=== PATIENT | male | born 1945 | race Caucasian/White ===

== ENCOUNTER 2017-11-17 11:18 | Inpatient (IN) | payer OTHER ==
[2017-11-17 11:18] VITALS: BMI 26.6
--- NOTE | 2017-11-17 12:10 | C.PDOC ---
History Of Present Illness 72 y/o male sent to the ED from [facility] with urinary retention. Patient has a Flower in place that was inserted in [facility] 2 weeks ago. He returned this week and went to clinic due to leaking around the Flower with some blood in the bag. Patient was then referred to ED for further evaluation and treatment. Otherwise he has no fever, chills, abdominal pain, or other complaints. Time Seen by Provider: 11/17/17 11:33 Chief Complaint (Nursing): Male Genitourinary History Per: Patient History/Exam Limitations: no limitations Onset/Duration Of Symptoms: Days Current Symptoms Are (Timing): Still Present Past Medical History Reviewed: Historical Data, Nursing Documentation, Vital Signs Vital Signs: Last Vital Signs Temp 98.0 F 11/17/17 13:38 Pulse 63 11/17/17 13:38 Resp 16 11/17/17 13:38 BP 128/78 11/17/17 13:38 Pulse Ox 97 11/17/17 14:29 - Medical History PMH: HTN Other PMH: Enlarged prostate Family History: States: No Known Family Hx - Social History Hx Tobacco Use: Yes Hx Alcohol Use: Yes Hx Substance Use: No - Immunization History Hx Tetanus Toxoid Vaccination: No Hx Influenza Vaccination: No Review Of Systems Except As Marked, All Systems Reviewed And Found Negative. Genitourinary: Positive for: Other (Urinary retention) Physical Exam - Physical Exam Appears: Non-toxic, No Acute Distress Skin: Normal Color, Warm, Dry Head: Atraumatic, Normacephalic Eye(s): bilateral: Normal Inspection, PERRL, EOMI Oral Mucosa: Moist Neck: Normal ROM, Supple Chest: Symmetrical Cardiovascular: Rhythm Regular, No Murmur Respiratory: Normal Breath Sounds, No Rales, No Rhonchi, No Wheezing Gastrointestinal/Abdominal: Soft, Tenderness (to suprapubic area), Distention, Other (Flower catheter in place with blood in bag) Male Genital: Normal Inspection, No Testicular Tenderness Neurological/Psych: Oriented x3, Normal Speech ED Course And Treatment - Laboratory Results Result Diagrams: 11/17/17 12:03 11/17/17 12:03 O2 Sat by Pulse Oximetry: 97 (RA) Pulse Ox Interpretation: Normal Medical Decision Making Medical Decision Making: Impression: Urinary retention, Flower replacement Initial Plan: --CMP --Lipase --CBC --UA --Urine culture Procedure: Flower catheter removed. Bladder irrigation was then initiated with removal of clots and flow reestablished. Flower catheter replaced in the ED. On reevaluation, clots still present in the bag, patient has not cleared the CBI. 2:30 Case discussed w/ hospitalist on-call, Dr. Person, patient accepted of obs admission for hematuria. Dr. Mannie Hadley, urology on-call, to consult. Disposition Discussed With .: Tyrese Person Counseled Patient/Family Regarding: Studies Performed, Diagnosis - Disposition Referrals: Mannie Hadley MD [Staff Provider] - Disposition: HOSPITALIZED Disposition Time: 14:29 Condition: FAIR Forms: [facility] (Slovenian) - Clinical Impression Clinical Impression: Hematuria - Scribe Statement The provider has reviewed the documentation as recorded by the Scribe (Vicky Calderon) Provider Attestation: All medical record entries made by the Scribe were at my direction and personally dictated by me. I have reviewed the chart and agree that the record accurately reflects my personal performance of the history, physical exam, medical decision making, and the department course for this patient. I have also personally directed, reviewed, and agree with the discharge instructions and disposition.
[2017-11-17 12:12] LABS: BASO # 0.1 K/uL (0.0-0.2); BASO % 0.7 % (0.0-2.0); EOS # 0.2 K/uL (0.0-0.7); EOS % 2.6 % (0.0-4.0); HEMOGLOBIN 16.3 g/dL (12.0-18.0); LYMPH # 2.2 K/uL (1.0-4.3); LYMPH % 27.1 % (20.0-40.0); MEAN CELL VOLUME 93.5 fL (80.0-94.0); MEAN CORPUSCULAR HEMOGLOBIN 33.1 pg (27.0-31.0); MEAN CORPUSCULAR HGB CONC 35.4 g/dL (33.0-37.0); MEAN PLATELET VOLUME 8.9 fL (7.2-11.7); MONO # 0.5 K/uL (0.0-0.8); MONO % 6.3 % (0.0-10.0); NEUT # 5.2 K/uL (1.8-7.0); NEUT % 63.3 % (50.0-75.0); NRBC % 0.1 % (0.0-2.0); RBC 4.92 Mil/uL (4.40-5.90); RED CELL DISTRIBUTION WIDTH 14.1 % (11.5-14.5); WHITE BLOOD COUNT 8.3 K/uL (4.8-10.8)
[2017-11-17 12:24] LABS: URINE BACTERIA OCC (<OCC); URINE BILIRUBIN NEGATIVE (NEGATIVE); URINE BLOOD 2+ (NEGATIVE); URINE CLARITY Hazy (Clear); URINE COLOR Red (YELLOW); URINE GLUCOSE (UA) 1+ mg/dL (Normal); URINE LEUKOCYTE ESTERASE NEG Leu/uL (Negative); URINE PROTEIN 2+ mg/dL (NEGATIVE); URINE UROBILINOGEN NORMAL mg/dL (0.2-1.0); WBC CLUMPS FEW /hpf
[2017-11-17 12:30] LABS: ALT/SGPT 36 U/L (21-72); AST/SGOT 35 U/L (17-59); BLOOD UREA NITROGEN 21 mg/dL (9-20); CALCIUM 9.2 mg/dl (8.6-10.4); GFR AFRICAN-AMERICAN > 60; GFR NON-AFRICAN AMERICAN > 60; LIPASE 69 U/L (23-300)
--- NOTE | 2017-11-17 15:38 | CP.PCM.HP ---
<Magi Snell - Last Filed: 11/17/17 15:55> History of Present Illness - History of Present Illness History of Present Illness: CC: Hematuria HPI: Patient is a 72 year old male with past medical history of HTN and BPH who presents to the ED as per PMD at [facility] for hematuria. Patient reports that he had a kar[facility] placed approximately [facility] days ago in [facility] for severe urinary retention and started to note evgeny hematuria approximately 2 days ago. Patient reports that he flew in from [facility] yesterday. Patient reports associated symptom of lower abdominal/Pelvic dysfunction. Patient denies fever, chills, nausea, vomiting, chest pain, palpitations, SOB, dysuria, diarrhea or constipation. As per ED nursing staff, patient passed few clots in urine upon admission. PMD: Dr. Shultz PSHx: Denies FHx: Mother 20 years ago, had an upper back mass Medications: lisinopril 20mg PO daily and ASA 81mg PO daily Allergies: NKDA Social Hx: Lives with daughter, stays with daughter in the [facility] for approximately 6 months and [facility] for 6 months. Smoker for > 20 years and admits to social ETOH use, denies current or former use of illicit drug. No written advance directive but daughterPatsy will be the next of kin Present on Admission - Present on Admission Any Indicators Present on Admission: Yes Urinary Catheter: Yes (Urinary retention ) Review of Systems - Constitutional Constitutional: absent: Chills, Fever, Headache, Weakness - EENT Eyes: absent: Blurred Vision, Change in Vision Ears: absent: Dizziness - Cardiovascular Cardiovascular: absent: Chest Pain, Chest Pain at Rest, Diaphoresis, Dyspnea, Dyspnea on Exertion, Orthopnea, Palpitations, Paroxysmal Nocturnal Dyspnea - Respiratory Respiratory: absent: Cough, Dyspnea, Dyspnea on Exertion - Gastrointestinal Gastrointestinal: absent: Abdominal Pain, Bloating, Cramping, Diarrhea, Hematemesis, Hematochezia, Nausea, Vomiting - Genitourinary Genitourinary: Difficulty Urinating, Hematuria, Urinary Hesitance, Bladder Distension. absent: Dysuria, Flank Pain, Urinary Frequency, Urinary Urgency - Musculoskeletal Musculoskeletal: absent: Back Pain, Numbness, Stiffness, Tingling - Neurological Neurological: absent: Confusion, Dizziness, Headaches, Syncope, Tingling, Weakness - Endocrine Endocrine: absent: Fatigue, Palpitations Past Patient History - Past Social History Smoking Status: Heavy Smoker > 10 Cigarettes Daily - CARDIAC Hx Hypertension: Yes - GENITOURINARY/GYNECOLOGICAL Hx Prostate Problems: Yes (Enlarged prostate) - PSYCHIATRIC Hx Substance Use: No - ANESTHESIA Hx Anesthesia: No Hx Anesthesia Reactions: No Meds Allergies/Adverse Reactions: Allergies Allergy/AdvReac Type Severity Reaction Status Date / Time No Known Allergies Allergy Verified 11/17/17 11:32 Physical Exam - Constitutional Appears: Well, No Acute Distress - Head Exam Head Exam: ATRAUMATIC, NORMAL INSPECTION - Eye Exam Eye Exam: EOMI, Normal appearance - ENT Exam ENT Exam: Mucous Membranes Moist - Respiratory Exam Respiratory Exam: Clear to Auscultation Bilateral, NORMAL BREATHING PATTERN. absent: Decreased Breath Sounds, Prolonged Expiratory Phase, Rhonchi, Wheezes, Respiratory Distress - Cardiovascular Exam Cardiovascular Exam: REGULAR RHYTHM, +S1, +S2. absent: Systolic Murmur - GI/Abdominal Exam GI & Abdominal Exam: Normal Bowel Sounds, Soft. absent: Distended, Guarding, Hypoactive Bowel Sounds, Organomegaly, Tenderness - Exam Additional comments: Karimi in place - Extremities Exam Extremities exam: Positive for: normal inspection. Negative for: calf tenderness, pedal edema - Neurological Exam Neurological exam: Alert, Oriented x3 - Psychiatric Exam Psychiatric exam: Normal Affect, Normal Mood - Skin Skin Exam: Normal Color Results - Vital Signs Recent Vital Signs: Last Vital Signs Temp 98.0 F 11/17/17 13:38 Pulse 63 11/17/17 13:38 Resp 16 11/17/17 13:38 BP 128/78 11/17/17 13:38 Pulse Ox 97 11/17/17 14:34 - Labs Result Diagrams: 11/17/17 12:03 11/17/17 12:03 Labs: Laboratory Results - last 24 hr 11/17/17 11/17/17 11/17/17 12:03 12:03 12:03 WBC 8.3 RBC 4.92 Hgb 16.3 Hct 46.0 MCV 93.5 MCH 33.1 H MCHC 35.4 RDW 14.1 Plt Count 236 MPV 8.9 Neut % (Auto) 63.3 Lymph % (Auto) 27.1 Hardy % (Auto) 6.3 Eos % (Auto) 2.6 Baso % (Auto) 0.7 Neut # (Auto) 5.2 Lymph # (Auto) 2.2 Hardy # (Auto) 0.5 Eos # (Auto) 0.2 Baso # (Auto) 0.1 Sodium 138 Potassium 3.8 Chloride 106 Carbon Dioxide 21 L Anion Gap 15 BUN 21 H Creatinine 1.0 Est GFR ( Amer) > 60 Est GFR (Non-Af Amer) > 60 Random Glucose 101 Calcium 9.2 Total Bilirubin 1.8 H AST 35 ALT 36 Alkaline Phosphatase 84 Total Protein 8.1 Albumin 4.0 Globulin 4.1 H Albumin/Globulin Ratio 1.0 Lipase 69 Urine Color Red Urine Clarity Hazy Urine pH 6.0 Ur Specific [place] 1.004 Urine Protein 2+ H Urine Glucose (UA) 1+ H Urine Ketones Negative Urine Blood 2+ H Urine Nitrate Negative Urine Bilirubin Negative Urine Urobilinogen Normal Ur Leukocyte Esterase Neg Urine WBC (Auto) 128 H Urine RBC (Auto) 3066 H Urine WBC Clumps (Auto) Few H Urine Bacteria Occ H Assessment & Plan (1) Hematuria Assessment and Plan: Secondary to BPH H/H stable Consultation: Urology, Dr. Hadley---> Help appreciated * Management as per recommendation Management: * CBI * Continue to monitor H/H with am labs * DVT: Anticoagulation contraindicated Status: Acute (2) BPH (benign prostatic hyperplasia) Assessment and Plan: F/u PSA and Free and total PSA Medication: * Flomax 0.4mg Po daily Status: Acute (3) Hypertension Assessment and Plan: Continue home medication * Lisinopril 20mg PO daily * Continue to monitor with vital signs Q4H Status: Acute (4) Prophylactic measure Assessment and Plan: GI: Not indicated DVT: SCDs All plans and management discussed with Dr. Person Status: Acute <Tyrese Person - Last Filed: 11/20/17 07:56> Results - Vital Signs Recent Vital Signs: Last Vital Signs Temp 97.9 F 11/19/17 23:40 Pulse 70 11/19/17 23:40 Resp 20 11/19/17 23:40 BP 109/70 11/19/17 23:40 Pulse Ox 94 L 11/19/17 23:40 - Labs Result Diagrams: 11/19/17 09:16 11/19/17 09:16 Labs: Laboratory Results - last 24 hr 11/19/17 11/19/17 11/19/17 09:16 09:16 11:29 WBC 7.9 RBC 4.95 Hgb 16.5 Hct 46.8 MCV 94.5 H MCH 33.3 H MCHC 35.2 RDW 13.8 Plt Count 227 MPV 8.7 Neut % (Auto) 63.3 Lymph % (Auto) 29.7 Hardy % (Auto) 4.0 Eos % (Auto) 2.3 Baso % (Auto) 0.7 Neut # (Auto) 5.0 Lymph # (Auto) 2.3 Hardy # (Auto) 0.3 Eos # (Auto) 0.2 Baso # (Auto) 0.1 Sodium 142 Potassium 3.6 Chloride 104 Carbon Dioxide 26 Anion Gap 16 BUN 14 Creatinine 1.0 Est GFR ( Amer) > 60 Est GFR (Non-Af Amer) > 60 POC Glucose (mg/dL) 116 H Random Glucose 128 H Calcium 9.3 Phosphorus 3.3 Magnesium 2.0 Total Bilirubin 2.7 H AST 37 ALT 34 Alkaline Phosphatase 82 Total Protein 8.0 Albumin 3.9 Globulin 4.1 H Albumin/Globulin Ratio 0.9 L Attending/Attestation - Attestation I have personally seen and examined this patient.: Yes I have fully participated in the care of the patient.: Yes I have reviewed all pertinent clinical information: Yes Notes (Text): Seen and examined with the resident in the ER. Spoke to her daughter at bedside Patient has gross hematuria on CBI 72 years old male with history of BPH and HTN was brought with karimi cath for hematuria. His karimi cath placed for urinary retension [facility] ago in [facility]. Plan discussed with the resident. start on flomax and follow urologist I agree with the resident's documentation of the assessment and plan
[2017-11-18 07:44] LABS: BASO # 0.1 K/uL (0.0-0.2); EOS # 0.2 K/uL (0.0-0.7); EOS % 2.2 % (0.0-4.0); HEMOGLOBIN 15.7 g/dL (12.0-18.0); LYMPH # 2.2 K/uL (1.0-4.3); LYMPH % 23.3 % (20.0-40.0); MEAN CELL VOLUME 93.3 fL (80.0-94.0); MEAN CORPUSCULAR HEMOGLOBIN 32.7 pg (27.0-31.0); MEAN PLATELET VOLUME 8.3 fL (7.2-11.7); MONO # 0.6 K/uL (0.0-0.8); MONO % 6.2 % (0.0-10.0); NEUT # 6.4 K/uL (1.8-7.0); NEUT % 67.3 % (50.0-75.0); NRBC % 0.1 % (0.0-2.0); RBC 4.82 Mil/uL (4.40-5.90); WHITE BLOOD COUNT 9.4 K/uL (4.8-10.8)
[2017-11-18 07:51] LABS: INR 1.2; PROTHROMBIN TIME 13.2 SECONDS (9.7-12.2)
[2017-11-18 08:16] LABS: ALBUMIN 3.6 g/dL (3.5-5.0); ALT/SGPT 29 U/L (21-72); AST/SGOT 27 U/L (17-59); BLOOD UREA NITROGEN 16 mg/dL (9-20); GFR AFRICAN-AMERICAN > 60; GFR NON-AFRICAN AMERICAN > 60
[2017-11-18 10:35] VITALS: RESP 20
--- NOTE | 2017-11-18 15:46 | CP.PCM.PN ---
Subjective - Date & Time of Evaluation Date of Evaluation: 11/18/17 Time of Evaluation: 07:50 - Subjective Subjective: Medicine progress note ( Dr. Person's service) Patient was seen and examined at bedside with two family members present. Patient reports that he is doing well with no new complaint. Patient denies fever, chills, nausea, vomiting, chest pain, palpitations, abdominal pain, diarrhea or constipation and dizziness. Objective - Vital Signs/Intake and Output Vital Signs (last 24 hours): Temp Pulse Resp BP Pulse Ox 98.3 F 79 20 131/79 93 L 11/18/17 07:34 11/18/17 07:34 11/18/17 07:34 11/18/17 07:34 11/18/17 12:57 Intake and Output: 11/18/17 11/18/17 06:59 18:59 Intake Total 120 76657 Output Total 1800 15858 Balance -1680 1950 - Medications Medications: Current Medications Lisinopril (Zestril) 20 mg PO DAILY [facility] Last Admin: 11/18/17 10:04 Dose: 20 mg Pneumococcal Polyvalent Vaccine (Pneumovax 23 Vaccine) 0.5 ml IM .ONCE ONE Stop: 11/20/17 10:01 Tamsulosin HCl (Flomax) 0.4 mg PO DAILY [facility] Last Admin: 11/18/17 10:03 Dose: 0.4 mg - Labs Labs: 11/18/17 07:36 11/18/17 07:36 PT 13.2 SECONDS (9.7-12.2) H 11/18/17 07:36 INR 1.2 11/18/17 07:36 APTT 30 SECONDS (21-34) 11/18/17 07:36 - Constitutional Appears: Well, No Acute Distress - Head Exam Head Exam: ATRAUMATIC - Eye Exam Eye Exam: EOMI - ENT Exam ENT Exam: Mucous Membranes Moist - Respiratory Exam Respiratory Exam: Clear to Ausculation Bilateral, NORMAL BREATHING PATTERN. absent: Prolonged Expiratory Phase, Rhonchi, Wheezes, Respiratory Distress - Cardiovascular Exam Cardiovascular Exam: REGULAR RHYTHM, +S1, +S2 - GI/Abdominal Exam GI & Abdominal Exam: Soft, Normal Bowel Sounds - Exam Additional comments: Flower in place Blood-tinged urine output and clots - Extremities Exam Extremities Exam: Normal Inspection - Neurological Exam Neurological Exam: Alert, Awake, Oriented x3 - Psychiatric Exam Psychiatric exam: Normal Affect - Skin Skin Exam: Normal Color Assessment and Plan (1) Hematuria Assessment & Plan: Secondary to BPH H/H stable Consultation: Urology, Dr. Hadley---> Help appreciated * Management as per recommendation Management: * CBI * Continue to monitor H/H with am labs * DVT: Anticoagulation contraindicated Status: Acute (2) BPH (benign prostatic hyperplasia) Assessment & Plan: PSA A.5 f/U Free and total PSA Medication: * Flomax 0.4mg Po daily Status: Acute (3) Hypertension Assessment & Plan: Stable Continue home medication * Lisinopril 20mg PO daily * Continue to monitor with vital signs Q4H Status: Acute (4) Prophylactic measure Assessment & Plan: GI: Not indicated DVT: SCDs, ambulating All plans and management discussed with Dr. Person Status: Acute
[2017-11-19 09:22] LABS: BASO # 0.1 K/uL (0.0-0.2); BASO % 0.7 % (0.0-2.0); EOS # 0.2 K/uL (0.0-0.7); EOS % 2.3 % (0.0-4.0); HEMOGLOBIN 16.5 g/dL (12.0-18.0); LYMPH # 2.3 K/uL (1.0-4.3); LYMPH % 29.7 % (20.0-40.0); MEAN CELL VOLUME 94.5 fL (80.0-94.0); MEAN CORPUSCULAR HEMOGLOBIN 33.3 pg (27.0-31.0); MEAN CORPUSCULAR HGB CONC 35.2 g/dL (33.0-37.0); MEAN PLATELET VOLUME 8.7 fL (7.2-11.7); MONO # 0.3 K/uL (0.0-0.8); NEUT % 63.3 % (50.0-75.0); RBC 4.95 Mil/uL (4.40-5.90); RED CELL DISTRIBUTION WIDTH 13.8 % (11.5-14.5); WHITE BLOOD COUNT 7.9 K/uL (4.8-10.8)
[2017-11-19 09:51] LABS: ALB/GLOB RATIO 0.9 (1.0-2.1); ALBUMIN 3.9 g/dL (3.5-5.0); ALT/SGPT 34 U/L (21-72); AST/SGOT 37 U/L (17-59); BLOOD UREA NITROGEN 14 mg/dL (9-20); CALCIUM 9.3 mg/dl (8.6-10.4); GFR AFRICAN-AMERICAN > 60; GFR NON-AFRICAN AMERICAN > 60
--- NOTE | 2017-11-19 12:25 | CP.PCM.DIS ---
<Magi Snell E - Last Filed: 11/19/17 12:59> Provider - Provider Date of Admission: 11/17/17 14:47 Attending physician: Tyrese Person MD Time Spent in preparation of Discharge (in minutes): 35 Diagnosis - Discharge Diagnosis (1) Hematuria Status: Acute (2) BPH (benign prostatic hyperplasia) Status: Chronic (3) Hypertension Status: Chronic (4) Prophylactic measure Status: Acute Hospital Course - Lab Results Lab Results: Micro Results 11/17/17 11:34 Urine Urine Culture - Final 10-50,000 CFU/ML. MULTIPLE SPECIES. PROBABLE CONTAMINATION. Most Recent Lab Values WBC 7.9 K/uL (4.8-10.8) 11/19/17 09:16 RBC 4.95 Mil/uL (4.40-5.90) 11/19/17 09:16 Hgb 16.5 g/dL (12.0-18.0) 11/19/17 09:16 Hct 46.8 % (35.0-51.0) 11/19/17 09:16 MCV 94.5 fL (80.0-94.0) H 11/19/17 09:16 MCH 33.3 pg (27.0-31.0) H 11/19/17 09:16 MCHC 35.2 g/dL (33.0-37.0) 11/19/17 09:16 RDW 13.8 % (11.5-14.5) 11/19/17 09:16 Plt Count 227 K/uL (130-400) 11/19/17 09:16 MPV 8.7 fL (7.2-11.7) 11/19/17 09:16 Neut % (Auto) 63.3 % (50.0-75.0) 11/19/17 09:16 Lymph % (Auto) 29.7 % (20.0-40.0) 11/19/17 09:16 [place] % (Auto) 4.0 % (0.0-10.0) 11/19/17 09:16 Eos % (Auto) 2.3 % (0.0-4.0) 11/19/17 09:16 Baso % (Auto) 0.7 % (0.0-2.0) 11/19/17 09:16 Neut # (Auto) 5.0 K/uL (1.8-7.0) 11/19/17 09:16 Lymph # (Auto) 2.3 K/uL (1.0-4.3) 11/19/17 09:16 [place] # (Auto) 0.3 K/uL (0.0-0.8) 11/19/17 09:16 Eos # (Auto) 0.2 K/uL (0.0-0.7) 11/19/17 09:16 Baso # (Auto) 0.1 K/uL (0.0-0.2) 11/19/17 09:16 PT 13.2 SECONDS (9.7-12.2) H 11/18/17 07:36 INR 1.2 11/18/17 07:36 APTT 30 SECONDS (21-34) 11/18/17 07:36 Sodium 142 mmol/L (132-148) 11/19/17 09:16 Potassium 3.6 mmol/L (3.6-5.2) 11/19/17 09:16 Chloride 104 mmol/L (98-107) 11/19/17 09:16 Carbon Dioxide 26 mmol/L (22-30) 11/19/17 09:16 Anion Gap 16 (10-20) 11/19/17 09:16 BUN 14 mg/dL (9-20) 11/19/17 09:16 Creatinine 1.0 mg/dL (0.8-1.5) 11/19/17 09:16 Est GFR ( Amer) > 60 11/19/17 09:16 Est GFR (Non-Af Amer) > 60 11/19/17 09:16 POC Glucose (mg/dL) 116 mg/dL (65-110) H 11/19/17 11:29 Random Glucose 128 mg/dL (75-110) H 11/19/17 09:16 Calcium 9.3 mg/dl (8.6-10.4) 11/19/17 09:16 Phosphorus 3.3 mg/dL (2.5-4.5) 11/19/17 09:16 Magnesium 2.0 mg/dL (1.6-2.3) 11/19/17 09:16 Total Bilirubin 2.7 mg/dL (0.2-1.3) H 11/19/17 09:16 AST 37 U/L (17-59) 11/19/17 09:16 ALT 34 U/L (21-72) 11/19/17 09:16 Alkaline Phosphatase 82 U/L (38-126) 11/19/17 09:16 Total Protein 8.0 g/dL (6.3-8.3) 11/19/17 09:16 Albumin 3.9 g/dL (3.5-5.0) 11/19/17 09:16 Globulin 4.1 gm/dL (2.2-3.9) H 11/19/17 09:16 Albumin/Globulin Ratio 0.9 (1.0-2.1) L 11/19/17 09:16 Lipase 69 U/L (23-300) 11/17/17 12:03 Prostate Specific Ag 18.5 ng/mL (0.00-4.0) H 11/17/17 16:19 Urine Color Red (YELLOW) 11/17/17 12:03 Urine Clarity Hazy (Clear) 11/17/17 12:03 Urine pH 6.0 (5.0-8.0) 11/17/17 12:03 Ur Specific Hanna 1.004 (1.003-1.030) 11/17/17 12:03 Urine Protein 2+ mg/dL (NEGATIVE) H 11/17/17 12:03 Urine Glucose (UA) 1+ mg/dL (Normal) H 11/17/17 12:03 Urine Ketones Negative mg/dL (NEGATIVE) 11/17/17 12:03 Urine Blood 2+ (NEGATIVE) H 11/17/17 12:03 Urine Nitrate Negative (NEGATIVE) 11/17/17 12:03 Urine Bilirubin Negative (NEGATIVE) 11/17/17 12:03 Urine Urobilinogen Normal mg/dL (0.2-1.0) 11/17/17 12:03 Ur Leukocyte Esterase Neg Dyllan/uL (Negative) 11/17/17 12:03 Urine WBC (Auto) 128 /hpf (0-5) H 11/17/17 12:03 Urine RBC (Auto) 3066 /hpf (0-3) H 11/17/17 12:03 Urine WBC Clumps (Auto) Few /hpf (NONE) H 11/17/17 12:03 Urine Bacteria Occ (<OCC) H 11/17/17 12:03 - Hospital Course Hospital Course: HPI (As per admission): Patient is a 72 year old male with past medical history of HTN and BPH who presents to the ED as per PMD at [facility] for hematuria. Patient reports that he had a karimi placed approximately 9 days ago in [facility] for severe urinary retention and started to note evgeny hematuria approximately 2 days ago. Patient reports that he flew in from [place] yesterday. Patient reports associated symptom of lower abdominal/Pelvic dysfunction. Patient denies fever, chills, nausea, vomiting, chest pain, palpitations, SOB, dysuria, diarrhea or constipation. As per ED nursing staff, patient passed few clots in urine upon admission. Hospital Course: Patient was admitted with the consideration of hematuria. 18 thai karimi catheter was placed and CBI was started upon admission and over the course of admission. Blood clot was noted on admission and Day 1 and Day 2 of admission. On day 2 of admission, patient's urine was much cleared; pink color. Patient remained hemodynamically stable with stable H/H. Urology, Dr. Us was consulted who recommended outpatient follow up with him and for discharge with karimi catheter. This is a brief summary of event. For a complete course, please refer to the medical record. Discharge Exam - Head Exam Head Exam: ATRAUMATIC Discharge Plan - Discharge Medications Prescriptions: Lisinopril [Zestril] 20 mg PO DAILY 30 Days #30 tab Tamsulosin [Flomax] 0.4 mg PO DAILY 30 Days #30 cap - Follow Up Plan Condition: FAIR Disposition: HOME/ ROUTINE Instructions: Blood in the Urine (Hematuria) in Adults, Benign Prostatic Hyperplasia (Enlarged Prostate) (DC), Blood in the Urine (Hematuria), Adult (DC) Additional Instructions: Please discharge patient home as per Dr. Hadley As per Dr. Mannie Hadley's instruction, patient is to be discharge with a karimi and to follow up with him in the office tomorrow or within a week, [phone] Mannie Hadley's office [address] [place] [address] Please resume your home medications: 1. Lisinopril 20mg PO daily 2. Flomax 0.4mg PO daily Please follow up with your primary care physician at [facility] [place], [phone] Please return to the hospital if symptoms worsens or resume Please take care Referrals: Mannie Hadley MD [Staff Provider] - <Shagufta North - Last Filed: 11/20/17 17:45> Provider - Provider Date of Admission: 11/19/17 16:28 Attending physician: Tyrese Person MD Hospital Course - Lab Results Lab Results: Micro Results 11/17/17 11:34 Urine Urine Culture - Final 10-50,000 CFU/ML. MULTIPLE SPECIES. PROBABLE CONTAMINATION. Most Recent Lab Values WBC 8.2 K/uL (4.8-10.8) 11/20/17 08:12 RBC 4.69 Mil/uL (4.40-5.90) 11/20/17 08:12 Hgb 15.4 g/dL (12.0-18.0) 11/20/17 08:12 Hct 44.1 % (35.0-51.0) 11/20/17 08:12 MCV 94.1 fL (80.0-94.0) H 11/20/17 08:12 MCH 32.9 pg (27.0-31.0) H 11/20/17 08:12 MCHC 35.0 g/dL (33.0-37.0) 11/20/17 08:12 RDW 14.0 % (11.5-14.5) 11/20/17 08:12 Plt Count 196 K/uL (130-400) 11/20/17 08:12 MPV 8.6 fL (7.2-11.7) 11/20/17 08:12 Neut % (Auto) 67.2 % (50.0-75.0) 11/20/17 08:12 Lymph % (Auto) 22.4 % (20.0-40.0) 11/20/17 08:12 [place] % (Auto) 6.9 % (0.0-10.0) 11/20/17 08:12 Eos % (Auto) 3.1 % (0.0-4.0) 11/20/17 08:12 Baso % (Auto) 0.4 % (0.0-2.0) 11/20/17 08:12 Neut # (Auto) 5.5 K/uL (1.8-7.0) 11/20/17 08:12 Lymph # (Auto) 1.8 K/uL (1.0-4.3) 11/20/17 08:12 [place] # (Auto) 0.6 K/uL (0.0-0.8) 11/20/17 08:12 Eos # (Auto) 0.3 K/uL (0.0-0.7) 11/20/17 08:12 Baso # (Auto) 0.0 K/uL (0.0-0.2) 11/20/17 08:12 PT 13.2 SECONDS (9.7-12.2) H 11/18/17 07:36 INR 1.2 11/18/17 07:36 APTT 30 SECONDS (21-34) 11/18/17 07:36 Sodium 141 mmol/L (132-148) 11/20/17 08:12 Potassium 4.0 mmol/L (3.6-5.2) 11/20/17 08:12 Chloride 106 mmol/L (98-107) 11/20/17 08:12 Carbon Dioxide 24 mmol/L (22-30) 11/20/17 08:12 Anion Gap 15 (10-20) 11/20/17 08:12 BUN 18 mg/dL (9-20) 11/20/17 08:12 Creatinine 1.0 mg/dL (0.8-1.5) 11/20/17 08:12 Est GFR ( Amer) > 60 11/20/17 08:12 Est GFR (Non-Af Amer) > 60 11/20/17 08:12 POC Glucose (mg/dL) 116 mg/dL (65-110) H 11/19/17 11:29 Random Glucose 98 mg/dL (75-110) 11/20/17 08:12 Calcium 9.1 mg/dl (8.6-10.4) 11/20/17 08:12 Phosphorus 3.9 mg/dL (2.5-4.5) 11/20/17 08:12 Magnesium 2.1 mg/dL (1.6-2.3) 11/20/17 08:12 Total Bilirubin 2.3 mg/dL (0.2-1.3) H 11/20/17 08:12 AST 37 U/L (17-59) 11/20/17 08:12 ALT 39 U/L (21-72) 11/20/17 08:12 Alkaline Phosphatase 77 U/L (38-126) 11/20/17 08:12 Total Protein 7.4 g/dL (6.3-8.3) 11/20/17 08:12 Albumin 3.5 g/dL (3.5-5.0) 11/20/17 08:12 Globulin 3.9 gm/dL (2.2-3.9) 11/20/17 08:12 Albumin/Globulin Ratio 0.9 (1.0-2.1) L 11/20/17 08:12 Lipase 69 U/L (23-300) 11/17/17 12:03 Prostate Specific Ag 18.5 ng/mL (0.00-4.0) H 11/17/17 16:19 Urine Color Red (YELLOW) 11/17/17 12:03 Urine Clarity Hazy (Clear) 11/17/17 12:03 Urine pH 6.0 (5.0-8.0) 11/17/17 12:03 Ur Specific Hanna 1.004 (1.003-1.030) 11/17/17 12:03 Urine Protein 2+ mg/dL (NEGATIVE) H 11/17/17 12:03 Urine Glucose (UA) 1+ mg/dL (Normal) H 11/17/17 12:03 Urine Ketones Negative mg/dL (NEGATIVE) 11/17/17 12:03 Urine Blood 2+ (NEGATIVE) H 11/17/17 12:03 Urine Nitrate Negative (NEGATIVE) 11/17/17 12:03 Urine Bilirubin Negative (NEGATIVE) 11/17/17 12:03 Urine Urobilinogen Normal mg/dL (0.2-1.0) 11/17/17 12:03 Ur Leukocyte Esterase Neg Dyllan/uL (Negative) 11/17/17 12:03 Urine WBC (Auto) 128 /hpf (0-5) H 11/17/17 12:03 Urine RBC (Auto) 3066 /hpf (0-3) H 11/17/17 12:03 Urine WBC Clumps (Auto) Few /hpf (NONE) H 11/17/17 12:03 Urine Bacteria Occ (<OCC) H 11/17/17 12:03 Discharge Exam - Additional Findings Additional findings: - Constitutional Appears: Well, No Acute Distress - Head Exam Head Exam: ATRAUMATIC - Eye Exam Eye Exam: EOMI - ENT Exam ENT Exam: Mucous Membranes Moist - Respiratory Exam Respiratory Exam: Clear to Ausculation Bilateral, NORMAL BREATHING PATTERN. absent: Prolonged Expiratory Phase, Rhonchi, Wheezes, Respiratory Distress - Cardiovascular Exam Cardiovascular Exam: REGULAR RHYTHM, +S1, +S2 - GI/Abdominal Exam GI & Abdominal Exam: Soft, Normal Bowel Sounds - Exam Additional comments: Karimi in place yellow urine in karimi bag - Extremities Exam Extremities Exam: Normal Inspection - Neurological Exam Neurological Exam: Alert, Awake, Oriented x3 - Psychiatric Exam Psychiatric exam: Normal Affect - Skin Skin Exam: Normal Color
--- NOTE | 2017-11-19 16:22 | CP.PCM.PN ---
Subjective - Date & Time of Evaluation Date of Evaluation: 11/19/17 Time of Evaluation: 08:00 - Subjective Subjective: Medicine progress note ( Dr. Person's service) Patient was seen and examined at bedside with multiple family member. Patient reports that he is doing well with no new complaint. Patient denies fever, chills, nausea, vomiting, chest pain, palpitations, abdominal pain, diarrhea or constipation and dizziness. Patient was cleared for discharge, however, upon discharge, patient's karimi was noted to be bright red. Dr. Hadley was made aware, who states that his plans for cystoscopy is for outpatient follow up and discharge is at the discretion of the medicine team. Discharge was held due to gross hematuria, patient is to be monitor overnight with going CBI. Objective - Vital Signs/Intake and Output Vital Signs (last 24 hours): Temp Pulse Resp BP Pulse Ox 98.3 F 78 20 156/86 H 97 11/19/17 08:00 11/19/17 08:00 11/19/17 08:00 11/19/17 08:00 11/19/17 08:05 Intake and Output: 11/19/17 11/19/17 06:59 18:59 Intake Total 620 Output Total 1055 Balance -435 - Medications Medications: Current Medications Lisinopril (Zestril) 20 mg PO DAILY [facility] Last Admin: 11/19/17 10:54 Dose: 20 mg Pneumococcal Polyvalent Vaccine (Pneumovax 23 Vaccine) 0.5 ml IM .ONCE ONE Stop: 11/20/17 10:01 Tamsulosin HCl (Flomax) 0.4 mg PO DAILY [facility] Last Admin: 11/19/17 10:54 Dose: 0.4 mg - Labs Labs: 11/19/17 09:16 11/19/17 09:16 PT 13.2 SECONDS (9.7-12.2) H 11/18/17 07:36 INR 1.2 11/18/17 07:36 APTT 30 SECONDS (21-34) 11/18/17 07:36 - Constitutional Appears: Well, No Acute Distress - Head Exam Head Exam: ATRAUMATIC, NORMAL INSPECTION - Eye Exam Eye Exam: EOMI, Normal appearance - ENT Exam ENT Exam: Mucous Membranes Moist - Respiratory Exam Respiratory Exam: Clear to Ausculation Bilateral, NORMAL BREATHING PATTERN. absent: Prolonged Expiratory Phase, Rhonchi, Wheezes, Respiratory Distress - Cardiovascular Exam Cardiovascular Exam: REGULAR RHYTHM, +S1, +S2. absent: Murmur - GI/Abdominal Exam GI & Abdominal Exam: Soft, Normal Bowel Sounds. absent: Firm, Guarding, Rigid, Tenderness - Extremities Exam Extremities Exam: Calf Tenderness. absent: Full ROM, Normal Inspection, Pedal Edema - Neurological Exam Neurological Exam: Alert, Awake, Oriented x3 - Psychiatric Exam Psychiatric exam: Normal Affect - Skin Skin Exam: Normal Color Assessment and Plan (1) Hematuria Assessment & Plan: Secondary to BPH H/H stable Consultation: Urology, Dr. Hadley---> Help appreciated * Management as per recommendation * Plans for outpatient follow up Management: * CBI * Continue to monitor H/H with am labs * DVT: Anticoagulation contraindicated Status: Acute (2) BPH (benign prostatic hyperplasia) Assessment & Plan: PSA A.5 f/U Free and total PSA Medication: * Flomax 0.4mg Po daily Status: Chronic (3) Hypertension Assessment & Plan: Stable Continue home medication * Lisinopril 20mg PO daily * Continue to monitor with vital signs Q4H Status: Chronic (4) Prophylactic measure Assessment & Plan: GI: Not indicated DVT: SCDs, ambulating ( VTE contraindicated due to gross hematuria) Disposition: Possible D/C tomorrow as long as karimi without gross hematuria All plans and management discussed with Dr. Person Status: Acute
[2017-11-20 08:19] LABS: BASO % 0.4 % (0.0-2.0); EOS # 0.3 K/uL (0.0-0.7); EOS % 3.1 % (0.0-4.0); HEMOGLOBIN 15.4 g/dL (12.0-18.0); LYMPH # 1.8 K/uL (1.0-4.3); LYMPH % 22.4 % (20.0-40.0); MEAN CELL VOLUME 94.1 fL (80.0-94.0); MEAN CORPUSCULAR HEMOGLOBIN 32.9 pg (27.0-31.0); MEAN PLATELET VOLUME 8.6 fL (7.2-11.7); MONO # 0.6 K/uL (0.0-0.8); MONO % 6.9 % (0.0-10.0); NEUT # 5.5 K/uL (1.8-7.0); NEUT % 67.2 % (50.0-75.0); NRBC % 0.1 % (0.0-2.0); RBC 4.69 Mil/uL (4.40-5.90); WHITE BLOOD COUNT 8.2 K/uL (4.8-10.8)
[2017-11-20 08:26] VITALS: BP 109/68; PULSE 75; TEMP 98.8; O2SAT 96
[2017-11-20 08:37] LABS: ALB/GLOB RATIO 0.9 (1.0-2.1); ALBUMIN 3.5 g/dL (3.5-5.0); ALT/SGPT 39 U/L (21-72); AST/SGOT 37 U/L (17-59); BLOOD UREA NITROGEN 18 mg/dL (9-20); CALCIUM 9.1 mg/dl (8.6-10.4); GFR AFRICAN-AMERICAN > 60; GFR NON-AFRICAN AMERICAN > 60
[2017-11-20] MEDS ORDERED: Pneumococcal 23-Valent Vaccine IM ONE (10:00)
[2017-11-21 00:55] LABS: TOTAL PSA 24.6 ng/mL (< or = 4.0)
== END 2017-11-20 13:10 | disposition home or self-care (01) | DRG 349 ==
LOC: C.ER 11:18 → C.9E 14:47 → C.3T 18:01 → OBSVTOIN 11-19 16:28
PROVIDERS: ADMIT Internal Medicine; ATTEND Internal Medicine
DX: N40.1 Benign prostatic hyperplasia with lower urinary tract symptoms (principal); I10 Essential (primary) hypertension; R31.0 Gross hematuria; R33.8 Other retention of urine

== ENCOUNTER 2017-11-21 07:09 | Emergency (ER) | payer OTHER ==
[2017-11-21 07:21] VITALS: BP 122/75; PULSE 82; RESP 18; TEMP 98.8; O2SAT 94; BMI 27.4
--- NOTE | 2017-11-21 07:50 | C.PDOC ---
History Of Present Illness Patient presents to ED for evaluation and complains of inability to empty his leg bag. Patient states the bag was full and he was unable to empty it. Patient was just discharged from hospital. Otherwise he has no fever, chills, abdominal pain, or other complaints. Chief Complaint (Nursing): Male Genitourinary History Per: Patient History/Exam Limitations: no limitations Past Medical History Reviewed: Historical Data, Nursing Documentation, Vital Signs Vital Signs: Last Vital Signs Temp 98.8 F 11/21/17 07:20 Pulse 82 11/21/17 07:20 Resp 18 11/21/17 07:20 BP 122/75 11/21/17 07:20 Pulse Ox 94 L 11/21/17 07:55 - Medical History PMH: HTN Surgical History: No Surg Hx Family History: States: No Known Family Hx - Social History Hx Tobacco Use: Yes Hx Alcohol Use: No Hx Substance Use: No - Immunization History Hx Tetanus Toxoid Vaccination: No Hx Influenza Vaccination: Yes Review Of Systems Except As Marked, All Systems Reviewed And Found Negative. Constitutional: Negative for: Fever, Chills Gastrointestinal: Negative for: Abdominal Pain Physical Exam - Physical Exam Appears: Non-toxic, No Acute Distress Skin: Normal Color, Warm Head: Atraumatic, Normacephalic Eye(s): bilateral: Normal Inspection Nose: Normal Oral Mucosa: Moist Neck: Supple Chest: Symmetrical Cardiovascular: Rhythm Regular Respiratory: Normal Breath Sounds, No Rales, No Rhonchi, No Wheezing Gastrointestinal/Abdominal: Normal Exam, Soft, No Tenderness Male Genital: Other (Karimi in place) Neurological/Psych: Oriented x3, Normal Speech ED Course And Treatment O2 Sat by Pulse Oximetry: 94 Pulse Ox Interpretation: Abnormal Medical Decision Making Medical Decision Making: Prior records reviewed: Patient admitted for gross hematuria 11/17/17 and discharged 2 days later on the . Patient had 18 cypriot karimi catheter placed and CBI was started upon admission and over the course of admission. Urology, Dr. Earl Hadley was consulted who recommended outpatient follow up with him and for discharge with karimi catheter. Discharged with Rx Lisinopril and Flomax Leg bag was removed and irrigate karimi catheter which had blood tinged urine. RN instructed for CBI. After CBI, urine turned clear. Patient had no pain. Leg bag was replaced. Patient and family member were instructed on how to empty leg bag in Chinese and they expressed understanding. Patient is to follow up with Dr Dago Hadley and continue mediations. Disposition Counseled Patient/Family Regarding: Diagnosis, Need For Followup - Disposition Referrals: Priya Shultz MD [Staff Provider] - Mannie Hadley MD [Staff Provider] - Disposition: HOME/ ROUTINE Disposition Time: 07:47 Condition: STABLE Additional Instructions: Follow up with Dr Mannie Hadley in the office tomorrow or within a week, [phone] Office [address] [place] [address] Please follow up with your primary care physician at [facility], [phone] [place] un seguimiento con el Dr. Mannie Hadley en la oficina maana. [address] [facility], [place] [address] Consulte con [facility] en el [facility] en [place], [phone]. Instructions: How to Care for Your Karimi Catheter, Male Print Language: CZECH - POA Present On Arrival: None - Clinical Impression Clinical Impression: Encounter for evaluation of Karimi catheter - PA / MANAGER NET / Resident Statement MD/DO has reviewed & agrees with the documentation as recorded. - Scribe Statement The provider has reviewed the documentation as recorded by the Scribe Claudia Schultz Provider Attestation All medical record entries made by the Scribe were at my direction and personally dictated by me. I have reviewed the chart and agree that the record accurately reflects my personal performance of the history, physical exam, medical decision making, and the department course for this patient. I have also personally directed, reviewed, and agree with the discharge instructions and disposition.
== END 2017-11-21 08:01 | disposition home or self-care (01) ==
LOC: C.ER 07:09
DX: Z43.6 Encounter for attention to other artificial openings of urinary tract (principal)

== ENCOUNTER 2017-11-22 19:05 | Inpatient (IN) | payer MEDICAID, OTHER ==
[2017-11-22 19:05] VITALS: BMI 27.4
[2017-11-22 20:03] LABS: BASO # 0.1 K/uL (0.0-0.2); BASO % 0.5 % (0.0-2.0); EOS # 0.3 K/uL (0.0-0.7); EOS % 2.4 % (0.0-4.0); HEMOGLOBIN 13.5 g/dL (12.0-18.0); LYMPH % 17.8 % (20.0-40.0); MEAN CELL VOLUME 93.7 fL (80.0-94.0); MEAN CORPUSCULAR HEMOGLOBIN 32.7 pg (27.0-31.0); MEAN CORPUSCULAR HGB CONC 34.9 g/dL (33.0-37.0); MEAN PLATELET VOLUME 7.9 fL (7.2-11.7); MONO # 0.7 K/uL (0.0-0.8); MONO % 5.8 % (0.0-10.0); NEUT # 8.3 K/uL (1.8-7.0); NEUT % 73.5 % (50.0-75.0); RBC 4.13 Mil/uL (4.40-5.90); RED CELL DISTRIBUTION WIDTH 13.5 % (11.5-14.5); WHITE BLOOD COUNT 11.3 K/uL (4.8-10.8)
[2017-11-22 20:18] LABS: ALB/GLOB RATIO 0.9 (1.0-2.1); ALBUMIN 3.8 g/dL (3.5-5.0); ALT/SGPT 35 U/L (21-72); AST/SGOT 35 U/L (17-59); BLOOD UREA NITROGEN 23 mg/dL (9-20); CALCIUM 8.8 mg/dl (8.6-10.4); GFR AFRICAN-AMERICAN > 60; GFR NON-AFRICAN AMERICAN 59
--- NOTE | 2017-11-22 20:26 | C.PDOC ---
History Of Present Illness 72yo male with history of BPH, hypertension, presents to ED for evaluation of gross hematuria, coming out of an indwelling karimi catheter which was placed 1- [address] Dago Hadley due to BPH and urinary retention. Patient was last evaluated in this ER on 11/19 for gross hematuria, and was admitted overnight for monitoring with continuous CBI. Patient currently denies any fever, chills, chest pain, shortness of breath, abdominal pain, back pain. He has no other complaints. Time Seen by Provider: 11/22/17 19:30 Chief Complaint (Nursing): Male Genitourinary History Per: Patient History/Exam Limitations: no limitations Onset/Duration Of Symptoms: Days Current Symptoms Are (Timing): Still Present Severity: Severe Associated Symptoms: Urinary Symptoms Past Medical History Reviewed: Historical Data, Nursing Documentation, Vital Signs Vital Signs: Last Vital Signs Temp 98.2 F 11/22/17 19:11 Pulse 83 11/23/17 00:09 Resp 16 11/23/17 00:09 BP 115/74 11/23/17 00:09 Pulse Ox 95 11/23/17 00:09 - Medical History PMH: HTN Other PMH: BPH Surgical History: No Surg Hx Family History: States: No Known Family Hx - Social History Hx Tobacco Use: Yes Hx Alcohol Use: No Hx Substance Use: No - Immunization History Hx Tetanus Toxoid Vaccination: No Hx Influenza Vaccination: Yes Review Of Systems Except As Marked, All Systems Reviewed And Found Negative. Constitutional: Negative for: Fever, Chills, Weakness, Malaise Eyes: Negative for: Pain, Vision Change, Eyelid Inflammation ENT: Negative for: Ear Pain, Ear Discharge, Nose Congestion, Mouth Pain Cardiovascular: Negative for: Chest Pain, Palpitations, Orthopnea, Paroxysmal Noc. Dyspnea, Edema, Light Headedness Respiratory: Negative for: Cough, Shortness of Breath, SOB with Excertion, Pleuritic Pain, Wheezing Gastrointestinal: Negative for: Nausea, Constipation, Rectal Pain Genitourinary: Positive for: Dysuria, Hematuria. Negative for: Frequency, Rash Musculoskeletal: Negative for: Neck Pain, Back Pain, Hand Pain Skin: Negative for: Rash, Lesions Neurological: Negative for: Weakness, Confusion Psych: Negative for: Anxiety, Psychosis Physical Exam - Physical Exam Appears: Non-toxic, No Acute Distress Skin: Warm, Dry Head: Atraumatic, Normacephalic Eye(s): bilateral: Normal Inspection, PERRL Nose: Normal Oral Mucosa: Moist Tongue: Normal Appearing Lips: Normal Appearing Teeth: Normal Dentition Gingiva: Normal Appearing Throat: Normal Neck: Normal ROM, Supple Chest: Symmetrical Cardiovascular: Rhythm Regular Respiratory: Normal Breath Sounds Gastrointestinal/Abdominal: Soft, Tenderness (suprapubic) Back: Normal Inspection Male Genital: Normal Inspection, Other (indwelling karimi catheter) Extremity: Normal ROM Neurological/Psych: Oriented x3 Gait: Steady ED Course And Treatment - Laboratory Results Result Diagrams: 11/22/17 19:59 11/22/17 19:59 ECG: Interpreted By Me, Viewed By Me ECG Rhythm: Sinus Rhythm, 1st Degree HB Interpretation Of ECG: MA: 208. QRS: 88. QT: 386. QTC: 461. Q wave in 2, 3 and AVF which is not new Rate From EC O2 Sat by Pulse Oximetry: 95 (RA) Pulse Ox Interpretation: Normal Medical Decision Making Medical Decision Making: Impression: Gross hematuria Plan: -- CBI -- Labs reviewed and unremarkable -- Urine culture Karimi catheter changed. Time: [address] Hadley, pending call back. Time: 2032 2nd page placed to Dr. Hadley, pending call back. Patient resting comfortably in ER. Patient admitted under Dr. 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 Time: [address] Hadley, who states patient was seen and evaluated in his office yesterday afternoon. Dr. Dago Hadley is agreeable with plan for admission Disposition Doctor Will See Patient In The: Hospital Counseled Patient/Family Regarding: Diagnosis, Smoking Cessation - Disposition Disposition: HOSPITALIZED Disposition Time: 00:36 Condition: FAIR - Clinical Impression Clinical Impression: Hematuria, Indwelling Karimi catheter present, BPH (benign prostatic hyperplasia ) - Scribe Statement The provider has reviewed the documentation as recorded by the Scribe (Deborah Montgomery) Provider Attestation: All medical record entries made by the Scribe were at my direction and personally dictated by me. I have reviewed the chart and agree that the record accurately reflects my personal performance of the history, physical exam, medical decision making, and the department course for this patient. I have also personally directed, reviewed, and agree with the discharge instructions and disposition.
[2017-11-22 20:32] LABS: URINE BILIRUBIN NEGATIVE (NEGATIVE); URINE CLARITY Turbid (Clear); URINE COLOR RED (YELLOW); URINE GLUCOSE (UA) NEGATIVE (Normal)
[2017-11-22 20:33] LABS: URINE BACTERIA RARE (<OCC); URINE BLOOD LARGE (NEGATIVE); URINE LEUKOCYTE ESTERASE 3+ Leu/uL (Negative); URINE PROTEIN 3+ mg/dL (NEGATIVE)
--- NOTE | 2017-11-22 21:10 | CP.PCM.HP ---
<TerenceGrzegorz cuello - Last Filed: 11/22/17 21:27> History of Present Illness - History of Present Illness History of Present Illness: CC: Gross Hematuria FULL CODE PMD: Dr. Shultz This patient is a 72 yo M w/ a PMhx of BPH and HTN who is coming for gross hematuria. He states he went to see Dr. Dago Hadley earlier this week, who placed a karimi for urinary retention, and noticed that for the last 3 days he was unable to urinate even with the karimi, and once he was able to, he noticed that the urine was bright red blood. He admitted to pain in the suprapubic region, but no other complaints, no CVA tenderness, no fevers/chills, LOCO, CP, SOB, lower extremity pain/swelling. He states he has had a problem with urination for many years. Previous heavy smoker, 50+ pack years, now smokes 1 cigarette a day and does not request nicotine patch. PMhx: HTN, BPH, karimi placement Meds: Lisinopril 20mg daily, Aspirin 81mg Allergies: Denies Surg: Denies FamHx: brothers, both from [place] in 70's, both parents " of old age" Social: lives with family, independent in all IADL and ADL, smokes 1 cigarette a day, social EtOH on weekends, denies illicit drug ever. Present on Admission - Present on Admission Any Indicators Present on Admission: Yes History of DVT/PE: No History of Uncontrolled Diabetes: No Urinary Catheter: No Decubitus Ulcer Present: No Past Patient History - Infectious Disease Hx of Infectious Diseases: None - Past Medical History & Family History Past Medical History?: Yes - Past Social History Smoking Status: Unknown If Ever Smoked - CARDIAC Hx Hypertension: Yes - MUSCULOSKELETAL/RHEUMATOLOGICAL Hx Falls: No - GENITOURINARY/GYNECOLOGICAL Hx Hematuria: Yes Hx Prostate Problems: Yes (Enlarged prostate) Other/Comment: karimi from home x 2 days - PSYCHIATRIC Hx Substance Use: No - ANESTHESIA Hx Anesthesia: No Hx Anesthesia Reactions: No Meds Allergies/Adverse Reactions: Allergies Allergy/AdvReac Type Severity Reaction Status Date / Time No Known Allergies Allergy Verified 11/22/17 19:14 Physical Exam - Constitutional Appears: Well, Non-toxic - Head Exam Head Exam: ATRAUMATIC - Eye Exam Eye Exam: EOMI, Normal appearance, PERRL Pupil Exam: PERRL - ENT Exam ENT Exam: Mucous Membranes Moist - Neck Exam Neck exam: Positive for: Full Rom, Lymphadenopathy - Respiratory Exam Respiratory Exam: Clear to Auscultation Bilateral, NORMAL BREATHING PATTERN. absent: Rales, Rhonchi, Wheezes - Cardiovascular Exam Cardiovascular Exam: REGULAR RHYTHM, +S1, +S2. absent: Diastolic murmur, Systolic Murmur - GI/Abdominal Exam GI & Abdominal Exam: Normal Bowel Sounds, Soft. absent: Tenderness (no longer tender in suprapubic region where he was before) - Extremities Exam Extremities exam: Positive for: full ROM, normal inspection. Negative for: calf tenderness, pedal edema - Back Exam Back exam: NORMAL INSPECTION. absent: CVA tenderness (L), CVA tenderness (R) - Neurological Exam Neurological exam: Alert, CN II-XII Intact, Oriented x3 - Psychiatric Exam Psychiatric exam: Normal Affect - Skin Skin Exam: Warm Results - Vital Signs Recent Vital Signs: Last Vital Signs Temp 98.2 F 11/22/17 19:11 Pulse 90 11/22/17 20:05 Resp 16 11/22/17 20:05 BP 113/71 11/22/17 20:05 Pulse Ox 95 11/22/17 20:53 - Labs Result Diagrams: 11/22/17 19:59 11/22/17 19:59 Labs: Laboratory Results - last 24 hr 11/22/17 11/22/17 11/22/17 19:59 19:59 20:01 WBC 11.3 H RBC 4.13 L Hgb 13.5 Hct 38.7 MCV 93.7 MCH 32.7 H MCHC 34.9 RDW 13.5 Plt Count 197 MPV 7.9 Neut % (Auto) 73.5 Lymph % (Auto) 17.8 L [place] % (Auto) 5.8 Eos % (Auto) 2.4 Baso % (Auto) 0.5 Neut # (Auto) 8.3 H Lymph # (Auto) 2.0 [place] # (Auto) 0.7 Eos # (Auto) 0.3 Baso # (Auto) 0.1 Sodium 139 Potassium 3.7 Chloride 103 Carbon Dioxide 23 Anion Gap 17 BUN 23 H Creatinine 1.2 Est GFR ( Amer) > 60 Est GFR (Non-Af Amer) 59 Random Glucose 128 H Calcium 8.8 Total Bilirubin 2.0 H AST 35 ALT 35 Alkaline Phosphatase 75 Total Protein 7.8 Albumin 3.8 Globulin 4.0 H Albumin/Globulin Ratio 0.9 L Urine Color Red Urine Clarity Turbid Urine pH 7.0 Ur Specific [place] 1.020 Urine Protein 3+ H Urine Glucose (UA) Negative Urine Ketones 15 Urine Blood Large Urine Nitrate Positive H Urine Bilirubin Negative Urine Urobilinogen 4.0 Ur Leukocyte Esterase 3+ H Urine WBC (Auto) 916 H Urine RBC (Auto) 61007 H Urine Bacteria Rare Assessment & Plan - Assessment and Plan (Free Text) Assessment: 72yo M admitted for urinary retention and gross hematuria Urinary Retention and Gross Hematuria -Urology; Dr. Dago Hadley; thank you for your help -karimi placed with CBI draining bright red blood; patient did take aspirin will hold in hospital -frequent flushing to make sure karimi is draining -1g ceftriaxone daily -will go for cysto/remove CBI monday as per Dr. Dago Hadley -f/u most recent EKG, Chest X-Ray and INR for surgical clearance -given smoking history, gross hematuria and elevated PSA patient has high liklihood of cancer; no B symptoms Hx of BPH -will increase flomax to BID 0.4mg Hx of HTN -will continue with lisinopril 20mg Proph -GI prophylaxis not indicated -SCDs discussed and seen with Dr. Camarena Decision To Admit - Pt Status Changed To: Hospital Disposition Of: Inpatient - Admit Certification Admit to Inpatient:: After my assessment, the patient will require hospitalization for at least two midnights. This is because of the severity of symptoms shown, intensity of services needed, and/or the medical risk in this patient being treated as an outpatient. - InPatient: Physician Admission Certification:: needs CBI and procedure - . Bed Request Type: Regular Admitting Physician: Serjio Camarena <Serjio Camarena - Last Filed: 11/23/17 07:58> Results - Vital Signs Recent Vital Signs: Last Vital Signs Temp 97.5 F L 11/23/17 04:05 Pulse 64 11/23/17 04:05 Resp 20 11/23/17 04:05 BP 125/75 11/23/17 04:05 Pulse Ox 96 11/23/17 04:05 - Labs Result Diagrams: 11/23/17 06:20 11/23/17 06:20 Labs: Laboratory Results - last 24 hr 11/22/17 11/22/17 11/22/17 19:59 19:59 20:01 WBC 11.3 H RBC 4.13 L Hgb 13.5 Hct 38.7 MCV 93.7 MCH 32.7 H MCHC 34.9 RDW 13.5 Plt Count 197 MPV 7.9 Neut % (Auto) 73.5 Lymph % (Auto) 17.8 L [place] % (Auto) 5.8 Eos % (Auto) 2.4 Baso % (Auto) 0.5 Neut # (Auto) 8.3 H Lymph # (Auto) 2.0 [place] # (Auto) 0.7 Eos # (Auto) 0.3 Baso # (Auto) 0.1 PT INR APTT Sodium 139 Potassium 3.7 Chloride 103 Carbon Dioxide 23 Anion Gap 17 BUN 23 H Creatinine 1.2 Est GFR ( Amer) > 60 Est GFR (Non-Af Amer) 59 POC Glucose (mg/dL) Random Glucose 128 H Calcium 8.8 Total Bilirubin 2.0 H AST 35 ALT 35 Alkaline Phosphatase 75 Total Protein 7.8 Albumin 3.8 Globulin 4.0 H Albumin/Globulin Ratio 0.9 L Urine Color Red Urine Clarity Turbid Urine pH 7.0 Ur Specific [place] 1.020 Urine Protein 3+ H Urine Glucose (UA) Negative Urine Ketones 15 Urine Blood Large Urine Nitrate Positive H Urine Bilirubin Negative Urine Urobilinogen 4.0 Ur Leukocyte Esterase 3+ H Urine WBC (Auto) 916 H Urine RBC (Auto) 14165 H Urine Bacteria Rare Blood Type Antibody Screen 11/22/17 11/22/17 11/23/17 21:18 21:50 00:55 WBC 9.7 RBC 3.80 L Hgb 12.6 Hct 35.7 MCV 94.1 H MCH 33.2 H MCHC 35.3 RDW 13.5 Plt Count 167 MPV 8.3 Neut % (Auto) Lymph % (Auto) [place] % (Auto) Eos % (Auto) Baso % (Auto) Neut # (Auto) Lymph # (Auto) [place] # (Auto) Eos # (Auto) Baso # (Auto) PT 13.8 H INR 1.2 APTT 35 H Sodium Potassium Chloride Carbon Dioxide Anion Gap BUN Creatinine Est GFR ( Amer) Est GFR (Non-Af Amer) POC Glucose (mg/dL) Random Glucose Calcium Total Bilirubin AST ALT Alkaline Phosphatase Total Protein Albumin Globulin Albumin/Globulin Ratio Urine Color Urine Clarity Urine pH Ur Specific [place] Urine Protein Urine Glucose (UA) Urine Ketones Urine Blood Urine Nitrate Urine Bilirubin Urine Urobilinogen Ur Leukocyte Esterase Urine WBC (Auto) Urine RBC (Auto) Urine Bacteria Blood Type O POSITIVE Antibody Screen Negative 11/23/17 11/23/17 11/23/17 06:20 06:20 07:20 WBC 9.1 RBC 3.85 L Hgb 12.9 Hct 36.2 MCV 94.1 H MCH 33.4 H MCHC 35.5 RDW 13.7 Plt Count 184 MPV 8.5 Neut % (Auto) 63.1 Lymph % (Auto) 25.4 [place] % (Auto) 7.2 Eos % (Auto) 3.8 Baso % (Auto) 0.5 Neut # (Auto) 5.8 Lymph # (Auto) 2.3 [place] # (Auto) 0.7 Eos # (Auto) 0.3 Baso # (Auto) 0.0 PT INR APTT Sodium 139 Potassium 4.1 Chloride 105 Carbon Dioxide 24 Anion Gap 14 BUN 19 Creatinine 1.0 Est GFR ( Amer) > 60 Est GFR (Non-Af Amer) > 60 POC Glucose (mg/dL) 94 Random Glucose 98 Calcium 8.5 L Total Bilirubin 1.5 H AST 31 ALT 33 Alkaline Phosphatase 76 Total Protein 6.9 Albumin 3.4 L Globulin 3.5 Albumin/Globulin Ratio 1.0 Urine Color Urine Clarity Urine pH Ur Specific [place] Urine Protein Urine Glucose (UA) Urine Ketones Urine Blood Urine Nitrate Urine Bilirubin Urine Urobilinogen Ur Leukocyte Esterase Urine WBC (Auto) Urine RBC (Auto) Urine Bacteria Blood Type Antibody Screen Attending/Attestation - Attestation I have personally seen and examined this patient.: Yes I have fully participated in the care of the patient.: Yes I have reviewed all pertinent clinical information: Yes Notes (Text): Assessment Hematuria with recent back ground of bph, currently on cbi, has clots, will need to stop asa till bleeding resolves, no h/o recent, stroke, mi, stents, also patient at time of discharge may benefit with folmax and 5 alpha reductase inhibitor, urology consulted, empiric abx.
[2017-11-22 21:34] LABS: INR 1.2; PROTHROMBIN TIME 13.8 SECONDS (9.7-12.2)
[2017-11-23 00:58] LABS: HEMOGLOBIN 12.6 g/dL (12.0-18.0); MEAN CELL VOLUME 94.1 fL (80.0-94.0); MEAN CORPUSCULAR HEMOGLOBIN 33.2 pg (27.0-31.0); MEAN CORPUSCULAR HGB CONC 35.3 g/dL (33.0-37.0); MEAN PLATELET VOLUME 8.3 fL (7.2-11.7); RBC 3.8 Mil/uL (4.40-5.90); RED CELL DISTRIBUTION WIDTH 13.5 % (11.5-14.5); WHITE BLOOD COUNT 9.7 K/uL (4.8-10.8)
[2017-11-23 06:31] LABS: BASO % 0.5 % (0.0-2.0); EOS # 0.3 K/uL (0.0-0.7); EOS % 3.8 % (0.0-4.0); HEMOGLOBIN 12.9 g/dL (12.0-18.0); LYMPH # 2.3 K/uL (1.0-4.3); LYMPH % 25.4 % (20.0-40.0); MEAN CELL VOLUME 94.1 fL (80.0-94.0); MEAN CORPUSCULAR HEMOGLOBIN 33.4 pg (27.0-31.0); MEAN CORPUSCULAR HGB CONC 35.5 g/dL (33.0-37.0); MEAN PLATELET VOLUME 8.5 fL (7.2-11.7); MONO # 0.7 K/uL (0.0-0.8); MONO % 7.2 % (0.0-10.0); NEUT # 5.8 K/uL (1.8-7.0); NEUT % 63.1 % (50.0-75.0); NRBC % 0.1 % (0.0-2.0); RBC 3.85 Mil/uL (4.40-5.90); RED CELL DISTRIBUTION WIDTH 13.7 % (11.5-14.5); WHITE BLOOD COUNT 9.1 K/uL (4.8-10.8)
[2017-11-23 07:36] LABS: ALBUMIN 3.4 g/dL (3.5-5.0); ALT/SGPT 33 U/L (21-72); AST/SGOT 31 U/L (17-59); BLOOD UREA NITROGEN 19 mg/dL (9-20); CALCIUM 8.5 mg/dl (8.6-10.4); GFR AFRICAN-AMERICAN > 60; GFR NON-AFRICAN AMERICAN > 60
[2017-11-23] MEDS ORDERED: Lactated Ringer's 1,000 ML IV SCH (08:15)
--- NOTE | 2017-11-23 08:21 | RAD ---
HISTORY: surgical clearance COMPARISON: No prior. FINDINGS: LUNGS: No active pulmonary disease. PLEURA: No significant pleural effusion identified, no pneumothorax apparent. CARDIOVASCULAR: Normal. OSSEOUS STRUCTURES: No significant abnormalities. VISUALIZED UPPER ABDOMEN: Normal. OTHER FINDINGS: None. IMPRESSION: No active disease.
[2017-11-23] MEDS: Lactated Ringer's 1,000 ML IV SCH ×2 (09:00→14:55)
[2017-11-23 09:21] LABS: HEPATITIS B SURFACE AG Negative (NEGATIVE)
[2017-11-23] MEDS: Saccharomyces Boulardi 250 mg Cap PO SCH ×2 (09:25→18:16)
[2017-11-23 09:26] LABS: HEPATITIS A IGM NEGATIVE (NEGATIVE); HEPATITIS B CORE AB NEGATIVE (NEGATIVE)
[2017-11-23 09:38] LABS: HEPATITIS C ANTIBODY NEGATIVE (NEGATIVE)
--- NOTE | 2017-11-23 10:05 | CT ---
PROCEDURE: CT Abdomen and Pelvis without intravenous contrast HISTORY: gross hematuria COMPARISON: None. TECHNIQUE: Without contrast.. Contrast Dose: 0 Radiation dose: Total exam DLP = Total exam DLP = 1048.52 mGy-cm. This CT exam was performed using one or more of the following dose reduction techniques: Automated exposure control, adjustment of the mA and/or kV according to patient size, and/or use of iterative reconstruction technique. FINDINGS: LOWER THORAX: Unremarkable. LIVER: Unremarkable. No gross lesion or ductal dilatation. GALLBLADDER AND BILE DUCTS: Cholelithiasis. No mural thickening or pericholecystic fluid. PANCREAS: Unremarkable. No gross lesion or ductal dilatation. SPLEEN: Unremarkable. ADRENALS: Unremarkable. No mass. KIDNEYS AND URETERS: 3 mm nonobstructing right lower pole renal calculus. No mass or hydronephrosis. VASCULATURE: Unremarkable. No aortic aneurysm. BOWEL: Diverticulum of the 2nd portion of the duodenum. Sigmoid diverticulosis without evidence of diverticulitis. No bowel obstruction. No other abnormal bowel loops. APPENDIX: Unremarkable. Normal appendix. PERITONEUM: Unremarkable. No free fluid. No free air. LYMPH NODES: Unremarkable. No enlarged lymph nodes. BLADDER: Bladder decompressed around a Flower catheter balloon. High attenuation material is ladder lumen consistent with blood. Small amount of gas related to catheterization. REPRODUCTIVE: Markedly enlarged prostate. The prostate measures roughly 7.4 x 8.3 by a 7.5 cm, equivalent to 240 cc volume. Further evaluation is advised. BONES: No acute fracture. Incidental T10 vertebral hemangioma. OTHER FINDINGS: None. IMPRESSION: Go nonobstructing 3 mm right lower pole renal calculus. Markedly enlarged prostate. Decompressed urinary bladder with Flower catheter balloon. Blood identified within urinary bladder lumen. Minor findings as above. Unremarkable non contrast enhanced CT of the abdomen and pelvis.
--- NOTE | 2017-11-23 11:43 | CARD ---
APPROVED REPORT EKG Measurement Heart [id number] [id number] <Conclusion> Normal sinus rhythm Inferior infarct, age undetermined Abnormal ECG
[2017-11-23 14:10] LABS: HEMOGLOBIN 12.1 g/dL (12.0-18.0)
--- NOTE | 2017-11-23 14:48 | PCM.URO ---
Urology Progress Note - Objective Lab Studies: Reviewed (dx; hematuria plans to be discussed) Lab Results Last 24 Hours: Laboratory Results - last 24 hr 11/22/17 11/22/17 11/22/17 19:59 19:59 20:01 WBC 11.3 H RBC 4.13 L Hgb 13.5 Hct 38.7 MCV 93.7 MCH 32.7 H MCHC 34.9 RDW 13.5 Plt Count 197 MPV 7.9 Neut % (Auto) 73.5 Lymph % (Auto) 17.8 L [place] % (Auto) 5.8 Eos % (Auto) 2.4 Baso % (Auto) 0.5 Neut # (Auto) 8.3 H Lymph # (Auto) 2.0 [place] # (Auto) 0.7 Eos # (Auto) 0.3 Baso # (Auto) 0.1 PT INR APTT Sodium 139 Potassium 3.7 Chloride 103 Carbon Dioxide 23 Anion Gap 17 BUN 23 H Creatinine 1.2 Est GFR ( Amer) > 60 Est GFR (Non-Af Amer) 59 POC Glucose (mg/dL) Random Glucose 128 H Calcium 8.8 Total Bilirubin 2.0 H AST 35 ALT 35 Alkaline Phosphatase 75 Total Protein 7.8 Albumin 3.8 Globulin 4.0 H Albumin/Globulin Ratio 0.9 L Urine Color Red Urine Clarity Turbid Urine pH 7.0 Ur Specific [place] 1.020 Urine Protein 3+ H Urine Glucose (UA) Negative Urine Ketones 15 Urine Blood Large Urine Nitrate Positive H Urine Bilirubin Negative Urine Urobilinogen 4.0 Ur Leukocyte Esterase 3+ H Urine WBC (Auto) 916 H Urine RBC (Auto) 37944 H Urine Bacteria Rare Hepatitis A IgM Ab Hep Bs Antigen Hep B Core IgM Ab Hepatitis C Antibody Blood Type Antibody Screen 11/22/17 11/22/17 11/23/17 21:18 21:50 00:55 WBC 9.7 RBC 3.80 L Hgb 12.6 Hct 35.7 MCV 94.1 H MCH 33.2 H MCHC 35.3 RDW 13.5 Plt Count 167 MPV 8.3 Neut % (Auto) Lymph % (Auto) [place] % (Auto) Eos % (Auto) Baso % (Auto) Neut # (Auto) Lymph # (Auto) [place] # (Auto) Eos # (Auto) Baso # (Auto) PT 13.8 H INR 1.2 APTT 35 H Sodium Potassium Chloride Carbon Dioxide Anion Gap BUN Creatinine Est GFR ( Amer) Est GFR (Non-Af Amer) POC Glucose (mg/dL) Random Glucose Calcium Total Bilirubin AST ALT Alkaline Phosphatase Total Protein Albumin Globulin Albumin/Globulin Ratio Urine Color Urine Clarity Urine pH Ur Specific [place] Urine Protein Urine Glucose (UA) Urine Ketones Urine Blood Urine Nitrate Urine Bilirubin Urine Urobilinogen Ur Leukocyte Esterase Urine WBC (Auto) Urine RBC (Auto) Urine Bacteria Hepatitis A IgM Ab Hep Bs Antigen Hep B Core IgM Ab Hepatitis C Antibody Blood Type O POSITIVE Antibody Screen Negative 11/23/17 11/23/17 11/23/17 06:20 06:20 07:14 WBC 9.1 RBC 3.85 L Hgb 12.9 Hct 36.2 MCV 94.1 H MCH 33.4 H MCHC 35.5 RDW 13.7 Plt Count 184 MPV 8.5 Neut % (Auto) 63.1 Lymph % (Auto) 25.4 [place] % (Auto) 7.2 Eos % (Auto) 3.8 Baso % (Auto) 0.5 Neut # (Auto) 5.8 Lymph # (Auto) 2.3 [place] # (Auto) 0.7 Eos # (Auto) 0.3 Baso # (Auto) 0.0 PT INR APTT Sodium 139 Potassium 4.1 Chloride 105 Carbon Dioxide 24 Anion Gap 14 BUN 19 Creatinine 1.0 Est GFR ( Amer) > 60 Est GFR (Non-Af Amer) > 60 POC Glucose (mg/dL) Random Glucose 98 Calcium 8.5 L Total Bilirubin 1.5 H AST 31 ALT 33 Alkaline Phosphatase 76 Total Protein 6.9 Albumin 3.4 L Globulin 3.5 Albumin/Globulin Ratio 1.0 Urine Color Urine Clarity Urine pH Ur Specific [place] Urine Protein Urine Glucose (UA) Urine Ketones Urine Blood Urine Nitrate Urine Bilirubin Urine Urobilinogen Ur Leukocyte Esterase Urine WBC (Auto) Urine RBC (Auto) Urine Bacteria Hepatitis A IgM Ab Negative Hep Bs Antigen Negative Hep B Core IgM Ab Negative Hepatitis C Antibody Negative Blood Type Antibody Screen 11/23/17 11/23/17 11/23/17 07:20 11:27 14:03 WBC RBC Hgb 12.1 Hct 34.7 L MCV MCH MCHC RDW Plt Count MPV Neut % (Auto) Lymph % (Auto) [place] % (Auto) Eos % (Auto) Baso % (Auto) Neut # (Auto) Lymph # (Auto) [place] # (Auto) Eos # (Auto) Baso # (Auto) PT INR APTT Sodium Potassium Chloride Carbon Dioxide Anion Gap BUN Creatinine Est GFR ( Amer) Est GFR (Non-Af Amer) POC Glucose (mg/dL) 94 99 Random Glucose Calcium Total Bilirubin AST ALT Alkaline Phosphatase Total Protein Albumin Globulin Albumin/Globulin Ratio Urine Color Urine Clarity Urine pH Ur Specific [place] Urine Protein Urine Glucose (UA) Urine Ketones Urine Blood Urine Nitrate Urine Bilirubin Urine Urobilinogen Ur Leukocyte Esterase Urine WBC (Auto) Urine RBC (Auto) Urine Bacteria Hepatitis A IgM Ab Hep Bs Antigen Hep B Core IgM Ab Hepatitis C Antibody Blood Type Antibody Screen Intake & Output: Intake & Output 11/22/17 11/23/17 11/23/17 18:59 06:59 18:59 Intake Total 15849 6240 Output Total 37100 6500 Balance -200 -260 Weight 170 lb Intake: Oral 240 Other 55554 6000 Output: Urine 90697 6500 2-way Urethral 250 Other: # Bowel Movements 0 Vital Signs: Vital Signs - 24 hr 11/22/17 11/22/17 11/22/17 19:11 20:05 22:14 Temperature 98.2 F Pulse Rate 130 H 90 88 Respiratory 22 16 20 Rate Blood Pressure 183/104 H 113/71 113/77 O2 Sat by Pulse 96 95 95 Oximetry 11/23/17 11/23/17 11/23/17 00:09 00:37 01:15 Temperature Pulse Rate 83 76 Respiratory 16 18 Rate Blood Pressure 115/74 115/70 O2 Sat by Pulse 95 95 94 L Oximetry 11/23/17 11/23/17 11/23/17 01:52 03:30 04:05 Temperature 98.0 F 97.5 F L Pulse Rate 69 71 64 Respiratory 17 18 20 Rate Blood Pressure 102/72 130/80 125/75 O2 Sat by Pulse 94 L 96 96 Oximetry 11/23/17 11/23/17 08:20 13:38 Temperature 98 F 98.1 F Pulse Rate 145 H 144 H Respiratory 20 20 Rate Blood Pressure 98/68 L 97/62 L O2 Sat by Pulse 95 95 Oximetry
--- NOTE | 2017-11-23 15:47 | CP.PCM.PN ---
<Jevon Hutton - Last Filed: 11/23/17 15:45> Subjective - Date & Time of Evaluation Date of Evaluation: 11/23/17 Time of Evaluation: 15:45 - Subjective Subjective: Patient seen and examined at bedside Doing well No complaints at this time No complaints of abdominal pain, chest pain, SOB, weakness, nausea or vomiting. Objective - Vital Signs/Intake and Output Vital Signs (last 24 hours): Temp Pulse Resp BP Pulse Ox 98.1 F 144 H 20 97/62 L 95 11/23/17 13:38 11/23/17 13:38 11/23/17 13:38 11/23/17 13:38 11/23/17 13:38 Intake and Output: 11/23/17 11/23/17 06:59 18:59 Intake [place] 63141 6240 Output Total 32804 6500 Balance -200 -260 - Medications Medications: Current Medications Acetaminophen (Tylenol 325mg Tab) 650 mg PO Q6 PRN PRN Reason: Fever >100.4 F Last Admin: 11/23/17 09:25 Dose: 650 mg Ceftriaxone Sodium 1 gm/ (Sodium Chloride) 100 mls @ 100 mls/hr IVPB DAILY [facility], [facility]1983 PRN Reason: Protocol Last Admin: 11/23/17 09:25 Dose: 100 mls/hr Lactated Ringer's (Lactated Ringer's) 1,000 mls @ 150 mls/hr IV .Q6H40M [facility], [facility]1983 Last Admin: 11/23/17 14:55 Dose: Not Given Lisinopril (Zestril) 20 mg PO DAILY [facility] Last Admin: 11/23/17 09:26 Dose: Not Given Ondansetron HCl (Zofran Inj) 4 mg IVP Q6 PRN PRN Reason: Nausea/Vomiting Saccharomyces Boulardii (Florastor) 250 mg PO BID [facility], [facility] Last Admin: 11/23/17 09:25 Dose: 250 mg Tamsulosin HCl (Flomax) 0.4 mg PO BID [facility] Last Admin: 11/23/17 09:25 Dose: 0.4 mg - Labs Labs: 11/23/17 14:03 11/23/17 06:20 PT 13.8 SECONDS (9.7-12.2) H 11/22/17 21:18 INR 1.2 11/22/17 21:18 APTT 35 SECONDS (21-34) H 11/22/17 21:18 - Constitutional Appears: Well - Head Exam Head Exam: ATRAUMATIC, NORMAL INSPECTION, NORMOCEPHALIC - Eye Exam Eye Exam: EOMI, Normal appearance, PERRL Pupil Exam: NORMAL ACCOMODATION, PERRL - ENT Exam ENT Exam: Mucous Membranes Moist, Normal Exam - Neck Exam Neck Exam: Full ROM, Normal Inspection. absent: Lymphadenopathy - Respiratory Exam Respiratory Exam: Clear to Ausculation Bilateral, NORMAL BREATHING PATTERN - Cardiovascular Exam Cardiovascular Exam: Tachycardia, REGULAR RHYTHM, +S1, +S2. absent: Murmur - GI/Abdominal Exam GI & Abdominal Exam: Soft, Normal Bowel Sounds. absent: Tenderness - Exam Exam: Circumcision, NORMAL INSPECTION (karimi catheter with CBI running many clots and bright red blood) - Extremities Exam Extremities Exam: Full ROM, Normal Capillary Refill, Normal Inspection. absent : Joint Swelling, Pedal Edema - Back Exam Back Exam: NORMAL INSPECTION - Neurological Exam Neurological Exam: Alert, Awake, CN II-XII Intact, Normal Gait, Oriented x3 - Psychiatric Exam Psychiatric exam: Normal Affect, Normal Mood - Skin Skin Exam: Dry, Intact, Normal Color, Warm Assessment and Plan (1) Hematuria Assessment & Plan: E. Leonie - cysto monday CBI Rocephin 1g IV QD for UTI Status: Acute (2) BPH (benign prostatic hyperplasia) Assessment & Plan: Flomax 0.4 po bid Status: Chronic (3) Hypertension Assessment & Plan: Zestril 20 PO QD Status: Chronic (4) SVT (supraventricular tachycardia) Assessment & Plan: Episode of SVT with HR in 145 and hypotensive @ SBP 90s Patient converted with adenosine 6mg 1x transfer to tele Repeat EKG Status: Acute (5) Prophylactic measure Assessment & Plan: scd VTE CI due to hematuria No GI PPX indicated at this time Status: Acute <Darryl Toro - Last Filed: 11/23/17 20:20> Objective - Vital Signs/Intake and Output Vital Signs (last 24 hours): Temp Pulse Resp BP Pulse Ox 98.2 F 150 H 14 108/68 97 11/23/17 17:31 11/23/17 19:45 11/23/17 19:45 11/23/17 19:45 11/23/17 19:45 Intake and Output: 11/23/17 11/24/17 18:59 06:59 Intake [place] 11508 3000 Output Total 3300 Balance 20 -300 - Medications Medications: Current Medications Ceftriaxone Sodium 1 gm/ (Sodium Chloride) 100 mls @ 100 mls/hr IVPB DAILY [facility]1983 PRN Reason: Protocol Last Admin: 11/23/17 09:25 Dose: 100 mls/hr Lactated Ringer's (Lactated Ringer's) 1,000 mls @ 150 mls/hr IV .Q6H40M [facility], [facility]1983 Last Admin: 11/23/17 14:55 Dose: Not Given Lisinopril (Zestril) 20 mg PO DAILY [facility] Last Admin: 11/23/17 09:26 Dose: Not Given Saccharomyces Boulardii (Florastor) 250 mg PO BID [facility] Last Admin: 11/23/17 18:16 Dose: 250 mg Tamsulosin HCl (Flomax) 0.4 mg PO BID [facility] Last Admin: 11/23/17 18:16 Dose: 0.4 mg - Labs Labs: 11/23/17 14:03 11/23/17 06:20 PT 13.8 SECONDS (9.7-12.2) H 11/22/17 21:18 INR 1.2 11/22/17 21:18 APTT 35 SECONDS (21-34) H 11/22/17 21:18 Attending/Attestation - Attestation I have personally seen and examined this patient.: Yes I have fully participated in the care of the patient.: Yes I have reviewed all pertinent clinical information, including history, physical exam and plan: Yes Notes (Text): 11/23/17 20:17 Patient was seen and examined at 7:45 AM Exam, assessment and plan were gone over with the resident Also on ROS: C/O of suprapubic pressure Last bowel movement was 11/22/17 Patient developed SVT SVT broke with adenosine but then continued to occur Patient was completely asymptomatic during episodes Administered Amiodarone and he was accpeted to ICU Obtain Cardiology consultation for further recommendations Spoke with Urologist Dr. Cathi Hadley and explained he will need to be cleared by Cardiology before Cystoscopy Darryl Toro D.O.
--- NOTE | 2017-11-23 18:42 | CP.PCM.CON ---
<Kevin Mcghee - Last Filed: 11/23/17 18:30> History of Present Illness - History of Present Illness History of Present Illness: Critical Care Consult Note for Dr. Guerra This is a 72 year old male with PMHx HTN and BPH who initially presented to the hospital for hematuria. Patient had karimi placed for urinary retention reportedly in mid October in [facility]. He came to the hospital in late October for the same complaint but was discharged to see urology as an outpatient. He was advised to come to the hospital due to inability to void even with the karimi catheter. Patient was set for cystoscopy tomorrow; however, he had new onset SVT this afternoon. It did not respond to multiple doses of Adenosine. Patient bolused with Amiodarone and will come to the ICU for further monitoring and possibilty of Amiodarone drip to follow the bolus. Patient himself has no complaints at this time and was seen eating comfortably in the presence of his family. PMHx: HTN, BPH PSHx: Denies Allergies: NKA Social: Smokes 1 cigarette daily, social alcohol use. Denies drug use. Review of Systems - Constitutional Constitutional: absent: Chills, Fever - EENT Eyes: absent: Change in Vision Ears: absent: Decreased Hearing Nose/Mouth/Throat: absent: Nasal Congestion - Cardiovascular Cardiovascular: absent: Chest Pain, Palpitations - Respiratory Respiratory: absent: Dyspnea - Gastrointestinal Gastrointestinal: absent: Abdominal Pain, Nausea, Vomiting - Genitourinary Genitourinary: absent: Dysuria - Musculoskeletal Musculoskeletal: absent: Back Pain - Integumentary Integumentary: absent: Rash - Psychiatric Psychiatric: absent: Anxiety - Endocrine Endocrine: absent: Palpitations Past Patient History - Infectious Disease Hx of Infectious Diseases: None - Past Medical History & Family History Past Medical History?: Yes - Past Social History Smoking Status: Unknown If Ever Smoked - CARDIAC Hx Hypertension: Yes - MUSCULOSKELETAL/RHEUMATOLOGICAL Hx Falls: No - GENITOURINARY/GYNECOLOGICAL Hx Hematuria: Yes Hx Prostate Problems: Yes (Enlarged prostate) Other/Comment: karimi from home x 2 days - PSYCHIATRIC Hx Substance Use: No - ANESTHESIA Hx Anesthesia: No Hx Anesthesia Reactions: No Meds Allergies/Adverse Reactions: Allergies Allergy/AdvReac Type Severity Reaction Status Date / Time No Known Allergies Allergy Verified 11/22/17 19:14 - Medications Medications: Current Medications Ceftriaxone Sodium 1 gm/ (Sodium Chloride) 100 mls @ 100 mls/hr IVPB DAILY [facility] PRN Reason: Protocol Last Admin: 11/23/17 09:25 Dose: 100 mls/hr Lactated Ringer's (Lactated Ringer's) 1,000 mls @ 150 mls/hr IV .Q6H40M [facility] Last Admin: 11/23/17 14:55 Dose: Not Given Lisinopril (Zestril) 20 mg PO DAILY [facility] Last Admin: 11/23/17 09:26 Dose: Not Given Saccharomyces Boulardii (Florastor) 250 mg PO BID [facility] Last Admin: 11/23/17 18:16 Dose: 250 mg Tamsulosin HCl (Flomax) 0.4 mg PO BID [facility] Last Admin: 11/23/17 18:16 Dose: 0.4 mg Physical Exam - Constitutional Appears: No Acute Distress - Head Exam Head Exam: ATRAUMATIC, NORMOCEPHALIC - Eye Exam Eye Exam: EOMI, Normal appearance - ENT Exam ENT Exam: Mucous Membranes Moist - Respiratory Exam Respiratory Exam: Clear to Auscultation Bilateral. absent: Rales, Rhonchi, Wheezes - Cardiovascular Exam Cardiovascular Exam: Tachycardia, +S1, +S2 - GI/Abdominal Exam GI & Abdominal Exam: Normal Bowel Sounds, Soft. absent: Tenderness - Extremities Exam Extremities exam: Positive for: pedal edema (trace) - Neurological Exam Neurological exam: Alert, CN II-XII Intact, Oriented x3 - Psychiatric Exam Psychiatric exam: Normal Affect, Normal Mood - Skin Skin Exam: Dry, Warm Results - Vital Signs Recent Vital Signs: Last Vital Signs Temp 98.1 F 11/23/17 13:38 Pulse 84 11/23/17 15:29 Resp 20 11/23/17 15:29 BP 109/65 11/23/17 15:29 Pulse Ox 93 L 11/23/17 16:43 - Labs Result Diagrams: 11/23/17 14:03 11/23/17 06:20 Labs: Laboratory Results - last 24 hr 11/22/17 11/22/17 11/22/17 19:59 19:59 20:01 WBC 11.3 H RBC 4.13 L Hgb 13.5 Hct 38.7 MCV 93.7 MCH 32.7 H MCHC 34.9 RDW 13.5 Plt Count 197 MPV 7.9 Neut % (Auto) 73.5 Lymph % (Auto) 17.8 L [place] % (Auto) 5.8 Eos % (Auto) 2.4 Baso % (Auto) 0.5 Neut # (Auto) 8.3 H Lymph # (Auto) 2.0 [place] # (Auto) 0.7 Eos # (Auto) 0.3 Baso # (Auto) 0.1 PT INR APTT Sodium 139 Potassium 3.7 Chloride 103 Carbon Dioxide 23 Anion Gap 17 BUN 23 H Creatinine 1.2 Est GFR ( Amer) > 60 Est GFR (Non-Af Amer) 59 POC Glucose (mg/dL) Random Glucose 128 H Calcium 8.8 Total Bilirubin 2.0 H AST 35 ALT 35 Alkaline Phosphatase 75 Total Protein 7.8 Albumin 3.8 Globulin 4.0 H Albumin/Globulin Ratio 0.9 L Urine Color Red Urine Clarity Turbid Urine pH 7.0 Ur Specific [place] 1.020 Urine Protein 3+ H Urine Glucose (UA) Negative Urine Ketones 15 Urine Blood Large Urine Nitrate Positive H Urine Bilirubin Negative Urine Urobilinogen 4.0 Ur Leukocyte Esterase 3+ H Urine WBC (Auto) 916 H Urine RBC (Auto) 95313 H Urine Bacteria Rare Hepatitis A IgM Ab Hep Bs Antigen Hep B Core IgM Ab Hepatitis C Antibody Blood Type Antibody Screen 11/22/17 11/22/17 11/23/17 21:18 21:50 00:55 WBC 9.7 RBC 3.80 L Hgb 12.6 Hct 35.7 MCV 94.1 H MCH 33.2 H MCHC 35.3 RDW 13.5 Plt Count 167 MPV 8.3 Neut % (Auto) Lymph % (Auto) [place] % (Auto) Eos % (Auto) Baso % (Auto) Neut # (Auto) Lymph # (Auto) [place] # (Auto) Eos # (Auto) Baso # (Auto) PT 13.8 H INR 1.2 APTT 35 H Sodium Potassium Chloride Carbon Dioxide Anion Gap BUN Creatinine Est GFR ( Amer) Est GFR (Non-Af Amer) POC Glucose (mg/dL) Random Glucose Calcium Total Bilirubin AST ALT Alkaline Phosphatase Total Protein Albumin Globulin Albumin/Globulin Ratio Urine Color Urine Clarity Urine pH Ur Specific [place] Urine Protein Urine Glucose (UA) Urine Ketones Urine Blood Urine Nitrate Urine Bilirubin Urine Urobilinogen Ur Leukocyte Esterase Urine WBC (Auto) Urine RBC (Auto) Urine Bacteria Hepatitis A IgM Ab Hep Bs Antigen Hep B Core IgM Ab Hepatitis C Antibody Blood Type O POSITIVE Antibody Screen Negative 11/23/17 11/23/17 11/23/17 06:20 06:20 07:14 WBC 9.1 RBC 3.85 L Hgb 12.9 Hct 36.2 MCV 94.1 H MCH 33.4 H MCHC 35.5 RDW 13.7 Plt Count 184 MPV 8.5 Neut % (Auto) 63.1 Lymph % (Auto) 25.4 [place] % (Auto) 7.2 Eos % (Auto) 3.8 Baso % (Auto) 0.5 Neut # (Auto) 5.8 Lymph # (Auto) 2.3 [place] # (Auto) 0.7 Eos # (Auto) 0.3 Baso # (Auto) 0.0 PT INR APTT Sodium 139 Potassium 4.1 Chloride 105 Carbon Dioxide 24 Anion Gap 14 BUN 19 Creatinine 1.0 Est GFR ( Amer) > 60 Est GFR (Non-Af Amer) > 60 POC Glucose (mg/dL) Random Glucose 98 Calcium 8.5 L Total Bilirubin 1.5 H AST 31 ALT 33 Alkaline Phosphatase 76 Total Protein 6.9 Albumin 3.4 L Globulin 3.5 Albumin/Globulin Ratio 1.0 Urine Color Urine Clarity Urine pH Ur Specific [place] Urine Protein Urine Glucose (UA) Urine Ketones Urine Blood Urine Nitrate Urine Bilirubin Urine Urobilinogen Ur Leukocyte Esterase Urine WBC (Auto) Urine RBC (Auto) Urine Bacteria Hepatitis A IgM Ab Negative Hep Bs Antigen Negative Hep B Core IgM Ab Negative Hepatitis C Antibody Negative Blood Type Antibody Screen 11/23/17 11/23/17 11/23/17 07:20 11:27 14:03 WBC RBC Hgb 12.1 Hct 34.7 L MCV MCH MCHC RDW Plt Count MPV Neut % (Auto) Lymph % (Auto) [place] % (Auto) Eos % (Auto) Baso % (Auto) Neut # (Auto) Lymph # (Auto) [place] # (Auto) Eos # (Auto) Baso # (Auto) PT INR APTT Sodium Potassium Chloride Carbon Dioxide Anion Gap BUN Creatinine Est GFR ( Amer) Est GFR (Non-Af Amer) POC Glucose (mg/dL) 94 99 Random Glucose Calcium Total Bilirubin AST ALT Alkaline Phosphatase Total Protein Albumin Globulin Albumin/Globulin Ratio Urine Color Urine Clarity Urine pH Ur Specific [place] Urine Protein Urine Glucose (UA) Urine Ketones Urine Blood Urine Nitrate Urine Bilirubin Urine Urobilinogen Ur Leukocyte Esterase Urine WBC (Auto) Urine RBC (Auto) Urine Bacteria Hepatitis A IgM Ab Hep Bs Antigen Hep B Core IgM Ab Hepatitis C Antibody Blood Type Antibody Screen 11/23/17 16:42 WBC RBC Hgb Hct MCV MCH MCHC RDW Plt Count MPV Neut % (Auto) Lymph % (Auto) [place] % (Auto) Eos % (Auto) Baso % (Auto) Neut # (Auto) Lymph # (Auto) [place] # (Auto) Eos # (Auto) Baso # (Auto) PT INR APTT Sodium Potassium Chloride Carbon Dioxide Anion Gap BUN Creatinine Est GFR ( Amer) Est GFR (Non-Af Amer) POC Glucose (mg/dL) 106 Random Glucose Calcium Total Bilirubin AST ALT Alkaline Phosphatase Total Protein Albumin Globulin Albumin/Globulin Ratio Urine Color Urine Clarity Urine pH Ur Specific [place] Urine Protein Urine Glucose (UA) Urine Ketones Urine Blood Urine Nitrate Urine Bilirubin Urine Urobilinogen Ur Leukocyte Esterase Urine WBC (Auto) Urine RBC (Auto) Urine Bacteria Hepatitis A IgM Ab Hep Bs Antigen Hep B Core IgM Ab Hepatitis C Antibody Blood Type Antibody Screen Assessment & Plan - Assessment and Plan (Free Text) Assessment: This is a 72 year old male with PMHx HTN and BPH who presented for hematuria after having karimi placed at some time mid-October (per chart review) for urinary retention. Patient with new onset SVTs. No cardiac history. Failed multiple adenosine doses. Due to low BP, amiodarone bolus started on the floors and will be transferred to the ICU for further monitoring and will see if a drip needs to be started. Neuro Awake, verbal Cardio Assessment: New onset SVT, Hx of HTN Failed adenosine doses Amiodarone bolus Will determine if drip needs to be added after the bolus is finished. 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 Guerra <Zackery Guerra - Last Filed: 11/23/17 18:48> Meds - Medications Medications: Current Medications Ceftriaxone Sodium 1 gm/ (Sodium Chloride) 100 mls @ 100 mls/hr IVPB DAILY [facility] PRN Reason: Protocol Last Admin: 11/23/17 09:25 Dose: 100 mls/hr Lactated Ringer's (Lactated Ringer's) 1,000 mls @ 150 mls/hr IV .Q6H40M [facility] Last Admin: 11/23/17 14:55 Dose: Not Given Lisinopril (Zestril) 20 mg PO DAILY [facility] Last Admin: 11/23/17 09:26 Dose: Not Given Saccharomyces Boulardii (Florastor) 250 mg PO BID [facility] Last Admin: 11/23/17 18:16 Dose: 250 mg Tamsulosin HCl (Flomax) 0.4 mg PO BID [facility] Last Admin: 11/23/17 18:16 Dose: 0.4 mg Results - Vital Signs Recent Vital Signs: Last Vital Signs Temp 98.1 F 11/23/17 13:38 Pulse 84 11/23/17 15:29 Resp 20 11/23/17 15:29 BP 109/65 11/23/17 15:29 Pulse Ox 93 L 11/23/17 16:43 - Labs Result Diagrams: 11/23/17 14:03 11/23/17 06:20 Labs: Laboratory Results - last 24 hr 11/22/17 11/22/17 11/22/17 19:59 19:59 20:01 WBC 11.3 H RBC 4.13 L Hgb 13.5 Hct 38.7 MCV 93.7 MCH 32.7 H MCHC 34.9 RDW 13.5 Plt Count 197 MPV 7.9 Neut % (Auto) 73.5 Lymph % (Auto) 17.8 L [place] % (Auto) 5.8 Eos % (Auto) 2.4 Baso % (Auto) 0.5 Neut # (Auto) 8.3 H Lymph # (Auto) 2.0 [place] # (Auto) 0.7 Eos # (Auto) 0.3 Baso # (Auto) 0.1 PT INR APTT Sodium 139 Potassium 3.7 Chloride 103 Carbon Dioxide 23 Anion Gap 17 BUN 23 H Creatinine 1.2 Est GFR ( Amer) > 60 Est GFR (Non-Af Amer) 59 POC Glucose (mg/dL) Random Glucose 128 H Calcium 8.8 Total Bilirubin 2.0 H AST 35 ALT 35 Alkaline Phosphatase 75 Total Protein 7.8 Albumin 3.8 Globulin 4.0 H Albumin/Globulin Ratio 0.9 L Urine Color Red Urine Clarity Turbid Urine pH 7.0 Ur Specific [place] 1.020 Urine Protein 3+ H Urine Glucose (UA) Negative Urine Ketones 15 Urine Blood Large Urine Nitrate Positive H Urine Bilirubin Negative Urine Urobilinogen 4.0 Ur Leukocyte Esterase 3+ H Urine WBC (Auto) 916 H Urine RBC (Auto) 40999 H Urine Bacteria Rare Hepatitis A IgM Ab Hep Bs Antigen Hep B Core IgM Ab Hepatitis C Antibody Blood Type Antibody Screen 11/22/17 11/22/17 11/23/17 21:18 21:50 00:55 WBC 9.7 RBC 3.80 L Hgb 12.6 Hct 35.7 MCV 94.1 H MCH 33.2 H MCHC 35.3 RDW 13.5 Plt Count 167 MPV 8.3 Neut % (Auto) Lymph % (Auto) [place] % (Auto) Eos % (Auto) Baso % (Auto) Neut # (Auto) Lymph # (Auto) [place] # (Auto) Eos # (Auto) Baso # (Auto) PT 13.8 H INR 1.2 APTT 35 H Sodium Potassium Chloride Carbon Dioxide Anion Gap BUN Creatinine Est GFR ( Amer) Est GFR (Non-Af Amer) POC Glucose (mg/dL) Random Glucose Calcium Total Bilirubin AST ALT Alkaline Phosphatase Total Protein Albumin Globulin Albumin/Globulin Ratio Urine Color Urine Clarity Urine pH Ur Specific [place] Urine Protein Urine Glucose (UA) Urine Ketones Urine Blood Urine Nitrate Urine Bilirubin Urine Urobilinogen Ur Leukocyte Esterase Urine WBC (Auto) Urine RBC (Auto) Urine Bacteria Hepatitis A IgM Ab Hep Bs Antigen Hep B Core IgM Ab Hepatitis C Antibody Blood Type O POSITIVE Antibody Screen Negative 11/23/17 11/23/17 11/23/17 06:20 06:20 07:14 WBC 9.1 RBC 3.85 L Hgb 12.9 Hct 36.2 MCV 94.1 H MCH 33.4 H MCHC 35.5 RDW 13.7 Plt Count 184 MPV 8.5 Neut % (Auto) 63.1 Lymph % (Auto) 25.4 [place] % (Auto) 7.2 Eos % (Auto) 3.8 Baso % (Auto) 0.5 Neut # (Auto) 5.8 Lymph # (Auto) 2.3 [place] # (Auto) 0.7 Eos # (Auto) 0.3 Baso # (Auto) 0.0 PT INR APTT Sodium 139 Potassium 4.1 Chloride 105 Carbon Dioxide 24 Anion Gap 14 BUN 19 Creatinine 1.0 Est GFR ( Amer) > 60 Est GFR (Non-Af Amer) > 60 POC Glucose (mg/dL) Random Glucose 98 Calcium 8.5 L Total Bilirubin 1.5 H AST 31 ALT 33 Alkaline Phosphatase 76 Total Protein 6.9 Albumin 3.4 L Globulin 3.5 Albumin/Globulin Ratio 1.0 Urine Color Urine Clarity Urine pH Ur Specific [place] Urine Protein Urine Glucose (UA) Urine Ketones Urine Blood Urine Nitrate Urine Bilirubin Urine Urobilinogen Ur Leukocyte Esterase Urine WBC (Auto) Urine RBC (Auto) Urine Bacteria Hepatitis A IgM Ab Negative Hep Bs Antigen Negative Hep B Core IgM Ab Negative Hepatitis C Antibody Negative Blood Type Antibody Screen 11/23/17 11/23/17 11/23/17 07:20 11:27 14:03 WBC RBC Hgb 12.1 Hct 34.7 L MCV MCH MCHC RDW Plt Count MPV Neut % (Auto) Lymph % (Auto) [place] % (Auto) Eos % (Auto) Baso % (Auto) Neut # (Auto) Lymph # (Auto) [place] # (Auto) Eos # (Auto) Baso # (Auto) PT INR APTT Sodium Potassium Chloride Carbon Dioxide Anion Gap BUN Creatinine Est GFR ( Amer) Est GFR (Non-Af Amer) POC Glucose (mg/dL) 94 99 Random Glucose Calcium Total Bilirubin AST ALT Alkaline Phosphatase Total Protein Albumin Globulin Albumin/Globulin Ratio Urine Color Urine Clarity Urine pH Ur Specific [place] Urine Protein Urine Glucose (UA) Urine Ketones Urine Blood Urine Nitrate Urine Bilirubin Urine Urobilinogen Ur Leukocyte Esterase Urine WBC (Auto) Urine RBC (Auto) Urine Bacteria Hepatitis A IgM Ab Hep Bs Antigen Hep B Core IgM Ab Hepatitis C Antibody Blood Type Antibody Screen 11/23/17 16:42 WBC RBC Hgb Hct MCV MCH MCHC RDW Plt Count MPV Neut % (Auto) Lymph % (Auto) [place] % (Auto) Eos % (Auto) Baso % (Auto) Neut # (Auto) Lymph # (Auto) [place] # (Auto) Eos # (Auto) Baso # (Auto) PT INR APTT Sodium Potassium Chloride Carbon Dioxide Anion Gap BUN Creatinine Est GFR ( Amer) Est GFR (Non-Af Amer) POC Glucose (mg/dL) 106 Random Glucose Calcium Total Bilirubin AST ALT Alkaline Phosphatase Total Protein Albumin Globulin Albumin/Globulin Ratio Urine Color Urine Clarity Urine pH Ur Specific [place] Urine Protein Urine Glucose (UA) Urine Ketones Urine Blood Urine Nitrate Urine Bilirubin Urine Urobilinogen Ur Leukocyte Esterase Urine WBC (Auto) Urine RBC (Auto) Urine Bacteria Hepatitis A IgM Ab Hep Bs Antigen Hep B Core IgM Ab Hepatitis C Antibody Blood Type Antibody Screen Attending/Attestation - Attestation I have personally seen and examined this patient.: Yes I have fully participated in the care of the patient.: Yes I have reviewed all pertinent clinical information: Yes Notes (Text): 11/23/17 18:44 I have seen and examined the patient. Medical records, lab studies, and imaging were reviewed by me and a management plan was formulated on multidisciplinary rounds with resident Dr. Mcghee. I agree with their documented assessment and plan. Patient is in SVT, loading with Amiodarone. Giving 1gm calcium, for barely low level. recheck h/h. Cystoscopy scheduled for tomorrow. Critical Care Time 35 minutes. Multi-disciplinary rounds were performed with house staff, nursing, speech therapy, respiratory therapy, pharmacy and nutrition with integrated input from the primary team/attending and other consulting services. The documented time is cumulative and includes review of patient data/exams/labs/chart review and examination of the patient on rounds and throughout the day; time is exclusive of any procedures or teaching time.
[2017-11-24] MEDS ORDERED: Lactated Ringer's 1,000 ML IV SCH (01:00)
[2017-11-24] MEDS: Lactated Ringer's 1,000 ML IV SCH ×2 (01:44→08:19)
[2017-11-24 04:15] LABS: BASO # 0.1 K/uL (0.0-0.2); BASO % 0.8 % (0.0-2.0); EOS # 0.3 K/uL (0.0-0.7); EOS % 4.1 % (0.0-4.0); LYMPH % 40.9 % (20.0-40.0); MEAN CELL VOLUME 94.7 fL (80.0-94.0); MEAN CORPUSCULAR HEMOGLOBIN 32.7 pg (27.0-31.0); MEAN CORPUSCULAR HGB CONC 34.5 g/dL (33.0-37.0); MEAN PLATELET VOLUME 8.5 fL (7.2-11.7); MONO # 0.5 K/uL (0.0-0.8); MONO % 6.7 % (0.0-10.0); NEUT # 3.4 K/uL (1.8-7.0); NEUT % 47.5 % (50.0-75.0); RBC 3.68 Mil/uL (4.40-5.90); RED CELL DISTRIBUTION WIDTH 13.6 % (11.5-14.5); WHITE BLOOD COUNT 7.2 K/uL (4.8-10.8)
[2017-11-24 04:21] LABS: ALB/GLOB RATIO 0.9 (1.0-2.1); ALBUMIN 3.1 g/dL (3.5-5.0); ALT/SGPT 21 U/L (21-72); AST/SGOT 25 U/L (17-59); BLOOD UREA NITROGEN 13 mg/dL (9-20); CALCIUM 8.4 mg/dl (8.6-10.4); GFR AFRICAN-AMERICAN > 60; GFR NON-AFRICAN AMERICAN > 60
[2017-11-24 04:32] LABS: TROPONIN I 0.023 ng/mL (0.00-0.120)
[2017-11-24] MEDS: Saccharomyces Boulardi 250 mg Cap PO SCH ×2 (09:46→17:06)
--- NOTE | 2017-11-24 12:13 | CP.PCM.PN ---
Subjective - Date & Time of Evaluation Date of Evaluation: 11/24/17 Time of Evaluation: 12:00 - Subjective Subjective: Patient was seen and examined at 12:00 PM 11/24/17 ICU Bed #2 Very pleasant 72 year old male who was admitted on 11/22/17 for evaluation of gross hematuria after placement of karimi catheter by Urology Dr. Cathi Hadley. He was planned for Cystoscopy on 11/24/17 however on 11/23/17 he developed SVT with drop in blood pressure. He was transferred to ICU and started on Amiodarone. We are awaiting evaluation by Cardiology Dr. Vaughn and Echocardiogram performance as he will need to be cleared by Cardiology before Urology can proceed with Cystoscopy. Upon FULL ROS NO dysphagia/odynopahgia NO soreness in throat NO cough NO sinus/nasal congestion NO fever/chills NO muscle aches/pains NO chest pain/palpations NO SOB NO n/v/d/c: tolerating diet and moving bowels normally with last bowel movement on 11/23/[address] at this time producing clear red urine with NO clots noted NO LOCO NO lightheadedness/dizziness NO paresthesias NO new changes in vision NO new changes in hearing - Constitutional Appears: Well - Head Exam Head Exam: ATRAUMATIC, NORMAL INSPECTION, NORMOCEPHALIC - Eye Exam Eye Exam: EOMI, Normal appearance, PERRL Pupil Exam: NORMAL ACCOMODATION, PERRL - ENT Exam ENT Exam: Mucous Membranes Moist, Normal Exam - Neck Exam Neck Exam: Full ROM, Normal Inspection. absent: Lymphadenopathy - Respiratory Exam Respiratory Exam: Clear to Ausculation Bilateral, NORMAL BREATHING PATTERN - Cardiovascular Exam Cardiovascular Exam: Tachycardia, REGULAR RHYTHM, +S1, +S2. absent: Murmur - GI/Abdominal Exam GI & Abdominal Exam: Soft, Normal Bowel Sounds. absent: Tenderness - Exam Exam: Circumcision, NORMAL INSPECTION (karimi catheter with CBI running with clear red urine with NO visible clots) - Extremities Exam Extremities Exam: Full ROM, Normal Capillary Refill, Normal Inspection. absent : Joint Swelling, Pedal Edema - Back Exam Back Exam: NORMAL INSPECTION - Neurological Exam Neurological Exam: Alert, Awake, CN II-XII Intact, Normal Gait, Oriented x3 - Psychiatric Exam Psychiatric exam: Normal Affect, Normal Mood - Skin Skin Exam: Dry, Intact, Normal Color, Warm Assessment and Plan (1) Hematuria Assessment & Plan: Dr. Cathi Hadley will be notified once patient is cleared by Cardiology so that Cytoscopy can be planned (2) UTI Enterococcus faecalis + Urine Culture 11/22/17 Assessment & Plan: Rocephin discontinued 11/23/17 and started on Ciprofloxacin 400 mg IV Q12H with stop date 11/30/17 Status: Acute (3) SVT Assessment & Plan: Amiodarone 200 mg PO TID F/U Echocardiogram: spoke with Nurse Kay and she has notified Echo lab that this must get done today F/U further recommendations from Cardiology Dr. Vaughn and we will need his clearance before Cystoscopy can be performed Status: Acute (4) BPH (benign prostatic hyperplasia) Assessment & Plan: Flomax 0.4 PO 2x/day Status: Chronic (5) Hypertension Assessment & Plan: Zestril 20 PO QD is on HOLD due to low B/P LR at 150 ml/hr x 2 liters which should finish at 2 PM 11/24/17 Status: Chronic (6) Prophylactic measure Assessment & Plan: SCD VTE CI due to hematuria Florastor 250 mg PO 2x/day No GI PPX indicated at this time Status: Acute Darryl Toro D.O. Objective - Vital Signs/Intake and Output Vital Signs (last 24 hours): Temp Pulse Resp BP Pulse Ox 97.8 F 71 24 118/65 92 L 11/24/17 08:00 11/24/17 12:00 11/24/17 12:00 11/24/17 11:21 11/24/17 12:00 Intake and Output: 11/24/17 11/24/17 06:59 18:59 Intake Total 39286 1927 Output Total 72374 1075 Balance -4033 852 - Medications Medications: Current Medications Amiodarone HCl (Cordarone) 200 mg PO TID [facility] Last Admin: 11/24/17 09:46 Dose: 200 mg Lactated Ringer's (Lactated Ringer's) 1,000 mls @ 150 mls/hr IV .Q6H40M [facility] Stop: 11/24/17 14:19 Last Admin: 11/24/17 08:19 Dose: 150 mls/hr Ciprofloxacin (Cipro 400mg/200ml Dsw) 400 mg in 200 mls @ 133 mls/hr IVPB Q12H [facility] PRN Reason: Protocol Stop: 11/30/17 12:00 Lisinopril (Zestril) 20 mg PO DAILY [facility] Last Admin: 11/23/17 09:26 Dose: Not Given Saccharomyces Boulardii (Florastor) 250 mg PO BID [facility] Last Admin: 11/24/17 09:46 Dose: 250 mg Tamsulosin HCl (Flomax) 0.4 mg PO BID [facility] Last Admin: 11/24/17 09:46 Dose: 0.4 mg - Labs Labs: 11/24/17 04:04 11/24/17 04:04 PT 13.8 SECONDS (9.7-12.2) H 11/22/17 21:18 INR 1.2 11/22/17 21:18 APTT 35 SECONDS (21-34) H 11/22/17 21:18
[2017-11-24] MEDS: Ciprofloxacin 400mg/200ml D5W 400 MG/200 ML BAG IVPB SCH (13:29)
--- NOTE | 2017-11-24 17:43 | CARD ---
APPROVED REPORT EXAM: Two-dimensional and M-mode echocardiogram with Doppler and color Doppler. Other Information Quality : TDSRhythm : RISK FACTORS Hypertension 2D DIMENSIONS IVSd1.1 (0.7-1.1cm)LVDd3.8 (3.9-5.9cm) PWd1.0 (0.7-1.1cm)LVDs2.7 (2.5-4.0cm) FS (%) 28.7 %LVEF (%)56.0 (>50%) M-Mode DIMENSIONS Left Atrium (MM)3.90 (2.5-4.0cm)Aortic Root3.77 (2.2-3.7cm) Aortic Cusp Exc.2.23 (1.5-2.0cm) Mitral Valve MV E Mjzggqzz65.3cm/sMV A Skmuigma28.2cm/s Tricuspid Valve TR Peak [id number] Peak Gr.9mmHg LEFT VENTRICLE There is normal left ventricular wall thickness. The left ventricular systolic function is normal. The left ventricular ejection fraction is within the normal range. There is normal LV segmental wall motion. The left ventricular diastolic function is normal. RIGHT VENTRICLE The right ventricle is normal size. The right ventricular systolic function is normal. ATRIA The left atrium size is normal. The right atrium size is normal. AORTIC VALVE The aortic valve is slightly calcified but opens well. No aortic regurgitation is present. MITRAL VALVE The mitral valve is normal in structure. There is no mitral valve regurgitation noted. TRICUSPID VALVE The tricuspid valve is normal in structure. There is trace tricuspid regurgitation. PULMONIC VALVE The pulmonic valve is not well visualized. GREAT VESSELS The aortic root is normal in size. The aortic root displays mild to moderate sclerocalcific The IVC was not visualized. PERICARDIAL EFFUSION There is no gross pericardial effusion. <Conclusion> TECHNICALLY DIFFICULT STUDY DUE TO POOR ACOUSTIC WINDOWS Normal bi-ventricular function No gross valvular abnormality or pericardial effusion.
--- NOTE | 2017-11-24 17:44 | PCM.URO ---
Urology Progress Note - General General: No Complaints - Subjective Abdominal Pain: No Voiding Well: No (catheter in place) Hematuria: Yes Fever & Chills: No Other: Previous arrhythmia - Objective Lab Studies: Reviewed Lab Results Last 24 Hours: Laboratory Results - last 24 hr 11/23/17 11/24/17 11/24/17 21:13 04:04 04:04 WBC 7.2 RBC 3.68 L Hgb 12.0 Hct 34.8 L MCV 94.7 H MCH 32.7 H MCHC 34.5 RDW 13.6 Plt Count 172 MPV 8.5 Neut % (Auto) 47.5 L Lymph % (Auto) 40.9 H Ford % (Auto) 6.7 Eos % (Auto) 4.1 H Baso % (Auto) 0.8 Neut # (Auto) 3.4 Lymph # (Auto) 3.0 Ford # (Auto) 0.5 Eos # (Auto) 0.3 Baso # (Auto) 0.1 Sodium 141 Potassium 4.2 Chloride 106 Carbon Dioxide 23 Anion Gap 16 BUN 13 Creatinine 0.9 Est GFR ( Amer) > 60 Est GFR (Non-Af Amer) > 60 POC Glucose (mg/dL) 95 Random Glucose 87 Calcium 8.4 L Phosphorus 3.5 Magnesium 2.0 Total Bilirubin 1.2 AST 25 ALT 21 D Alkaline Phosphatase 72 Troponin I Total Protein 6.6 Albumin 3.1 L Globulin 3.5 Albumin/Globulin Ratio 0.9 L TSH 3rd Generation 11/24/17 11/24/17 11/24/17 04:04 07:24 10:43 WBC RBC Hgb Hct MCV MCH MCHC RDW Plt Count MPV Neut % (Auto) Lymph % (Auto) Ford % (Auto) Eos % (Auto) Baso % (Auto) Neut # (Auto) Lymph # (Auto) Ford # (Auto) Eos # (Auto) Baso # (Auto) Sodium Potassium Chloride Carbon Dioxide Anion Gap BUN Creatinine Est GFR ( Amer) Est GFR (Non-Af Amer) POC Glucose (mg/dL) 96 Random Glucose Calcium Phosphorus Magnesium Total Bilirubin AST ALT Alkaline Phosphatase Troponin I 0.0230 < 0.0120 Total Protein Albumin Globulin Albumin/Globulin Ratio TSH 3rd Generation 4.88 H 11/24/17 11/24/17 11:26 16:17 WBC RBC Hgb Hct MCV MCH MCHC RDW Plt Count MPV Neut % (Auto) Lymph % (Auto) Ford % (Auto) Eos % (Auto) Baso % (Auto) Neut # (Auto) Lymph # (Auto) Ford # (Auto) Eos # (Auto) Baso # (Auto) Sodium Potassium Chloride Carbon Dioxide Anion Gap BUN Creatinine Est GFR ( Amer) Est GFR (Non-Af Amer) POC Glucose (mg/dL) 126 H 94 Random Glucose Calcium Phosphorus Magnesium Total Bilirubin AST ALT Alkaline Phosphatase Troponin I Total Protein Albumin Globulin Albumin/Globulin Ratio TSH 3rd Generation Intake & Output: Intake & Output 11/23/17 11/24/17 11/24/17 18:59 06:59 18:59 Intake Total 09151 99978 2627 Output Total 79914 42466 2450 Balance 20 -2795 177 Weight 168 lb 9 oz Intake: Intake, IV Amount 900 1265 1825 Right Forearm 013 841 4479 Right Forearm Y Port 365 Oral 720 240 802 Other 41908 9000 Output: Urine 25182 25279 2450 2-way Urethral 250 2000 2450 Other: # Bowel Movements 0 Vital Signs: Vital Signs - 24 hr 11/23/17 11/23/17 11/23/17 18:00 19:20 19:22 Temperature Pulse Rate 140 H 92 H 88 Respiratory 20 16 27 H Rate Blood Pressure 107/77 113/71 O2 Sat by Pulse 97 95 Oximetry 11/23/17 11/23/17 11/23/17 19:30 19:35 19:40 Temperature Pulse Rate 87 83 82 Respiratory 14 23 22 Rate Blood Pressure 108/68 O2 Sat by Pulse 95 96 96 Oximetry 11/23/17 11/23/17 11/23/17 19:45 19:50 20:00 Temperature 98.0 F Pulse Rate 150 H 144 H 82 Respiratory 14 24 16 Rate Blood Pressure 108/68 O2 Sat by Pulse 97 97 97 Oximetry 11/23/17 11/23/17 11/23/17 20:10 20:20 20:21 Temperature Pulse Rate 79 79 76 Respiratory 23 24 19 Rate Blood Pressure 102/62 O2 Sat by Pulse 97 97 95 Oximetry 11/23/17 11/23/17 11/23/17 20:30 20:40 20:50 Temperature Pulse Rate 75 75 72 Respiratory 25 H 15 20 Rate Blood Pressure O2 Sat by Pulse 98 96 96 Oximetry 11/23/17 11/23/17 11/23/17 21:00 21:10 21:20 Temperature Pulse Rate 70 124 H 122 H Respiratory 22 18 17 Rate Blood Pressure O2 Sat by Pulse 97 97 96 Oximetry 11/23/17 11/23/17 11/23/17 21:21 21:30 21:40 Temperature Pulse Rate 120 H 120 H 118 H Respiratory 18 17 16 Rate Blood Pressure 93/70 L O2 Sat by Pulse 95 96 96 Oximetry 11/23/17 11/23/17 11/23/17 21:50 22:00 22:10 Temperature Pulse Rate 121 H 119 H 122 H Respiratory 15 16 16 Rate Blood Pressure O2 Sat by Pulse 96 96 95 Oximetry 11/23/17 11/23/17 11/23/17 22:20 22:21 22:30 Temperature Pulse Rate 122 H 124 H 69 Respiratory 15 17 16 Rate Blood Pressure 94/73 L O2 Sat by Pulse 97 94 L 96 Oximetry 11/23/17 11/23/17 11/23/17 22:40 22:50 23:00 Temperature Pulse Rate 74 72 127 H Respiratory 21 16 22 Rate Blood Pressure O2 Sat by Pulse 91 L 90 L 89 L Oximetry 11/23/17 11/23/17 11/23/17 23:10 23:20 23:21 Temperature Pulse Rate 131 H 127 H 127 H Respiratory 17 19 20 Rate Blood Pressure 86/57 L O2 Sat by Pulse 94 L 92 L 92 L Oximetry 11/23/17 11/23/17 11/23/17 23:30 23:40 23:50 Temperature Pulse Rate 123 H 66 69 Respiratory 16 18 16 Rate Blood Pressure O2 Sat by Pulse 92 L 91 L Oximetry 11/23/17 11/24/17 11/24/17 23:51 00:00 00:10 Temperature 97.6 F Pulse Rate 71 69 68 Respiratory 15 15 19 Rate Blood Pressure 92/65 L O2 Sat by Pulse 93 L 95 86 L Oximetry 11/24/17 11/24/17 11/24/17 00:20 00:22 00:30 Temperature Pulse Rate 71 68 71 Respiratory 12 14 13 Rate Blood Pressure 84/60 L O2 Sat by Pulse 91 L 95 92 L Oximetry 11/24/17 11/24/17 11/24/17 00:40 00:50 01:00 Temperature Pulse Rate 128 H 127 H 125 H Respiratory 15 15 19 Rate Blood Pressure O2 Sat by Pulse 96 96 92 L Oximetry 11/24/17 11/24/17 11/24/17 01:10 01:11 01:20 Temperature Pulse Rate 124 H 130 H 127 H Respiratory 20 18 15 Rate Blood Pressure 95/71 L O2 Sat by Pulse 94 L 94 L 95 Oximetry 11/24/17 11/24/17 11/24/17 01:21 01:30 01:39 Temperature Pulse Rate 125 H 126 H 126 H Respiratory 15 15 16 Rate Blood Pressure 92/60 L 92/60 L 86/57 L O2 Sat by Pulse 95 95 93 L Oximetry 11/24/17 11/24/17 11/24/17 01:40 01:50 02:00 Temperature Pulse Rate 126 H 123 H 126 H Respiratory 14 14 16 Rate Blood Pressure O2 Sat by Pulse 93 L 92 L 97 Oximetry 11/24/17 11/24/17 11/24/17 02:02 02:10 02:20 Temperature Pulse Rate 126 H 123 H 123 H Respiratory 17 15 17 Rate Blood Pressure 96/71 L O2 Sat by Pulse 88 L 95 96 Oximetry 11/24/17 11/24/17 11/24/17 02:21 02:30 02:40 Temperature Pulse Rate 124 H 121 H 123 H Respiratory 19 18 15 Rate Blood Pressure 92/62 L O2 Sat by Pulse 94 L 95 95 Oximetry 11/24/17 11/24/17 11/24/17 02:50 03:00 03:03 Temperature Pulse Rate 120 H 124 H 122 H Respiratory 18 16 20 Rate Blood Pressure 82/63 L O2 Sat by Pulse 93 L 96 94 L Oximetry 11/24/17 11/24/17 11/24/17 03:08 03:10 03:14 Temperature Pulse Rate 64 76 114 H Respiratory 15 16 16 Rate Blood Pressure 88/59 L 97/70 L O2 Sat by Pulse 94 L 92 L Oximetry 11/24/17 11/24/17 11/24/17 03:20 03:21 03:30 Temperature Pulse Rate 118 H 121 H 122 H Respiratory 17 17 12 Rate Blood Pressure 84/60 L O2 Sat by Pulse 94 L 94 L 95 Oximetry 11/24/17 11/24/17 11/24/17 03:40 03:50 03:53 Temperature Pulse Rate 69 71 72 Respiratory 22 22 22 Rate Blood Pressure 94/63 L O2 Sat by Pulse 95 95 93 L Oximetry 11/24/17 11/24/17 11/24/17 04:00 04:10 04:20 Temperature 98.2 F Pulse Rate 69 70 67 Respiratory 14 19 17 Rate Blood Pressure O2 Sat by Pulse 93 L 92 L 94 L Oximetry 11/24/17 11/24/17 11/24/17 04:21 04:30 04:40 Temperature Pulse Rate 70 66 67 Respiratory 17 19 21 Rate Blood Pressure 97/63 L O2 Sat by Pulse 92 L 94 L 92 L Oximetry 11/24/17 11/24/17 11/24/17 04:50 05:00 05:10 Temperature Pulse Rate 67 66 60 Respiratory 17 13 13 Rate Blood Pressure O2 Sat by Pulse 91 L 91 L 93 L Oximetry 11/24/17 11/24/17 11/24/17 05:20 05:21 05:30 Temperature Pulse Rate 62 63 58 L Respiratory 15 13 18 Rate Blood Pressure 84/53 L O2 Sat by Pulse 94 L 91 L Oximetry 11/24/17 11/24/17 11/24/17 05:40 05:50 06:00 Temperature Pulse Rate 69 70 68 Respiratory 10 L 19 16 Rate Blood Pressure O2 Sat by Pulse 95 91 L 94 L Oximetry 11/24/17 11/24/17 11/24/17 06:06 06:10 06:20 Temperature Pulse Rate 68 69 66 Respiratory 11 L 20 18 Rate Blood Pressure 102/65 O2 Sat by Pulse 93 L 91 L 93 L Oximetry 11/24/17 11/24/17 11/24/17 06:21 06:30 06:40 Temperature Pulse Rate 64 64 62 Respiratory 18 16 16 Rate Blood Pressure 108/61 O2 Sat by Pulse 90 L 94 L 95 Oximetry 11/24/17 11/24/17 11/24/17 06:50 07:00 07:10 Temperature Pulse Rate 67 65 66 Respiratory 12 22 21 Rate Blood Pressure O2 Sat by Pulse 97 92 L 93 L Oximetry 11/24/17 11/24/17 11/24/17 07:20 07:21 07:30 Temperature Pulse Rate 67 65 66 Respiratory 15 16 19 Rate Blood Pressure 111/66 O2 Sat by Pulse 94 L 93 L 94 L Oximetry 11/24/17 11/24/17 11/24/17 07:40 07:50 08:00 Temperature 97.8 F Pulse Rate 64 60 65 Respiratory 16 17 22 Rate Blood Pressure O2 Sat by Pulse 94 L 94 L 92 L Oximetry 11/24/17 11/24/17 11/24/17 08:10 08:20 08:21 Temperature Pulse Rate 64 65 63 Respiratory 22 18 17 Rate Blood Pressure 104/67 O2 Sat by Pulse 93 L 92 L 93 L Oximetry 11/24/17 11/24/17 11/24/17 08:30 08:40 08:50 Temperature Pulse Rate 62 64 73 Respiratory 15 19 12 Rate Blood Pressure O2 Sat by Pulse 93 L 93 L 96 Oximetry 11/24/17 11/24/17 11/24/17 09:00 09:10 09:20 Temperature Pulse Rate 78 74 74 Respiratory 16 20 18 Rate Blood Pressure O2 Sat by Pulse 95 91 L 93 L Oximetry 11/24/17 11/24/17 11/24/17 09:21 09:30 09:40 Temperature Pulse Rate 72 74 72 Respiratory 18 24 21 Rate Blood Pressure 110/65 O2 Sat by Pulse 92 L 92 L 91 L Oximetry 11/24/17 11/24/17 11/24/17 09:50 10:00 10:10 Temperature Pulse Rate 70 70 66 Respiratory 15 20 19 Rate Blood Pressure O2 Sat by Pulse 92 L 93 L 95 Oximetry 11/24/17 11/24/17 11/24/17 10:12 10:20 10:21 Temperature Pulse Rate 86 69 67 Respiratory 22 20 Rate Blood Pressure 109/67 O2 Sat by Pulse 91 L 90 L Oximetry 11/24/17 11/24/17 11/24/17 10:30 10:40 10:50 Temperature Pulse Rate 66 67 72 Respiratory 15 21 19 Rate Blood Pressure O2 Sat by Pulse 93 L 92 L 94 L Oximetry 11/24/17 11/24/17 11/24/17 11:00 11:10 11:20 Temperature Pulse Rate 66 64 60 Respiratory 23 15 15 Rate Blood Pressure O2 Sat by Pulse 91 L 94 L 95 Oximetry 11/24/17 11/24/17 11/24/17 11:21 11:30 11:40 Temperature Pulse Rate 64 68 66 Respiratory 18 21 22 Rate Blood Pressure 118/65 O2 Sat by Pulse 92 L 92 L 93 L Oximetry 11/24/17 11/24/17 11/24/17 11:50 12:00 12:10 Temperature 98.3 F Pulse Rate 65 71 68 Respiratory 21 24 24 Rate Blood Pressure O2 Sat by Pulse 93 L 92 L 93 L Oximetry 11/24/17 11/24/17 11/24/17 12:20 12:21 12:30 Temperature Pulse Rate 65 69 69 Respiratory 24 19 20 Rate Blood Pressure 114/71 O2 Sat by Pulse 93 L 91 L 91 L Oximetry 11/24/17 11/24/17 11/24/17 12:40 12:50 13:00 Temperature Pulse Rate 64 70 76 Respiratory 17 20 14 Rate Blood Pressure 114/71 O2 Sat by Pulse 92 L 92 L 96 Oximetry 11/24/17 11/24/17 11/24/17 13:10 13:20 13:21 Temperature Pulse Rate 67 73 73 Respiratory 18 10 L 22 Rate Blood Pressure 125/62 O2 Sat by Pulse 93 L 94 L 91 L Oximetry 11/24/17 11/24/17 11/24/17 13:30 13:40 13:50 Temperature Pulse Rate 73 70 69 Respiratory 22 21 22 Rate Blood Pressure O2 Sat by Pulse 92 L 93 L 95 Oximetry 11/24/17 11/24/17 11/24/17 14:00 14:10 14:20 Temperature Pulse Rate 73 86 78 Respiratory 28 H 25 H 25 H Rate Blood Pressure O2 Sat by Pulse 94 L 95 95 Oximetry 11/24/17 11/24/17 11/24/17 14:21 14:30 14:40 Temperature Pulse Rate 72 73 70 Respiratory 23 22 22 Rate Blood Pressure 125/67 O2 Sat by Pulse 87 L 93 L 93 L Oximetry 11/24/17 11/24/17 11/24/17 14:50 15:00 15:10 Temperature Pulse Rate 73 74 72 Respiratory 21 20 21 Rate Blood Pressure O2 Sat by Pulse 93 L 93 L 95 Oximetry 11/24/17 11/24/17 11/24/17 15:20 15:21 15:30 Temperature Pulse Rate 75 73 72 Respiratory 21 22 21 Rate Blood Pressure 122/65 O2 Sat by Pulse 93 L 90 L 92 L Oximetry 11/24/17 11/24/17 11/24/17 15:40 15:50 16:00 Temperature 97.7 F Pulse Rate 75 73 72 Respiratory 21 24 22 Rate Blood Pressure O2 Sat by Pulse 93 L 93 L 94 L Oximetry 11/24/17 11/24/17 11/24/17 16:10 16:20 16:21 Temperature Pulse Rate 67 70 71 Respiratory 20 20 21 Rate Blood Pressure 116/64 O2 Sat by Pulse 93 L 93 L 89 L Oximetry 11/24/17 11/24/17 11/24/17 16:30 16:40 16:50 Temperature Pulse Rate 71 72 79 Respiratory 21 17 21 Rate Blood Pressure O2 Sat by Pulse 93 L 96 95 Oximetry 11/24/17 11/24/17 17:00 17:38 Temperature Pulse Rate 83 73 Respiratory 12 Rate Blood Pressure O2 Sat by Pulse 95 Oximetry Imaging Studies: Reviewed (CT scan reveals enlarged prostate and renal stone) - Physical Exam Abdominal Exam: Soft, Non-Tender, Non-Distended Back: No CVA Tenderness Genitalia: Without Inflammation (Paraphimosis reduced) Urinary Catheter Draining Well: Yes Urine Color: Dark Red - Male Phallus: Uncircumcised Scrotum: Normal - Plan Catheter Care: Yes Intake & Output: Yes Additional Information: IMP: hematuria DDX: infection, neoplasia, urolithiasis. P/Rec: Catheter in place. cystoscopy t/f, when cardiac status allows. Discussed w ICU staff, pt, and family - Date & Time of Note Date: 11/24/17 Time: 12:40
--- NOTE | 2017-11-24 23:36 | CARD ---
APPROVED REPORT EKG Measurement Heart [id number] <Conclusion> Sinus tachycardia with 1st degree AV block Nonspecific ST/T changes inferior leads Abnormal ECG
--- NOTE | 2017-11-25 00:54 | CON ---
DATE: 11/23/2017 REASON FOR CONSULTATION: Supraventricular tachycardia. HISTORY OF PRESENT ILLNESS: The patient is a 72-year-old male who presented to the emergency room with gross hematuria from an indwelling Flower catheter that was placed by Dr. Hadley, urologist, about two weeks earlier for benign prostatic hypertrophy and urinary retention. On the floor, the patient developed SVT that was terminated after adenosine, required ICU transfer and IV amiodarone infusion. The patient is unaware of any prior cardiac history in the past. There is no reoccurrence so far of the SVT. SOCIAL HISTORY: A former smoker. 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 MEDICATIONS: Cipro 400 mg intravenously every 12 hours, amiodarone 200 mg three times daily, Flomax 0.4 mg once a day, Zestril 20 mg once a day. PHYSICAL EXAMINATION: GENERAL: The patient is an elderly male, who does not appear to be in any distress. VITAL SIGNS: Blood pressure 114/71, heart rate 76, respirations 18, temperature 98.3. HEENT: Normocephalic. CHEST: Clear. HEART: S1 and S2 regular. ABDOMEN: Soft. EXTREMITIES: No edema. LABORATORY DATA: Today SMA-7 is entirely within normal limits. Two sets of troponin are negative. Today's hemoglobin and hematocrit are 12 and 34.8. White count and platelet count are within normal limits. INR is 1.2. PTT is 35. Hepatitis profile is negative. Yesterday's EKG revealed junctional tachycardia at the rate of 128. Admitting EKG revealed sinus rhythm at the rate of 86. Abdomen and pelvis CT scan, nonobstructing 3 mm right lower pole renal calculus. Marked enlarged prostrate. Bladder within the bladder lumen. ASSESSMENT: 1. Paroxysmal reentrant supraventricular tachycardia. The patient was in junctional tachycardia yesterday. 2. Bladder neck obstruction. 3. Ureterolithiasis. RECOMMENDATIONS: Continue current IV Cipro, oral amiodarone. Start Lopressor 60 mg orally twice a day. Obtain an echocardiogram, and repeat EKG today. Britton Vaughn MD [facility] # [phone]
[2017-11-25 06:47] LABS: BASO # 0.1 K/uL (0.0-0.2); BASO % 0.9 % (0.0-2.0); EOS # 0.4 K/uL (0.0-0.7); EOS % 6.9 % (0.0-4.0); LYMPH # 1.9 K/uL (1.0-4.3); LYMPH % 29.5 % (20.0-40.0); MEAN CELL VOLUME 95.3 fL (80.0-94.0); MEAN CORPUSCULAR HEMOGLOBIN 33.3 pg (27.0-31.0); MEAN PLATELET VOLUME 8.6 fL (7.2-11.7); MONO # 0.5 K/uL (0.0-0.8); MONO % 7.3 % (0.0-10.0); NEUT # 3.5 K/uL (1.8-7.0); NEUT % 55.4 % (50.0-75.0); RBC 3.61 Mil/uL (4.40-5.90); RED CELL DISTRIBUTION WIDTH 13.1 % (11.5-14.5); WHITE BLOOD COUNT 6.3 K/uL (4.8-10.8)
[2017-11-25 07:33] LABS: ALB/GLOB RATIO 0.9 (1.0-2.1); ALBUMIN 3.1 g/dL (3.5-5.0); ALT/SGPT 23 U/L (21-72); AST/SGOT 29 U/L (17-59); BLOOD UREA NITROGEN 16 mg/dL (9-20); CALCIUM 8.7 mg/dl (8.6-10.4); GFR AFRICAN-AMERICAN > 60; GFR NON-AFRICAN AMERICAN > 60
--- NOTE | 2017-11-25 08:54 | CP.PCM.PN ---
Addendum entered and electronically signed by Aston Fernandez DO 11/25/17 16:32: f/u CT abd/pelvis with IV contrast Original Note: <Aston Fernandez - Last Filed: 11/25/17 11:00> Subjective - Date & Time of Evaluation Date of Evaluation: 11/25/17 Time of Evaluation: 08:00 - Subjective Subjective: PGY2 Medicine Note for Dr. Toro Patient seen and examined at bedside in the ICU. He resting comfortably and reports feeling well, stating he is ready for his cystoscopy. He is tolerating his diet and last BM was yesterday. Denies any palpitations, chest pain, SOB, or suprapubic pain. He reports good flow with karimi in place. Objective - Vital Signs/Intake and Output Vital Signs (last 24 hours): Temp Pulse Resp BP Pulse Ox 97.8 F 61 17 120/71 91 L 11/25/17 08:00 11/25/17 08:21 11/25/17 08:21 11/25/17 08:21 11/25/17 08:21 Intake and Output: 11/25/17 11/25/17 06:59 18:59 Intake Total 6040 Output Total 8050 Balance -2009 - Medications Medications: Current Medications Amiodarone HCl (Cordarone) 200 mg PO TID [facility] Last Admin: 11/24/17 17:06 Dose: 200 mg Ciprofloxacin (Cipro 400mg/200ml Dsw) 400 mg in 200 mls @ 133 mls/hr IVPB Q12H [facility] PRN Reason: Protocol Stop: 11/30/17 13:01 Last Admin: 11/25/17 00:00 Dose: 133 mls/hr Lisinopril (Zestril) 20 mg PO DAILY [facility] Last Admin: 11/23/17 09:26 Dose: Not Given Metoprolol Tartrate (Lopressor) 50 mg PO BID [facility] Last Admin: 11/24/17 17:06 Dose: 50 mg Saccharomyces Boulardii (Florastor) 250 mg PO BID [facility] Last Admin: 11/24/17 17:06 Dose: 250 mg Tamsulosin HCl (Flomax) 0.4 mg PO BID [facility] Last Admin: 11/24/17 17:06 Dose: 0.4 mg - Labs Labs: 11/25/17 06:39 11/25/17 06:38 PT 13.8 SECONDS (9.7-12.2) H 11/22/17 21:18 INR 1.2 11/22/17 21:18 APTT 35 SECONDS (21-34) H 11/22/17 21:18 - Additional Findings Additional findings: - Constitutional Appears: Well - Head Exam Head Exam: ATRAUMATIC, NORMAL INSPECTION, NORMOCEPHALIC - Eye Exam Eye Exam: EOMI, Normal appearance, PERRL Pupil Exam: NORMAL ACCOMODATION, PERRL - ENT Exam ENT Exam: Mucous Membranes Moist, Normal Exam - Neck Exam Neck Exam: Full ROM, Normal Inspection. absent: Lymphadenopathy - Respiratory Exam Respiratory Exam: Clear to Ausculation Bilateral, NORMAL BREATHING PATTERN - Cardiovascular Exam Cardiovascular Exam: Tachycardia, REGULAR RHYTHM, +S1, +S2. absent: Murmur - GI/Abdominal Exam GI & Abdominal Exam: Soft, Normal Bowel Sounds. absent: Tenderness - Exam Exam: Circumcision, NORMAL INSPECTION (karimi catheter in place, clear red urine, with NO visible clots) - Extremities Exam Extremities Exam: Full ROM, Normal Capillary Refill, Normal Inspection. absent : Joint Swelling, Pedal Edema - Back Exam Back Exam: NORMAL INSPECTION - Neurological Exam Neurological Exam: Alert, Awake, CN II-XII Intact, Normal Gait, Oriented x3 - Psychiatric Exam Psychiatric exam: Normal Affect, Normal Mood - Skin Skin Exam: Dry, Intact, Normal Color, Warm Assessment and Plan - Assessment and Plan (Free Text) Assessment: (1) Hematuria Assessment & Plan: 11/25: Dr. Cathi Hadley notified that patient is cleared by Cardiology. Cytoscopy likely this monday. Dr. Vaughn (cardiology) would like the patient to remain in the ICU until after the Cystoscopy is complete 08/25 arrhythmia. NPO AM for 11/27/17. (2) UTI Enterococcus faecalis + Urine Culture 11/22/17 Assessment & Plan: Rocephin discontinued 11/23/17 and started on Ciprofloxacin 400 mg IV Q12H with stop date 11/30/17 (3) SVT Assessment & Plan: Amiodarone 200 mg PO TID Lopressor 50mg PO BID Echocardiogram 11/23 - EF 56%; poor acoustic window; see full report. spoke with Nurse Kay and she has notified Echo lab that this must get done today Per Dr. Vaughn (cardiology), patient is stable for Cystoscopy on Monday. He would like the patient to remain in the ICU until after the Cystoscopy is complete 2/ arrhythmia. Status: Acute (4) BPH (benign prostatic hyperplasia) Assessment & Plan: Flomax 0.4 PO 2x/day Status: Chronic (5) Hypertension Assessment & Plan: Lopressor 50mg PO BID Zestril 20 PO QD is on HOLD due to low B/P LR at 150 ml/hr x 2 liters which should finish at 2 PM 11/24/17 Status: Chronic (6) Prophylactic measure Assessment & Plan: SCD VTE CI due to hematuria Florastor 250 mg PO 2x/day No GI PPX indicated at this time Status: Acute <Darryl Toro - Last Filed: 11/25/17 17:54> Objective - Vital Signs/Intake and Output Vital Signs (last 24 hours): Temp Pulse Resp BP Pulse Ox 98.0 F 68 18 108/72 93 L 11/25/17 12:00 11/25/17 16:22 11/25/17 16:22 11/25/17 16:22 11/25/17 16:22 Intake and Output: 11/25/17 11/25/17 06:59 18:59 Intake Total 6040 Output Total 8050 Balance -2009 - Medications Medications: Current Medications Amiodarone HCl (Cordarone) 200 mg PO TID [facility] Last Admin: 11/25/17 17:04 Dose: 200 mg Ciprofloxacin (Cipro 400mg/200ml Dsw) 400 mg in 200 mls @ 133 mls/hr IVPB Q12H [facility] PRN Reason: Protocol Stop: 11/30/17 13:01 Last Admin: 11/25/17 12:52 Dose: 133 mls/hr Lisinopril (Zestril) 20 mg PO DAILY [facility] Last Admin: 11/23/17 09:26 Dose: Not Given Metoprolol Tartrate (Lopressor) 50 mg PO BID [facility] Last Admin: 11/25/17 17:04 Dose: 50 mg Saccharomyces Boulardii (Florastor) 250 mg PO BID [facility] Last Admin: 11/25/17 17:04 Dose: 250 mg Tamsulosin HCl (Flomax) 0.4 mg PO BID [facility] Last Admin: 11/25/17 17:04 Dose: 0.4 mg - Labs Labs: 11/25/17 06:39 11/25/17 06:38 PT 13.8 SECONDS (9.7-12.2) H 11/22/17 21:18 INR 1.2 11/22/17 21:18 APTT 35 SECONDS (21-34) H 11/22/17 21:18 Attending/Attestation - Attestation I have personally seen and examined this patient.: Yes I have fully participated in the care of the patient.: Yes I have reviewed all pertinent clinical information, including history, physical exam and plan: Yes Notes (Text): 11/25/17 17:48 Patient was seen and examined at 11:45 AM Exam, assessment and plan gone over with the resident. NO more blood clots in karimi tubing or bag and the urine is a light pink. Spoke with Dr. Cathi Hadley and informed him that the patient was cleared by Cardiology for cystoscopy and that Medicine Team will make patient NPO after midnight on 11/26/17 for cytoscopy on Monday. Medicine Team will continue to contact Dr. Cathi Hadley if Cytoscopy has not been performed by 11 AM 11/26/17. The patient should have this performed before he is discharged. Assessments: 1). Hematuria CBI Cleared for Cytoscopy 11/26/17 2). UTI Enterococcus faecalis Cipro 400 mg IV Q12H through 11/30/17 and switch over to PO if he is discharged before then 3). SVT Echo shows EF at 56% (see full report) Amiodarone 200 mg PO TID Lopressor 50 mg PO BID Cardiology Dr. Vaughn 4). BPH Flomax 0.4 mg PO 1x/day 5). HTN Zestril 20 mg PO 1x/day was placed on HOLD when patient had low blood pressure with the SVT He is currently on Lopressor 50 mg PO 1/day for the SVT and this has also controlled his blood pressure 6). Prophylaxis NO anticoagulation due to the gross hematuria: SCDs GI prophylaxis is not indicated at this time. Darryl Toro D.O.
[2017-11-25] MEDS: Saccharomyces Boulardi 250 mg Cap PO SCH ×2 (10:49→17:04)
[2017-11-25] MEDS: Ciprofloxacin 400mg/200ml D5W 400 MG/200 ML BAG IVPB SCH ×2 (12:52)
[2017-11-25] MEDS ORDERED: Iodixanol 320 MG/ML 100 ML BOTTLE IV ONE (18:00)
--- NOTE | 2017-11-25 21:25 | PN ---
DATE: 11/25/2017 SUBJECTIVE: The patient denies chest pain or shortness of breath. PHYSICAL EXAMINATION: VITAL SIGNS: Blood pressure 108/72, heart rate 68, temperature 98, respirations 18. HEENT: Normocephalic. CHEST: Clear. HEART: S1 and S2 regular. EXTREMITIES: No edema. LABORATORY DATA: Today SMA-7 is entirely within normal limits. Hemoglobin and hematocrit 12 and 34.4. White count and platelet count are within normal limits. ASSESSMENT: 1. Bladder neck obstruction. 2. Status post hematuria. 3. Supraventricular tachycardia versus junctional tachycardia. The possibility of atrial flutter with 2:1 conduction cannot be completely excluded. 4. Dilated aortic root seen on the echocardiographic study. RECOMMENDATIONS: Continue his Lopressor at 50 mg twice a day, 20 mg once a day, amiodarone 200 mg orally twice a day. I request a CT angio of the chest. Britton Vaughn MD
--- NOTE | 2017-11-25 22:30 | CT ---
EXAM: CT Chest Without Intravenous Contrast EXAM DATE/TIME: 11/25/2017 5:29 PM CLINICAL HISTORY: 72 years old, male; Pain; Chest pain; Additional info: R/O aneurysm. Study done as chest w/o contrast TECHNIQUE: Axial computed tomography images of the chest without intravenous contrast. All CT scans at this facility use one or more dose reduction techniques, viz.: automated exposure control; ma/kV adjustment per patient size (including targeted exams where dose is matched to indication; i.e. head); or iterative reconstruction technique. Coronal and sagittal reformatted images were created and reviewed. COMPARISON: There are no prior studies for comparison. FINDINGS: Artifacts: Motion artifact degrades image quality. Lungs and pleural spaces: Trachea and main bronchi are patent. There is dependent atelectasis. There is no lobar or segmental consolidation. There are no effusions. There is scarring at the lung bases. Mediastinum: Esophagus is unremarkable. There is a small hiatal hernia. There are no pathologically enlarged mediastinal or hilar nodes. Thyroid: Thyroid is not optimally demonstrated. Bones/joints: There is a 1.2 cm cyst in the right infraspinatus muscle..There are degenerative changes in the osseus structures. There is a hemangioma T10. Soft tissues: There is gynecomastia on the left. Heart and Vasculature: The heart is mildly enlarged. There is trace fluid in pericardial recesses.There is minimal coronary artery calcification. Aorta is normal in caliber. There is no aneurysm. There atherosclerotic calcifications in the arch. Main pulmonary artery is normal in caliber. Upper abdomen: There are no acute abnormalities in the visualized portion of the abdomen. There are multiple gallstones IMPRESSION: Mild cardiomegaly and atherosclerotic disease, no aortic aneurysm Additional nonemergent findings as described above.
[2017-11-26] MEDS: Ciprofloxacin 400mg/200ml D5W 400 MG/200 ML BAG IVPB SCH ×2 (01:09→13:05)
[2017-11-26 06:33] LABS: BASO % 0.8 % (0.0-2.0); EOS # 0.4 K/uL (0.0-0.7); EOS % 6.4 % (0.0-4.0); HEMOGLOBIN 12.7 g/dL (12.0-18.0); LYMPH # 1.4 K/uL (1.0-4.3); LYMPH % 23.2 % (20.0-40.0); MEAN CELL VOLUME 94.7 fL (80.0-94.0); MEAN CORPUSCULAR HEMOGLOBIN 33.2 pg (27.0-31.0); MEAN PLATELET VOLUME 8.7 fL (7.2-11.7); MONO # 0.4 K/uL (0.0-0.8); MONO % 6.9 % (0.0-10.0); NEUT # 3.8 K/uL (1.8-7.0); NEUT % 62.7 % (50.0-75.0); NRBC % 0.1 % (0.0-2.0); RBC 3.84 Mil/uL (4.40-5.90); RED CELL DISTRIBUTION WIDTH 13.4 % (11.5-14.5)
[2017-11-26 06:57] LABS: ALB/GLOB RATIO 0.9 (1.0-2.1); ALBUMIN 3.4 g/dL (3.5-5.0); ALT/SGPT 34 U/L (21-72); AST/SGOT 38 U/L (17-59); BLOOD UREA NITROGEN 15 mg/dL (9-20); CALCIUM 8.8 mg/dl (8.6-10.4); GFR AFRICAN-AMERICAN > 60; GFR NON-AFRICAN AMERICAN > 60
--- NOTE | 2017-11-26 08:29 | CP.PCM.PN ---
<Aston Fernandez - Last Filed: 11/26/17 08:26> Subjective - Date & Time of Evaluation Date of Evaluation: 11/26/17 Time of Evaluation: 08:00 - Subjective Subjective: PGY2 Medicine Note for Dr. Toro Patient seen and examined at bedside in the ICU. He resting comfortably and reports feeling well, stating he is ready for his cystoscopy. He is tolerating his diet and last BM was yesterday. Denies any palpitations, chest pain, SOB, or suprapubic pain. He reports good flow with karimi in place. Objective - Vital Signs/Intake and Output Vital Signs (last 24 hours): Temp Pulse Resp BP Pulse Ox 97.8 F 55 L 15 108/64 95 11/26/17 04:00 11/26/17 03:22 11/26/17 03:22 11/26/17 04:21 11/26/17 04:00 Intake and Output: 11/26/17 11/26/17 06:59 18:59 Intake Total 200 Output Total 825 Balance -625 - Medications Medications: Current Medications Amiodarone HCl (Cordarone) 200 mg PO TID [facility] Last Admin: 11/25/17 17:04 Dose: 200 mg Ciprofloxacin (Cipro 400mg/200ml Dsw) 400 mg in 200 mls @ 133 mls/hr IVPB Q12H [facility] PRN Reason: Protocol Stop: 11/30/17 13:01 Last Admin: 11/26/17 01:09 Dose: 133 mls/hr Lisinopril (Zestril) 20 mg PO DAILY [facility] Last Admin: 11/23/17 09:26 Dose: Not Given Metoprolol Tartrate (Lopressor) 50 mg PO BID [facility] Last Admin: 11/25/17 17:04 Dose: 50 mg Saccharomyces Boulardii (Florastor) 250 mg PO BID [facility] Last Admin: 11/25/17 17:04 Dose: 250 mg Tamsulosin HCl (Flomax) 0.4 mg PO BID [facility] Last Admin: 11/25/17 17:04 Dose: 0.4 mg - Labs Labs: 11/26/17 06:24 11/26/17 06:21 PT 13.8 SECONDS (9.7-12.2) H 11/22/17 21:18 INR 1.2 11/22/17 21:18 APTT 35 SECONDS (21-34) H 11/22/17 21:18 - Additional Findings Additional findings: - Constitutional Appears: Well - Head Exam Head Exam: ATRAUMATIC, NORMAL INSPECTION, NORMOCEPHALIC - Eye Exam Eye Exam: EOMI, Normal appearance, PERRL Pupil Exam: NORMAL ACCOMODATION, PERRL - ENT Exam ENT Exam: Mucous Membranes Moist, Normal Exam - Neck Exam Neck Exam: Full ROM, Normal Inspection. absent: Lymphadenopathy - Respiratory Exam Respiratory Exam: Clear to Ausculation Bilateral, NORMAL BREATHING PATTERN - Cardiovascular Exam Cardiovascular Exam: Tachycardia, REGULAR RHYTHM, +S1, +S2. absent: Murmur - GI/Abdominal Exam GI & Abdominal Exam: Soft, Normal Bowel Sounds. absent: Tenderness - Exam Exam: Circumcision, NORMAL INSPECTION (karimi catheter in place, clear red urine, with NO visible clots) - Extremities Exam Extremities Exam: Full ROM, Normal Capillary Refill, Normal Inspection. absent : Joint Swelling, Pedal Edema - Back Exam Back Exam: NORMAL INSPECTION - Neurological Exam Neurological Exam: Alert, Awake, CN II-XII Intact, Normal Gait, Oriented x3 - Psychiatric Exam Psychiatric exam: Normal Affect, Normal Mood - Skin Skin Exam: Dry, Intact, Normal Color, Warm Assessment and Plan - Assessment and Plan (Free Text) Assessment: (1) Hematuria Assessment & Plan: 11/25: Dr. Cathi Hadley notified that patient is cleared by Cardiology. Cytoscopy likely this monday. Dr. Vaughn (cardiology) would like the patient to remain in the ICU until after the Cystoscopy is complete 08/25 arrhythmia. NPO AM for 11/27/17. 11/23: CT abd/pelv w/o IV contrast - nonobstructing 3 mm right lower pole renal calculus. Markedly enlarged prostate. Decompressed urinary bladder with Karimi catheter balloon. Blood identified within urinary bladder lumen. Minor findings as above. Unremarkable non contrast enhanced CT of the abdomen and pelvis. (2) UTI Enterococcus faecalis + Urine Culture 11/22/17 Assessment & Plan: Rocephin discontinued 11/23/17 and started on Ciprofloxacin 400 mg IV Q12H with stop date 11/30/17 (3) SVT Assessment & Plan: Amiodarone 200 mg PO TID Lopressor 50mg PO BID Echocardiogram 11/23 - EF 56%; poor acoustic window; see full report. spoke with Nurse Kay and she has notified Echo lab that this must get done today Per Dr. Vaughn (cardiology), patient is stable for Cystoscopy on Monday. He would like the patient to remain in the ICU until after the Cystoscopy is complete 2/ arrhythmia. Status: Acute (4) BPH (benign prostatic hyperplasia) Assessment & Plan: Flomax 0.4 PO 2x/day Status: Chronic (5) Hypertension Assessment & Plan: Lopressor 50mg PO BID Zestril 20 PO QD is on HOLD due to low B/P LR at 150 ml/hr x 2 liters which should finish at 2 PM 11/24/17 Status: Chronic (6) Prophylactic measure Assessment & Plan: SCD VTE CI due to hematuria Florastor 250 mg PO 2x/day No GI PPX indicated at this time Status: Acute <Darryl Toro - Last Filed: 11/26/17 08:36> Objective - Vital Signs/Intake and Output Vital Signs (last 24 hours): Temp Pulse Resp BP Pulse Ox 97.8 F 55 L 15 108/64 95 11/26/17 04:00 11/26/17 03:22 11/26/17 03:22 11/26/17 04:21 11/26/17 04:00 Intake and Output: 11/26/17 11/26/17 06:59 18:59 Intake Total 200 Output Total 825 Balance -625 - Medications Medications: Current Medications Amiodarone HCl (Cordarone) 200 mg PO TID [facility] Last Admin: 11/25/17 17:04 Dose: 200 mg Ciprofloxacin (Cipro 400mg/200ml Dsw) 400 mg in 200 mls @ 133 mls/hr IVPB Q12H [facility] PRN Reason: Protocol Stop: 11/30/17 13:01 Last Admin: 11/26/17 01:09 Dose: 133 mls/hr Lisinopril (Zestril) 20 mg PO DAILY [facility] Last Admin: 11/23/17 09:26 Dose: Not Given Metoprolol Tartrate (Lopressor) 50 mg PO BID [facility] Last Admin: 11/25/17 17:04 Dose: 50 mg Saccharomyces Boulardii (Florastor) 250 mg PO BID [facility] Last Admin: 11/25/17 17:04 Dose: 250 mg Tamsulosin HCl (Flomax) 0.4 mg PO BID [facility] Last Admin: 11/25/17 17:04 Dose: 0.4 mg - Labs Labs: 11/26/17 06:24 11/26/17 06:21 PT 13.8 SECONDS (9.7-12.2) H 11/22/17 21:18 INR 1.2 11/22/17 21:18 APTT 35 SECONDS (21-34) H 11/22/17 21:18 Attending/Attestation - Attestation I have personally seen and examined this patient.: Yes I have fully participated in the care of the patient.: Yes I have reviewed all pertinent clinical information, including history, physical exam and plan: Yes Notes (Text): 11/26/17 08:32 Hospitalist Progress Note Patient was seen and examined at 8:15 AM 11/26/17 ICU Bed #2 Upon FULL ROS NO dysphagia/odynopahgia NO soreness in throat NO cough/SOB NO sinus/nasal congestion NO fever/chills NO muscle aches/pains NO joint pain NO chest pain/palpations NO abdominal pain NO n/v/d/c NO burning pain with urination NO LOCO NO lightheadedness/dizziness NO paresthesias NO new changes in vision NO new changes in hearing Exam: General: AAOX3, NAD HEENT: NCA, EOMI, PERRLA, NO cervical/supraclavicular/submandibular lymphadenopathy, NO pharyngeal erythema/exudate, Nasal Turbinates are nonerythematous/nonedematous, Oral Mucosa is moist Cardio: NS1 and NS2, NO M/R/G Resp: CTA B/L, NO R/R/W GI: BSx4, Soft, NT, NO HSM, NO guarding/rebound tenderness Ext: Pulses are strong and equal, Capillary Refill is 2 seconds, NO edema Neuro: CN II through XII are grossly intact NO more blood clots in karimi tubing or bag and the urine is now clear. 11/25/17: Spoke with Dr. Cathi Hadley and informed him that the patient was cleared by Cardiology for cystoscopy and that Medicine Team will make patient NPO after midnight on 11/26/17 for cytoscopy on Monday. Medicine Team will continue to contact Dr. Cathi Hadley if Cytoscopy has not been performed by 11 AM 11/26/17. The patient should have this performed before he is discharged. Assessments: 1). Hematuria CBI Cleared for Cytoscopy 11/26/17 2). UTI Enterococcus faecalis Cipro 400 mg IV Q12H through 11/30/17 and switch over to PO if he is discharged before then 3). SVT He is rate controlle in NSR Echo shows EF at 56% (see full report) Amiodarone 200 mg PO TID Lopressor 50 mg PO BID Cardiology Dr. Vaughn 4). BPH Flomax 0.4 mg PO 1x/day 5). HTN Zestril 20 mg PO 1x/day was placed on HOLD when patient had low blood pressure with the SVT He is currently on Lopressor 50 mg PO 1/day for the SVT and this has also controlled his blood pressure 6). Prophylaxis NO anticoagulation due to the gross hematuria: SCDs GI prophylaxis is not indicated at this time. Darryl Toro D.O.
--- NOTE | 2017-11-26 08:54 | CP.PCM.PCO ---
Physician Communication Note - Physician Communication Note Physician Communication Note: As NO more blood clots and urine clear, Bladder Irrigation discontinued
[2017-11-26] MEDS: Saccharomyces Boulardi 250 mg Cap PO SCH ×2 (09:08→17:58)
--- NOTE | 2017-11-26 19:17 | PN ---
DATE: 11/26/2017 SUBJECTIVE: The patient went for CT angio yesterday; however, the dye extravasated into the left arm and the study is considered after that to be noncontrast study. The impression was mild cardiomegaly and atherosclerotic disease. No aortic aneurysm. The patient is having left arm swelling and pain, but no evidence of infection. OBJECTIVE: VITAL SIGNS: Blood pressure 112/67, heart rate 68, temperature 97.8, and respirations 16. HEENT: Normocephalic. CHEST: Clear. HEART: S1 and S2, regular. EXTREMITIES: Swelling in left arm without any evidence of redness or blisters. LABORATORY DATA: Hemoglobin and hematocrit are 12.7 and 36.4. White count and platelet count are within normal limits. Today's SMA-7 is within normal limits except for glucose of 129. ASSESSMENT: 1. Supraventricular tachycardia versus atrial flutter with 2:1 conduction. 2. Extravasation of radiocontrast dye to the left arm. 3. Prostatic hypertrophy and hematuria. RECOMMENDATIONS: Continue current IV Cipro. Continue Zestril 20 mg once a day, Lopressor 50 mg twice a day. I instructed the nurse to put cold compresses and arm elevation. The patient can undergo cystoscopy in a.m. and if arrhythmia recurs, it should be managed with IV adenosine or IV verapamil. In the meantime, the rotary swaging machine operator or me the aviation tactical readiness officer can be contacted any time. It is not justified to do any invasive cardiac workup at this time especially in the presence of significant hematuria. Britton Vaughn MD
[2017-11-26] MEDS ORDERED: Simethicone 40 mg/0.6 ml Liquid (30 ml) PO PRN (20:52)
[2017-11-27] MEDS: Ciprofloxacin 400mg/200ml D5W 400 MG/200 ML BAG IVPB SCH ×2 (00:57→13:24)
[2017-11-27 06:10] LABS: BASO % 0.4 % (0.0-2.0); EOS # 0.1 K/uL (0.0-0.7); EOS % 1.1 % (0.0-4.0); HEMOGLOBIN 13.3 g/dL (12.0-18.0); LYMPH # 1.8 K/uL (1.0-4.3); LYMPH % 20.5 % (20.0-40.0); MEAN CELL VOLUME 95.3 fL (80.0-94.0); MEAN CORPUSCULAR HEMOGLOBIN 33.2 pg (27.0-31.0); MEAN CORPUSCULAR HGB CONC 34.9 g/dL (33.0-37.0); MEAN PLATELET VOLUME 8.4 fL (7.2-11.7); MONO # 0.4 K/uL (0.0-0.8); MONO % 4.8 % (0.0-10.0); NEUT # 6.5 K/uL (1.8-7.0); NEUT % 73.2 % (50.0-75.0); RBC 3.99 Mil/uL (4.40-5.90); RED CELL DISTRIBUTION WIDTH 13.3 % (11.5-14.5); WHITE BLOOD COUNT 8.8 K/uL (4.8-10.8)
[2017-11-27 06:52] LABS: ALB/GLOB RATIO 0.9 (1.0-2.1); ALBUMIN 3.7 g/dL (3.5-5.0); ALT/SGPT 33 U/L (21-72); AST/SGOT 40 U/L (17-59); BLOOD UREA NITROGEN 20 mg/dL (9-20); CALCIUM 8.8 mg/dl (8.6-10.4); GFR AFRICAN-AMERICAN > 60; GFR NON-AFRICAN AMERICAN > 60
--- NOTE | 2017-11-27 08:03 | CP.PCM.PN ---
<Eng,Lisa - Last Filed: 11/27/17 08:02> Objective - Vital Signs/Intake and Output Vital Signs (last 24 hours): Temp Pulse Resp BP Pulse Ox 98.2 F 60 17 107/65 95 11/27/17 04:00 11/27/17 04:00 11/27/17 04:00 11/27/17 04:00 11/27/17 04:00 Intake and Output: 11/27/17 11/27/17 06:59 18:59 Output Total 850 Balance -850 - Medications Medications: Current Medications Amiodarone HCl (Cordarone) 200 mg PO TID [facility] Last Admin: 11/26/17 17:58 Dose: 200 mg Ciprofloxacin (Cipro 400mg/200ml Dsw) 400 mg in 200 mls @ 133 mls/hr IVPB Q12H [facility] PRN Reason: Protocol Stop: 11/30/17 13:01 Last Admin: 11/27/17 00:57 Dose: 133 mls/hr Lisinopril (Zestril) 20 mg PO DAILY [facility] Last Admin: 11/23/17 09:26 Dose: Not Given Metoprolol Tartrate (Lopressor) 50 mg PO BID [facility] Last Admin: 11/26/17 17:58 Dose: Not Given Saccharomyces Boulardii (Florastor) 250 mg PO BID [facility] Last Admin: 11/26/17 17:58 Dose: 250 mg Simethicone (Mylicon Liq) 40 mg PO QID PRN PRN Reason: Flatulence Last Admin: 11/26/17 21:11 Dose: 40 mg Tamsulosin HCl (Flomax) 0.4 mg PO BID [facility] Last Admin: 11/26/17 17:58 Dose: 0.4 mg - Labs Labs: 11/27/17 06:02 11/27/17 06:02 PT 13.8 SECONDS (9.7-12.2) H 11/22/17 21:18 INR 1.2 11/22/17 21:18 APTT 35 SECONDS (21-34) H 11/22/17 21:18 Assessment and Plan - Assessment and Plan (Free Text) Assessment: (1) Hematuria Assessment & Plan: 11/25: Dr. Cathi Hadley notified that patient is cleared by Cardiology. Cytoscopy likely this monday. Dr. Vaughn (cardiology) would like the patient to remain in the ICU until after the Cystoscopy is complete 2/2 arrhythmia. NPO AM for 11/27/17. 11/23: CT abd/pelv w/o IV contrast - nonobstructing 3 mm right lower pole renal calculus. Markedly enlarged prostate. Decompressed urinary bladder with Karimi catheter balloon. Blood identified within urinary bladder lumen. Minor findings as above. Unremarkable non contrast enhanced CT of the abdomen and pelvis. 11/25/17: Dr. Darryl Toro spoke with Dr. Cathi Hadley and informed him that the patient was cleared by Cardiology for cystoscopy and that Medicine Team will make patient NPO after midnight on 11/26/17 for cytoscopy on Monday. Medicine Team will continue to contact Dr. Cathi Hadley if Cytoscopy has not been performed by 11 AM 11/26/17: bladder irrigation discontinued due to clear urine and no presence of blood clots (2) UTI Enterococcus faecalis + Urine Culture 11/22/17 Assessment & Plan: Rocephin discontinued 11/23/17 and started on Ciprofloxacin 400 mg IV Q12H with stop date 11/30/17 (3) SVT, resolved Assessment & Plan: Amiodarone 200 mg PO TID Lopressor 50mg PO BID Echocardiogram 11/23 - EF 56%; poor acoustic window; see full report. spoke with Nurse Kay and she has notified Echo lab that this must get done today Per Dr. Vaughn (cardiology), patient is stable for Cystoscopy on Monday. He would like the patient to remain in the ICU until after the Cystoscopy is complete 2/2 arrhythmia. (4) BPH (benign prostatic hyperplasia) Assessment & Plan: Flomax 0.4 PO 2x/day Status: Chronic (5) Hypertension Assessment & Plan: Lopressor 50mg PO BID Zestril 20 PO QD is on HOLD due to low B/P LR at 150 ml/hr x 2 liters which should finish at 2 PM 11/24/17 Status: Chronic (6) Prophylactic measure Assessment & Plan: SCD VTE CI due to hematuria discontinued Florastor 250 mg PO 2x/day No GI PPX indicated at this time Status: Acute <Michell Shah V - Last Filed: 11/27/17 08:27> Subjective - Date & Time of Evaluation Date of Evaluation: 11/27/17 Time of Evaluation: 08:15 - Subjective Subjective: Medical Attending Note: Patient seen and examined at bedside. Patient denies headache, denies chest pain, denies palpitations, denies shortness of breathe, denies abdominal pain, reports he felt gasey yesterday, denies constipation, denies diarrhea, denies numbness, denies tingling. Patient has Karimi cathter. No observed clots and karimi bag appears yellow urine. Objective - Vital Signs/Intake and Output Vital Signs (last 24 hours): Temp Pulse Resp BP Pulse Ox 98.2 F 60 17 107/65 95 11/27/17 04:00 11/27/17 04:00 11/27/17 04:00 11/27/17 04:00 11/27/17 04:00 Intake and Output: 11/27/17 11/27/17 06:59 18:59 Output Total 850 Balance -850 - Medications Medications: Current Medications Amiodarone HCl (Cordarone) 200 mg PO TID [facility] Last Admin: 11/26/17 17:58 Dose: 200 mg Ciprofloxacin (Cipro 400mg/200ml Dsw) 400 mg in 200 mls @ 133 mls/hr IVPB Q12H [facility] PRN Reason: Protocol Stop: 11/30/17 13:01 Last Admin: 11/27/17 00:57 Dose: 133 mls/hr Lisinopril (Zestril) 20 mg PO DAILY [facility] Last Admin: 11/23/17 09:26 Dose: Not Given Metoprolol Tartrate (Lopressor) 50 mg PO BID [facility] Last Admin: 11/26/17 17:58 Dose: Not Given Saccharomyces Boulardii (Florastor) 250 mg PO BID [facility] Last Admin: 11/26/17 17:58 Dose: 250 mg Simethicone (Mylicon Liq) 40 mg PO QID PRN PRN Reason: Flatulence Last Admin: 11/26/17 21:11 Dose: 40 mg Tamsulosin HCl (Flomax) 0.4 mg PO BID [facility] Last Admin: 11/26/17 17:58 Dose: 0.4 mg - Labs Labs: 11/27/17 06:02 11/27/17 06:02 PT 13.8 SECONDS (9.7-12.2) H 11/22/17 21:18 INR 1.2 11/22/17 21:18 APTT 35 SECONDS (21-34) H 11/22/17 21:18 - Constitutional Appears: Non-toxic, No Acute Distress - Head Exam Head Exam: NORMAL INSPECTION - Eye Exam Eye Exam: EOMI - ENT Exam ENT Exam: Mucous Membranes Dry - Respiratory Exam Respiratory Exam: Clear to Ausculation Bilateral, NORMAL BREATHING PATTERN. absent: Rales, Rhonchi, Wheezes - Cardiovascular Exam Cardiovascular Exam: REGULAR RHYTHM, +S1, +S2 - GI/Abdominal Exam GI & Abdominal Exam: Soft, Normal Bowel Sounds. absent: Distended, Firm, Guarding, Rigid, Tenderness, Rebound - Exam Additional comments: Karimi present - Extremities Exam Extremities Exam: absent: Pedal Edema, Tenderness Additional comments: SCDS b/l - Neurological Exam Neurological Exam: Alert, Awake, Oriented x3 - Skin Skin Exam: Dry, Intact, Normal Color, Warm Additional comments: multiple moles over neck Attending/Attestation - Attestation I have personally seen and examined this patient.: Yes I have fully participated in the care of the patient.: Yes I have reviewed all pertinent clinical information, including history, physical exam and plan: Yes Notes (Text): Assessment/Plan (1) Hematuria Assessment & Plan: * Urology (Dr. Dago Hadley) on the case * Cardiology (Dr. Vaughn) on the case * Patient is cleared by cardiology to proceed with procedure. Advised for IV Adenosine or IV Verampil if patient experiences arrhythmia during procedure 11/27: Patient is pending urology procedure. Has Karimi in place. CBI discontinued 11/26/17. 11/25: Dr. Cathi Hadley notified that patient is cleared by Cardiology. Cytoscopy likely this monday. Dr. Vaughn (cardiology) would like the patient to remain in the ICU until after the Cystoscopy is complete 2/2 arrhythmia. NPO AM for 11/27/17. 5: CT abd/pelv w/o IV contrast - nonobstructing 3 mm right lower pole renal calculus. Markedly enlarged prostate. Decompressed urinary bladder with Karimi catheter balloon. Blood identified within urinary bladder lumen. Minor findings as above. Unremarkable non contrast enhanced CT of the abdomen and pelvis. 11/25/17: Dr. Darryl Toro spoke with Dr. Cathi Hadley and informed him that the patient was cleared by Cardiology for cystoscopy and that Medicine Team will make patient NPO after midnight on 11/26/17 for cytoscopy on Monday. Medicine Team will continue to contact Dr. Cathi Hadley if Cytoscopy has not been performed by 11 AM 11/26/17: bladder irrigation discontinued due to clear urine and no presence of blood clots (2) UTI Enterococcus faecalis + Urine Culture 11/22/17 Assessment & Plan: * Rocephin discontinued 11/23/17 and started on Ciprofloxacin 400 mg IV Q12H with stop date 11/30/17 * + Urine Culture 11/22/17 * Patient is pending cystoscopy with Dr. Dago Hadley this morning. Patient is NPO (3) SVT-->Stable Assessment & Plan: * Cardiology (Dr. Vaughn) on the case * Per cardiology, clear for procedure; advised for IV adenosine or IV Verampil if arrhythmia reoccurs * Pending venous doppler by cardiology to rule DVT * CT Angio ruled out PE. Echocardiogram 11/23 - EF 56%; poor acoustic window; see full report. * Ct Angio (11/25/17): mild cardiomegaly and atherosclerotic disease, no aortic aneurysm * Order for Lipid panel * Amiodarone 200 mg PO TID * Lopressor 50mg PO BID (4) BPH (benign prostatic hyperplasia) Assessment & Plan: 11/27: Patient is pending urology procedure. Has Karimi in place. CBI discontinued 11/26/17. * Flomax 0.4 PO 2x/day Status: Chronic (5) Hypertension Assessment & Plan: * Monitor vital signs * Lopressor 50mg PO BID * Zestril 20 PO QD is on HOLD due to low B/P * LR at 150 ml/hr x 2 liters which should finish at 2 PM 11/24/17 Status: Chronic (6) Prophylactic measure Assessment & Plan: * SCD * VTE CI due to hematuria discontinued Florastor 250 mg PO 2x/day * No GI PPX indicated at this time Status: Acute Disposition: Pending cystoscopy. Patient is NPO for urologic procedure. Pending venous doppler ordered by cardiology to rule out DVT.
[2017-11-27] MEDS: Saccharomyces Boulardi 250 mg Cap PO SCH ×2 (09:17→17:26)
--- NOTE | 2017-11-27 13:53 | PCM.URO ---
Urology Progress Note - Objective Lab Studies: Reviewed (gu dx: gross hematuria and urinary retention / pt with indwelling karimi and clear urine off the cbi ct scan is negative ; labs stable gu plans : as discussed with dr reyna over the weekend please maintain karimi catheter and out pt management full note dictated) Lab Results Last 24 Hours: Laboratory Results - last 24 hr 11/26/17 11/26/17 11/27/17 16:07 21:11 06:02 WBC 8.8 RBC 3.99 L Hgb 13.3 Hct 38.0 MCV 95.3 H MCH 33.2 H MCHC 34.9 RDW 13.3 Plt Count 240 MPV 8.4 Neut % (Auto) 73.2 Lymph % (Auto) 20.5 [place] % (Auto) 4.8 Eos % (Auto) 1.1 Baso % (Auto) 0.4 Neut # (Auto) 6.5 Lymph # (Auto) 1.8 [place] # (Auto) 0.4 Eos # (Auto) 0.1 Baso # (Auto) 0.0 Sodium Potassium Chloride Carbon Dioxide Anion Gap BUN Creatinine Est GFR ( Amer) Est GFR (Non-Af Amer) POC Glucose (mg/dL) 93 123 H Random Glucose Calcium Phosphorus Magnesium Total Bilirubin AST ALT Alkaline Phosphatase Total Protein Albumin Globulin Albumin/Globulin Ratio 11/27/17 06:02 WBC RBC Hgb Hct MCV MCH MCHC RDW Plt Count MPV Neut % (Auto) Lymph % (Auto) [place] % (Auto) Eos % (Auto) Baso % (Auto) Neut # (Auto) Lymph # (Auto) [place] # (Auto) Eos # (Auto) Baso # (Auto) Sodium 140 Potassium 4.3 Chloride 107 Carbon Dioxide 21 L Anion Gap 16 BUN 20 Creatinine 1.1 Est GFR ( Amer) > 60 Est GFR (Non-Af Amer) > 60 POC Glucose (mg/dL) Random Glucose 105 Calcium 8.8 Phosphorus 4.2 Magnesium 2.2 Total Bilirubin 0.9 AST 40 ALT 33 Alkaline Phosphatase 81 Total Protein 7.5 Albumin 3.7 Globulin 3.9 Albumin/Globulin Ratio 0.9 L Intake & Output: Intake & Output 11/26/17 11/27/17 11/27/17 18:59 06:59 18:59 Intake Total 3180 Output Total 3700 850 Balance -520 -850 Intake: Intake, IV Amount 200 Right Forearm 200 Oral 1080 Other 1900 Output: Urine 3700 850 2-way Urethral 900 850 Vital Signs: Vital Signs - 24 hr 11/26/17 11/26/17 11/26/17 14:00 14:21 15:21 Temperature Pulse Rate 57 L 58 L Respiratory 17 21 Rate Blood Pressure 104/63 101/69 O2 Sat by Pulse 94 L 91 L Oximetry 11/26/17 11/26/17 11/26/17 16:00 16:21 19:22 Temperature 98.6 F Pulse Rate 61 58 L 61 Respiratory 19 15 19 Rate Blood Pressure 104/70 106/70 O2 Sat by Pulse 94 L 91 L 94 L Oximetry 11/26/17 11/26/17 11/26/17 20:00 20:22 21:21 Temperature 98.4 F Pulse Rate 63 Respiratory 18 Rate Blood Pressure 97/62 L 97/62 L 104/64 O2 Sat by Pulse 96 Oximetry 11/26/17 11/26/17 11/26/17 22:00 22:21 23:21 Temperature Pulse Rate 52 L Respiratory 19 Rate Blood Pressure 98/60 L 102/57 L O2 Sat by Pulse 92 L Oximetry 11/27/17 11/27/17 11/27/17 00:00 04:00 08:00 Temperature 98.3 F 98.2 F 98.1 F Pulse Rate 56 L 60 64 Respiratory 13 17 15 Rate Blood Pressure 115/74 107/65 123/69 O2 Sat by Pulse 94 L 95 91 L Oximetry 11/27/17 12:00 Temperature 97.7 F Pulse Rate 72 Respiratory 18 Rate Blood Pressure 130/80 O2 Sat by Pulse 93 L Oximetry
--- NOTE | 2017-11-27 14:55 | PN ---
DATE: 11/27/2017 SUBJECTIVE: The patient denies any chest pain. No reported supraventricular arrhythmia. PHYSICAL EXAMINATION: VITAL SIGNS: Blood pressure 123/69, heart rate 64, temperature 98.1, respirations 16. HEENT: Normocephalic. CHEST: Clear. HEART: S1, S2 regular. ABDOMEN: Soft. EXTREMITIES: No edema. LABORATORY DATA: Hemoglobin and hematocrit 15.3 and 38. White count and platelet count are within normal limits. SMA-7 today is within normal limits except for carbon dioxide of 21. ASSESSMENT: 1. Supraventricular tachycardia. 2. Bladder neck obstruction. 3. Hypertension. RECOMMENDATIONS: Continue current Lopressor 60 mg twice a day, amiodarone 200 mg t.i.d., Zestril 20 mg once a day. The patient will undergo a cystoscopy today. Britton Vaughn MD
--- NOTE | 2017-11-27 16:25 | CARD ---
APPROVED REPORT EKG Measurement Heart [id number] <Conclusion> Sinus rhythm with 1st degree AV block Inferior infarct, age undetermined Abnormal ECG
[2017-11-28] MEDS: Ciprofloxacin 400mg/200ml D5W 400 MG/200 ML BAG IVPB SCH ×2 (01:00→12:59)
[2017-11-28 06:23] LABS: BASO # 0.1 K/uL (0.0-0.2); BASO % 0.7 % (0.0-2.0); EOS # 0.4 K/uL (0.0-0.7); EOS % 5.6 % (0.0-4.0); HEMOGLOBIN 13.1 g/dL (12.0-18.0); LYMPH % 25.4 % (20.0-40.0); MEAN CELL VOLUME 94.5 fL (80.0-94.0); MEAN CORPUSCULAR HEMOGLOBIN 33.4 pg (27.0-31.0); MEAN CORPUSCULAR HGB CONC 35.3 g/dL (33.0-37.0); MEAN PLATELET VOLUME 7.9 fL (7.2-11.7); MONO # 0.6 K/uL (0.0-0.8); MONO % 7.1 % (0.0-10.0); NEUT # 4.9 K/uL (1.8-7.0); NEUT % 61.2 % (50.0-75.0); RBC 3.93 Mil/uL (4.40-5.90); RED CELL DISTRIBUTION WIDTH 13.4 % (11.5-14.5); WHITE BLOOD COUNT 7.9 K/uL (4.8-10.8)
[2017-11-28 06:34] LABS: ALB/GLOB RATIO 0.9 (1.0-2.1); ALBUMIN 3.4 g/dL (3.5-5.0); CALCIUM 8.7 mg/dl (8.6-10.4); GFR AFRICAN-AMERICAN > 60; GFR NON-AFRICAN AMERICAN > 60
[2017-11-28 06:45] LABS: ALT/SGPT 33 U/L (21-72); AST/SGOT 42 U/L (17-59); BLOOD UREA NITROGEN 21 mg/dL (9-20)
[2017-11-28] MEDS: Saccharomyces Boulardi 250 mg Cap PO SCH ×2 (09:14→17:24)
--- NOTE | 2017-11-28 12:46 | CARD ---
APPROVED REPORT EKG Measurement Heart [id number] <Conclusion> Supraventricular tachycardia Inferior infarct, age undetermined Abnormal ECG
--- NOTE | 2017-11-28 15:53 | CP.PCM.PN ---
<Lisa Gonzalez - Last Filed: 11/28/17 16:01> Subjective - Date & Time of Evaluation Date of Evaluation: 11/28/17 Time of Evaluation: 15:50 - Subjective Subjective: Progress note Patient seen and examined at bedside. Patient states he spoke with Dr. Dago Hadley who told him he can follow up outpatient. However, during the day, patient was straining on the commode and felt a tugging sensation at his karimi. He and RN Nuria noted bright red blood which prompted the restarting of CBI today 11/28. Of note, CBI was restarted yesterday afternoon as well. Dr. aDgo Hadley spoke to patient at bedside today and stated that he will be scheduled for cystoscopy on . Patient denies suprapubic pain or hematuria. Patient has clear yellow urine noted in the karimi bag upon visit to bedside. and daughter were at bedside in the morning, but not during the visit with Dr. Hadley and Dr. Shah at bedside. Objective - Vital Signs/Intake and Output Vital Signs (last 24 hours): Temp Pulse Resp BP Pulse Ox 97.7 F 51 L 16 117/68 96 11/28/17 12:00 11/28/17 12:00 11/28/17 12:00 11/28/17 12:00 11/28/17 12:00 Intake and Output: 11/28/17 11/28/17 06:59 18:59 Intake Total 700 1100 Output Total 1700 5155 Balance -1000 -4055 - Medications Medications: Current Medications Amiodarone HCl (Cordarone) 200 mg PO TID [facility] Last Admin: 11/28/17 12:59 Dose: 200 mg Ciprofloxacin (Cipro 400mg/200ml Dsw) 400 mg in 200 mls @ 133 mls/hr IVPB Q12H [facility] PRN Reason: Protocol Stop: 11/30/17 13:01 Last Admin: 11/28/17 12:59 Dose: 133 mls/hr Lisinopril (Zestril) 20 mg PO DAILY [facility] Last Admin: 11/23/17 09:26 Dose: Not Given Metoprolol Tartrate (Lopressor) 50 mg PO BID [facility] Last Admin: 11/28/17 09:14 Dose: 50 mg Saccharomyces Boulardii (Florastor) 250 mg PO BID [facility] Last Admin: 11/28/17 09:14 Dose: 250 mg Simethicone (Mylicon Liq) 40 mg PO QID PRN PRN Reason: Flatulence Last Admin: 11/26/17 21:11 Dose: 40 mg Tamsulosin HCl (Flomax) 0.4 mg PO BID [facility] Last Admin: 11/28/17 09:14 Dose: 0.4 mg - Labs Labs: 11/28/17 06:05 11/28/17 06:05 PT 13.8 SECONDS (9.7-12.2) H 11/22/17 21:18 INR 1.2 11/22/17 21:18 APTT 35 SECONDS (21-34) H 11/22/17 21:18 - Rectal Exam Additional comments: - Constitutional Appears: Non-toxic, No Acute Distress - Head Exam Head Exam: NORMAL INSPECTION - Eye Exam Eye Exam: EOMI - ENT Exam ENT Exam: Mucous Membranes Dry - Respiratory Exam Respiratory Exam: Clear to Ausculation Bilateral, NORMAL BREATHING PATTERN. absent: Rales, Rhonchi, Wheezes - Cardiovascular Exam Cardiovascular Exam: REGULAR RHYTHM, +S1, +S2 - GI/Abdominal Exam GI & Abdominal Exam: Soft, Normal Bowel Sounds. absent: Distended, Firm, Guarding, Rigid, Tenderness, Rebound - Exam Additional comments: Karimi present, CBI running - Extremities Exam Extremities Exam: absent: Pedal Edema, Tenderness Additional comments: SCDS b/l - Neurological Exam Neurological Exam: Alert, Awake, Oriented x3 - Skin Skin Exam: Dry, Intact, Normal Color, Warm Additional comments: multiple moles over neck Assessment and Plan - Assessment and Plan (Free Text) Assessment: (1) Hematuria Assessment & Plan: 11/25: Dr. Cathi Hadley notified that patient is cleared by Cardiology. Cytoscopy likely this monday. Dr. Vaughn (cardiology) would like the patient to remain in the ICU until after the Cystoscopy is complete 2/2 arrhythmia. 11/23: CT abd/pelv w/o IV contrast - non-obstructing 3 mm right lower pole renal calculus. Markedly enlarged prostate. Decompressed urinary bladder with Karimi catheter balloon. Blood identified within urinary bladder lumen. Minor findings as above. Unremarkable non contrast enhanced CT of the abdomen and pelvis. 11/25/17: Dr. Darryl Toro spoke with Dr. Cathi Hadley and informed him that the patient was cleared by Cardiology for cystoscopy and that Medicine Team will make patient NPO after midnight on 11/26/17 for cytoscopy on Monday. 11/26/17: bladder irrigation discontinued due to clear urine and no presence of blood clots 11/27/17: CBI restarted in afternoon, cystoscopy planned for outpatient per Dr. Hadley 11/28: Patient hat hematuria after trying to have a Bowel movement. Colace started , cystoscopy planned for 11/30 11/29 NPO p Midnight 11/30 cystoscopy planned. will follow (2) UTI Enterococcus faecalis + Urine Culture 11/22/17 Assessment & Plan: Rocephin discontinued 11/23/17 and started on Ciprofloxacin 400 mg IV Q12H with stop date 11/30/17 (3) SVT, resolved Assessment & Plan: Amiodarone 200 mg PO TID Lopressor 50mg PO BID Echocardiogram 11/23 - EF 56%; poor acoustic window; see full report. spoke with Nurse Kay and she has notified Echo lab that this must get done today Per Dr. Vaughn (cardiology), patient is stable for Cystoscopy on Monday. He would like the patient to remain in the ICU until after the Cystoscopy is complete / arrhythmia. (4) BPH (benign prostatic hyperplasia) Assessment & Plan: Flomax 0.4 PO 2x/day Status: Chronic (5) Hypertension Assessment & Plan: Lopressor 50mg PO BID Zestril 20 PO QD is on HOLD due to low B/P LR at 150 ml/hr x 2 liters which should finish at 2 PM 11/24/17 Status: Chronic (6) constipation colace 100mg PO BID, hold after BM (7) Prophylactic measure Assessment & Plan: SCD VTE CI due to hematuria discontinued Florastor 250 mg PO 2x/day No GI PPX indicated at this time Status: Acute Lisa Eng, DO PGY1 <Michell Shah V - Last Filed: 11/29/17 07:14> Objective - Vital Signs/Intake and Output Vital Signs (last 24 hours): Temp Pulse Resp BP Pulse Ox 97.5 F L 55 L 18 108/48 L 97 11/29/17 04:00 11/29/17 04:00 11/29/17 04:00 11/29/17 04:00 11/29/17 04:00 Intake and Output: 11/29/17 11/29/17 06:59 18:59 Intake Total 0 Output Total 1050 Balance -1050 - Medications Medications: Current Medications Amiodarone HCl (Cordarone) 200 mg PO TID [facility] Last Admin: 11/28/17 17:24 Dose: 200 mg Docusate Sodium (Colace) 100 mg PO BID [facility] Ciprofloxacin (Cipro 400mg/200ml Dsw) 400 mg in 200 mls @ 133 mls/hr IVPB Q12H [facility] PRN Reason: Protocol Stop: 11/30/17 13:01 Last Admin: 11/29/17 00:10 Dose: 133 mls/hr Lisinopril (Zestril) 20 mg PO DAILY [facility] Last Admin: 11/23/17 09:26 Dose: Not Given Metoprolol Tartrate (Lopressor) 50 mg PO BID [facility] Last Admin: 11/28/17 17:25 Dose: 50 mg Saccharomyces Boulardii (Florastor) 250 mg PO BID [facility] Last Admin: 11/28/17 17:24 Dose: 250 mg Simethicone (Mylicon Liq) 40 mg PO QID PRN PRN Reason: Flatulence Last Admin: 11/26/17 21:11 Dose: 40 mg Tamsulosin HCl (Flomax) 0.4 mg PO BID [facility] Last Admin: 11/28/17 17:24 Dose: 0.4 mg - Labs Labs: 11/28/17 06:05 11/29/17 06:22 PT 13.8 SECONDS (9.7-12.2) H 11/22/17 21:18 INR 1.2 11/22/17 21:18 APTT 35 SECONDS (21-34) H 11/22/17 21:18 Attending/Attestation - Attestation I have personally seen and examined this patient.: Yes I have fully participated in the care of the patient.: Yes I have reviewed all pertinent clinical information, including history, physical exam and plan: Yes Notes (Text): This is late computer entry for 11/28/17. Patient seen, examined and case discussed with day-time resident. Patient seen with urology at bedside. Patient had hematuria this morning while reported he strained on the toilet. Patient to be scheduled for cystoscopy for November. Patient completed venous doppler pending official read. Assessment/Plan (1) Hematuria Assessment & Plan: * Urology (Dr. Dago Hadley) on the case * Patient bleeding in the AM, CBI on board, NPO after midnight November. * Cardiology (Dr. Vaughn) on the case * Patient is cleared by cardiology to proceed with procedure. Advised for IV Adenosine or IV Verampil if patient experiences arrhythmia during procedure 11/28: Patient had recurrent hematuria this morning. CBI restarted. Patient scheduled for cystoscopy for . Urology present at bedside. 11/27: Patient is pending urology procedure. Has Karimi in place. CBI discontinued 11/26/17. 11/25: Dr. Cathi Hadley notified that patient is cleared by Cardiology. Cytoscopy likely this monday. Dr. Vaughn (cardiology) would like the patient to remain in the ICU until after the Cystoscopy is complete 2/2 arrhythmia. NPO AM for 11/27/17. 11/23: CT abd/pelv w/o IV contrast - nonobstructing 3 mm right lower pole renal calculus. Markedly enlarged prostate. Decompressed urinary bladder with Karimi catheter balloon. Blood identified within urinary bladder lumen. Minor findings as above. Unremarkable non contrast enhanced CT of the abdomen and pelvis. 11/25/17: Dr. Darryl Toro spoke with Dr. Cathi Hadley and informed him that the patient was cleared by Cardiology for cystoscopy and that Medicine Team will make patient NPO after midnight on 11/26/17 for cytoscopy on Monday. Medicine Team will continue to contact Dr. Cathi Hadley if Cytoscopy has not been performed by 11 AM 11/26/17: bladder irrigation discontinued due to clear urine and no presence of blood clots (2) UTI Enterococcus faecalis + Urine Culture 11/22/17 Assessment & Plan: * Rocephin discontinued 11/23/17 and started on Ciprofloxacin 400 mg IV Q12H with stop date 11/30/17 * + Urine Culture 11/22/17 * Patient is pending cystoscopy with Dr. Dago Hadley for this given recurrent bleeding this morning carlos a 11/28/17. (3) SVT-->Stable Assessment & Plan: * Cardiology (Dr. Vaughn) on the case * Per cardiology, clear for procedure; advised for IV adenosine or IV Verampil if arrhythmia reoccurs * Pending venous doppler by cardiology to rule DVT * CT Angio ruled out PE. Echocardiogram 11/23 - EF 56%; poor acoustic window; see full report. * Ct Angio (11/25/17): mild cardiomegaly and atherosclerotic disease, no aortic aneurysm * Amiodarone 200 mg PO TID * Lopressor 50mg PO BID (4) BPH (benign prostatic hyperplasia) Assessment & Plan: 11/27: Patient is pending urology procedure. Has Karimi in place. CBI restarted. For . * Flomax 0.4 PO 2x/day Status: Chronic (5) Hypertension Assessment & Plan: * Monitor vital signs * Lopressor 50mg PO BID * Zestril 20 PO QD is on HOLD due to low B/P * LR at 150 ml/hr x 2 liters which should finish at 2 PM 11/24/17 Status: Chronic (6) Prophylactic measure Assessment & Plan: * SCD * VTE CI due to hematuria discontinued Florastor 250 mg PO 2x/day * No GI PPX indicated at this time Status: Acute Disposition: Pending cystoscopy for . Pending venous doppler ordered by cardiology to rule out DVT.
--- NOTE | 2017-11-28 17:45 | PCM.URO ---
Urology Progress Note - Objective Lab Studies: Reviewed (plans for cysto 11/30) Lab Results Last 24 Hours: Laboratory Results - last 24 hr 11/28/17 11/28/17 11/28/17 06:05 06:05 06:05 WBC 7.9 RBC 3.93 L Hgb 13.1 Hct 37.1 MCV 94.5 H MCH 33.4 H MCHC 35.3 RDW 13.4 Plt Count 243 MPV 7.9 Neut % (Auto) 61.2 Lymph % (Auto) 25.4 [place] % (Auto) 7.1 Eos % (Auto) 5.6 H Baso % (Auto) 0.7 Neut # (Auto) 4.9 Lymph # (Auto) 2.0 [place] # (Auto) 0.6 Eos # (Auto) 0.4 Baso # (Auto) 0.1 Sodium 137 Potassium 4.6 Chloride 106 Carbon Dioxide 21 L Anion Gap 15 BUN 21 H Creatinine 1.1 Est GFR ( Amer) > 60 Est GFR (Non-Af Amer) > 60 Random Glucose 98 Calcium 8.7 Phosphorus 3.7 Magnesium 2.2 Total Bilirubin 1.2 AST 42 ALT 33 Alkaline Phosphatase 71 Total Protein 7.4 Albumin 3.4 L Globulin 3.9 Albumin/Globulin Ratio 0.9 L Triglycerides 93 D Cholesterol 164 LDL Cholesterol Direct 112 HDL Cholesterol 27 L Intake & Output: Intake & Output 11/27/17 11/28/17 11/28/17 18:59 06:59 18:59 Intake Total 1078 050 0404 Output Total 3200 1700 5275 Balance -6340 -6089 -0599 Intake: Intake, IV Amount 300 200 Right Forearm 300 Right Hand 200 Oral 400 1140 Other 1500 Output: Urine 3200 1700 5275 2-way Urethral 1700 5275 Other: # Bowel Movements 0 1 Vital Signs: Vital Signs - 24 hr 11/27/17 11/28/17 11/28/17 20:00 00:00 04:00 Temperature 97.5 F L 97.5 F L 97.8 F Pulse Rate 54 L 52 L 54 L Respiratory 19 13 14 Rate Blood Pressure 99/59 L 95/54 L 113/61 O2 Sat by Pulse 95 92 L 93 L Oximetry 11/28/17 11/28/17 11/28/17 08:00 12:00 16:00 Temperature 98.1 F 97.7 F 98.0 F Pulse Rate 58 L 51 L 62 Respiratory 20 16 21 Rate Blood Pressure 116/70 117/68 108/65 O2 Sat by Pulse 95 96 96 Oximetry
--- NOTE | 2017-11-28 18:50 | PN ---
DATE: 11/28/2017 SUBJECTIVE: The patient has hematuria. He denies any chest pain. No reported SVT. PHYSICAL EXAMINATION: VITAL SIGNS: Blood pressure 117/68, heart rate 51, temperature 97.7, respirations 16. HEENT: Normocephalic. CHEST: Clear. HEART: S1 and S2 regular. EXTREMITIES: No edema. LABORATORY DATA: Hemoglobin and hematocrit 15.1 and 37.1. White count and platelet count are within normal limits. Today's SMA-7 is within normal limits except for carbon dioxide of 21 and BUN of 21. ASSESSMENT: 1. Paroxysmal reentrant supraventricular tachycardia, however, atrial flutter with 2:1 conduction cannot be completely excluded. 2. Bladder neck obstruction and hematuria. RECOMMENDATIONS: Continue current Lopressor 50 mg twice a day, amiodarone 200 mg t.i.d. I will obtain venous Doppler of the lower extremities. The patient has not been scheduled for cystoscopy yet. Britton Vaughn MD
[2017-11-29] MEDS: Ciprofloxacin 400mg/200ml D5W 400 MG/200 ML BAG IVPB SCH ×2 (00:10→12:06)
[2017-11-29 06:48] LABS: BASO # 0.1 K/uL (0.0-0.2); BASO % 0.9 % (0.0-2.0); EOS # 0.5 K/uL (0.0-0.7); EOS % 6.3 % (0.0-4.0); HEMOGLOBIN 12.8 g/dL (12.0-18.0); LYMPH # 2.2 K/uL (1.0-4.3); LYMPH % 29.9 % (20.0-40.0); MEAN CELL VOLUME 94.2 fL (80.0-94.0); MEAN CORPUSCULAR HEMOGLOBIN 33.2 pg (27.0-31.0); MEAN CORPUSCULAR HGB CONC 35.3 g/dL (33.0-37.0); MEAN PLATELET VOLUME 8.2 fL (7.2-11.7); MONO # 0.4 K/uL (0.0-0.8); MONO % 5.7 % (0.0-10.0); NEUT # 4.1 K/uL (1.8-7.0); NEUT % 57.2 % (50.0-75.0); RBC 3.87 Mil/uL (4.40-5.90); RED CELL DISTRIBUTION WIDTH 13.7 % (11.5-14.5); WHITE BLOOD COUNT 7.2 K/uL (4.8-10.8)
[2017-11-29 06:56] LABS: ALBUMIN 3.6 g/dL (3.5-5.0); ALT/SGPT 35 U/L (21-72); AST/SGOT 33 U/L (17-59); BLOOD UREA NITROGEN 20 mg/dL (9-20); CALCIUM 8.8 mg/dl (8.6-10.4); GFR AFRICAN-AMERICAN > 60; GFR NON-AFRICAN AMERICAN 59
--- NOTE | 2017-11-29 09:33 | VASCLAB ---
PROCEDURE: Lower Extremity Venous Duplex Exam. HISTORY: r/o DVT PRIORS: None. TECHNIQUE: Bilateral common femoral, femoral, popliteal and posterior tibial, peroneal and great saphenous veins were evaluated. Flow was assessed with color Doppler, compressibility, assessment of phasic flow and augmentation response. Report prepared by KENY Polanco FINDINGS: RIGHT: 1. Common Femoral Vein: 1.1. Compressibility - Fully compressible: Thrombus - None : Flow - Phasic: Augmentation -Normal: Reflux - None. 2. Femoral Vein: 2.1. Compressibility - Fully compressible: Thrombus - None : Flow - Phasic: Augmentation -Normal: Reflux - None. 3. Popliteal Vein: 3.1. Compressibility - Fully compressible: Thrombus - None : Flow - Phasic: Augmentation -Normal: Reflux - None. 4. Posterior Tibial Vein: 4.1. Compressibility - Fully compressible: Thrombus - None: Flow - Phasic: Augmentation -Normal: Reflux - None. 5. Peroneal Vein: 5.1. Compressibility - Fully compressible: Thrombus - None: Flow - Phasic: Augmentation -Normal: Reflux - None. 6. Great Saphenous Vein: 6.1. Compressibility - Fully compressible: Thrombus - None: Flow - Phasic: Augmentation - Normal: Reflux - None. LEFT: 1. Common Femoral Vein: 1.1. Compressibility - Fully compressible: Thrombus - None: Flow - Phasic: Augmentation -Normal: Reflux - None. 2. Femoral Vein: 2.1. Compressibility - Fully compressible: Thrombus - None: Flow - Phasic: Augmentation -Normal: Reflux - None. 3. Popliteal Vein: 3.1. Compressibility - Fully compressible: Thrombus - None : Flow - Phasic: Augmentation -Normal: Reflux - None. 4. Posterior Tibial Vein: 4.1. Compressibility - Fully compressible: Thrombus - None: Flow - Phasic: Augmentation -Normal: Reflux - None. 5. Peroneal Vein: 5.1. Compressibility - Fully compressible: Thrombus - None: Flow - Phasic: Augmentation -Normal: Reflux - None. 6. Great Saphenous Vein: 6.1. Compressibility - Fully compressible: Thrombus - None: Flow - Phasic: Augmentation - Normal: Reflux - None. OTHER FINDINGS: Right: None significant. Left: None significant. IMPRESSION: Right: No evidence of deep or superficial vein thrombosis of the right lower extremity. Normal valve function noted of the right side. Left: No evidence of deep or superficial vein thrombosis of the left lower extremity. Normal valve function noted of the left side.
[2017-11-29] MEDS: Saccharomyces Boulardi 250 mg Cap PO SCH ×2 (09:42→17:50)
--- NOTE | 2017-11-29 09:49 | CP.PCM.PN ---
<Lisa Gonzalez - Last Filed: 11/29/17 09:49> Subjective - Date & Time of Evaluation Date of Evaluation: 11/29/17 Time of Evaluation: 09:49 - Subjective Subjective: Progress Note for Dr. Shah Patient seen and examined at bedside. Patient hasn't had a bowel movement and has not noticed any blood in karimi after CBI was discontinued. Patient is aware that he's going for cystoscopy tomorrow and is aware that he will be NPO past midnight. Objective - Vital Signs/Intake and Output Vital Signs (last 24 hours): Temp Pulse Resp BP Pulse Ox 98.1 F 65 18 139/73 95 11/29/17 08:00 11/29/17 09:40 11/29/17 09:40 11/29/17 09:40 11/29/17 09:40 Intake and Output: 11/29/17 11/29/17 06:59 18:59 Intake Total 0 Output Total 1050 Balance -1050 - Medications Medications: Current Medications Amiodarone HCl (Cordarone) 200 mg PO TID [facility] Last Admin: 11/29/17 09:42 Dose: 200 mg Docusate Sodium (Colace) 100 mg PO BID [facility] Last Admin: 11/29/17 09:42 Dose: 100 mg Ciprofloxacin (Cipro 400mg/200ml Dsw) 400 mg in 200 mls @ 133 mls/hr IVPB Q12H [facility] PRN Reason: Protocol Stop: 11/30/17 13:01 Last Admin: 11/29/17 00:10 Dose: 133 mls/hr Lisinopril (Zestril) 20 mg PO DAILY [facility] Last Admin: 11/23/17 09:26 Dose: Not Given Metoprolol Tartrate (Lopressor) 50 mg PO BID [facility] Last Admin: 11/29/17 09:42 Dose: 50 mg Saccharomyces Boulardii (Florastor) 250 mg PO BID [facility] Last Admin: 11/29/17 09:42 Dose: 250 mg Simethicone (Mylicon Liq) 40 mg PO QID PRN PRN Reason: Flatulence Last Admin: 11/26/17 21:11 Dose: 40 mg Tamsulosin HCl (Flomax) 0.4 mg PO BID [facility] Last Admin: 11/29/17 09:42 Dose: 0.4 mg - Labs Labs: 11/29/17 06:22 11/29/17 06:22 PT 13.8 SECONDS (9.7-12.2) H 11/22/17 21:18 INR 1.2 11/22/17 21:18 APTT 35 SECONDS (21-34) H 11/22/17 21:18 - Additional Findings Additional findings: - Constitutional Appears: Non-toxic, No Acute Distress - Head Exam Head Exam: NORMAL INSPECTION - Eye Exam Eye Exam: EOMI - ENT Exam ENT Exam: Mucous Membranes Dry - Respiratory Exam Respiratory Exam: Clear to Ausculation Bilateral, NORMAL BREATHING PATTERN. absent: Rales, Rhonchi, Wheezes - Cardiovascular Exam Cardiovascular Exam: REGULAR RHYTHM, +S1, +S2 - GI/Abdominal Exam GI & Abdominal Exam: Soft, Normal Bowel Sounds. absent: Distended, Firm, Guarding, Rigid, Tenderness, Rebound - Exam Additional comments: Karimi present, yellow, no clots noted Assessment and Plan - Assessment and Plan (Free Text) Assessment: (1) Hematuria Assessment & Plan: 11/25: Dr. Cathi Hadley notified that patient is cleared by Cardiology. Cytoscopy likely this monday. Dr. Vaughn (cardiology) would like the patient to remain in the ICU until after the Cystoscopy is complete 08/25 arrhythmia. 11/23: CT abd/pelv w/o IV contrast - non-obstructing 3 mm right lower pole renal calculus. Markedly enlarged prostate. Decompressed urinary bladder with Karimi catheter balloon. Blood identified within urinary bladder lumen. Minor findings as above. Unremarkable non contrast enhanced CT of the abdomen and pelvis. 11/25/17: Dr. Darryl Toro spoke with Dr. Cathi Hadley and informed him that the patient was cleared by Cardiology for cystoscopy and that Medicine Team will make patient NPO after midnight on 11/26/17 for cytoscopy on Monday. 11/26/17: bladder irrigation discontinued due to clear urine and no presence of blood clots 11/27/17: CBI restarted in afternoon, cystoscopy planned for outpatient per Dr. Hadley 11/28: Patient hat hematuria after trying to have a Bowel movement. Colace started , cystoscopy planned for 11/30 11/29 NPO p Midnight 11/30 cystoscopy planned. will follow (2) UTI Enterococcus faecalis + Urine Culture 11/22/17 Assessment & Plan: Rocephin discontinued 11/23/17 and started on Ciprofloxacin 400 mg IV Q12H with stop date 11/30/17 (3) SVT, resolved Assessment & Plan: Amiodarone 200 mg PO TID Lopressor 50mg PO BID Echocardiogram 11/23 - EF 56%; poor acoustic window; see full report. spoke with Nurse Kay and she has notified Echo lab that this must get done today Per Dr. Vaughn (cardiology), patient is stable for Cystoscopy on Monday. He would like the patient to remain in the ICU until after the Cystoscopy is complete 08/25 arrhythmia. (4) BPH (benign prostatic hyperplasia) Assessment & Plan: Flomax 0.4 PO 2x/day Status: Chronic (5) Hypertension Assessment & Plan: Lopressor 50mg PO BID Zestril 20 PO QD is on HOLD due to low B/P LR at 150 ml/hr x 2 liters which should finish at 2 PM 11/24/17 Status: Chronic (6) constipation colace 100mg PO BID, hold after BM Miralax 17gm once 11/29 monitor for BM (7) Prophylactic measure Assessment & Plan: SCD VTE CI due to hematuria discontinued Florastor 250 mg PO 2x/day No GI PPX indicated at this time Status: Acute Lisa Eng, DO PGY1 <Michell Shah V - Last Filed: 11/29/17 17:45> Objective - Vital Signs/Intake and Output Vital Signs (last 24 hours): Temp Pulse Resp BP Pulse Ox 98.3 F 53 L 16 110/65 95 11/29/17 16:00 11/29/17 16:00 11/29/17 16:00 11/29/17 16:00 11/29/17 16:00 Intake and Output: 11/29/17 11/29/17 06:59 18:59 Intake Total 0 800 Output Total 1050 600 Balance -1050 200 - Medications Medications: Current Medications Amiodarone HCl (Cordarone) 200 mg PO TID [facility] Last Admin: 11/29/17 14:07 Dose: 200 mg Docusate Sodium (Colace) 100 mg PO BID [facility] Last Admin: 11/29/17 09:42 Dose: 100 mg Lisinopril (Zestril) 20 mg PO DAILY [facility] Last Admin: 11/23/17 09:26 Dose: Not Given Metoprolol Tartrate (Lopressor) 50 mg PO BID [facility] Last Admin: 11/29/17 09:42 Dose: 50 mg Saccharomyces Boulardii (Florastor) 250 mg PO BID [facility] Last Admin: 11/29/17 09:42 Dose: 250 mg Simethicone (Mylicon Liq) 40 mg PO QID PRN PRN Reason: Flatulence Last Admin: 11/26/17 21:11 Dose: 40 mg Tamsulosin HCl (Flomax) 0.4 mg PO BID [facility] Last Admin: 11/29/17 09:42 Dose: 0.4 mg - Labs Labs: 11/29/17 06:22 11/29/17 06:22 PT 13.8 SECONDS (9.7-12.2) H 11/22/17 21:18 INR 1.2 11/22/17:18 APTT 35 SECONDS (21-34) H 11/22/17 21:18 Attending/Attestation - Attestation I have personally seen and examined this patient.: Yes I have fully participated in the care of the patient.: Yes I have reviewed all pertinent clinical information, including history, physical exam and plan: Yes Notes (Text): Patient seen, examined and case discussed with day-time resident. Discussed with RNChyna-->patient had episode of hematuria which cleared with CBI. We spoke with patient, daughter, and son at bedside. Patient is scheduled for cystoscopy for November. Venous doppler is negative for DVT. Assessment/Plan (1) Hematuria Assessment & Plan: * Urology (Dr. Dago Hadley) on the case * Patient bleeding in the AM, CBI on board, NPO after midnight November. * Cardiology (Dr. Vaughn) on the case * Patient is cleared by cardiology to proceed with procedure. Advised for IV Adenosine or IV Verampil if patient experiences arrhythmia during procedure 11/28: Patient had recurrent hematuria this morning. CBI restarted. Patient scheduled for cystoscopy for . Urology present at bedside. 11/27: Patient is pending urology procedure. Has Karimi in place. CBI discontinued 11/26/17. 11/25: Dr. Cathi Hadley notified that patient is cleared by Cardiology. Cytoscopy likely this monday. Dr. Vaughn (cardiology) would like the patient to remain in the ICU until after the Cystoscopy is complete 08/25 arrhythmia. NPO AM for 11/27/17. 11/23: CT abd/pelv w/o IV contrast - nonobstructing 3 mm right lower pole renal calculus. Markedly enlarged prostate. Decompressed urinary bladder with Karimi catheter balloon. Blood identified within urinary bladder lumen. Minor findings as above. Unremarkable non contrast enhanced CT of the abdomen and pelvis. 11/25/17: Dr. Darryl Toro spoke with Dr. Cathi Hadley and informed him that the patient was cleared by Cardiology for cystoscopy and that Medicine Team will make patient NPO after midnight on 11/26/17 for cytoscopy on Monday. Medicine Team will continue to contact Dr. Cathi Hadley if Cytoscopy has not been performed by 11 AM 11/26/17: bladder irrigation discontinued due to clear urine and no presence of blood clots (2) UTI Enterococcus faecalis + Urine Culture 11/22/17 Assessment & Plan: * Rocephin discontinued 11/23/17 and started on Ciprofloxacin 400 mg IV Q12H with stop date 11/30/17 * + Urine Culture 11/22/17 * Patient is pending cystoscopy with Dr. Dago Hadley for this given recurrent bleeding this morning 11/28/17. (3) SVT-->Stable Assessment & Plan: * Cardiology (Dr. Vaughn) on the case * Per cardiology, clear for procedure; advised for IV adenosine or IV Verampil if arrhythmia reoccurs * Pending venous doppler by cardiology to rule DVT * CT Angio ruled out PE. Echocardiogram 11/23 - EF 56%; poor acoustic window; see full report. * Ct Angio (11/25/17): mild cardiomegaly and atherosclerotic disease, no aortic aneurysm * Amiodarone 200 mg PO TID * Lopressor 50mg PO BID (4) BPH (benign prostatic hyperplasia) Assessment & Plan: 11/27: Patient is pending urology procedure. Has Karimi in place. CBI restarted. For . * Flomax 0.4 PO 2x/day Status: Chronic (5) Hypertension Assessment & Plan: * Monitor vital signs * Lopressor 50mg PO BID * Zestril 20 PO QD is on HOLD due to low B/P * LR at 150 ml/hr x 2 liters which should finish at 2 PM 11/24/17 Status: Chronic (6) Prophylactic measure Assessment & Plan: * SCD * VTE CI due to hematuria discontinued Florastor 250 mg PO 2x/day * No GI PPX indicated at this time Status: Acute Disposition: Pending cystoscopy for .
[2017-11-29] MEDS ORDERED: POLYETHYLENE GLYCOL 3350 17 GM/Dose PACKET PO ONE (09:50)
--- NOTE | 2017-11-29 21:47 | PN ---
DATE: 11/29/2017 SUBJECTIVE: The patient denies any chest pain or palpitation. There is no reported SVT. PHYSICAL EXAMINATION: VITAL SIGNS: Blood pressure 110/65, heart rate , temperature 98.3, respirations 16. HEENT: Normocephalic. CHEST: Clear. HEART: S1 and S2, regular. EXTREMITIES: No edema. LABORATORY DATA: Today's hemoglobin, hematocrit, white count, and platelet count are within normal limits. Today's SMA-7 was within normal limit except for [id number] of 21. ASSESSMENT: 1. Bladder neck obstruction and hematuria. 2. Supraventricular tachycardia. 3. Hypertension. RECOMMENDATIONS: Continue current Zestril at 20 mg once a day, Lopressor 50 mg twice a day, and amiodarone 200 mg three times a day. Britton Vaughn MD
[2017-11-30 06:36] LABS: BASO % 0.6 % (0.0-2.0); EOS # 0.3 K/uL (0.0-0.7); EOS % 3.8 % (0.0-4.0); HEMOGLOBIN 13.5 g/dL (12.0-18.0); LYMPH # 1.6 K/uL (1.0-4.3); LYMPH % 18.5 % (20.0-40.0); MEAN CELL VOLUME 94.3 fL (80.0-94.0); MEAN CORPUSCULAR HEMOGLOBIN 33.3 pg (27.0-31.0); MEAN CORPUSCULAR HGB CONC 35.3 g/dL (33.0-37.0); MEAN PLATELET VOLUME 8.2 fL (7.2-11.7); MONO # 0.5 K/uL (0.0-0.8); NEUT # 5.9 K/uL (1.8-7.0); NEUT % 71.1 % (50.0-75.0); RBC 4.05 Mil/uL (4.40-5.90); RED CELL DISTRIBUTION WIDTH 13.2 % (11.5-14.5); WHITE BLOOD COUNT 8.4 K/uL (4.8-10.8)
[2017-11-30 06:44] LABS: ALB/GLOB RATIO 0.9 (1.0-2.1); ALBUMIN 3.6 g/dL (3.5-5.0); ALT/SGPT 36 U/L (21-72); AST/SGOT 33 U/L (17-59); BLOOD UREA NITROGEN 17 mg/dL (9-20); CALCIUM 8.7 mg/dl (8.6-10.4); GFR AFRICAN-AMERICAN > 60; GFR NON-AFRICAN AMERICAN > 60
--- NOTE | 2017-11-30 09:04 | CP.PCM.PN ---
<CarlosLisa - Last Filed: 11/30/17 12:46> Subjective - Date & Time of Evaluation Date of Evaluation: 11/30/17 Time of Evaluation: 09:03 - Subjective Subjective: Progress note CBI restarted yesterday 1800 per nursing notes due to pink colored urine in karimi bag. Patient made NPO past midnight and will have cystoscopy today. Patient has no complaints overnight. Patient states he is having bowel movements , no suprapubic or abdominal pain. Patient is aware that he's on schedule for cystoscopy today. Objective - Vital Signs/Intake and Output Vital Signs (last 24 hours): Temp Pulse Resp BP Pulse Ox 98.3 F 61 18 121/73 97 11/30/17 08:00 11/30/17 08:00 11/30/17 08:00 11/30/17 08:00 11/30/17 08:00 Intake and Output: 11/30/17 11/30/17 06:59 18:59 Intake Total 320 Output Total 800 Balance -480 - Medications Medications: Current Medications Amiodarone HCl (Cordarone) 200 mg PO TID [facility] Last Admin: 11/29/17 17:50 Dose: 200 mg Docusate Sodium (Colace) 100 mg PO BID [facility] Last Admin: 11/29/17 17:50 Dose: 100 mg Ciprofloxacin (Cipro 400mg/200ml Dsw) 400 mg in 200 mls @ 133 mls/hr IVPB Q12H [facility] PRN Reason: Protocol Last Admin: 11/30/17 00:00 Dose: 133 mls/hr Lisinopril (Zestril) 20 mg PO DAILY [facility] Last Admin: 11/23/17 09:26 Dose: Not Given Metoprolol Tartrate (Lopressor) 50 mg PO BID [facility] Last Admin: 11/29/17 17:50 Dose: Not Given Saccharomyces Boulardii (Florastor) 250 mg PO BID [facility] Last Admin: 11/29/17 17:50 Dose: 250 mg Simethicone (Mylicon Liq) 40 mg PO QID PRN PRN Reason: Flatulence Last Admin: 11/26/17 21:11 Dose: 40 mg Tamsulosin HCl (Flomax) 0.4 mg PO BID [facility] Last Admin: 11/29/17 17:50 Dose: 0.4 mg - Labs Labs: 11/30/17 06:27 11/30/17 06:27 PT 13.8 SECONDS (9.7-12.2) H 11/22/17 21:18 INR 1.2 11/22/17 21:18 APTT 35 SECONDS (21-34) H 11/22/17 21:18 - Additional Findings Additional findings: - Constitutional Appears: Non-toxic, No Acute Distress - Head Exam Head Exam: NORMAL INSPECTION - Eye Exam Eye Exam: EOMI - ENT Exam ENT Exam: Mucous Membranes Dry - Respiratory Exam Respiratory Exam: Clear to Ausculation Bilateral, NORMAL BREATHING PATTERN. absent: Rales, Rhonchi, Wheezes - Cardiovascular Exam Cardiovascular Exam: REGULAR RHYTHM, +S1, +S2 - GI/Abdominal Exam GI & Abdominal Exam: Soft, Normal Bowel Sounds. absent: Distended, Firm, Guarding, Rigid, Tenderness, Rebound - Exam Additional comments: Karimi present, yellow, no clots noted Assessment and Plan - Assessment and Plan (Free Text) Assessment: (1) Hematuria Assessment & Plan: 11/25: Dr. Cathi Hadley notified that patient is cleared by Cardiology. Cytoscopy likely this monday. Dr. Vaughn (cardiology) would like the patient to remain in the ICU until after the Cystoscopy is complete 08/25 arrhythmia. 11/23: CT abd/pelv w/o IV contrast - non-obstructing 3 mm right lower pole renal calculus. Markedly enlarged prostate. Decompressed urinary bladder with Karimi catheter balloon. Blood identified within urinary bladder lumen. Minor findings as above. Unremarkable non contrast enhanced CT of the abdomen and pelvis. 11/25/17: Dr. Darryl Toro spoke with Dr. Cathi Hadley and informed him that the patient was cleared by Cardiology for cystoscopy and that Medicine Team will make patient NPO after midnight on 11/26/17 for cytoscopy on Monday. 11/26/17: bladder irrigation discontinued due to clear urine and no presence of blood clots 11/27/17: CBI restarted in afternoon, cystoscopy planned for outpatient per Dr. Hadley 11/28: Patient hat hematuria after trying to have a Bowel movement. Colace started , cystoscopy planned for 11/30 11/29 NPO p Midnight 11/30 cystoscopy planned. will follow (2) UTI Enterococcus faecalis + Urine Culture 11/22/17 Assessment & Plan: Rocephin discontinued 11/23/17 and started on Ciprofloxacin 400 mg IV Q12H with stop date 11/30/17 (3) SVT, resolved Assessment & Plan: Amiodarone 200 mg PO TID Lopressor 50mg PO BID Echocardiogram 11/23 - EF 56%; poor acoustic window; see full report. spoke with Nurse Kay and she has notified Echo lab that this must get done today Per Dr. Vaughn (cardiology), patient is stable for Cystoscopy on Monday. He would like the patient to remain in the ICU until after the Cystoscopy is complete / arrhythmia. (4) BPH (benign prostatic hyperplasia) Assessment & Plan: Flomax 0.4 PO 2x/day Status: Chronic (5) Hypertension Assessment & Plan: Lopressor 50mg PO BID Zestril 20 PO QD is on HOLD due to low B/P LR at 150 ml/hr x 2 liters which should finish at 2 PM 11/24/17 Status: Chronic (6) constipation colace 100mg PO BID, hold after BM Miralax 17gm once 11/29 monitor for BM (7) Prophylactic measure Assessment & Plan: SCD VTE CI due to hematuria discontinued Florastor 250 mg PO 2x/day No GI PPX indicated at this time Status: Acute Lisa Eng, DO PGY1 <Michell Shah V - Last Filed: 11/30/17 14:43> Objective - Vital Signs/Intake and Output Vital Signs (last 24 hours): Temp Pulse Resp BP Pulse Ox 98.1 F 52 L 20 107/63 94 L 11/30/17 12:00 11/30/17 12:00 11/30/17 12:00 11/30/17 12:00 11/30/17 12:00 Intake and Output: 11/30/17 11/30/17 06:59 18:59 Intake Total 320 Output Total 800 Balance -480 - Medications Medications: Current Medications Amiodarone HCl (Cordarone) 200 mg PO DAILY [facility] Docusate Sodium (Colace) 100 mg PO BID [facility] Last Admin: 11/30/17 09:41 Dose: 100 mg Ciprofloxacin (Cipro 400mg/200ml Dsw) 400 mg in 200 mls @ 133 mls/hr IVPB Q12H [facility] PRN Reason: Protocol Last Admin: 11/30/17 12:30 Dose: 133 mls/hr Lisinopril (Zestril) 20 mg PO DAILY [facility] Last Admin: 11/23/17 09:26 Dose: Not Given Saccharomyces Boulardii (Florastor) 250 mg PO BID [facility] Last Admin: 11/30/17 09:41 Dose: 250 mg Simethicone (Mylicon Liq) 40 mg PO QID PRN PRN Reason: Flatulence Last Admin: 11/26/17 21:11 Dose: 40 mg Tamsulosin HCl (Flomax) 0.4 mg PO BID [facility] Last Admin: 11/30/17 09:41 Dose: 0.4 mg - Labs Labs: 11/30/17 06:27 11/30/17 06:27 PT 13.8 SECONDS (9.7-12.2) H 11/22/17 21:18 INR 1.2 11/22/17 21:18 APTT 35 SECONDS (21-34) H 11/22/17 21:18 Attending/Attestation - Attestation I have personally seen and examined this patient.: Yes I have fully participated in the care of the patient.: Yes I have reviewed all pertinent clinical information, including history, physical exam and plan: Yes Notes (Text): Patient seen, examined and case discussed with day-time resident. Patient reports constipation has improved. Reports stool is soft. Patient denies other acute complaints. Patient is NPO for cystoscopy today with urology. Surgery and anesthesia discuss risks and benefits of procedure with patient respectively. Per cardiology, patient is stable for procedure. Amiodarone tapered to once a day and to discontinue the lopressor. Will discuss medications for discharge planning post procedure. Venous doppler is negative for DVT. Assessment/Plan (1) Hematuria Assessment & Plan: * Urology (Dr. Dago Hadley) on the case--->NPO for cystscopy for , November 30, 2017. * Cardiology (Dr. Vaughn) on the case * Patient is cleared by cardiology to proceed with procedure. Advised for IV Adenosine or IV Verampil if patient experiences arrhythmia during procedure 11/28: Patient had recurrent hematuria this morning. CBI restarted. Patient scheduled for cystoscopy for . Urology present at bedside. 11/27: Patient is pending urology procedure. Has Karimi in place. CBI discontinued 11/26/17. 11/25: Dr. Cathi Hadley notified that patient is cleared by Cardiology. Cytoscopy likely this monday. Dr. Vaughn (cardiology) would like the patient to remain in the ICU until after the Cystoscopy is complete 2/ arrhythmia. NPO AM for 11/27/17. 11/23: CT abd/pelv w/o IV contrast - nonobstructing 3 mm right lower pole renal calculus. Markedly enlarged prostate. Decompressed urinary bladder with Karimi catheter balloon. Blood identified within urinary bladder lumen. Minor findings as above. Unremarkable non contrast enhanced CT of the abdomen and pelvis. 11/25/17: Dr. Darryl Toro spoke with Dr. Cathi Hadley and informed him that the patient was cleared by Cardiology for cystoscopy and that Medicine Team will make patient NPO after midnight on 11/26/17 for cytoscopy on Monday. Medicine Team will continue to contact Dr. Cathi Hadley if Cytoscopy has not been performed by 11 AM 11/26/17: bladder irrigation discontinued due to clear urine and no presence of blood clots (2) UTI Enterococcus faecalis + Urine Culture 11/22/17 Assessment & Plan: * Rocephin discontinued 11/23/17 and started on Ciprofloxacin 400 mg IV Q12H (7 days) * + Urine Culture 11/22/17 * Patient is pending cystoscopy with Dr. Dago Hadley for this given recurrent bleeding morning 11/28/17. (3) SVT-->Stable Assessment & Plan: * Cardiology (Dr. Vaughn) on the case * Per cardiology, clear for procedure; advised for IV adenosine or IV Verampil if arrhythmia reoccurs * Venous ruled out DVT * CT Angio ruled out PE. Echocardiogram 11/23 - EF 56%; poor acoustic window; see full report. * Ct Angio (11/25/17): mild cardiomegaly and atherosclerotic disease, no aortic aneurysm * Amiodarone 200 mg PO once a day * d/c Lopressor 50mg PO BID (4) BPH (benign prostatic hyperplasia) Assessment & Plan: 11/27: Patient is pending urology procedure. Has Karimi in place. CBI restarted. For . * Flomax 0.4 PO 2x/day Status: Chronic (5) Hypertension Assessment & Plan: * Monitor vital signs * d/c opressor 50mg PO BID * Zestril 20 PO QD is on HOLD due to low B/P * Amiodarone reduced to once a day Status: Chronic (6) Prophylactic measure Assessment & Plan: * SCD * VTE CI due to hematuria discontinued Florastor 250 mg PO 2x/day * No GI PPX indicated at this time Status: Acute Disposition: Pending cystoscopy for today. Surgery and anesthesia to discuss risk and benefits of procedure with the patient. Cardiology has optimized patient prior to procedure.
[2017-11-30] MEDS: Saccharomyces Boulardi 250 mg Cap PO SCH ×2 (09:41→17:20)
[2017-11-30] MEDS: Ciprofloxacin 400mg/200ml D5W 400 MG/200 ML BAG IVPB SCH ×2 (12:30)
[2017-11-30] MEDS ORDERED: Midazolam 2 MG/2 ML VIAL ONE (15:26)
[2017-11-30] MEDS ORDERED: Propofol 10 mg/ml Inj (20 ML) ONE (15:27)
--- NOTE | 2017-11-30 19:16 | PN ---
DATE: 11/30/2017 SUBJECTIVE: The patient is currently in sinus bradycardia. No reported SVT. PHYSICAL EXAMINATION: VITAL SIGNS: Blood pressure 107/63, heart rate 62, temperature 98.1, respirations 20. HEENT: Normocephalic. CHEST: Clear. HEART: Heart sounds are regular. EXTREMITIES: No edema. LABORATORY DATA: Today's SMA-7 is entirely within normal limit. Today's hemoglobin, hematocrit, white count, and platelet count are within normal limit. Venous Doppler of the lower extremity, no evidence of DVT. ASSESSMENT: 1. Supraventricular tachycardia versus atrial flutter with 2:1 conduction. 2. The patient is currently in sinus tachycardia. 3. Hematuria. 4. Prostatic enlargement. RECOMMENDATION: Case was discussed with the primary physician. Amiodarone was reduced to 200 mg orally once a day. I recommended to discontinue Lopressor for now. Continue Zestril 20 mg once a day, which is on hold as the patient is currently n.p.o. for cystoscopy this afternoon. Britton Vaughn MD
[2017-11-30 20:14] VITALS: RESP 16
[2017-12-01] MEDS: Ciprofloxacin 400mg/200ml D5W 400 MG/200 ML BAG IVPB SCH ×2 (00:06→13:00)
[2017-12-01 04:27] VITALS: BP 103/64
[2017-12-01 06:42] LABS: BASO % 0.7 % (0.0-2.0); EOS # 0.4 K/uL (0.0-0.7); EOS % 5.5 % (0.0-4.0); HEMOGLOBIN 13.7 g/dL (12.0-18.0); LYMPH # 1.6 K/uL (1.0-4.3); LYMPH % 23.8 % (20.0-40.0); MEAN CELL VOLUME 94.7 fL (80.0-94.0); MEAN CORPUSCULAR HEMOGLOBIN 33.2 pg (27.0-31.0); MEAN PLATELET VOLUME 8.1 fL (7.2-11.7); MONO # 0.4 K/uL (0.0-0.8); MONO % 6.6 % (0.0-10.0); NEUT # 4.2 K/uL (1.8-7.0); NEUT % 63.4 % (50.0-75.0); RBC 4.13 Mil/uL (4.40-5.90); RED CELL DISTRIBUTION WIDTH 13.4 % (11.5-14.5); WHITE BLOOD COUNT 6.7 K/uL (4.8-10.8)
[2017-12-01 06:55] LABS: ALBUMIN 3.6 g/dL (3.5-5.0); ALT/SGPT 32 U/L (21-72); AST/SGOT 29 U/L (17-59); BLOOD UREA NITROGEN 20 mg/dL (9-20); CALCIUM 8.7 mg/dl (8.6-10.4); GFR AFRICAN-AMERICAN > 60; GFR NON-AFRICAN AMERICAN > 60
--- NOTE | 2017-12-01 08:16 | PCM.URO ---
Urology Progress Note - Objective Lab Studies: Reviewed (gu plans: see op note 11/29 pt can be discharged home with the karimi -- please do not remove karimi teach leg bag care -- and out pt follow up) Lab Results Last 24 Hours: Laboratory Results - last 24 hr 12/01/17 12/01/17 12/01/17 06:35 06:35 06:35 WBC 6.7 RBC 4.13 L Hgb 13.7 Hct 39.1 MCV 94.7 H MCH 33.2 H MCHC 35.0 RDW 13.4 Plt Count 261 MPV 8.1 Neut % (Auto) 63.4 Lymph % (Auto) 23.8 Eddy % (Auto) 6.6 Eos % (Auto) 5.5 H Baso % (Auto) 0.7 Neut # (Auto) 4.2 Lymph # (Auto) 1.6 Eddy # (Auto) 0.4 Eos # (Auto) 0.4 Baso # (Auto) 0.0 Sodium 141 Potassium 4.2 Chloride 104 Carbon Dioxide 25 Anion Gap 16 BUN 20 Creatinine 1.1 Est GFR ( Amer) > 60 Est GFR (Non-Af Amer) > 60 Random Glucose 95 Calcium 8.7 Phosphorus 4.2 Magnesium 2.2 Total Bilirubin 1.1 AST 29 ALT 32 Alkaline Phosphatase 88 Total Protein 7.3 Albumin 3.6 Globulin 3.7 Albumin/Globulin Ratio 1.0 Intake & Output: Intake & Output 11/30/17 12/01/17 12/01/17 18:59 06:59 18:59 Intake Total 1200 Output Total 500 Balance 700 Intake: IV 250 Intake, IV Amount 550 Right Wrist 550 Oral 400 Output: Urine 500 2-way Urethral 500 Other: # Bowel Movements 0 Vital Signs: Vital Signs - 24 hr 11/30/17 11/30/17 11/30/17 12:00 16:10 16:25 Temperature 98.1 F 97.6 F Pulse Rate 52 L 57 L 57 L Respiratory 20 15 15 Rate Blood Pressure 107/63 101/61 123/68 O2 Sat by Pulse 94 L 98 94 L Oximetry 11/30/17 11/30/17 12/01/17 16:40 20:00 00:00 Temperature 97.5 F L 98.2 F Pulse Rate 58 L 60 58 L Respiratory 15 16 16 Rate Blood Pressure 116/68 125/72 117/75 O2 Sat by Pulse 98 97 95 Oximetry 12/01/17 04:00 Temperature 97.8 F Pulse Rate 58 L Respiratory 16 Rate Blood Pressure 103/64 O2 Sat by Pulse 95 Oximetry
[2017-12-01 08:29] VITALS: PULSE 59; O2SAT 99
--- NOTE | 2017-12-01 09:52 | CP.PCM.DIS ---
<ErnestoDarshana - Last Filed: 12/01/17 15:40> Provider - Provider Date of Admission: 11/23/17 18:11 Attending physician: Michell Shah DO Time Spent in preparation of Discharge (in minutes): 55 Hospital Course - Lab Results Lab Results: Micro Results 11/23/17 21:35 Naris MRSA Culture (Admit) - Final MRSA NOT DETECTED 11/22/17 20:13 Urine Urine Culture - Final Enterococcus Faecalis Most Recent Lab Values WBC 6.7 K/uL (4.8-10.8) 12/01/17 06:35 RBC 4.13 Mil/uL (4.40-5.90) L 12/01/17 06:35 Hgb 13.7 g/dL (12.0-18.0) 12/01/17 06:35 Hct 39.1 % (35.0-51.0) 12/01/17 06:35 MCV 94.7 fL (80.0-94.0) H 12/01/17 06:35 MCH 33.2 pg (27.0-31.0) H 12/01/17 06:35 MCHC 35.0 g/dL (33.0-37.0) 12/01/17 06:35 RDW 13.4 % (11.5-14.5) 12/01/17 06:35 Plt Count 261 K/uL (130-400) 12/01/17 06:35 MPV 8.1 fL (7.2-11.7) 12/01/17 06:35 Neut % (Auto) 63.4 % (50.0-75.0) 12/01/17 06:35 Lymph % (Auto) 23.8 % (20.0-40.0) 12/01/17 06:35 [place] % (Auto) 6.6 % (0.0-10.0) 12/01/17 06:35 Eos % (Auto) 5.5 % (0.0-4.0) H 12/01/17 06:35 Baso % (Auto) 0.7 % (0.0-2.0) 12/01/17 06:35 Neut # (Auto) 4.2 K/uL (1.8-7.0) 12/01/17 06:35 Lymph # (Auto) 1.6 K/uL (1.0-4.3) 12/01/17 06:35 [place] # (Auto) 0.4 K/uL (0.0-0.8) 12/01/17 06:35 Eos # (Auto) 0.4 K/uL (0.0-0.7) 12/01/17 06:35 Baso # (Auto) 0.0 K/uL (0.0-0.2) 12/01/17 06:35 PT 13.8 SECONDS (9.7-12.2) H 11/22/17 21:18 INR 1.2 11/22/17 21:18 APTT 35 SECONDS (21-34) H 11/22/17 21:18 Sodium 141 mmol/L (132-148) 12/01/17 06:35 Potassium 4.2 mmol/L (3.6-5.2) 12/01/17 06:35 Chloride 104 mmol/L (98-107) 12/01/17 06:35 Carbon Dioxide 25 mmol/L (22-30) 12/01/17 06:35 Anion Gap 16 (10-20) 12/01/17 06:35 BUN 20 mg/dL (9-20) 12/01/17 06:35 Creatinine 1.1 mg/dL (0.8-1.5) 12/01/17 06:35 Est GFR ( Amer) > 60 12/01/17 06:35 Est GFR (Non-Af Amer) > 60 12/01/17 06:35 POC Glucose (mg/dL) 123 mg/dL (65-110) H 11/26/17 21:11 Random Glucose 95 mg/dL (75-110) 12/01/17 06:35 Calcium 8.7 mg/dl (8.6-10.4) 12/01/17 06:35 Phosphorus 4.2 mg/dL (2.5-4.5) 12/01/17 06:35 Magnesium 2.2 mg/dL (1.6-2.3) 12/01/17 06:35 Total Bilirubin 1.1 mg/dL (0.2-1.3) 12/01/17 06:35 AST 29 U/L (17-59) 12/01/17 06:35 ALT 32 U/L (21-72) 12/01/17 06:35 Alkaline Phosphatase 88 U/L (38-126) 12/01/17 06:35 Troponin I < 0.0120 ng/mL (0.00-0.120) 11/24/17 10:43 Total Protein 7.3 g/dL (6.3-8.3) 12/01/17 06:35 Albumin 3.6 g/dL (3.5-5.0) 12/01/17 06:35 Globulin 3.7 gm/dL (2.2-3.9) 12/01/17 06:35 Albumin/Globulin Ratio 1.0 (1.0-2.1) 12/01/17 06:35 Triglycerides 93 mg/dL (0-149) D 11/28/17 06:05 Cholesterol 164 mg/dL (0-199) 11/28/17 06:05 LDL Cholesterol Direct 112 mg/dL (0-129) 11/28/17 06:05 HDL Cholesterol 27 mg/dL (30-70) L 11/28/17 06:05 TSH 3rd Generation 4.88 mIU/L (0.46-4.68) H 11/24/17 04:04 Urine Color Red (YELLOW) 11/22/17 20:01 Urine Clarity Turbid (Clear) 11/22/17 20: Urine pH 7.0 (5.0-8.0) 11/22/17 20:01 Ur Specific [place] 1.020 (1.003-1.030) 11/22/17 20:01 Urine Protein 3+ mg/dL (NEGATIVE) H 11/22/17 20:01 Urine Glucose (UA) Negative mg/dL (Normal) 11/22/17 20:01 Urine Ketones 15 mg/dL (NEGATIVE) 11/22/17 20:01 Urine Blood Large (NEGATIVE) 11/22/17 20:01 Urine Nitrate Positive (NEGATIVE) H 11/22/17 20: Urine Bilirubin Negative (NEGATIVE) 11/22/17 20:01 Urine Urobilinogen 4.0 mg/dL (0.2-1.0) 11/22/17 20:01 Ur Leukocyte Esterase 3+ Dyllan/uL (Negative) H 11/22/17 20:01 Urine WBC (Auto) 916 /hpf (0-5) H 11/22/17 20:01 Urine RBC (Auto) 93812 /hpf (0-3) H 11/22/17 20:01 Urine Bacteria Rare (<OCC) 11/22/17 20:01 Hepatitis A IgM Ab Negative (NEGATIVE) 11/23/17 07:14 Hep Bs Antigen Negative (NEGATIVE) 11/23/17 07:14 Hep B Core IgM Ab Negative (NEGATIVE) 11/23/17 07:14 Hepatitis C Antibody Negative (NEGATIVE) 11/23/17 07:14 Blood Type O POSITIVE 11/22/17 21:50 Antibody Screen Negative 11/22/17 21:50 - Hospital Course Hospital Course: Upon Admission: CC: Gross Hematuria FULL CODE PMD: Dr. Shultz This patient is a 72 yo M w/ a PMhx of BPH and HTN who is coming for gross hematuria. He states he went to see Dr. Dago Hadley earlier this week, who placed a karimi for urinary retention, and noticed that for the last 3 days he was unable to urinate even with the karimi, and once he was able to, he noticed that the urine was bright red blood. He admitted to pain in the suprapubic region, but no other complaints, no CVA tenderness, no fevers/chills, LOCO, CP, SOB, lower extremity pain/swelling. He states he has had a problem with urination for many years. Previous heavy smoker, 50+ pack years, now smokes 1 cigarette a day and does not request nicotine patch. PMhx: HTN, BPH, karimi placement Meds: Lisinopril 20mg daily, Aspirin 81mg Allergies: Denies Surg: Denies FamHx: brothers, both from [place] in 70's, both parents " of old age" Social: lives with family, independent in all IADL and ADL, smokes 1 cigarette a day, social EtOH on weekends, denies illicit drug ever. Throughout Hospital Course: (1) Hematuria Assessment & Plan: * Urology (Dr. Dago Hadley) on the case--->NPO for cystscopy for , November 30, 2017. * Cardiology (Dr. Vaughn) on the case * Patient is cleared by cardiology to proceed with procedure. Advised for IV Adenosine or IV Verampil if patient experiences arrhythmia during procedure 11/28: Patient had recurrent hematuria this morning. CBI restarted. Patient scheduled for cystoscopy for . Urology present at bedside. 11/27: Patient is pending urology procedure. Has Karimi in place. CBI discontinued 11/26/17. 11/25: Dr. Cathi Hadley notified that patient is cleared by Cardiology. Cytoscopy likely this monday. Dr. Vaughn (cardiology) would like the patient to remain in the ICU until after the Cystoscopy is complete 2/2 arrhythmia. NPO AM for 11/27/17. 11/23: CT abd/pelv w/o IV contrast - nonobstructing 3 mm right lower pole renal calculus. Markedly enlarged prostate. Decompressed urinary bladder with Karimi catheter balloon. Blood identified within urinary bladder lumen. Minor findings as above. Unremarkable non contrast enhanced CT of the abdomen and pelvis. 11/25/17: Dr. Darryl Toro spoke with Dr. Cathi Hadley and informed him that the patient was cleared by Cardiology for cystoscopy and that Medicine Team will make patient NPO after midnight on 11/26/17 for cytoscopy on Monday. Medicine Team will continue to contact Dr. Cathi Hadley if Cytoscopy has not been performed by 11 AM 11/26/17: bladder irrigation discontinued due to clear urine and no presence of blood clots (2) UTI Enterococcus faecalis + Urine Culture 11/22/17 Assessment & Plan: * Rocephin discontinued 11/23/17 and started on Ciprofloxacin 400 mg IV Q12H (7 days) * + Urine Culture 11/22/17 * Patient is pending cystoscopy with Dr. Dago Hadley for this given recurrent bleeding morning 11/28/17. * Will be discharged with cipro 500mg PO BID x total 14 days (already received 2 ). (3) SVT-->Stable Assessment & Plan: * Cardiology (Dr. Vaughn) on the case * Per cardiology, clear for procedure; advised for IV adenosine or IV Verampil if arrhythmia reoccurs * Venous ruled out DVT * CT Angio ruled out PE. Echocardiogram 11/23 - EF 56%; poor acoustic window; see full report. * Ct Angio (11/25/17): mild cardiomegaly and atherosclerotic disease, no aortic aneurysm * Amiodarone 200 mg PO once a day * d/c Lopressor 50mg PO BID * Will continue with atenolol 25mg PO daily (4) BPH (benign prostatic hyperplasia) Assessment & Plan: 11/27: Patient is pending urology procedure. Has Karimi in place. CBI restarted. For . * Flomax 0.4 PO 2x/day (5) Hypertension Assessment & Plan: * Monitor vital signs * d/c opressor 50mg PO BID * Zestril 20 PO QD is on HOLD due to low B/P * Amiodarone reduced to once a day This is a brief summary of the patient's hospital course, please review EMR for full record. Discharge Exam - Additional Findings Additional findings: - Constitutional Appears: Non-toxic, No Acute Distress - Head Exam Head Exam: NORMAL INSPECTION - Eye Exam Eye Exam: EOMI - ENT Exam ENT Exam: Mucous Membranes Dry - Respiratory Exam Respiratory Exam: Clear to Ausculation Bilateral, NORMAL BREATHING PATTERN. absent: Rales, Rhonchi, Wheezes - Cardiovascular Exam Cardiovascular Exam: REGULAR RHYTHM, +S1, +S2 - GI/Abdominal Exam GI & Abdominal Exam: Soft, Normal Bowel Sounds. absent: Distended, Firm, Guarding, Rigid, Tenderness, Rebound - Exam Additional comments: Karimi present, yellow, no clots noted Discharge Plan - Discharge Medications Prescriptions: RX: Atenolol [Tenormin] 25 mg PO DAILY #30 tablet Ciprofloxacin [Cipro] 500 mg PO Q12 #26 tab Finasteride [Proscar] 5 mg PO DAILY #30 tab RX: Tamsulosin [Flomax] 0.4 mg PO DAILY 30 Days #30 cap - Follow Up Plan Condition: FAIR Disposition: HOME/ ROUTINE Instructions: Ciprofloxacin (Systemic), Smoking: Not Just Harmful to Your Lungs and Heart, How to Care for Your Karimi Catheter, Male, Benign Prostatic Hyperplasia (Enlarged Prostate) (DC), Blood in the Urine (Hematuria), Adult (DC) , Quitting Smoking, Supraventricular Tachycardia (SVT), Finasteride, Tamsulosin Additional Instructions: You recently had a cystoscopy which showed NO malignancy (NO CANCER), but it did show that your prostate is enlarged. After speaking with Dr. Mannie Hadley , he recommended that we keep you on 2 medications for your prostate and hopefully it will shrink a little. Either way you will undergo surgery either minimal or open surgery - this depends on the size of the prostate and if it shrinks over time. Dr. Mannie Hadley will discuss this with you. For now, until otherwise noted- you will continue with the karimi. Continue taking Flomax daily and Proscar daily and Cipro 500mg by mouth twice a day with meals for 7 more days. For your heart you will be taking the following medications: Atenolol 25mg by mouth daily. You will need to see Dr. Mannie Hadley on Tuesday, December 05, 2017. Please make sure you follow up with a primary care physician, if you do not have one, please follow up with us in our [facility] in [place] in to establish care and to have routine follow up. 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 Despus de hablar con el Dr. Mannie Hadley, l recomend que lo mantengamos con 2 medicamentos para brenner pr stata y con un poco de suerte se reducir un poco. De cualquier manera, se someter a rebecca ciruga, ya sea mnima o abierta, esto depende del tamao de la prstata y si se reduce con el tiempo. El Dr. Mannie Hadley discutir esto con usted. Por ahora, hasta que se indique lo contrario, continuar con el karimi. Contine tomando Flomax diariamente y Proscar diariamente y Cipro 500mg por va oral dos veces al da con las comidas gus 7 hess ms. Para brenner corazn, kristyn los siguientes medicamentos: Atenolol, 25 mg por va oral al da. Deber amanda al Dr. Mannie Hadley el dereck 15 de 2017. Por favor, asegrese de hacer un seguimiento con un mdico de atencin primaria , si no tiene suri, franco un seguimiento con nosotros en nuestra [facility] en [place] para establecer la atencin y realizar un seguimiento de rutina. [facility] [address] [place] [id number] Referrals: Mannie Hadley MD [Staff Provider] - 12/05/17 <Michell Shah V - Last Filed: 12/01/17 18:05> Provider - Provider Date of Admission: 11/23/17 18:11 Attending physician: Michell Shah, Hospital Course - Lab Results Lab Results: Micro Results 11/23/17 21:35 Naris MRSA Culture (Admit) - Final MRSA NOT DETECTED 11/22/17 20:13 Urine Urine Culture - Final Enterococcus Faecalis Most Recent Lab Values WBC 6.7 K/uL (4.8-10.8) 12/01/17 06:35 RBC 4.13 Mil/uL (4.40-5.90) L 12/01/17 06:35 Hgb 13.7 g/dL (12.0-18.0) 12/01/17 06:35 Hct 39.1 % (35.0-51.0) 12/01/17 06:35 MCV 94.7 fL (80.0-94.0) H 12/01/17 06:35 MCH 33.2 pg (27.0-31.0) H 12/01/17 06:35 MCHC 35.0 g/dL (33.0-37.0) 12/01/17 06:35 RDW 13.4 % (11.5-14.5) 12/01/17 06:35 Plt Count 261 K/uL (130-400) 12/01/17 06:35 MPV 8.1 fL (7.2-11.7) 12/01/17 06:35 Neut % (Auto) 63.4 % (50.0-75.0) 12/01/17 06:35 Lymph % (Auto) 23.8 % (20.0-40.0) 12/01/17 06:35 [place] % (Auto) 6.6 % (0.0-10.0) 12/01/17 06:35 Eos % (Auto) 5.5 % (0.0-4.0) H 12/01/17 06:35 Baso % (Auto) 0.7 % (0.0-2.0) 12/01/17 06:35 Neut # (Auto) 4.2 K/uL (1.8-7.0) 12/01/17 06:35 Lymph # (Auto) 1.6 K/uL (1.0-4.3) 12/01/17 06:35 [place] # (Auto) 0.4 K/uL (0.0-0.8) 12/01/17 06:35 Eos # (Auto) 0.4 K/uL (0.0-0.7) 12/01/17 06:35 Baso # (Auto) 0.0 K/uL (0.0-0.2) 12/01/17 06:35 PT 13.8 SECONDS (9.7-12.2) H 11/22/17 21:18 INR 1.2 11/22/17 21:18 APTT 35 SECONDS (21-34) H 11/22/17 21:18 Sodium 141 mmol/L (132-148) 12/01/17 06:35 Potassium 4.2 mmol/L (3.6-5.2) 12/01/17 06:35 Chloride 104 mmol/L (98-107) 12/01/17 06:35 Carbon Dioxide 25 mmol/L (22-30) 12/01/17 06:35 Anion Gap 16 (10-20) 12/01/17 06:35 BUN 20 mg/dL (9-20) 12/01/17 06:35 Creatinine 1.1 mg/dL (0.8-1.5) 12/01/17 06:35 Est GFR ( Amer) > 60 12/01/17 06:35 Est GFR (Non-Af Amer) > 60 12/01/17 06:35 POC Glucose (mg/dL) 123 mg/dL (65-110) H 11/26/17 21:11 Random Glucose 95 mg/dL (75-110) 12/01/17 06:35 Calcium 8.7 mg/dl (8.6-10.4) 12/01/17 06:35 Phosphorus 4.2 mg/dL (2.5-4.5) 12/01/17 06:35 Magnesium 2.2 mg/dL (1.6-2.3) 12/01/17 06:35 Total Bilirubin 1.1 mg/dL (0.2-1.3) 12/01/17 06:35 AST 29 U/L (17-59) 12/01/17 06:35 ALT 32 U/L (21-72) 12/01/17 06:35 Alkaline Phosphatase 88 U/L (38-126) 12/01/17 06:35 Troponin I < 0.0120 ng/mL (0.00-0.120) 11/24/17 10:43 Total Protein 7.3 g/dL (6.3-8.3) 12/01/17 06:35 Albumin 3.6 g/dL (3.5-5.0) 12/01/17 06:35 Globulin 3.7 gm/dL (2.2-3.9) 12/01/17 06:35 Albumin/Globulin Ratio 1.0 (1.0-2.1) 12/01/17 06:35 Triglycerides 93 mg/dL (0-149) D 11/28/17 06:05 Cholesterol 164 mg/dL (0-199) 11/28/17 06:05 LDL Cholesterol Direct 112 mg/dL (0-129) 11/28/17 06:05 HDL Cholesterol 27 mg/dL (30-70) L 11/28/17 06:05 TSH 3rd Generation 4.88 mIU/L (0.46-4.68) H 11/24/17 04:04 Urine Color Red (YELLOW) 11/22/17 20:01 Urine Clarity Turbid (Clear) 11/22/17 20:01 Urine pH 7.0 (5.0-8.0) 11/22/17 20:01 Ur Specific [place] 1.020 (1.003-1.030) 11/22/17 20:01 Urine Protein 3+ mg/dL (NEGATIVE) H 11/22/17 20:01 Urine Glucose (UA) Negative mg/dL (Normal) 11/22/17 20:01 Urine Ketones 15 mg/dL (NEGATIVE) 11/22/17 20:01 Urine Blood Large (NEGATIVE) 11/22/17 20:01 Urine Nitrate Positive (NEGATIVE) H 11/22/17 20:01 Urine Bilirubin Negative (NEGATIVE) 11/22/17 20:01 Urine Urobilinogen 4.0 mg/dL (0.2-1.0) 11/22/17 20:01 Ur Leukocyte Esterase 3+ [place]yll[place]/uL (Negative) H 11/22/17 20:01 Urine WBC (Auto) 916 /hpf (0-5) H 11/22/17 20:01 Urine RBC (Auto) 43853 /hpf (0-3) H 11/22/17 20:01 Urine Bacteria Rare (<OCC) 11/22/17 20:01 Hepatitis A IgM Ab Negative (NEGATIVE) 11/23/17 07:14 Hep Bs Antigen Negative (NEGATIVE) 11/23/17 07:14 Hep B Core IgM Ab Negative (NEGATIVE) 11/23/17 07:14 Hepatitis C Antibody Negative (NEGATIVE) 11/23/17 07:14 Blood Type O POSITIVE 11/22/17 21:50 Antibody Screen Negative 11/22/17 21:50 Attending/Attestation - Attestation I have personally seen and examined this patient.: Yes I have fully participated in the care of the patient.: Yes I have reviewed all pertinent clinical information, including history, physical exam and plan: Yes Notes (Text): Patient seen, examined and case discussed with day-time resident. Agree with the assessment and plan as written by the resident with noted updates of summary of hospitalization below: Patient is postoperative day one from cystscopy. Patient was seen and evaluated by urology. Patient stable from their standpoint for discharge. Per urology recommended to d/c with Karimi, Abx ( Ciprofloxacin 500mg PO BID for 7 days), Finasteride 5mg PO daily. Upon discharge, patient to f/u with urology this december [address] Mannie Hadley for karimi removal and in preparation for second surgery patient will need. Case discussed with cardiology, amiodarone was discontinued, recommended Atenolol 25mg PO once day (start tomorrow) on discharge only. Patient recommended to establish care at the [facility]. This is a summary of patient's hospitalization. Please see EMR for further details.
[2017-12-01] MEDS: Saccharomyces Boulardi 250 mg Cap PO SCH (10:25)
[2017-12-01 14:14] VITALS: TEMP 97.1
--- NOTE | 2017-12-01 17:37 | PN ---
DATE: 12/01/2017 SUBJECTIVE: The patient underwent cystoscopy with evacuation of clots and fulguration. He denies any chest pain. No reported SVT. PHYSICAL EXAMINATION: VITAL SIGNS: Blood pressure 103/64, heart rate 68, temperature 97.8, respirations 16. HEENT: Normocephalic. CHEST: Clear. HEART: Heart sounds are regular. EXTREMITIES: No edema. LABORATORY DATA: Today's SMA-7 is entirely within normal limit. Today's hemoglobin, hematocrit, white count, and platelet count are within normal limit. ASSESSMENT: 1. Supraventricular tachycardia. 2. Hematuria and bladder neck obstruction, status post cystoscopy and fulguration. RECOMMENDATION: Continue Zestril 20 mg once a day. Discontinue amiodarone. Resume beta-dawna once heart rate is improved. I will obtain 12-lead EKG. Britton Vaughn MD
--- NOTE | 2017-12-05 11:16 | US ---
PROCEDURE: HISTORY: enlarged prostate COMPARISON: TECHNIQUE: Transrectal ultrasound of the prostate gland. FINDINGS: The prostate gland measures 8.6 x 8.0 x 7.5 centimeters with significant median lobe hypertrophy. The volume is 268 grams. IMPRESSION: Severe BPH with median lobe hypertrophy into the bladder base with a calculated volume of 260 grams.
--- NOTE | 2017-12-17 18:48 | PN ---
DATE: 12/01/2017 SUBJECTIVE: Please see the previous dictated consult note, progress note, and operative note from 11/30/2017. The patient's urine is now clear, . PAST MEDICAL HISTORY AND PAST SURGICAL HISTORY: No other changes. REVIEW OF SYSTEMS: No changes. DIAGNOSES: Gross hematuria, clot urinary retention, now with clear urine. PLAN: As follows: We are going to maintain the Flower catheter and not going to get a voiding trial. We are going to actually plan for the patient come to the office. My recommendation is going to be for suprapubic prostatectomy immediately once medically stabilized. The patient has been asking many questions about voiding trials, the trial of void. 1. I explained to him that we are going to stop the PDI today. 2. We are going to keep the Flower. We are going to discharge home with the Flower and then he can come to my office and talk. 3. in the hospital that I am very worried that he will not be able to urinate properly and he is only going to rebleed. It is a large, juicy prostate that is bleeding. We will stop Proscar. I suspect the abnormal PSA is secondary to enlargement, possibility of prostate cancer, and we will discuss the role for biopsies as well. All this needs to be entertained very importantly. DIAGNOSES: Clot urinary retention, gross hematuria. PLAN: The urology plan is as follows: Maintain Flower catheter, stop the PDI, and he will be discharged home with the Flower catheter and then we will discuss the plans in the office. Juan Hadley MD
--- NOTE | 2017-12-18 01:30 | OP ---
PROCEDURE DATE: 11/30/2017 PREOPERATIVE DIAGNOSES: Gross hematuria, clot urinary retention, enlarged prostate, elevated prostate-specific antigen. POSTOPERATIVE DIAGNOSES: Gross hematuria, clot urinary retention, enlarged prostate, elevated prostate-specific antigen. PROCEDURES: Cystoscopy, evacuation of a tremendous amount of clot, and fulguration of bleeding site. BLOOD LOSS: Less than 25 mL. There was fresh bleeding, but there was tremendous amount of clots in the bladder. COMPLICATIONS: There were no complications. INDICATIONS: See history and physical for further details and the consultation. See the previously dictated notes. A very pleasant gentleman. [place] having urinary trouble, so he came to the [facility] to be treated here for his urinary retention and bleeding disorder. Once here, he was initially seen in the ER, and there was actually initial thought about discharging the patient home. In fact, even through this stay, we discussed various options and locations. The patient now is having the above listed procedure because he has not been able to leave the hospital. Received all his previous chart notes, consult notes, dictated notes. So after discussing options, we will bring him to the OR. I explained to the patient, the family, the other doctors regarding evaluation of inpatient workup versus being "forced to get treated." We are not going to treat him for discharge versus the possibility for discharge home. After discussing all the options though now, the patient has basically been having bleeding. It sometimes clears off and sometimes it is bleeding. Today though actually based on the findings, we found tremendous amount of clots, that is why he has been into the hospital now. UROLOGY OPERATIVE FINDINGS: Normal anterior urethra. No strictures on reviewing. There is a very large visually occlusive prostate with a pretty large intravesical component. Even after evacuating for a long time and clearing all the clots, I did not get a good look into the mucosa, generally see the ureteral orifices throughout secondary to the intravesical component. So, the finding is basically that of a large visually occlusive prostate with bleeding found in the prostate on each side. That we then cauterized. No biopsy specimens were taken. There are no bladder lesions. I cannot comment about any upper tract bleeding source, although we have upper tract imaging and does not today. 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 He has been stabilized, see the labs in the chart. Hematocrit and hemoglobin are all noted. Urine creatinine all noted. PSA noted. After obtaining informed consent, the patient was placed on the table. Routine monitor was placed. Time-out was called to confirm the patient and positioning. The patient was placed in lithotomy position. We removed the old Flower catheter. Rigid cystoscope via the urethra under direct vision. As we did so, we now thought it is just like noting anterior normal, no strictures on the veru large visual of the prostate with a tremendous amount of clot in the bladder. It took a while just to get things started. Once we were able to get the bladder cleared of clots, we used the microwave with ball. Once we did this, we were able to, on further inspection, there was no bladder lesion for sure that are visualized. Just a mild amount of moderate erythema. We inspected out carefully. No other abnormalities are detected. At this point, we then inserted a 22-[place] three-way Flower catheter with some traction on the catheter and secured in place running with the CBI. The patient tolerated the procedure well without complications. Juan Hadley MD
== END 2017-12-01 16:45 | disposition home or self-care (01) | DRG 699 ==
LOC: C.ER 19:05 → C.9E 20:47 → C.3T 11-23 02:36 → C.6T 11-23 17:38 → OBSVTOIN 11-23 18:11 → C.9I 11-23 18:11
PROVIDERS: ADMIT Family Medicine; ATTEND Hospitalist
PROC: 0T9B80Z Drainage of Bladder with Drainage Device, Via Natural or Artificial Opening Endoscopic (ICD-10-PCS; principal; 2017-11-30 15:45)
DX: N32.0 Bladder-neck obstruction (principal); I47.1 Supraventricular tachycardia; N39.0 Urinary tract infection, site not specified; N20.1 Calculus of ureter; R31.0 Gross hematuria; B95.2 Enterococcus as the cause of diseases classified elsewhere; F17.210 Nicotine dependence, cigarettes, uncomplicated; I11.9 Hypertensive heart disease without heart failure; I51.7 Cardiomegaly; K59.00 Constipation, unspecified; R33.8 Other retention of urine; N40.1 Benign prostatic hyperplasia with lower urinary tract symptoms

== ENCOUNTER 2017-12-12 19:11 | Inpatient (IN) | payer MEDICAID, OTHER ==
[2017-12-12 19:15] VITALS: BMI 32.5
--- NOTE | 2017-12-12 19:46 | C.PDOC ---
History Of Present Illness 72 y/o male presents to the ED complaining of urinary retention starting at noon today. Denies any associated fever or chills. Associated with sharp stabbing suprapubic discomfort. Time Seen by Provider: 12/12/17 19:45 Chief Complaint (Nursing): Male Genitourinary History Per: Patient History/Exam Limitations: no limitations Onset/Duration Of Symptoms: Hrs Current Symptoms Are (Timing): Still Present Severity: Moderate Pain Scale Rating Of: 6 Quality Of Discomfort: Cramping, Pressure, "Pain" Associated Symptoms: Urinary Symptoms. denies: Fever, Chills Alleviating Factors: None Recent travel outside of the [place]: No Additional History Per: Family Past Medical History Reviewed: Historical Data, Nursing Documentation, Vital Signs Vital Signs: Last Vital Signs Temp 97.5 F L 12/12/17 19:23 Pulse 65 12/12/17 19:23 Resp 20 12/12/17 19:23 BP 171/77 H 12/12/17 19:23 Pulse Ox 96 12/12/17 21:01 - Medical History PMH: HTN Denies: Chronic Kidney Disease Other PMH: Enlarged prostate Surgical History: No Surg Hx - [facility] Procedures DRAINAGE OF BLADDER WITH DRAINAGE DEVICE, ENDO (11/23/17) Family History: States: No Known Family Hx - Social History Hx Tobacco Use: Yes Hx Alcohol Use: No Hx Substance Use: No - Immunization History Hx Tetanus Toxoid Vaccination: No Hx Influenza Vaccination: Yes Review Of Systems Constitutional: Negative for: Fever, Chills Cardiovascular: Negative for: Chest Pain Respiratory: Negative for: Shortness of Breath Gastrointestinal: Positive for: Abdominal Pain (suprapubic) Genitourinary: Positive for: Hematuria, Other (urinary retention). Negative for : Incontinence Musculoskeletal: Negative for: Back Pain Skin: Negative for: Rash Neurological: Negative for: Weakness Psych: Negative for: Anxiety Physical Exam - Physical Exam Appears: Non-toxic, No Acute Distress Skin: Warm, Dry Head: Normacephalic Eye(s): bilateral: Normal Inspection Oral Mucosa: Moist Neck: Trachea Midline, Supple Chest: Symmetrical Cardiovascular: Rhythm Regular Respiratory: No Rales, No Rhonchi, No Wheezing Gastrointestinal/Abdominal: Soft, No Tenderness, No Distention Back: Normal Inspection, No CVA Tenderness Extremity: Normal ROM, No Pedal Edema Extremity: Bilateral: Atraumatic, Normal Color And Temperature Pulses: Left Dorsalis Pedis: Normal, Right Dorsalis Pedis: Normal Neurological/Psych: Oriented x3, Normal Speech Gait: Steady ED Course And Treatment - Laboratory Results Result Diagrams: 12/12/17 20:29 12/12/17 20:29 ECG: Interpreted By Me, Viewed By Me ECG Rhythm: Sinus Rhythm (53), 1st Degree HB, Nonspecific Changes O2 Sat by Pulse Oximetry: 96 (RA) Pulse Ox Interpretation: Normal - Radiology CXR: Interpreted by Me, Viewed By Me Progress Note: Labs, CXR, EKG ordered. Patient given IV fluids. Protonix, Morphine, and Zofran. Bladder scan showed ~450cc. 18 Thai karimi placed with about 150cc of bloody urine drained. Patient reports improvement in symptoms. 20:40 Patient now complaining of suprapubic pain at the 18 Thai karimi site while drianing. Karimi changed to 23 Thai 3-way without difficulty. Another 300cc were drained. Started continuous bladder irrigation. Disposition Discussed With DrLev: Del Osborne Comment: accepted the pt on his service and took over the care at 9:20 PM Doctor Will See Patient In The: ED Counseled Patient/Family Regarding: Studies Performed, Diagnosis - Disposition Disposition: HOSPITALIZED Disposition Time: 19:46 Condition: FAIR Forms: [facility] ([place]) - POA Present On Arrival: None - Clinical Impression Clinical Impression: Hematuria - Scribe Statement The provider has reviewed the documentation as recorded by the Scribe (Vicky Calderon) Provider Attestation: All medical record entries made by the Scribe were at my direction and personally dictated by me. I have reviewed the chart and agree that the record accurately reflects my personal performance of the history, physical exam, medical decision making, and the department course for this patient. I have also personally directed, reviewed, and agree with the discharge instructions and disposition.
[2017-12-12] MEDS ORDERED: Sodium Chloride 0.9% 1,000 ML IV ONE (20:15)
[2017-12-12] MEDS ORDERED: Lidocaine 2% Jelly (Uro-Jet) TOP ONE (20:31)
[2017-12-12 20:32] LABS: BASO # 0.1 K/uL (0.0-0.2); EOS # 0.4 K/uL (0.0-0.7); EOS % 6.3 % (0.0-4.0); HEMOGLOBIN 11.8 g/dL (12.0-18.0); LYMPH # 2.2 K/uL (1.0-4.3); MEAN CELL VOLUME 93.6 fL (80.0-94.0); MEAN CORPUSCULAR HEMOGLOBIN 32.5 pg (27.0-31.0); MEAN CORPUSCULAR HGB CONC 34.7 g/dL (33.0-37.0); MEAN PLATELET VOLUME 8.6 fL (7.2-11.7); MONO # 0.5 K/uL (0.0-0.8); MONO % 7.4 % (0.0-10.0); NEUT # 3.8 K/uL (1.8-7.0); NEUT % 54.3 % (50.0-75.0); NRBC % 0.1 % (0.0-2.0); RBC 3.63 Mil/uL (4.40-5.90); RED CELL DISTRIBUTION WIDTH 13.7 % (11.5-14.5)
[2017-12-12] MEDS ORDERED: Lidocaine 2% Jelly (Uro-Jet) ONE (20:34)
[2017-12-12 20:42] LABS: INR 1.2; PROTHROMBIN TIME 13.5 SECONDS (9.7-12.2)
[2017-12-12 20:48] LABS: ALB/GLOB RATIO 0.9 (1.0-2.1); ALBUMIN 3.4 g/dL (3.5-5.0); ALT/SGPT 34 U/L (21-72); AST/SGOT 31 U/L (17-59); BLOOD UREA NITROGEN 25 mg/dL (9-20); CALCIUM 9.3 mg/dl (8.6-10.4); GFR AFRICAN-AMERICAN > 60; GFR NON-AFRICAN AMERICAN > 60; LIPASE 94 U/L (23-300)
[2017-12-12] MEDS ORDERED: Sodium Chloride 0.9% 1,000 ML ONE (20:52)
[2017-12-12] MEDS ORDERED: Morphine 4 MG/ML VIAL ONE ×2 (20:52→22:35)
[2017-12-12] MEDS ORDERED: Iodixanol 320 MG/ML 100 ML BOTTLE IV ONE (21:32)
--- NOTE | 2017-12-12 22:22 | CP.PCM.HP ---
<Travis Modi - Last Filed: 12/13/17 03:04> History of Present Illness - History of Present Illness History of Present Illness: This is a 72 yo male, originally from [facility], with past medical history of SVT , urinary retention, BPH, hematuria, HTN, presenting today to [facility] ER with chief complaint of "I can't urinate." Patient has longstanding problem with urinary retention and urinary hesitancy. He was recently discharged from this hospital in November 2017 with karimi. He is s/p cystoscopy with evacuation of clots and fulguration from that hospitalization. The cystoscopy did not show signs of malignancy. He was also diagnosed with a urinary tract infection and discharged on PO ciprofloxacin for 14 days. He reports suprapubic pain currently x 1 month. Every time he goes to urinate, he feels he cannot. When he is finally able to force himself to urinate, he experiences hematuria. He denies any recent upper respiratory tract infection. He denies family history of renal disease. He denies flank pain. He denies any trauma. He denies any recent vigorous exercise. He denies any history of bleeding disorder. He does report recent travel to [facility] 1 month ago. Pt does report being compliant with all his medications. He says that Dr. Hadley told him to come into the hospital so he can have a procedure done this . However, he states that he was told he needs cardiac clearance beforehand. Echo performed November 2017 shows normal LV function, normal biventricular fx, no evidence of valvular abnormality. Denies having any stress test or cath. He is east timore[place] speaking only and is accompanied by his daughter who is also east timore[place] speaking only. Full history was obtained with help of career and transition teacher. PMH: BPH, SVT, urinary retention, s/p recent cystoscopy, hematuria Echo from 2018- technically difficult study but no valvular abnormality and normal LV systolic function Normal perfusion stress test in 2016 PSH: cystoscopy 2018 Allergies: NKDA FH: NE in family, age 69 Home meds: recently finished course of PO ciprofloxacin 500 mg BID for 14 days , atenolol 25 mg PO daily, finasteride 5 mg PO daily, tamsulosin .4 mg PO daily Social hx: current smoker. smokes 1 cigarette per day since age 19. does not drink. denies drug use. Born in [facility]. 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 Full code status. Able to complete all ADLs. Fully mobile and does not use cane or walker. Lives at home with daughter and daughter's family. PMD: Laith Herrera/[facility] ( last visit 12/11/17) Specialists: Dr. Hadley. Pt denies seeing congressional assistant outpatient. Insurance: [employer] 100 percent [place] [employer] Present on Admission - Present on Admission Any Indicators Present on Admission: Yes History of DVT/PE: No History of Uncontrolled Diabetes: No Urinary Catheter: Yes Decubitus Ulcer Present: No Review of Systems - Constitutional Constitutional: absent: Chills, Fever - EENT Eyes: absent: Change in Vision, Discharge Nose/Mouth/Throat: absent: Mouth Pain, Sore Throat - Cardiovascular Cardiovascular: absent: Chest Pain, Dyspnea - Respiratory Respiratory: absent: Cough, Dyspnea - Gastrointestinal Gastrointestinal: Abdominal Pain. absent: Change in Bowel Habits, Change in Stool Character, Hematochezia, Vomiting - Genitourinary Genitourinary: Change in Urinary Stream, Difficulty Urinating, Hematuria - Musculoskeletal Musculoskeletal: absent: Back Pain, Numbness - Integumentary Integumentary: Other. absent: Swelling Additional comments: skin tags head and neck - Neurological Neurological: absent: Numbness, Loss of Vision, Weakness - Hematologic/Lymphatic Hematologic: Other Additional comments: positive hematuria Past Patient History - Infectious Disease Hx of Infectious Diseases: None - Tetanus Immunizations Tetanus Immunization: Unknown - Past Medical History & Family History Past Medical History?: Yes Pertinent Family History: NE in family - Past Social History Smoking Status: Light Smoker < 10 Cigarettes Daily Chewing Tobacco Use: No Cigar Use: No Alcohol: None Drugs: Denies Home Situation {Lives}: With Family Domestic Violence: Negative - CARDIAC Hx Hypertension: Yes - PULMONARY Hx Respiratory Disorders: No - NEUROLOGICAL Hx Neurological Disorder: No - HEENT Hx HEENT Problems: No - RENAL Hx Chronic Kidney Disease: No - ENDOCRINE/METABOLIC Hx Endocrine Disorders: No - HEMATOLOGICAL/ONCOLOGICAL Hx Blood Disorders: No - INTEGUMENTARY Hx Dermatological Problems: No - MUSCULOSKELETAL/RHEUMATOLOGICAL Hx Falls: No - GASTROINTESTINAL Hx Gastrointestinal Disorders: No - GENITOURINARY/GYNECOLOGICAL Hx Hematuria: Yes Hx Prostate Problems: Yes (Enlarged prostate) Other/Comment: karimi from home x 2 days - PSYCHIATRIC Hx Substance Use: No - SURGICAL HISTORY Hx Surgeries: No - ANESTHESIA Hx Anesthesia: No Hx Anesthesia Reactions: No Meds Allergies/Adverse Reactions: Allergies Allergy/AdvReac Type Severity Reaction Status Date / Time No Known Allergies Allergy Verified 11/22/17 19:14 Physical Exam - Constitutional Appears: Non-toxic, No Acute Distress - Head Exam Head Exam: ATRAUMATIC, NORMOCEPHALIC. absent: NORMAL INSPECTION Additional comments: skin tags head and neck - Eye Exam Eye Exam: EOMI - ENT Exam ENT Exam: Mucous Membranes Moist - Neck Exam Neck exam: Positive for: Full Rom, Normal Inspection - Respiratory Exam Respiratory Exam: NORMAL BREATHING PATTERN. absent: Respiratory Distress - Cardiovascular Exam Cardiovascular Exam: +S1, +S2 - GI/Abdominal Exam GI & Abdominal Exam: Distended, Tenderness Additional comments: mild suprapubic tenderness - Exam Exam: absent: NORMAL INSPECTION Additional comments: karimi in place with some blood around the meatus - Extremities Exam Extremities exam: Positive for: full ROM, normal inspection - Back Exam Back exam: NORMAL INSPECTION - Neurological Exam Neurological exam: Alert, CN II-XII Intact, Oriented x3 - Psychiatric Exam Psychiatric exam: Normal Affect, Normal Mood - Skin Skin Exam: Dry, Intact, Normal Color, Warm Results - Vital Signs Recent Vital Signs: Last Vital Signs Temp 97.5 F L 12/12/17 19:23 Pulse 65 12/12/17 19:23 Resp 20 12/12/17 19:23 BP 171/77 H 12/12/17 19:23 Pulse Ox 96 12/12/17 21:22 - Labs Result Diagrams: 12/12/17 20:29 12/12/17 20:29 Labs: Laboratory Results - last 24 hr 12/12/17 12/12/17 12/12/17 20:29 20:29 20:29 WBC 7.0 RBC 3.63 L Hgb 11.8 L Hct 34.0 L MCV 93.6 MCH 32.5 H MCHC 34.7 RDW 13.7 Plt Count 235 MPV 8.6 Neut % (Auto) 54.3 Lymph % (Auto) 31.0 [place] % (Auto) 7.4 Eos % (Auto) 6.3 H Baso % (Auto) 1.0 Neut # (Auto) 3.8 Lymph # (Auto) 2.2 [place] # (Auto) 0.5 Eos # (Auto) 0.4 Baso # (Auto) 0.1 PT 13.5 H INR 1.2 APTT 32 Sodium 141 Potassium 4.3 Chloride 107 Carbon Dioxide 23 Anion Gap 15 BUN 25 H Creatinine 1.1 Est GFR ( Amer) > 60 Est GFR (Non-Af Amer) > 60 Random Glucose 98 Calcium 9.3 Total Bilirubin 0.9 AST 31 ALT 34 Alkaline Phosphatase 79 Total Protein 7.0 Albumin 3.4 L Globulin 3.6 Albumin/Globulin Ratio 0.9 L Lipase 94 Assessment & Plan - Assessment and Plan (Free Text) Assessment: This is a 72 yo male with past medical hx of BPH, HTN, hematuria, SVT, chronic urinary retention presenting with 1. Urinary retention/hematuria -UA shows 2 plus protein, 3 plus blood, 4193 RBCs, moderate oxalate crystals -bladder scan showed 450 cc -18 russian karimi placed initially with 150 cc bloody drainage -pt continued to experience discomfort and karimi was changed to 23 russian, another 300 cc were drained -urology consult. Dr. Hadley. recs appreciated. -likely candidate for sx treatment of BPH, retention at this time -recent cystoscopy 12/01/2017 with evacuation of clots and fulguration, this recent cystoscopy did not show sign of malignancy -recently finished course of PO ciprofloxacin -23 [place] karimi catheter in place along with bladder irrigation -needs cardiac clearance prior to procedure. -cardio consult. recs appreciated. Dr. Lanny Wilson -PT mildly elevated at 13.5/INR 1.2/PTT 32 -hold any anticoagulants -CT scan abdomen/pelvis shows hematoma within bladder with active bleeding, underlying mass not excluded; prostate enlargement -tylenol 650 mg PO q 6 hrs prn pain 2. Anemia -normocytic -will check stool for occult blood -iron studies including iron level, TIBC, ferritin level -LDH, haptoglobin -reticulocyte count mildly elevated at 1.7 suggesting increased EPO response 3. Hx of SVT -did have to go to ICU 11/2017 for recalcitrant SVT and hypotension, pt given multiple doses of amiodarone and adenosine -continue atenolol 25 mg PO daily -cardio consult. recs appreciated. Dr. Conner Wilson -EKG -CXR shows mild cardiomegaly, full report as read by radiologist pending -previous echo shows normal LV systolic function, no effusions or valvular abnormalities 4. Hx of BPH -continue flomax .4 mg PO daily -continue finasteride 5 mg PO daily -recent PSA 18.5 in 2018 -recent prostate ultrasound shows severe BPH with median lobe hypertrophy 5. Hx of HTN -continue atenolol 25 mg PO daily -previous markus inhibitor was held due to low blood pressure 6. BUN increased -mildly elevated -start NS 100 cc/hr 7. Pulmonary nodules -noted on abdomen/pelvis CT scan -recommend follow up CT scan at 12 months 8. GI/DVT ppx -hold lovenox for hematuria -protonix 40 mg IV daily -scds Diet: heart healthy Activity: as tolerated Code status: full code discussed with Dr. Osborne <Del Osborne - Last Filed: 12/13/17 19:00> Results - Vital Signs Recent Vital Signs: Last Vital Signs Temp 98.7 F 12/13/17 12:00 Pulse 85 12/13/17 15:20 Resp 17 12/13/17 15:20 BP 126/94 H 12/13/17 15:15 Pulse Ox 98 12/13/17 15:20 - Labs Result Diagrams: 12/13/17 18:11 12/13/17 09:09 Labs: Laboratory Results - last 24 hr 12/12/17 12/12/17 12/12/17 20:29 20:29 20:29 WBC 7.0 RBC 3.63 L Hgb 11.8 L Hct 34.0 L MCV 93.6 MCH 32.5 H MCHC 34.7 RDW 13.7 Plt Count 235 MPV 8.6 Neut % (Auto) 54.3 Lymph % (Auto) 31.0 [place] % (Auto) 7.4 Eos % (Auto) 6.3 H Baso % (Auto) 1.0 Neut # (Auto) 3.8 Lymph # (Auto) 2.2 [place] # (Auto) 0.5 Eos # (Auto) 0.4 Baso # (Auto) 0.1 Neutrophils % (Manual) Lymphocytes % (Manual) Monocytes % (Manual) Platelet Estimate RBC Morphology Retic Count Haptoglobin PT 13.5 H INR 1.2 APTT 32 Puncture Site pCO2 pO2 HCO3 ABG pH ABG Total CO2 ABG O2 Saturation ABG Base Excess Brannon Test ABG Potassium VBG pH VBG pCO2 VBG HCO3 VBG Total CO2 VBG O2 Sat (Calc) VBG Base Excess VBG Potassium A-a O2 Difference Respiratory Index Glucose Lactate Liter Flow FiO2 Crit Value Called To Crit Value Called By Crit Value Read Back Blood Gas Notified Time Sodium 141 Potassium 4.3 Chloride 107 Carbon Dioxide 23 Anion Gap 15 BUN 25 H Creatinine 1.1 Est GFR ( Amer) > 60 Est GFR (Non-Af Amer) > 60 POC Glucose (mg/dL) Random Glucose 98 Calcium 9.3 Phosphorus Magnesium Iron TIBC % Saturation Ferritin Total Bilirubin 0.9 AST 31 ALT 34 Alkaline Phosphatase 79 Lactate Dehydrogenase Total Creatine Kinase CK-MB (Mass) Troponin I Total Protein 7.0 Albumin 3.4 L Globulin 3.6 Albumin/Globulin Ratio 0.9 L Lipase 94 Arterial Blood Potassium Venous Blood Potassium Urine Color Urine Clarity Urine pH Ur Specific [place] Urine Protein Urine Glucose (UA) Urine Ketones Urine Blood Urine Nitrate Urine Bilirubin Urine Urobilinogen Ur Leukocyte Esterase Urine WBC (Auto) Urine RBC (Auto) Calcium Oxalate Crystal Blood Type Antibody Screen 12/12/17 12/12/17 12/12/17 22:49 22:49 22:49 WBC RBC Hgb Hct MCV MCH MCHC RDW Plt Count MPV Neut % (Auto) Lymph % (Auto) [place] % (Auto) Eos % (Auto) Baso % (Auto) Neut # (Auto) Lymph # (Auto) [place] # (Auto) Eos # (Auto) Baso # (Auto) Neutrophils % (Manual) Lymphocytes % (Manual) Monocytes % (Manual) Platelet Estimate RBC Morphology Retic Count 1.7 H Haptoglobin 143.8 PT INR APTT Puncture Site pCO2 pO2 HCO3 ABG pH ABG Total CO2 ABG O2 Saturation ABG Base Excess Brannon Test ABG Potassium VBG pH VBG pCO2 VBG HCO3 VBG Total CO2 VBG O2 Sat (Calc) VBG Base Excess VBG Potassium A-a O2 Difference Respiratory Index Glucose Lactate Liter Flow FiO2 Crit Value Called To Crit Value Called By Crit Value Read Back Blood Gas Notified Time Sodium Potassium Chloride Carbon Dioxide Anion Gap BUN Creatinine Est GFR ( Amer) Est GFR (Non-Af Amer) POC Glucose (mg/dL) Random Glucose Calcium Phosphorus Magnesium Iron TIBC % Saturation Ferritin 61.5 Total Bilirubin AST ALT Alkaline Phosphatase Lactate Dehydrogenase 357 Total Creatine Kinase CK-MB (Mass) Troponin I Total Protein Albumin Globulin Albumin/Globulin Ratio Lipase Arterial Blood Potassium Venous Blood Potassium Urine Color Urine Clarity Urine pH Ur Specific [place] Urine Protein Urine Glucose (UA) Urine Ketones Urine Blood Urine Nitrate Urine Bilirubin Urine Urobilinogen Ur Leukocyte Esterase Urine WBC (Auto) Urine RBC (Auto) Calcium Oxalate Crystal Blood Type Antibody Screen 12/12/17 12/12/17 12/13/17 22:49 23:01 08:00 WBC 17.7 H D RBC 3.18 L Hgb 10.3 L Hct 30.4 L MCV 95.4 H MCH 32.2 H MCHC 33.8 RDW 13.8 Plt Count 234 MPV 8.9 Neut % (Auto) 92.5 H Lymph % (Auto) 3.6 L [place] % (Auto) 3.8 Eos % (Auto) 0.0 Baso % (Auto) 0.1 Neut # (Auto) 16.3 H Lymph # (Auto) 0.6 L [place] # (Auto) 0.7 Eos # (Auto) 0.0 Baso # (Auto) 0.0 Neutrophils % (Manual) 97 H Lymphocytes % (Manual) 2 L Monocytes % (Manual) 1 Platelet Estimate Normal RBC Morphology Normal Retic Count Haptoglobin PT INR APTT Puncture Site pCO2 pO2 HCO3 ABG pH ABG Total CO2 ABG O2 Saturation ABG Base Excess Brannon Test ABG Potassium VBG pH VBG pCO2 VBG HCO3 VBG Total CO2 VBG O2 Sat (Calc) VBG Base Excess VBG Potassium A-a O2 Difference Respiratory Index Glucose Lactate Liter Flow FiO2 Crit Value Called To Crit Value Called By Crit Value Read Back Blood Gas Notified Time Sodium Potassium Chloride Carbon Dioxide Anion Gap BUN Creatinine Est GFR ( Amer) Est GFR (Non-Af Amer) POC Glucose (mg/dL) Random Glucose Calcium Phosphorus Magnesium Iron 46 L TIBC 308 % Saturation 15 L Ferritin Total Bilirubin AST ALT Alkaline Phosphatase Lactate Dehydrogenase Total Creatine Kinase CK-MB (Mass) Troponin I Total Protein Albumin Globulin Albumin/Globulin Ratio Lipase Arterial Blood Potassium Venous Blood Potassium Urine Color Red Urine Clarity Hazy Urine pH 6.0 Ur Specific [place] 1.004 Urine Protein 2+ H Urine Glucose (UA) Normal Urine Ketones Negative Urine Blood 3+ H Urine Nitrate Negative Urine Bilirubin Negative Urine Urobilinogen Normal Ur Leukocyte Esterase Neg Urine WBC (Auto) 2 Urine RBC (Auto) 4193 H Calcium Oxalate Crystal Mod H Blood Type Antibody Screen 12/13/17 12/13/17 12/13/17 08:00 08:44 09:09 WBC 19.9 H RBC 3.00 L Hgb 9.6 L Hct 29.0 L MCV 96.6 H MCH 31.9 H MCHC 33.0 RDW 14.1 Plt Count 233 MPV 9.0 Neut % (Auto) Lymph % (Auto) [place] % (Auto) Eos % (Auto) Baso % (Auto) Neut # (Auto) Lymph # (Auto) [place] # (Auto) Eos # (Auto) Baso # (Auto) Neutrophils % (Manual) Lymphocytes % (Manual) Monocytes % (Manual) Platelet Estimate RBC Morphology Retic Count Haptoglobin PT INR APTT Puncture Site pCO2 pO2 HCO3 ABG pH ABG Total CO2 ABG O2 Saturation ABG Base Excess Brannon Test ABG Potassium VBG pH VBG pCO2 VBG HCO3 VBG Total CO2 VBG O2 Sat (Calc) VBG Base Excess VBG Potassium A-a O2 Difference Respiratory Index Glucose Lactate Liter Flow FiO2 Crit Value Called To Crit Value Called By Crit Value Read Back Blood Gas Notified Time Sodium 139 Potassium 4.7 Chloride 110 H Carbon Dioxide 12 L Anion Gap 22 H BUN 28 H Creatinine 2.2 H Est GFR ( Amer) 36 Est GFR (Non-Af Amer) 29 POC Glucose (mg/dL) 200 H Random Glucose 160 H Calcium 8.8 Phosphorus 4.4 Magnesium 1.7 Iron TIBC % Saturation Ferritin Total Bilirubin 1.2 AST 33 ALT 25 Alkaline Phosphatase 73 Lactate Dehydrogenase Total Creatine Kinase CK-MB (Mass) Troponin I Total Protein 6.8 Albumin 3.3 L Globulin 3.5 Albumin/Globulin Ratio 0.9 L Lipase Arterial Blood Potassium Venous Blood Potassium Urine Color Urine Clarity Urine pH Ur Specific [place] Urine Protein Urine Glucose (UA) Urine Ketones Urine Blood Urine Nitrate Urine Bilirubin Urine Urobilinogen Ur Leukocyte Esterase Urine WBC (Auto) Urine RBC (Auto) Calcium Oxalate Crystal Blood Type Antibody Screen 12/13/17 12/13/17 12/13/17 09:09 09:09 09:09 WBC RBC Hgb Hct MCV MCH MCHC RDW Plt Count MPV Neut % (Auto) Lymph % (Auto) [place] % (Auto) Eos % (Auto) Baso % (Auto) Neut # (Auto) Lymph # (Auto) [place] # (Auto) Eos # (Auto) Baso # (Auto) Neutrophils % (Manual) Lymphocytes % (Manual) Monocytes % (Manual) Platelet Estimate RBC Morphology Retic Count Haptoglobin PT 13.6 H INR 1.2 APTT 30 Puncture Site pCO2 pO2 HCO3 ABG pH ABG Total CO2 ABG O2 Saturation ABG Base Excess Brannon Test ABG Potassium VBG pH VBG pCO2 VBG HCO3 VBG Total CO2 VBG O2 Sat (Calc) VBG Base Excess VBG Potassium A-a O2 Difference Respiratory Index Glucose Lactate Liter Flow FiO2 Crit Value Called To Crit Value Called By Crit Value Read Back Blood Gas Notified Time Sodium 144 Potassium 4.8 Chloride 112 H Carbon Dioxide 10 L* Anion Gap 26 H BUN 26 H Creatinine 2.5 H Est GFR ( Amer) 31 Est GFR (Non-Af Amer) 25 POC Glucose (mg/dL) Random Glucose 181 H Calcium 7.9 L Phosphorus Magnesium Iron TIBC % Saturation Ferritin Total Bilirubin 1.1 AST 32 ALT 19 L D Alkaline Phosphatase 60 Lactate Dehydrogenase Total Creatine Kinase 36 L CK-MB (Mass) 1.05 Troponin I < 0.0120 Total Protein 6.6 Albumin 3.4 L Globulin 3.2 Albumin/Globulin Ratio 1.1 Lipase Arterial Blood Potassium Venous Blood Potassium Urine Color Urine Clarity Urine pH Ur Specific [place] Urine Protein Urine Glucose (UA) Urine Ketones Urine Blood Urine Nitrate Urine Bilirubin Urine Urobilinogen Ur Leukocyte Esterase Urine WBC (Auto) Urine RBC (Auto) Calcium Oxalate Crystal Blood Type O POSITIVE Antibody Screen Negative 12/13/17 12/13/17 12/13/17 11:13 13:22 18:11 WBC RBC Hgb 8.7 L Hct 25.7 L MCV MCH MCHC RDW Plt Count MPV Neut % (Auto) Lymph % (Auto) [place] % (Auto) Eos % (Auto) Baso % (Auto) Neut # (Auto) Lymph # (Auto) [place] # (Auto) Eos # (Auto) Baso # (Auto) Neutrophils % (Manual) Lymphocytes % (Manual) Monocytes % (Manual) Platelet Estimate RBC Morphology Retic Count Haptoglobin PT INR APTT Puncture Site Rr pCO2 23 L pO2 129 H 41 HCO3 12.8 L ABG pH 7.24 L ABG Total CO2 10.6 L ABG O2 Saturation 99.6 H ABG Base Excess -15.6 L Brannon Test Pos ABG Potassium 5.3 H VBG pH 7.19 L* VBG pCO2 26 L VBG HCO3 10.9 VBG Total CO2 10.7 L VBG O2 Sat (Calc) 65.1 H VBG Base Excess -16.7 L VBG Potassium 4.9 A-a O2 Difference 99.0 Respiratory Index 0.8 Glucose 167 H 188 H Lactate 7.5 H* 9.0 H* Liter Flow 5.0 FiO2 36.0 Crit Value Called To Dr minda pollard Crit Value Called By Sabiha jacobson water system operator Tawanda pollard water system operator Crit Value Read Back Y Y Blood Gas Notified Time 1118 1325 Sodium 138.0 138.0 Potassium Chloride 112.0 H 109.0 H Carbon Dioxide Anion Gap BUN Creatinine Est GFR ( Amer) Est GFR (Non-Af Amer) POC Glucose (mg/dL) Random Glucose Calcium Phosphorus Magnesium Iron TIBC % Saturation Ferritin Total Bilirubin AST ALT Alkaline Phosphatase Lactate Dehydrogenase Total Creatine Kinase CK-MB (Mass) Troponin I Total Protein Albumin Globulin Albumin/Globulin Ratio Lipase Arterial Blood Potassium 5.3 H Venous Blood Potassium 4.9 Urine Color Urine Clarity Urine pH Ur Specific [place] Urine Protein Urine Glucose (UA) Urine Ketones Urine Blood Urine Nitrate Urine Bilirubin Urine Urobilinogen Ur Leukocyte Esterase Urine WBC (Auto) Urine RBC (Auto) Calcium Oxalate Crystal Blood Type Antibody Screen Assessment & Plan - Date & Time Date: 12/13/17 (I have seen and examined the patient. I agree with the findings and plan of care as documented by Dr. Modi. Patient with hematuria. History of urinary retention. Consult to urology. Anemia. Check stool for blood. Check iron studies. Also with history of SVT. Consult to Cardio for optimization prior to any procedures. Monitor for acute changes.) Time: 18:57 Attending/Attestation - Attestation I have personally seen and examined this patient.: Yes I have fully participated in the care of the patient.: Yes I have reviewed all pertinent clinical information: Yes
[2017-12-12 23:09] LABS: IRON 46 ug/dL (49-181)
[2017-12-12 23:16] LABS: URINE BILIRUBIN NEGATIVE (NEGATIVE); URINE BLOOD 3+ (NEGATIVE); URINE CALCIUM OXALATE CRYSTALS MOD /hpf (<OCC); URINE CLARITY Hazy (Clear); URINE COLOR Red (YELLOW); URINE GLUCOSE (UA) NORMAL (Normal); URINE LEUKOCYTE ESTERASE NEG Leu/uL (Negative); URINE PROTEIN 2+ mg/dL (NEGATIVE); URINE UROBILINOGEN NORMAL mg/dL (0.2-1.0)
[2017-12-12 23:19] LABS: % IRON SATURATION 15 (20-55); TOTAL IRON BINDING CAPACITY 308 ug/dL (250-450)
[2017-12-12 23:40] LABS: FERRITIN 61.5 ng/mL
[2017-12-12] MEDS ORDERED: Sodium Chloride 0.9% 1,000 ML IV SCH (23:45)
--- NOTE | 2017-12-13 00:20 | CT ---
EXAM: CT Abdomen and Pelvis With Intravenous Contrast CLINICAL HISTORY: 72 years old, male; Signs and symptoms; Other: Hematuria; Additional info: Severe hematuria TECHNIQUE: Axial computed tomography images of the abdomen and pelvis with intravenous contrast. All CT scans at this facility use one or more dose reduction techniques, viz.: automated exposure control; ma/kV adjustment per patient size (including targeted exams where dose is matched to indication; i.e. head); or iterative reconstruction technique. Coronal and sagittal reformatted images were created and reviewed. CONTRAST: 100 mL of visipaque 320 administered intravenously. COMPARISON: CT - ABD PELVIS W/O PO OR IV CONT 2017-11-23 08:49 FINDINGS: Lung bases: Minimal atelectasis. Few pulmonary nodules, up to 0.3 cm. Mediastinum: Small hiatal hernia. ABDOMEN: Liver: Fatty infiltration. Gallbladder and bile ducts: Calcified gallstones. No significant ductal dilation. Pancreas: No ductal dilation. No mass. Spleen: No splenomegaly. Adrenals: No mass. Kidneys and ureters: Few too small to characterize lesions within kidneys. Punctate calculus within RIGHT kidney. Mild pelvocaliectasis of LEFT kidney. Stomach and bowel: Duodenal diverticulum. Scattered diverticula within colon. No associated inflammatory stranding. No definite mural thickening. No obstruction. PELVIS: Appendix: Normal caliber. No inflammation. Bladder: Flower catheter. Distended bladder. Air within bladder lumen. Poorly defined heterogeneous hyperdense mass within bladder, roughly 10 x 9 x 8 cm. Contrast along posterior wall of bladder. Reproductive: Markedly enlarged prostate gland. ABDOMEN and PELVIS: Intraperitoneal space: No significant fluid collection. No free air. Bones/joints: Degenerative changes of spine. Hemangiomas within spine. No acute fracture. Soft tissues: Mild left gynecomastia. Tiny umbilical hernia containing fat. Vasculature: Mild atherosclerotic disease. No aneurysm. Lymph nodes: No pathologically enlarged lymph nodes. IMPRESSION: 1. Hematoma with active bleeding within bladder. Underlying mass not excluded. Recommend cystoscopy. 2. Prostate enlargement. Followup as clinically warranted. 3. Pulmonary nodules. For low-risk patients, no follow-up is necessary. For high-risk patients (smoking history or other known risk factors) an optional CT at 12 months could be performed. 4. Incidental/non-acute findings are described above.
[2017-12-13] MEDS ORDERED: Oxycodone/Acetaminophen 5/325 mg Tab PO PRN ×2 (07:45)
--- NOTE | 2017-12-13 07:57 | CP.PCM.PN ---
<Darshana Orozco - Last Filed: 12/13/17 16:59> Subjective - Date & Time of Evaluation Date of Evaluation: 12/13/17 Time of Evaluation: 07:00 - Subjective Subjective: Medicine Note for Hospitalist Service - Dr. Person FORENSIC PATHOLOGIST was called 8:41am for near syncope. This is a 72 year old male with PMHx of HTN, Resolved SVTs, BPH with prostate gland measuring 8.6 x 8.0 x 7.5 centimeters with significant median lobe hypertrophy and persistent hematuria. He has CBI in place and was scheduled for prostatectomy with Dr. Cathi Hadley on 12/14/17 pending Cardio clearance. He was admitted last night for continued hematuria and abdominal pain , distention. Patient was trying to ambulate to the bathroom to have a bowel movement when he felt dizzy and almost syncopized. The nurse was at bedside, placed the patient in bed. Vitals on arrival where: BP 89/53, pulse 108. Patient was placed in Trendelenburg positon. Patient karimi bag was filled with bright red blood. He was immediately bolused 2 L of NS (no history of CHF). On admission patient's hemoglobin was 11.8 --> 10.3 --> 9.6 (during FORENSIC PATHOLOGIST). Repeat vitals after the first bolus was 100/61. The patient had poor venous access, unable to place 2 large bore needles. Patient was transferred to the ICU for further monitoring. R Subclavian TLC was placed in the ICU. Pending further Urology reccs. Currently monitored in the ICU. Objective - Vital Signs/Intake and Output Vital Signs (last 24 hours): Temp Pulse Resp BP Pulse Ox 97.4 F L 60 20 118/77 99 12/13/17 00:00 12/13/17 03:05 12/13/17 00:00 12/13/17 00:00 12/13/17 00:00 Intake and Output: 12/13/17 12/13/17 06:59 18:59 Intake Total 9000 6720 Output Total 7900 6600 Balance 1100 120 - Medications Medications: Current Medications Acetaminophen (Tylenol 325mg Tab) 650 mg PO Q6 PRN PRN Reason: Pain, moderate (4-7) Last Admin: 12/13/17 01:27 Dose: 650 mg Atenolol (Tenormin) 25 mg PO DAILY [facility] Finasteride (Proscar) 5 mg PO DAILY [facility] Sodium Chloride (Sodium Chloride 0.9%) 1,000 mls @ 100 mls/hr IV .Q10H [facility] Last Admin: 12/12/17 23:58 Dose: 100 mls/hr Oxycodone/Acetaminophen (Percocet 5/325 Mg Tab) 1 tab PO Q4H PRN PRN Reason: Pain, moderate (4-7) Stop: 12/16/17 07:46 Oxycodone/Acetaminophen (Percocet 5/325 Mg Tab) 2 tab PO Q6H PRN PRN Reason: Pain, severe (8-10) Stop: 12/16/17 07:46 Pantoprazole Sodium (Protonix Inj) 40 mg IVP DAILY [facility] Tamsulosin HCl (Flomax) 0.4 mg PO DAILY [facility] - Labs Labs: 12/12/17 20:29 12/12/17 20:29 PT 13.5 SECONDS (9.7-12.2) H 12/12/17 20:29 INR 1.2 12/12/17 20:29 APTT 32 SECONDS (21-34) 12/12/17 20:29 Assessment and Plan - Assessment and Plan (Free Text) Plan: Hematuria Assessment & Plan: - Urology (Dr. Dago Hadley) on the case---> plan for prostatectomy pending cardiac clearance - Cardiology (Dr. Vaughn) on the case --> seen on previous admission for SVTs BPH (benign prostatic hyperplasia) - Continue with Flomax 0.4 PO daily, Proscar 5 mg PO DAILY Hypertension SVT--> Stable - Cardiology (Dr. Vaughn) on the case during previous admission - CT Angio 11/25/17: ruled out PE, mild cardiomegaly and atherosclerotic disease, no aortic aneurysm; see full report. - Echocardiogram 11/23 - EF 56%; poor acoustic window - Will continue with atenolol 25mg PO daily Hx UTI Enterococcus faecalis + Urine Culture 11/22/17 DW Darshana Brenner DO, PGY-1 <Tyrese Person - Last Filed: 12/13/17 18:48> Objective - Vital Signs/Intake and Output Vital Signs (last 24 hours): Temp Pulse Resp BP Pulse Ox 98.7 F 85 17 126/94 H 98 12/13/17 12:00 12/13/17 15:20 12/13/17 15:20 12/13/17 15:15 12/13/17 15:20 Intake and Output: 12/13/17 12/13/17 06:59 18:59 Intake Total 9000 34690 Output Total 7900 9100 Balance 1100 6870 - Medications Medications: Current Medications Acetaminophen (Tylenol 325mg Tab) 650 mg PO Q6 PRN PRN Reason: Pain, Mild (1-3) Atenolol (Tenormin) 25 mg PO DAILY [facility] Finasteride (Proscar) 5 mg PO DAILY [facility] Sodium Bicarbonate 100 meq/ (Sodium Chloride) 1,100 mls @ 100 mls/hr IV .Q11H [facility] Last Admin: 12/13/17 12:45 Dose: 100 mls/hr Ciprofloxacin (Cipro 400mg/200ml Dsw) 400 mg in 200 mls @ 133 mls/hr IVPB Q24H [facility] PRN Reason: Protocol Last Admin: 12/13/17 13:00 Dose: 133 mls/hr Morphine Sulfate (Morphine) 2 mg IVP Q6 [facility] Oxycodone/Acetaminophen (Percocet 5/325 Mg Tab) 1 tab PO Q4H PRN PRN Reason: Pain, moderate (4-7) Stop: 12/16/17 07:46 Last Admin: 12/13/17 08:10 Dose: 1 tab Oxycodone/Acetaminophen (Percocet 5/325 Mg Tab) 2 tab PO Q6H PRN PRN Reason: Pain, severe (8-10) Stop: 12/16/17 07:46 Pantoprazole Sodium (Protonix Inj) 40 mg IVP DAILY [facility] Last Admin: 12/13/17 14:13 Dose: 40 mg Tamsulosin HCl (Flomax) 0.4 mg PO DAILY [facility] Last Admin: 12/13/17 13:08 Dose: Not Given - Labs Labs: 12/13/17 18:11 12/13/17 09:09 PT 13.6 SECONDS (9.7-12.2) H 12/13/17 09:09 INR 1.2 12/13/17 09:09 APTT 30 SECONDS (21-34) 12/13/17 09:09 Attending/Attestation - Attestation I have personally seen and examined this patient.: Yes I have fully participated in the care of the patient.: Yes I have reviewed all pertinent clinical information, including history, physical exam and plan: Yes Notes (Text): seen and examined at 3T during FORENSIC PATHOLOGIST 1.Hypotension,near syncope 2.Acute blood loss 3.High Lactate and Leukocytosis possible urosepsis started on cipro and vanc follow cultures 4.BPH and hematuria 5.History of SVT d/w Dr Vaughn continue current meds d/w DR Hadley E. He will be seeing the pt soon d/w Resident I agree with the resident's documentation of the assessment and the plan Family at bedside
--- NOTE | 2017-12-13 08:05 | RAD ---
HISTORY: abd pain COMPARISON: Chest x-ray 11/22/2017 TECHNIQUE: Chest one view . FINDINGS: LUNGS: No focal consolidation is seen. PLEURA: No pleural effusion is identified. CARDIOVASCULAR: Heart size is within normal limits. OSSEOUS STRUCTURES: Calcification noted in the region of the left superior rotator cuff insertion, likely calcific tendinopathy. VISUALIZED UPPER ABDOMEN: Unremarkable. OTHER FINDINGS: None. IMPRESSION: No acute cardiopulmonary process seen.
[2017-12-13 08:19] LABS: BASO % 0.1 % (0.0-2.0); HEMOGLOBIN 10.3 g/dL (12.0-18.0); LYMPH # 0.6 K/uL (1.0-4.3); LYMPH % 3.6 % (20.0-40.0); MEAN CELL VOLUME 95.4 fL (80.0-94.0); MEAN CORPUSCULAR HEMOGLOBIN 32.2 pg (27.0-31.0); MEAN CORPUSCULAR HGB CONC 33.8 g/dL (33.0-37.0); MEAN PLATELET VOLUME 8.9 fL (7.2-11.7); MONO # 0.7 K/uL (0.0-0.8); MONO % 3.8 % (0.0-10.0); NEUT # 16.3 K/uL (1.8-7.0); NEUT % 92.5 % (50.0-75.0); PLATELET COUNT 234 K/uL (130-400); RBC 3.18 Mil/uL (4.40-5.90); RED CELL DISTRIBUTION WIDTH 13.8 % (11.5-14.5)
[2017-12-13 08:21] LABS: WHITE BLOOD COUNT 17.7 K/uL (4.8-10.8)
[2017-12-13 08:26] LABS: ALB/GLOB RATIO 0.9 (1.0-2.1); ALBUMIN 3.3 g/dL (3.5-5.0); CALCIUM 8.8 mg/dl (8.6-10.4)
[2017-12-13] MEDS ORDERED: Sodium Chloride 0.9% 1,000 ML IV SCH (09:00)
[2017-12-13 09:20] LABS: HEMOGLOBIN 9.6 g/dL (12.0-18.0); MEAN CELL VOLUME 96.6 fL (80.0-94.0); MEAN CORPUSCULAR HEMOGLOBIN 31.9 pg (27.0-31.0); RED CELL DISTRIBUTION WIDTH 14.1 % (11.5-14.5); WHITE BLOOD COUNT 19.9 K/uL (4.8-10.8)
[2017-12-13 09:29] LABS: INR 1.2; PROTHROMBIN TIME 13.6 SECONDS (9.7-12.2)
[2017-12-13 09:32] LABS: ALB/GLOB RATIO 1.1 (1.0-2.1); ALBUMIN 3.4 g/dL (3.5-5.0); ALT/SGPT 19 U/L (21-72); AST/SGOT 32 U/L (17-59); BLOOD UREA NITROGEN 26 mg/dL (9-20); CALCIUM 7.9 mg/dl (8.6-10.4); GFR AFRICAN-AMERICAN 31; GFR NON-AFRICAN AMERICAN 25
[2017-12-13 09:38] LABS: CK-MB 1.05 ng/mL (0.0-3.38)
[2017-12-13] MEDS ORDERED: Vancomycin 1 gm/NS 200 ml 1 GM/200 ML BAG IVPB STA (10:17)
[2017-12-13 11:04] LABS: LYMPHOCYTE 2 % (20-40); MONOCYTE 1 % (0-10); NEUTROPHIL 97 % (50-75); PLATELET ESTIMATE NORMAL (NORMAL); TOTAL CELLS COUNTED 100
[2017-12-13 11:18] LABS: ABG ALLEN TEST POS; ARTERIAL BLOOD GAS HCO3 12.8 mmol/L (21-28); ARTERIAL BLOOD GAS O2 SAT 99.6 % (95-98); ARTERIAL BLOOD GAS PCO2 23 mm/Hg (35-45); ARTERIAL BLOOD GAS PH 7.24 (7.35-7.45); ARTERIAL BLOOD GAS PO2 129 mm/Hg (80-100); ARTERIAL BLOOD GAS TCO2 10.6 mmol/L (22-28)
[2017-12-13] MEDS ORDERED: Sodium Chloride 0.9% 500 ML IV ONE ×2 (11:24→13:29)
--- NOTE | 2017-12-13 11:25 | CP.PCM.CON ---
<Alexandru Mcneill - Last Filed: 12/13/17 17:22> History of Present Illness - History of Present Illness History of Present Illness: This is a 72 year old male with PMHx of HTN, Resolved SVTs, BPH with prostate gland measuring 8.6 x 8.0 x 7.5 centimeters with significant median lobe hypertrophy and persistent hematuria. He has CBI in place and was scheduled for prostatectomy with Dr. Cathi Hadley on 12/14/17 pending Cardio clearance. He was admitted last night for continued hematuria and abdominal pain , distention. Patient was trying to ambulate to the bathroom to have a bowel movement when he felt dizzy and almost syncopized. The nurse was at bedside, placed the patient in bed. Vitals on arrival where: BP 89/53, pulse 108. Patient was placed in Trendelenburg positon. Patient karimi bag was filled with bright red blood. He was immediately bolused 2 L of NS (no history of CHF). On admission patient's hemoglobin was 11.8 --> 10.3 --> 9.6 (during [employer]). Repeat vitals after the first bolus was 100/61. The patient had poor venous access, unable to place 2 large bore needles. Patient was transferred to the ICU for further monitoring. R Subclavian TLC was placed in the ICU. Pending further Urology reccs. ROS POSITIVE: Suprapubic Tenderness, Oligouria, Hematuria. NEGATIVES: Fever, headache, chest pain, SOB, abdominal pain, nausea, vomiting , changes in bowel habits. PMH: BPH, SVT, urinary retention, s/p recent cystoscopy, hematuria PSH: cystoscopy 2018 Allergies: NKDA FH: [place] in family, age 69 Home meds: recently finished course of PO ciprofloxacin 500 mg BID for 14 days , atenolol 25 mg PO daily, finasteride 5 mg PO daily, tamsulosin .4 mg PO daily Social hx: current smoker. smokes 1 cigarette per day since age 19. does not drink. denies drug use. [place] [facility] 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 Full code status. Able to complete all ADLs. Fully mobile and does not use cane or walker. Lives at home with daughter and daughter's family. PMD: Laith Herrera/[facility] ( last visit 12/11/17) Urologist Dr. Hadley. Pt denies seeing blow mold operator outpatient. Review of Systems - Review of Systems All systems: reviewed and no additional remarkable complaints except (As per HPI ) Review of Systems: As per HPI Past Patient History - Infectious Disease Hx of Infectious Diseases: None - Tetanus Immunizations Tetanus Immunization: Unknown - Past Medical History & Family History Past Medical History?: Yes - Past Social History Smoking Status: Light Smoker < 10 Cigarettes Daily Chewing Tobacco Use: No Cigar Use: No Alcohol: None Drugs: Denies Home Situation {Lives}: With Family Domestic Violence: Negative - CARDIAC Hx Hypertension: Yes - PULMONARY Hx Respiratory Disorders: No - NEUROLOGICAL Hx Neurological Disorder: No - HEENT Hx HEENT Problems: No - RENAL Hx Chronic Kidney Disease: No - ENDOCRINE/METABOLIC Hx Endocrine Disorders: No - HEMATOLOGICAL/ONCOLOGICAL Hx Blood Disorders: No - INTEGUMENTARY Hx Dermatological Problems: No - MUSCULOSKELETAL/RHEUMATOLOGICAL Hx Falls: No - GASTROINTESTINAL Hx Gastrointestinal Disorders: No - GENITOURINARY/GYNECOLOGICAL Hx Hematuria: Yes Hx Prostate Problems: Yes (Enlarged prostate) Other/Comment: karimi from home x 2 days - PSYCHIATRIC Hx Substance Use: No - SURGICAL HISTORY Hx Surgeries: No - ANESTHESIA Hx Anesthesia: No Hx Anesthesia Reactions: No Meds Allergies/Adverse Reactions: Allergies Allergy/AdvReac Type Severity Reaction Status Date / Time No Known Allergies Allergy Verified 11/22/17 19:14 - Medications Medications: Current Medications Acetaminophen (Tylenol 325mg Tab) 650 mg PO Q6 PRN PRN Reason: Pain, Mild (1-3) Atenolol (Tenormin) 25 mg PO DAILY [facility] Finasteride (Proscar) 5 mg PO DAILY [facility] Sodium Bicarbonate 100 meq/ (Sodium Chloride) 1,100 mls @ 100 mls/hr IV .Q11H [facility] Ciprofloxacin (Cipro 400mg/200ml Dsw) 400 mg in 200 mls @ 133 mls/hr IVPB Q24H [facility] PRN Reason: Protocol Vancomycin/Sodium Chloride (Vancomycin 1 Gm/Ns 200 Ml) 1 gm in 200 mls @ 133.333 mls/hr IVPB STAT STA PRN Reason: Protocol Stop: 12/13/17 11:46 Sodium Chloride (Sodium Chloride 0.9%) 500 mls @ 1,000 mls/hr IV .Q30M ONE Stop: 12/13/17 11:53 Oxycodone/Acetaminophen (Percocet 5/325 Mg Tab) 1 tab PO Q4H PRN PRN Reason: Pain, moderate (4-7) Stop: 12/16/17 07:46 Last Admin: 12/13/17 08:10 Dose: 1 tab Oxycodone/Acetaminophen (Percocet 5/325 Mg Tab) 2 tab PO Q6H PRN PRN Reason: Pain, severe (8-10) Stop: 12/16/17 07:46 Pantoprazole Sodium (Protonix Inj) 40 mg IVP DAILY [facility] Tamsulosin HCl (Flomax) 0.4 mg PO DAILY [facility] Physical Exam - Additional Findings Additional findings: - Constitutional Appears: Non-toxic, No Acute Distress - Head Exam Head Exam: ATRAUMATIC, NORMOCEPHALIC. absent: NORMAL INSPECTION Additional comments: skin tags head and neck - Eye Exam Eye Exam: EOMI - ENT Exam ENT Exam: Mucous Membranes Moist - Neck Exam Neck exam: Positive for: Full Rom, Normal Inspection - Respiratory Exam Respiratory Exam: NORMAL BREATHING PATTERN. absent: Respiratory Distress - Cardiovascular Exam Cardiovascular Exam: +S1, +S2 - GI/Abdominal Exam GI & Abdominal Exam: Distended, Tenderness, No Bowel Sounds Appreciated. Additional comments: suprapubic tenderness - Exam Exam: absent: NORMAL INSPECTION Additional comments: karimi in place with some blood around the meatus - Extremities Exam Extremities exam: Positive for: full ROM, normal inspection - Back Exam Back exam: NORMAL INSPECTION - Neurological Exam Neurological exam: Alert, CN II-XII Intact, Oriented x3 - Psychiatric Exam Psychiatric exam: Normal Affect, Normal Mood - Skin Skin Exam: Dry, Intact, Normal Color, Warm Results - Vital Signs Recent Vital Signs: Last Vital Signs Temp 97.4 F L 12/13/17 00:00 Pulse 60 12/13/17 03:05 Resp 20 12/13/17 00:00 BP 118/77 12/13/17 00:00 Pulse Ox 99 12/13/17 00:00 - Labs Result Diagrams: 12/13/17 09:09 12/13/17 09:09 Labs: Laboratory Results - last 24 hr 12/12/17 12/12/17 12/12/17 20:29 20:29 20:29 WBC 7.0 RBC 3.63 L Hgb 11.8 L Hct 34.0 L MCV 93.6 MCH 32.5 H MCHC 34.7 RDW 13.7 Plt Count 235 MPV 8.6 Neut % (Auto) 54.3 Lymph % (Auto) 31.0 Catron % (Auto) 7.4 Eos % (Auto) 6.3 H Baso % (Auto) 1.0 Neut # (Auto) 3.8 Lymph # (Auto) 2.2 Catron # (Auto) 0.5 Eos # (Auto) 0.4 Baso # (Auto) 0.1 Neutrophils % (Manual) Lymphocytes % (Manual) Monocytes % (Manual) Platelet Estimate RBC Morphology Retic Count Haptoglobin PT 13.5 H INR 1.2 APTT 32 Puncture Site pCO2 pO2 HCO3 ABG pH ABG Total CO2 ABG O2 Saturation ABG Base Excess Brannon Test ABG Potassium A-a O2 Difference Respiratory Index Glucose Lactate Liter Flow FiO2 Crit Value Called To Crit Value Called By Crit Value Read Back Blood Gas Notified Time Sodium 141 Potassium 4.3 Chloride 107 Carbon Dioxide 23 Anion Gap 15 BUN 25 H Creatinine 1.1 Est GFR ( Amer) > 60 Est GFR (Non-Af Amer) > 60 Random Glucose 98 Calcium 9.3 Phosphorus Magnesium Iron TIBC % Saturation Ferritin Total Bilirubin 0.9 AST 31 ALT 34 Alkaline Phosphatase 79 Lactate Dehydrogenase Total Creatine Kinase CK-MB (Mass) Troponin I Total Protein 7.0 Albumin 3.4 L Globulin 3.6 Albumin/Globulin Ratio 0.9 L Lipase 94 Arterial Blood Potassium Urine Color Urine Clarity Urine pH Ur Specific [place] Urine Protein Urine Glucose (UA) Urine Ketones Urine Blood Urine Nitrate Urine Bilirubin Urine Urobilinogen Ur Leukocyte Esterase Urine WBC (Auto) Urine RBC (Auto) Calcium Oxalate Crystal Blood Type Antibody Screen 12/12/17 12/12/17 12/12/17 22:49 22:49 22:49 WBC RBC Hgb Hct MCV MCH MCHC RDW Plt Count MPV Neut % (Auto) Lymph % (Auto) Catron % (Auto) Eos % (Auto) Baso % (Auto) Neut # (Auto) Lymph # (Auto) Catron # (Auto) Eos # (Auto) Baso # (Auto) Neutrophils % (Manual) Lymphocytes % (Manual) Monocytes % (Manual) Platelet Estimate RBC Morphology Retic Count 1.7 H Haptoglobin 143.8 PT INR APTT Puncture Site pCO2 pO2 HCO3 ABG pH ABG Total CO2 ABG O2 Saturation ABG Base Excess Brannon Test ABG Potassium A-a O2 Difference Respiratory Index Glucose Lactate Liter Flow FiO2 Crit Value Called To Crit Value Called By Crit Value Read Back Blood Gas Notified Time Sodium Potassium Chloride Carbon Dioxide Anion Gap BUN Creatinine Est GFR ( Amer) Est GFR (Non-Af Amer) Random Glucose Calcium Phosphorus Magnesium Iron TIBC % Saturation Ferritin 61.5 Total Bilirubin AST ALT Alkaline Phosphatase Lactate Dehydrogenase 357 Total Creatine Kinase CK-MB (Mass) Troponin I Total Protein Albumin Globulin Albumin/Globulin Ratio Lipase Arterial Blood Potassium Urine Color Urine Clarity Urine pH Ur Specific [place] Urine Protein Urine Glucose (UA) Urine Ketones Urine Blood Urine Nitrate Urine Bilirubin Urine Urobilinogen Ur Leukocyte Esterase Urine WBC (Auto) Urine RBC (Auto) Calcium Oxalate Crystal Blood Type Antibody Screen 12/12/17 12/12/17 12/13/17 22:49 23:01 08:00 WBC 17.7 H D RBC 3.18 L Hgb 10.3 L Hct 30.4 L MCV 95.4 H MCH 32.2 H MCHC 33.8 RDW 13.8 Plt Count 234 MPV 8.9 Neut % (Auto) 92.5 H Lymph % (Auto) 3.6 L Catron % (Auto) 3.8 Eos % (Auto) 0.0 Baso % (Auto) 0.1 Neut # (Auto) 16.3 H Lymph # (Auto) 0.6 L Catron # (Auto) 0.7 Eos # (Auto) 0.0 Baso # (Auto) 0.0 Neutrophils % (Manual) 97 H Lymphocytes % (Manual) 2 L Monocytes % (Manual) 1 Platelet Estimate Normal RBC Morphology Normal Retic Count Haptoglobin PT INR APTT Puncture Site pCO2 pO2 HCO3 ABG pH ABG Total CO2 ABG O2 Saturation ABG Base Excess Brannon Test ABG Potassium A-a O2 Difference Respiratory Index Glucose Lactate Liter Flow FiO2 Crit Value Called To Crit Value Called By Crit Value Read Back Blood Gas Notified Time Sodium Potassium Chloride Carbon Dioxide Anion Gap BUN Creatinine Est GFR ( Amer) Est GFR (Non-Af Amer) Random Glucose Calcium Phosphorus Magnesium Iron 46 L TIBC 308 % Saturation 15 L Ferritin Total Bilirubin AST ALT Alkaline Phosphatase Lactate Dehydrogenase Total Creatine Kinase CK-MB (Mass) Troponin I Total Protein Albumin Globulin Albumin/Globulin Ratio Lipase Arterial Blood Potassium Urine Color Red Urine Clarity Hazy Urine pH 6.0 Ur Specific [place] 1.004 Urine Protein 2+ H Urine Glucose (UA) Normal Urine Ketones Negative Urine Blood 3+ H Urine Nitrate Negative Urine Bilirubin Negative Urine Urobilinogen Normal Ur Leukocyte Esterase Neg Urine WBC (Auto) 2 Urine RBC (Auto) 4193 H Calcium Oxalate Crystal Mod H Blood Type Antibody Screen 12/13/17 12/13/17 12/13/17 08:00 09:09 09:09 WBC 19.9 H RBC 3.00 L Hgb 9.6 L Hct 29.0 L MCV 96.6 H MCH 31.9 H MCHC 33.0 RDW 14.1 Plt Count 233 MPV 9.0 Neut % (Auto) Lymph % (Auto) Catron % (Auto) Eos % (Auto) Baso % (Auto) Neut # (Auto) Lymph # (Auto) Catron # (Auto) Eos # (Auto) Baso # (Auto) Neutrophils % (Manual) Lymphocytes % (Manual) Monocytes % (Manual) Platelet Estimate RBC Morphology Retic Count Haptoglobin PT INR APTT Puncture Site pCO2 pO2 HCO3 ABG pH ABG Total CO2 ABG O2 Saturation ABG Base Excess Brannon Test ABG Potassium A-a O2 Difference Respiratory Index Glucose Lactate Liter Flow FiO2 Crit Value Called To Crit Value Called By Crit Value Read Back Blood Gas Notified Time Sodium 139 Potassium 4.7 Chloride 110 H Carbon Dioxide 12 L Anion Gap 22 H BUN 28 H Creatinine 2.2 H Est GFR ( Amer) 36 Est GFR (Non-Af Amer) 29 Random Glucose 160 H Calcium 8.8 Phosphorus 4.4 Magnesium 1.7 Iron TIBC % Saturation Ferritin Total Bilirubin 1.2 AST 33 ALT 25 Alkaline Phosphatase 73 Lactate Dehydrogenase Total Creatine Kinase CK-MB (Mass) Troponin I Total Protein 6.8 Albumin 3.3 L Globulin 3.5 Albumin/Globulin Ratio 0.9 L Lipase Arterial Blood Potassium Urine Color Urine Clarity Urine pH Ur Specific [place] Urine Protein Urine Glucose (UA) Urine Ketones Urine Blood Urine Nitrate Urine Bilirubin Urine Urobilinogen Ur Leukocyte Esterase Urine WBC (Auto) Urine RBC (Auto) Calcium Oxalate Crystal Blood Type O POSITIVE Antibody Screen Negative 12/13/17 12/13/17 12/13/17 09:09 09:09 11:13 WBC RBC Hgb Hct MCV MCH MCHC RDW Plt Count MPV Neut % (Auto) Lymph % (Auto) Catron % (Auto) Eos % (Auto) Baso % (Auto) Neut # (Auto) Lymph # (Auto) Catron # (Auto) Eos # (Auto) Baso # (Auto) Neutrophils % (Manual) Lymphocytes % (Manual) Monocytes % (Manual) Platelet Estimate RBC Morphology Retic Count Haptoglobin PT 13.6 H INR 1.2 APTT 30 Puncture Site Rr pCO2 23 L pO2 129 H HCO3 12.8 L ABG pH 7.24 L ABG Total CO2 10.6 L ABG O2 Saturation 99.6 H ABG Base Excess -15.6 L Brannon Test Pos ABG Potassium 5.3 H A-a O2 Difference 99.0 Respiratory Index 0.8 Glucose 167 H Lactate 7.5 H* Liter Flow 5.0 FiO2 36.0 Crit Value Called To Dr minda pollard Crit Value Called By Sabiha jacobson junior systems engineer Crit Value Read Back Y Blood Gas Notified Time 1118 Sodium 144 138.0 Potassium 4.8 Chloride 112 H 112.0 H Carbon Dioxide 10 L* Anion Gap 26 H BUN 26 H Creatinine 2.5 H Est GFR ( Amer) 31 Est GFR (Non-Af Amer) 25 Random Glucose 181 H Calcium 7.9 L Phosphorus Magnesium Iron TIBC % Saturation Ferritin Total Bilirubin 1.1 AST 32 ALT 19 L D Alkaline Phosphatase 60 Lactate Dehydrogenase Total Creatine Kinase 36 L CK-MB (Mass) 1.05 Troponin I < 0.0120 Total Protein 6.6 Albumin 3.4 L Globulin 3.2 Albumin/Globulin Ratio 1.1 Lipase Arterial Blood Potassium 5.3 H Urine Color Urine Clarity Urine pH Ur Specific [place] Urine Protein Urine Glucose (UA) Urine Ketones Urine Blood Urine Nitrate Urine Bilirubin Urine Urobilinogen Ur Leukocyte Esterase Urine WBC (Auto) Urine RBC (Auto) Calcium Oxalate Crystal Blood Type Antibody Screen Assessment & Plan - Assessment and Plan (Free Text) Assessment: Neuro: GCS: 15 Sedation: None Cardio: A: Hx of SVT, Hx of HTN EKG ( 12/13)" No ST or T wave change. Shows First Degree AV Block. Official Read PENDING. Troponin - NEGATIVE Atenolol PO 25mg Dialy 72 year old male with PMHx of HTN, Resolved SVTs, BPH admitted for hematuria, suprpubic pain, and distention. ICU consulted on this patient for hypotension w/ pre-syncopal episode likely 2/2 to Anemia. Pulm: A: Few Pulmonary Nodules found on CT. Up to 0.3cm Patient is High Risk due to smoking history. He will need follow up Chest CT in 12 months. CXR (12/13): No Acute Findings ABG (12/13): 7.24/23/129/12.8 GI A: Abdominal distension Consider Abdominal US CT Abd/Pelvis (Adm): 1.Hematoma with active bleeding within bladder. Underlying mass not excluded. Recommend cystoscopy. 2. Prostate enlargement. Followup as clinically warranted. 3. Pulmonary nodules. For low-risk patients, no follow-up is necessary. For high-risk patients (smoking history or other known risk factors ) an optional CT at 12 months could be performed. Renal/Uro A: BPH, Hematuria, Urinary Retention, Metabolic Acidosis CBI therapy DC'd per Urology. New Karimi Catheter put in. Dr. Hadley called and stated he would put in Catheter as soon as posisble NPO for possible prostectomy? Sodium Bicarb in 1/2 NS 1 amp of Bicarb Given Today Morphine 2 Q6H PRN for pain control Finasteride 5mg PO Daily | Flomax 0.4mg PO Daily Heme/Onc A: Normocytic Anemia likely 2/2 Hematuria H&H Ordered Transfuse 1 Unit PRBC if HgB < 8.6 Iron - 46, TIBC - 308, Ferritin-15 %Sat 15, Haptoglobin - 143.8, Retic Count - 1.7 ID A: Sepsis, Leukocytosis, Elevated Lactate Patient started on Sodium bicarb Drip. Patient started on Ciprofloxacin 400mg Q24H Urine Culture Ordered Blood Cultures Ordered CXR (12/13): No Acute Findings Tylenol PRN for Fever. Consider ProCal Consider ID Consult Proph SCD's Diet: Heart Healthy Lines: R Subclavian TLC Patient seen and discussed with ICU Attending Alexandru Mcneill, PGY-1 <Arnel Pollard - Last Filed: 12/13/17 18:31> Meds - Medications Medications: Current Medications Acetaminophen (Tylenol 325mg Tab) 650 mg PO Q6 PRN PRN Reason: Pain, Mild (1-3) Atenolol (Tenormin) 25 mg PO DAILY ROSENDO Finasteride (Proscar) 5 mg PO DAILY [facility]ENDO Sodium Bicarbonate 100 meq/ (Sodium Chloride) 1,100 mls @ 100 mls/hr IV .Q11H [facility] Last Admin: 12/13/17 12:45 Dose: 100 mls/hr Ciprofloxacin (Cipro 400mg/200ml Dsw) 400 mg in 200 mls @ 133 mls/hr IVPB Q24H [facility] PRN Reason: Protocol Last Admin: 12/13/17 13:00 Dose: 133 mls/hr Morphine Sulfate (Morphine) 2 mg IVP Q6 [facility]O Oxycodone/Acetaminophen (Percocet 5/325 Mg Tab) 1 tab PO Q4H PRN PRN Reason: Pain, moderate (4-7) Stop: 12/16/17 07:46 Last Admin: 12/13/17 08:10 Dose: 1 tab Oxycodone/Acetaminophen (Percocet 5/325 Mg Tab) 2 tab PO Q6H PRN PRN Reason: Pain, severe (8-10) Stop: 12/16/17 07:46 Pantoprazole Sodium (Protonix Inj) 40 mg IVP DAILY [facility] Last Admin: 12/13/17 14:13 Dose: 40 mg Tamsulosin HCl (Flomax) 0.4 mg PO DAILY [facility] Last Admin: 12/13/17 13:08 Dose: Not Given Results - Vital Signs Recent Vital Signs: Last Vital Signs Temp 98.7 F 12/13/17 12:00 Pulse 85 12/13/17 15:20 Resp 17 12/13/17 15:20 BP 126/94 H 12/13/17 15:15 Pulse Ox 98 12/13/17 15:20 - Labs Result Diagrams: 12/13/17 09:09 12/13/17 09:09 Labs: Laboratory Results - last 24 hr 12/12/17 12/12/17 12/12/17 20:29 20:29 20:29 WBC 7.0 RBC 3.63 L Hgb 11.8 L Hct 34.0 L MCV 93.6 MCH 32.5 H MCHC 34.7 RDW 13.7 Plt Count 235 MPV 8.6 Neut % (Auto) 54.3 Lymph % (Auto) 31.0 Catron % (Auto) 7.4 Eos % (Auto) 6.3 H Baso % (Auto) 1.0 Neut # (Auto) 3.8 Lymph # (Auto) 2.2 Catron # (Auto) 0.5 Eos # (Auto) 0.4 Baso # (Auto) 0.1 Neutrophils % (Manual) Lymphocytes % (Manual) Monocytes % (Manual) Platelet Estimate RBC Morphology Retic Count Haptoglobin PT 13.5 H INR 1.2 APTT 32 Puncture Site pCO2 pO2 HCO3 ABG pH ABG Total CO2 ABG O2 Saturation ABG Base Excess Brannon Test ABG Potassium VBG pH VBG pCO2 VBG HCO3 VBG Total CO2 VBG O2 Sat (Calc) VBG Base Excess VBG Potassium A-a O2 Difference Respiratory Index Glucose Lactate Liter Flow FiO2 Crit Value Called To Crit Value Called By Crit Value Read Back Blood Gas Notified Time Sodium 141 Potassium 4.3 Chloride 107 Carbon Dioxide 23 Anion Gap 15 BUN 25 H Creatinine 1.1 Est GFR ( Amer) > 60 Est GFR (Non-Af Amer) > 60 POC Glucose (mg/dL) Random Glucose 98 Calcium 9.3 Phosphorus Magnesium Iron TIBC % Saturation Ferritin Total Bilirubin 0.9 AST 31 ALT 34 Alkaline Phosphatase 79 Lactate Dehydrogenase Total Creatine Kinase CK-MB (Mass) Troponin I Total Protein 7.0 Albumin 3.4 L Globulin 3.6 Albumin/Globulin Ratio 0.9 L Lipase 94 Arterial Blood Potassium Venous Blood Potassium Urine Color Urine Clarity Urine pH Ur Specific [place] Urine Protein Urine Glucose (UA) Urine Ketones Urine Blood Urine Nitrate Urine Bilirubin Urine Urobilinogen Ur Leukocyte Esterase Urine WBC (Auto) Urine RBC (Auto) Calcium Oxalate Crystal Blood Type Antibody Screen 12/12/17 12/12/17 12/12/17 22:49 22:49 22:49 WBC RBC Hgb Hct MCV MCH MCHC RDW Plt Count MPV Neut % (Auto) Lymph % (Auto) Cat[place] % (Auto) Eos % (Auto) Baso % (Auto) Neut # (Auto) Lymph # (Auto) [place] # (Auto) Eos # (Auto) Baso # (Auto) Neutrophils % (Manual) Lymphocytes % (Manual) Monocytes % (Manual) Platelet Estimate RBC Morphology Retic Count 1.7 H Haptoglobin 143.8 PT INR APTT Puncture Site pCO2 pO2 HCO3 ABG pH ABG Total CO2 ABG O2 Saturation ABG Base Excess Brannon Test ABG Potassium VBG pH VBG pCO2 VBG HCO3 VBG Total CO2 VBG O2 Sat (Calc) VBG Base Excess VBG Potassium A-a O2 Difference Respiratory Index Glucose Lactate Liter Flow FiO2 Crit Value Called To Crit Value Called By Crit Value Read Back Blood Gas Notified Time Sodium Potassium Chloride Carbon Dioxide Anion Gap BUN Creatinine Est GFR ( Amer) Est GFR (Non-Af Amer) POC Glucose (mg/dL) Random Glucose Calcium Phosphorus Magnesium Iron TIBC % Saturation Ferritin 61.5 Total Bilirubin AST ALT Alkaline Phosphatase Lactate Dehydrogenase 357 Total Creatine Kinase CK-MB (Mass) Troponin I Total Protein Albumin Globulin Albumin/Globulin Ratio Lipase Arterial Blood Potassium Venous Blood Potassium Urine Color Urine Clarity Urine pH Ur Specific [place] Urine Protein Urine Glucose (UA) Urine Ketones Urine Blood Urine Nitrate Urine Bilirubin Urine Urobilinogen Ur Leukocyte Esterase Urine WBC (Auto) Urine RBC (Auto) Calcium Oxalate Crystal Blood Type Antibody Screen 12/12/17 12/12/17 12/13/17 22:49 23:01 08:00 WBC 17.7 H D RBC 3.18 L Hgb 10.3 L Hct 30.4 L MCV 95.4 H MCH 32.2 H MCHC 33.8 RDW 13.8 Plt Count 234 MPV 8.9 Neut % (Auto) 92.5 H Lymph % (Auto) 3.6 L Catron % (Auto) 3.8 Eos % (Auto) 0.0 Baso % (Auto) 0.1 Neut # (Auto) 16.3 H Lymph # (Auto) 0.6 L [place]ron # (Auto) 0.7 Eos # (Auto) 0.0 Baso # (Auto) 0.0 Neutrophils % (Manual) 97 H Lymphocytes % (Manual) 2 L Monocytes % (Manual) 1 Platelet Estimate Normal RBC Morphology Normal Retic Count Haptoglobin PT INR APTT Puncture Site pCO2 pO2 HCO3 ABG pH ABG Total CO2 ABG O2 Saturation ABG Base Excess Brannon Test ABG Potassium VBG pH VBG pCO2 VBG HCO3 VBG Total CO2 VBG O2 Sat (Calc) VBG Base Excess VBG Potassium A-a O2 Difference Respiratory Index Glucose Lactate Liter Flow FiO2 Crit Value Called To Crit Value Called By Crit Value Read Back Blood Gas Notified Time Sodium Potassium Chloride Carbon Dioxide Anion Gap BUN Creatinine Est GFR ( Amer) Est GFR (Non-Af Amer) POC Glucose (mg/dL) Random Glucose Calcium Phosphorus Magnesium Iron 46 L TIBC 308 % Saturation 15 L Ferritin Total Bilirubin AST ALT Alkaline Phosphatase Lactate Dehydrogenase Total Creatine Kinase CK-MB (Mass) Troponin I Total Protein Albumin Globulin Albumin/Globulin Ratio Lipase Arterial Blood Potassium Venous Blood Potassium Urine Color Red Urine Clarity Hazy Urine pH 6.0 Ur Specific [place] 1.004 Urine Protein 2+ H Urine Glucose (UA) Normal Urine Ketones Negative Urine Blood 3+ H Urine Nitrate Negative Urine Bilirubin Negative Urine Urobilinogen Normal Ur Leukocyte Esterase Neg Urine WBC (Auto) 2 Urine RBC (Auto) 4193 H Calcium Oxalate Crystal Mod H Blood Type Antibody Screen 12/13/17 12/13/17 12/13/17 08:00 08:44 09:09 WBC 19.9 H RBC 3.00 L Hgb 9.6 L Hct 29.0 L MCV 96.6 H MCH 31.9 H MCHC 33.0 RDW 14.1 Plt Count 233 MPV 9.0 Neut % (Auto) Lymph % (Auto) Catron % (Auto) Eos % (Auto) Baso % (Auto) Neut # (Auto) Lymph # (Auto) [place] # (Auto) Eos # (Auto) Baso # (Auto) Neutrophils % (Manual) Lymphocytes % (Manual) Monocytes % (Manual) Platelet Estimate RBC Morphology Retic Count Haptoglobin PT INR APTT Puncture Site pCO2 pO2 HCO3 ABG pH ABG Total CO2 ABG O2 Saturation ABG Base Excess Brannon Test ABG Potassium VBG pH VBG pCO2 VBG HCO3 VBG Total CO2 VBG O2 Sat (Calc) VBG Base Excess VBG Potassium A-a O2 Difference Respiratory Index Glucose Lactate Liter Flow FiO2 Crit Value Called To Crit Value Called By Crit Value Read Back Blood Gas Notified Time Sodium 139 Potassium 4.7 Chloride 110 H Carbon Dioxide 12 L Anion Gap 22 H BUN 28 H Creatinine 2.2 H Est GFR ( Amer) 36 Est GFR (Non-Af Amer) 29 POC Glucose (mg/dL) 200 H Random Glucose 160 H Calcium 8.8 Phosphorus 4.4 Magnesium 1.7 Iron TIBC % Saturation Ferritin Total Bilirubin 1.2 AST 33 ALT 25 Alkaline Phosphatase 73 Lactate Dehydrogenase Total Creatine Kinase CK-MB (Mass) Troponin I Total Protein 6.8 Albumin 3.3 L Globulin 3.5 Albumin/Globulin Ratio 0.9 L Lipase Arterial Blood Potassium Venous Blood Potassium Urine Color Urine Clarity Urine pH Ur Specific [place] Urine Protein Urine Glucose (UA) Urine Ketones Urine Blood Urine Nitrate Urine Bilirubin Urine Urobilinogen Ur Leukocyte Esterase Urine WBC (Auto) Urine RBC (Auto) Calcium Oxalate Crystal Blood Type Antibody Screen 12/13/17 12/13/17 12/13/17 09:09 09:09 09:09 WBC RBC Hgb Hct MCV MCH MCHC RDW Plt Count MPV Neut % (Auto) Lymph % (Auto) [place] % (Auto) Eos % (Auto) Baso % (Auto) Neut # (Auto) Lymph # (Auto) [place] # (Auto) Eos # (Auto) Baso # (Auto) Neutrophils % (Manual) Lymphocytes % (Manual) Monocytes % (Manual) Platelet Estimate RBC Morphology Retic Count Haptoglobin PT 13.6 H INR 1.2 APTT 30 Puncture Site pCO2 pO2 HCO3 ABG pH ABG Total CO2 ABG O2 Saturation ABG Base Excess Brannon Test ABG Potassium VBG pH VBG pCO2 VBG HCO3 VBG Total CO2 VBG O2 Sat (Calc) VBG Base Excess VBG Potassium A-a O2 Difference Respiratory Index Glucose Lactate Liter Flow FiO2 Crit Value Called To Crit Value Called By Crit Value Read Back Blood Gas Notified Time Sodium 144 Potassium 4.8 Chloride 112 H Carbon Dioxide 10 L* Anion Gap 26 H BUN 26 H Creatinine 2.5 H Est GFR ( Amer) 31 Est GFR (Non-Af Amer) 25 POC Glucose (mg/dL) Random Glucose 181 H Calcium 7.9 L Phosphorus Magnesium Iron TIBC % Saturation Ferritin Total Bilirubin 1.1 AST 32 ALT 19 L D Alkaline Phosphatase 60 Lactate Dehydrogenase Total Creatine Kinase 36 L CK-MB (Mass) 1.05 Troponin I < 0.0120 Total Protein 6.6 Albumin 3.4 L Globulin 3.2 Albumin/Globulin Ratio 1.1 Lipase Arterial Blood Potassium Venous Blood Potassium Urine Color Urine Clarity Urine pH Ur Specific [place] Urine Protein Urine Glucose (UA) Urine Ketones Urine Blood Urine Nitrate Urine Bilirubin Urine Urobilinogen Ur Leukocyte Esterase Urine WBC (Auto) Urine RBC (Auto) Calcium Oxalate Crystal Blood Type O POSITIVE Antibody Screen Negative 12/13/17 12/13/17 11:13 13:22 WBC RBC Hgb Hct MCV MCH MCHC RDW Plt Count MPV Neut % (Auto) Lymph % (Auto) [place] % (Auto) Eos % (Auto) Baso % (Auto) Neut # (Auto) Lymph # (Auto) [place] # (Auto) Eos # (Auto) Baso # (Auto) Neutrophils % (Manual) Lymphocytes % (Manual) Monocytes % (Manual) Platelet Estimate RBC Morphology Retic Count Haptoglobin PT INR APTT Puncture Site Rr pCO2 23 L pO2 129 H 41 HCO3 12.8 L ABG pH 7.24 L ABG Total CO2 10.6 L ABG O2 Saturation 99.6 H ABG Base Excess -15.6 L Brannon Test Pos ABG Potassium 5.3 H VBG pH 7.19 L* VBG pCO2 26 L VBG HCO3 10.9 VBG Total CO2 10.7 L VBG O2 Sat (Calc) 65.1 H VBG Base Excess -16.7 L VBG Potassium 4.9 A-a O2 Difference 99.0 Respiratory Index 0.8 Glucose 167 H 188 H Lactate 7.5 H* 9.0 H* Liter Flow 5.0 FiO2 36.0 Crit Value Called To Dr minda pollard Crit Value Called By Sabiha jacobson junior systems engineer Tawanda pollard junior systems engineer Crit Value Read Back Y Y Blood Gas Notified Time 1118 1325 Sodium 138.0 138.0 Potassium Chloride 112.0 H 109.0 H Carbon Dioxide Anion Gap BUN Creatinine Est GFR ( Amer) Est GFR (Non-Af Amer) POC Glucose (mg/dL) Random Glucose Calcium Phosphorus Magnesium Iron TIBC % Saturation Ferritin Total Bilirubin AST ALT Alkaline Phosphatase Lactate Dehydrogenase Total Creatine Kinase CK-MB (Mass) Troponin I Total Protein Albumin Globulin Albumin/Globulin Ratio Lipase Arterial Blood Potassium 5.3 H Venous Blood Potassium 4.9 Urine Color Urine Clarity Urine pH Ur Specific [place] Urine Protein Urine Glucose (UA) Urine Ketones Urine Blood Urine Nitrate Urine Bilirubin Urine Urobilinogen Ur Leukocyte Esterase Urine WBC (Auto) Urine RBC (Auto) Calcium Oxalate Crystal Blood Type Antibody Screen Attending/Attestation - Attestation I have personally seen and examined this patient.: Yes I have fully participated in the care of the patient.: Yes I have reviewed all pertinent clinical information: Yes Notes (Text): 12/13/17 18:30 patient seen and examined in the intensive care unit. 72-year-old male transferred to ICU for hypotension and hematuria with very high lactate level Started on IV antibiotics Urology evaluation Fluid resuscitation bicarb drip for metabolic acidosis
--- NOTE | 2017-12-13 11:35 | RAD ---
HISTORY: TLC placement COMPARISON: 12/12/2017. FINDINGS: The right subclavian central venous catheter terminates in the SVC. LUNGS: The lungs are clear. PLEURA: No significant pleural effusion identified, no pneumothorax apparent. CARDIOVASCULAR: Normal. OSSEOUS STRUCTURES: No significant abnormalities. VISUALIZED UPPER ABDOMEN: Normal. OTHER FINDINGS: None. IMPRESSION: Right subclavian central venous catheter terminates in the SVC. No acute findings.
--- NOTE | 2017-12-13 12:48 | PCM.SEPTIC ---
Sepsis Progress Note - Reassessment Type Date of Evaluation: 12/13/17 Time of Evaluation: 12:48 Reassessment Type: Non-invasive reassessment - Non Invasive Reassessment Were the most recent vital sign reviewed: Yes Vital Sign (Latest): Temp Pulse Resp BP Pulse Ox 97.4 F L 60 20 118/77 99 12/13/17 00:00 12/13/17 03:05 12/13/17 00:00 12/13/17 00:00 12/13/17 00:00 Cardiovascular: Yes: Regular Rate, Rhythm Respiratory: Yes: Normal Breath Sounds. No: Accessory Muscle Use Capillary Refill: Normal (Less than 2 sec) Skin: Normal Color Fluid Challenge performed: Yes
[2017-12-13] MEDS: Ciprofloxacin 400mg/200ml D5W 400 MG/200 ML BAG IVPB SCH (13:00)
[2017-12-13 13:25] LABS: VENOUS BLOOD GAS BASE EXCESS -16.7 mmol/L (0.0-2.0); VENOUS BLOOD GAS PCO2 26 mmHg (40-60); VENOUS BLOOD GAS PO2 41 mm/Hg (30-55); VENOUS BLOOD PH 7.19 (7.32-7.43)
[2017-12-13] MEDS: Sodium Bicarbonate (8.4%) 50 Meq Syringe IVP ONE ×2 (13:30→13:43)
[2017-12-13] MEDS ORDERED: Sodium Bicarbonate (8.4%) 50 Meq Syringe ONE (13:38)
[2017-12-13] MEDS ORDERED: Morphine 4 MG/ML VIAL IVP STA (14:05)
--- NOTE | 2017-12-13 14:41 | CARD ---
APPROVED REPORT EKG Measurement Heart [id number] [id number] <Conclusion> Sinus bradycardia with 1st degree AV block Otherwise normal ECG
[2017-12-13 18:26] LABS: HEMOGLOBIN 8.7 g/dL (12.0-18.0)
--- NOTE | 2017-12-13 23:02 | CARD ---
APPROVED REPORT EKG Measurement Heart [id number] <Conclusion> Sinus rhythm with 1st degree AV block Inferior infarct, age undetermined Abnormal ECG
--- NOTE | 2017-12-14 00:53 | CON ---
DATE: 12/13/2017 REASON FOR CONSULTATION: Preoperative evaluation as well as mild hypotension and history of SVT. HISTORY OF PRESENT ILLNESS: The patient is a 72 years old male who has bladder neck obstruction with an indwelling catheter who was admitted recently and was transferred to the ICU for SVT. The patient had constant hematuria, underwent cystoscopy and was discharged to be readmitted for elective prostatectomy. At the time of discharge, the patient was taken off amiodarone as well as beta dawna, because he was in sinus bradycardia. There was no recurrence of his SVT since his transfer to the ICU last admission. The patient denied any palpitation. He did report dizziness while trying to use a commode while he was in the third floor and was noted to be hypotensive, systolic blood pressure was in the 80s and the patient was transferred to ICU. The patient denies any retrosternal chest pain and he denies experiencing palpitations. SOCIAL HISTORY: Nonsmoker. MEDICATIONS: Cipro 500 mg a.c. daily, Percocet 1 tablet every 4 hours, Proscar 5 mg once a day, Protonix 40 mg twice a day, atenolol 25 mg once a day, PHYSICAL EXAMINATION: GENERAL: The patient is an elderly male who does not appear to be in acute distress. VITAL SIGNS: Blood pressure 98/60, heart rate 73, temperature 97.4, respirations 18. HEENT: Pale conjunctivae. CHEST: Clear. HEART: Heart sounds are regular. ABDOMEN: Soft. EXTREMITIES: No edema. LABORATORY DATA: Hemoglobin and hematocrit 9.6 and 29, white count 19.9, platelet count 133,000. SMA-7: Sodium 144, potassium 4.8, chloride 112, CO2 10, glucose 181, BUN 26, creatinine 2.5. EKG done today revealed sinus rhythm at the rate of 61 with first-degree AV block, old inferior infarct of indeterminate age. ASSESSMENT: 1. History of supraventricular tachycardia. 2. Chronic hematuria. 3. Anemia. 4. Acute renal insufficiency. 5. Mild hypoglycemia. RECOMMENDATIONS: Case was discussed with Dr. Person. The patient will be kept in ICU on atenolol 25 mg once a day. The patient is undergoing bladder radiation and will receive 1 unit of packed RBC transfusion depending on the improvement of hypotension. The patient will be cleared for prostatectomy with close preoperative blood pressure monitoring with the use of IV verapamil intraoperatively if the patient develops SVT. Britton Vaughn MD
[2017-12-14 06:51] LABS: ALBUMIN 3.2 g/dL (3.5-5.0); CALCIUM 7.6 mg/dl (8.6-10.4)
[2017-12-14 07:10] LABS: HEMOGLOBIN 7.6 g/dL (12.0-18.0); LYMPH # 1.1 K/uL (1.0-4.3); LYMPH % 6.2 % (20.0-40.0); MEAN CELL VOLUME 94.6 fL (80.0-94.0); MEAN CORPUSCULAR HEMOGLOBIN 31.9 pg (27.0-31.0); MEAN CORPUSCULAR HGB CONC 33.7 g/dL (33.0-37.0); MEAN PLATELET VOLUME 9.5 fL (7.2-11.7); MONO # 0.8 K/uL (0.0-0.8); MONO % 4.7 % (0.0-10.0); NEUT # 15.2 K/uL (1.8-7.0); NEUT % 89.1 % (50.0-75.0); PLATELET COUNT 146 K/uL (130-400); RBC 2.37 Mil/uL (4.40-5.90); RED CELL DISTRIBUTION WIDTH 13.8 % (11.5-14.5); WHITE BLOOD COUNT 17.1 K/uL (4.8-10.8)
[2017-12-14 08:34] LABS: BANDS 1 % (0-2); LYMPHOCYTE 5 % (20-40); MONOCYTE 4 % (0-10); NEUTROPHIL 90 % (50-75); TOTAL CELLS COUNTED 100
[2017-12-14 08:36] LABS: PLATELET ESTIMATE NORMAL (NORMAL)
[2017-12-14] MEDS: Ciprofloxacin 400mg/200ml D5W 400 MG/200 ML BAG IVPB SCH (11:01)
[2017-12-14] MEDS ORDERED: Midazolam 2 MG/2 ML VIAL ONE (11:55)
[2017-12-14] MEDS ORDERED: Bupivacaine HCl 0.25% PF (30 ml) Inj ONE (12:52)
[2017-12-14] MEDS ORDERED: Lidocaine Hydrochloride 0 ML INJ ONE (12:52)
[2017-12-14] MEDS ORDERED: Lidocaine 2% Jelly (Uro-Jet) ONE (12:53)
[2017-12-14] MEDS ORDERED: Ciprofloxacin 400mg/200ml D5W 0 MG/0 ML BAG IVPB ONE (12:53)
[2017-12-14] MEDS ORDERED: cefTRIAXone IV 1 gm in Dextros 50 ML IVPB ONE (13:43)
--- NOTE | 2017-12-14 14:43 | CP.PCM.PN ---
Subjective - Date & Time of Evaluation Date of Evaluation: 12/14/17 Time of Evaluation: 10:00 - Subjective Subjective: Patient was seen and examined this morning. Lying comfortable on bed. Denies pain. Getting blood transfusion.nO sob Has gross hematuria. Objective - Vital Signs/Intake and Output Vital Signs (last 24 hours): Temp Pulse Resp BP Pulse Ox 98.1 F 68 18 117/72 98 12/14/17 12:50 12/14/17 12:50 12/14/17 12:50 12/14/17 12:50 12/14/17 12:48 Intake and Output: 12/14/17 12/14/17 06:59 18:59 Intake Total 1200 1848 Output Total 30 Balance 1170 1848 - Medications Medications: Current Medications Acetaminophen (Tylenol 325mg Tab) 650 mg PO Q6 PRN PRN Reason: Pain, Mild (1-3) Atenolol (Tenormin) 25 mg PO DAILY [facility] Finasteride (Proscar) 5 mg PO DAILY [facility] Sodium Bicarbonate 100 meq/ (Sodium Chloride) 1,100 mls @ 100 mls/hr IV .Q11H [facility] Last Admin: 12/14/17 08:15 Dose: Not Given Ciprofloxacin (Cipro 400mg/200ml Dsw) 400 mg in 200 mls @ 133 mls/hr IVPB Q24H [facility] PRN Reason: Protocol Last Admin: 12/13/17 13:00 Dose: 133 mls/hr Morphine Sulfate (Morphine) 2 mg IVP Q6 [facility] Last Admin: 12/14/17 12:00 Dose: Not Given Oxycodone/Acetaminophen (Percocet 5/325 Mg Tab) 1 tab PO Q4H PRN PRN Reason: Pain, moderate (4-7) Stop: 12/16/17 07:46 Last Admin: 12/13/17 08:10 Dose: 1 tab Oxycodone/Acetaminophen (Percocet 5/325 Mg Tab) 2 tab PO Q6H PRN PRN Reason: Pain, severe (8-10) Stop: 12/16/17 07:46 Pantoprazole Sodium (Protonix Inj) 40 mg IVP DAILY [facility] Last Admin: 12/13/17 14:13 Dose: 40 mg Tamsulosin HCl (Flomax) 0.4 mg PO DAILY [facility] Last Admin: 12/14/17 10:00 Dose: Not Given - Labs Labs: 12/14/17 06:28 12/14/17 06:28 PT 13.6 SECONDS (9.7-12.2) H 12/13/17 09:09 INR 1.2 12/13/17 09:09 APTT 30 SECONDS (21-34) 12/13/17 09:09 - Constitutional Appears: Non-toxic - Head Exam Head Exam: NORMAL INSPECTION - Eye Exam Eye Exam: Normal appearance - ENT Exam ENT Exam: Mucous Membranes Moist - Neck Exam Neck Exam: Full ROM - Respiratory Exam Respiratory Exam: Clear to Ausculation Bilateral, NORMAL BREATHING PATTERN - Cardiovascular Exam Cardiovascular Exam: REGULAR RHYTHM - GI/Abdominal Exam GI & Abdominal Exam: Soft, Normal Bowel Sounds. absent: Tenderness - Extremities Exam Extremities Exam: Full ROM - Back Exam Back Exam: NORMAL INSPECTION - Neurological Exam Neurological Exam: Awake, Oriented x3 - Psychiatric Exam Psychiatric exam: Normal Mood - Skin Skin Exam: Dry, Intact Assessment and Plan - Assessment and Plan (Free Text) Assessment: This is a 72 year old male with PMHx of HTN, Resolved SVTs, BPH with large prostate gland measuring 8.6 x 8.0 x 7.5 centimeters with significant median lobe hypertrophy and persistent hematuria admitted for hematuria. He has CBI in place and was scheduled for prostatectomy with Dr. Cathi Hadley on 12/14/17 . He was admitted last night for continued hematuria and abdominal pain, distention. Yesterday patient was trying to ambulate to the bathroom to have a bowel movement when he felt dizzy and almost syncopized. The nurse was at bedside, placed the patient in bed. Vitals on arrival where: BP 89/53, pulse 108. Patient was placed in Trendelenburg positon. Patient karimi bag was filled with bright red blood. He was immediately bolused 2 L of NS (no history of CHF). 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 Repeat vitals after the first bolus was 100/61. The patient had poor venous access, unable to place 2 large bore needles. Patient was transferred to the ICU for further monitoring. R Subclavian TLC was placed in the ICU.Patient is going for prostatectomy today. He has no complain.s/p blood transfusion( One unit) Plan: 1. urinary retention and BPH Going for prostatectomy today 2. Hematuria-s/p blood transfusion and monitor cbc and transfuse as needed 3. Leukocytosis and lactic acidosis Likely from UTI,CT abdomen pelvis with normal gallbladder,clear lungs continue cipro,last admission urine was positive for enterococcus sensitive to cipro ,follow c/s wbc and lactic acid is coming down continue fluids 4.Acute renal failure. Likely due to obstructive uropathy Increasing creatinine-get urology consult follow creatinine and continue fluids 5. 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
[2017-12-14 14:58] LABS: ARTERIAL BLOOD GAS HCO3 17.4 mmol/L (21-28); ARTERIAL BLOOD GAS O2 SAT 99.9 % (95-98); ARTERIAL BLOOD GAS PCO2 34 mm/Hg (35-45); ARTERIAL BLOOD GAS PH 7.28 (7.35-7.45); ARTERIAL BLOOD GAS PO2 265 mm/Hg (80-100)
[2017-12-14] MEDS ORDERED: Neostigmine Methylsulfate 3mg/3ml Syringe IV ONE (15:24)
--- NOTE | 2017-12-14 18:56 | CP.CCUPN ---
<AlvinokristelAlexandru - Last Filed: 12/14/17 18:53> CCU Subjective - Physician Review Subjective (Free Text): Patient seen and examined at beside. Patient still complains of suprapubic tenderness, Oligouria, and Hematuria. Patient denies any fever, chills, chest pain, SOB, nausea, vomiting, or changes in bowel habits. CCU Objective - Vital Signs / Intake & Output Vital Signs (Last 4 hours): Vital Signs Pulse Resp BP BP Pulse Ox 12/14/17 16:21 75 15 122/77 100 12/14/17 16:06 76 11 L 121/72 100 12/14/17 16:00 78 13 100 12/14/17 15:51 89 16 115/80 100 12/14/17 15:40 134/65 12/14/17 15:37 103 H 14 111/78 100 12/14/17 15:32 92 H 13 100 Intake and Output (Last 8hrs): Intake & Output 12/14/17 12/14/17 12/14/17 06:59 14:59 22:59 Intake Total 800 3448 3100 Output Total 5000 Balance 800 3448 -1900 Intake: IV 1300 Intake, IV Amount 800 1200 100 Distal Port 800 700 100 middle port 300 proximal 200 Blood Product 928 Apheresis Lrbc As-3 Unit 278 [id number] Other 20 3000 Apheresis Lrbc As-3 Unit 20 [id number] Output: Urine 5000 - Physical Exam Physical Exam Limitations: Negative for: Altered Mental Status Head: Positive for: Atraumatic, Normocephalic Extroacular Muscles: Positive for: EOMI Mouth: Positive for: Moist Mucous Membranes Nose (Internal): Positive for: Normal Inspection Respiratory/Chest: Positive for: Clear to Auscultation Cardiovascular: Positive for: Regular Rate and Rhythm, Normal S1, S2 Abdomen: Positive for: Tenderness (Suprapubic), Distention, Normal Bowel Sounds , Other (Soft). Negative for: Peritoneal Signs Neurological: Positive for: GCS=15 Psychiatric: Positive for: Alert, Oriented x 3 - Medications Active Medications: Active Medications Generic Name Dose Route Start Last Admin Trade Name Freq PRN Reason Stop Dose Admin Acetaminophen 650 mg 12/13/17 08:15 Tylenol 325mg Tab PO Q6 PRN Pain, Mild (1-3) Atenolol 25 mg 12/13/17 10:00 Tenormin PO DAILY [facility] Finasteride 5 mg 12/13/17 10:00 Proscar PO DAILY [facility] Sodium Bicarbonate 100 meq/ 1,100 mls @ 100 mls/hr 12/13/17 10:15 12/14/17 16 :56 Sodium Chloride IV 100 mls/hr .Q11H ROS[facility]O Administration Ciprofloxacin 400 mg in 200 mls @ 133 mls/hr 12/13/17 10:45 12/14/17 11:01 Cipro 400mg/200ml Dsw IVPB 133 mls/hr Q24H ROSENDO Administration Protocol Morphine Sulfate 2 mg 12/14/17 00:00 12/14/17 18:15 Morphine IVP 2 mg Q6 ROSENDO Administration Oxycodone/Acetaminophen 1 tab 12/13/17 07:45 12/13/17 08:10 Percocet 5/325 Mg Tab PO 12/16/17 07:46 1 tab Q4H PRN Administration Pain, moderate (4-7) Oxycodone/Acetaminophen 2 tab 12/13/17 07:45 Percocet 5/325 Mg Tab PO 12/16/17 07:46 Q6H PRN Pain, severe (8-10) Pantoprazole Sodium 40 mg 12/13/17 10:00 12/14/17 13:45 Protonix Inj IVP 40 mg DAILY [facility] Administration Tamsulosin HCl 0.4 mg 12/13/17 10:00 12/14/17 10:00 Flomax PO Not Given DAILY [facility]ENDO - Patient Studies Lab Studies: Microbiology Studies 12/13/17 17:33 Blood Culture - Preliminary Blood NO GROWTH AFTER 24 HOURS 12/13/17 17:33 Blood Culture - Preliminary Blood NO GROWTH AFTER 24 HOURS Lab Studies 12/14/17 12/14/17 12/14/17 Range/Units 14:55 06:28 06:28 WBC 17.1 H (4.8-10.8) K/uL RBC 2.37 L (4.40-5.90) Mil/uL Hgb 7.6 L (12.0-18.0) g/dL Hct 22.5 L (35.0-51.0) % MCV 94.6 H D (80.0-94.0) fL MCH 31.9 H (27.0-31.0) pg MCHC 33.7 (33.0-37.0) g/dL RDW 13.8 (11.5-14.5) % Plt Count 146 (130-400) K/uL MPV 9.5 (7.2-11.7) fL Neut % (Auto) 89.1 H (50.0-75.0) % Lymph % (Auto) 6.2 L (20.0-40.0) % [place] % (Auto) 4.7 (0.0-10.0) % Eos % (Auto) 0.0 (0.0-4.0) % Baso % (Auto) 0.0 (0.0-2.0) % Neut # (Auto) 15.2 H (1.8-7.0) K/uL Lymph # (Auto) 1.1 (1.0-4.3) K/uL [place] # (Auto) 0.8 (0.0-0.8) K/uL Eos # (Auto) 0.0 (0.0-0.7) K/uL Baso # (Auto) 0.0 (0.0-0.2) K/uL Neutrophils % (Manual) 90 H (50-75) % Band Neutrophils % 1 (0-2) % Lymphocytes % (Manual) 5 L (20-40) % Monocytes % (Manual) 4 (0-10) % Platelet Estimate Normal (NORMAL) RBC Morphology Normal Puncture Site Line pCO2 34 L (35-45) mm/Hg pO2 265 H (80-100) mm/Hg HCO3 17.4 L (21-28) mmol/L ABG pH 7.28 L (7.35-7.45) ABG Total CO2 17.0 L (22-28) mmol/L ABG O2 Saturation 99.9 H (95-98) % ABG Base Excess -9.8 L (-2.0-3.0) mmol/L Brannon Test Na ABG Potassium 3.9 (3.6-5.2) mmol/L A-a O2 Difference 406.0 mm/Hg Respiratory Index 1.5 Glucose 112 H (75-110) mg/dl Lactate 2.2 H (0.7-2.1) mmol/L FiO2 100.0 % Sodium 141.0 140 (132-148) mmol/L Potassium 4.7 (3.6-5.2) mmol/L Chloride 114.0 H 106 (98-107) mmol/L Carbon Dioxide 19 L (22-30) mmol/L Anion Gap 19 (10-20) BUN 45 H (9-20) mg/dL Creatinine 4.7 H (0.8-1.5) mg/dL Est GFR ( Amer) 15 Est GFR (Non-Af Amer) 12 Random Glucose 118 H (75-110) mg/dL Calcium 7.6 L (8.6-10.4) mg/dl Phosphorus 5.5 H (2.5-4.5) mg/dL Magnesium 1.6 (1.6-2.3) mg/dL Total Bilirubin 0.9 (0.2-1.3) mg/dL AST 36 (17-59) U/L ALT 20 L (21-72) U/L Alkaline Phosphatase 53 (38-126) U/L Total Protein 6.4 (6.3-8.3) g/dL Albumin 3.2 L (3.5-5.0) g/dL Globulin 3.1 (2.2-3.9) gm/dL Albumin/Globulin Ratio 1.0 (1.0-2.1) Arterial Blood Potassium 3.9 (3.6-5.2) mmol/L Blood Type Antibody Screen 12/13/17 Range/Units 09:09 WBC (4.8-10.8) K/uL RBC (4.40-5.90) Mil/uL Hgb (12.0-18.0) g/dL Hct (35.0-51.0) % MCV (80.0-94.0) fL MCH (27.0-31.0) pg MCHC (33.0-37.0) g/dL RDW (11.5-14.5) % Plt Count (130-400) K/uL MPV (7.2-11.7) fL Neut % (Auto) (50.0-75.0) % Lymph % (Auto) (20.0-40.0) % [place] % (Auto) (0.0-10.0) % Eos % (Auto) (0.0-4.0) % Baso % (Auto) (0.0-2.0) % Neut # (Auto) (1.8-7.0) K/uL Lymph # (Auto) (1.0-4.3) K/uL [place] # (Auto) (0.0-0.8) K/uL Eos # (Auto) (0.0-0.7) K/uL Baso # (Auto) (0.0-0.2) K/uL Neutrophils % (Manual) (50-75) % Band Neutrophils % (0-2) % Lymphocytes % (Manual) (20-40) % Monocytes % (Manual) (0-10) % Platelet Estimate (NORMAL) RBC Morphology Puncture Site pCO2 (35-45) mm/Hg pO2 (80-100) mm/Hg HCO3 (21-28) mmol/L ABG pH (7.35-7.45) ABG Total CO2 (22-28) mmol/L ABG O2 Saturation (95-98) % ABG Base Excess (-2.0-3.0) mmol/L Brannon Test ABG Potassium (3.6-5.2) mmol/L A-a O2 Difference mm/Hg Respiratory Index Glucose (75-110) mg/dl Lactate (0.7-2.1) mmol/L FiO2 % Sodium (132-148) mmol/L Potassium (3.6-5.2) mmol/L Chloride (98-107) mmol/L Carbon Dioxide (22-30) mmol/L Anion Gap (10-20) BUN (9-20) mg/dL Creatinine (0.8-1.5) mg/dL Est GFR ( Amer) Est GFR (Non-Af Amer) Random Glucose (75-110) mg/dL Calcium (8.6-10.4) mg/dl Phosphorus (2.5-4.5) mg/dL Magnesium (1.6-2.3) mg/dL Total Bilirubin (0.2-1.3) mg/dL AST (17-59) U/L ALT (21-72) U/L Alkaline Phosphatase (38-126) U/L Total Protein (6.3-8.3) g/dL Albumin (3.5-5.0) g/dL Globulin (2.2-3.9) gm/dL Albumin/Globulin Ratio (1.0-2.1) Arterial Blood Potassium (3.6-5.2) mmol/L Blood Type O POSITIVE Antibody Screen Negative Laboratory Results - last 24 hr 12/13/17 12/14/17 12/14/17 09:09 06:28 06:28 WBC 17.1 H RBC 2.37 L Hgb 7.6 L Hct 22.5 L MCV 94.6 H D MCH 31.9 H MCHC 33.7 RDW 13.8 Plt Count 146 MPV 9.5 Neut % (Auto) 89.1 H Lymph % (Auto) 6.2 L [place] % (Auto) 4.7 Eos % (Auto) 0.0 Baso % (Auto) 0.0 Neut # (Auto) 15.2 H Lymph # (Auto) 1.1 [place] # (Auto) 0.8 Eos # (Auto) 0.0 Baso # (Auto) 0.0 Neutrophils % (Manual) 90 H Band Neutrophils % 1 Lymphocytes % (Manual) 5 L Monocytes % (Manual) 4 Platelet Estimate Normal RBC Morphology Normal Puncture Site pCO2 pO2 HCO3 ABG pH ABG Total CO2 ABG O2 Saturation ABG Base Excess Brannon Test ABG Potassium A-a O2 Difference Respiratory Index Glucose Lactate FiO2 Sodium 140 Potassium 4.7 Chloride 106 Carbon Dioxide 19 L Anion Gap 19 BUN 45 H Creatinine 4.7 H Est GFR ( Amer) 15 Est GFR (Non-Af Amer) 12 Random Glucose 118 H Calcium 7.6 L Phosphorus 5.5 H Magnesium 1.6 Total Bilirubin 0.9 AST 36 ALT 20 L Alkaline Phosphatase 53 Total Protein 6.4 Albumin 3.2 L Globulin 3.1 Albumin/Globulin Ratio 1.0 Arterial Blood Potassium Blood Type O POSITIVE Antibody Screen Negative 12/14/17 14:55 WBC RBC Hgb Hct MCV MCH MCHC RDW Plt Count MPV Neut % (Auto) Lymph % (Auto) [place] % (Auto) Eos % (Auto) Baso % (Auto) Neut # (Auto) Lymph # (Auto) [place] # (Auto) Eos # (Auto) Baso # (Auto) Neutrophils % (Manual) Band Neutrophils % Lymphocytes % (Manual) Monocytes % (Manual) Platelet Estimate RBC Morphology Puncture Site Line pCO2 34 L pO2 265 H HCO3 17.4 L ABG pH 7.28 L ABG Total CO2 17.0 L ABG O2 Saturation 99.9 H ABG Base Excess -9.8 L Brannon Test Na ABG Potassium 3.9 A-a O2 Difference 406.0 Respiratory Index 1.5 Glucose 112 H Lactate 2.2 H FiO2 100.0 Sodium 141.0 Potassium Chloride 114.0 H Carbon Dioxide Anion Gap BUN Creatinine Est GFR ( Amer) Est GFR (Non-Af Amer) Random Glucose Calcium Phosphorus Magnesium Total Bilirubin AST ALT Alkaline Phosphatase Total Protein Albumin Globulin Albumin/Globulin Ratio Arterial Blood Potassium 3.9 Blood Type Antibody Screen Review of Systems - Review of Systems Review of Systems: As per Subjective Critical Care Progress Note - Nutrition Nutrition: Nutrition Category Date Time Status Heart Healthy Diet [DIET] Diets 12/12/17 Breakfast Active Assessment/Plan - Assessment and Plan (Free Text) Assessment: 72 year old male with PMHx of HTN, Resolved SVTs, BPH admitted for hematuria, suprpubic pain, and distention. ICU consulted on this patient for hypotension w/ pre-syncopal episode likely 2/2 to Anemia. Plan: Neuro: GCS: 15 Sedation: None Cardio: A: Hx of SVT, Hx of HTN EKG ( 12/13)" No ST or T wave change. Shows First Degree AV Block. Official Read PENDING. Troponin - NEGATIVE Atenolol PO 25mg Dialy Pulm: A: Few Pulmonary Nodules found on CT. Up to 0.3cm Patient is High Risk due to smoking history. He will need follow up Chest CT in 12 months. CXR (12/13): No Acute Findings ABG (12/13): 7.24//129/12.8 GI A: Abdominal distension Consider Abdominal US CT Abd/Pelvis (Adm): 1.Hematoma with active bleeding within bladder. Underlying mass not excluded. Recommend cystoscopy. 2. Prostate enlargement. Followup as clinically warranted. 3. Pulmonary nodules. For low-risk patients, no follow-up is necessary. For high-risk patients (smoking history or other known risk factors ) an optional CT at 12 months could be performed. Renal/Uro A: BPH, Hematuria, Urinary Retention, Metabolic Acidosis, S/P prostectomy POD0 CBI therapy DC'd per Urology. New [place] Catheter put in. Caude catheter put in yesterday night Prostectomy today. Sodium Bicarb in 1/2 NS 1 amp of Bicarb Given Today Morphine 2 Q6H PRN for pain control Finasteride 5mg PO Daily | Flomax 0.4mg PO Daily Heme/Onc A: Normocytic Anemia likely 2/2 Hematuria Repeat Labs ordered for 9PM Transfused 1 Unit today, 2 Units on hold. Transfuse if Anemic. Iron - 46, TIBC - 308, Ferritin-15 %Sat 15, Haptoglobin - 143.8, Retic Count - 1.7 ID A: Sepsis, Leukocytosis (Improving), Elevated Lactate (Improving) Patient started on Sodium bicarb Drip. Patient started on Ciprofloxacin 400mg Q24H Urine Culture Ordered Blood Cultures Ordered CXR (12/13): No Acute Findings Tylenol PRN for Fever. Consider ProCal Consider ID Consult Proph SCD's Diet: Heart Healthy Lines: R Subclavian TLC, A-Line Patient seen and discussed with ICU Attending Alexandru Mcneill, PGY-1 <Alhaji Núñez M - Last Filed: 12/14/17 19:05> CCU Objective - Vital Signs / Intake & Output Vital Signs (Last 4 hours): Vital Signs Pulse Resp BP BP Pulse Ox 12/14/17 16:21 75 15 122/77 100 12/14/17 16:06 76 11 L 121/72 100 12/14/17 16:00 78 13 100 12/14/17 15:51 89 16 115/80 100 12/14/17 15:40 134/65 12/14/17 15:37 103 H 14 111/78 100 12/14/17 15:32 92 H 13 100 Intake and Output (Last 8hrs): Intake & Output 12/14/17 12/14/17 12/14/17 06:59 14:59 22:59 Intake Total 800 3448 3100 Output Total 5000 Balance 800 3448 -1900 Intake: IV 1300 Intake, IV Amount 800 1200 100 Distal Port 800 700 100 middle port 300 proximal 200 Blood Product 928 Apheresis Lrbc As-3 Unit 278 [id number] Other 20 3000 Apheresis Lrbc As-3 Unit 20 [id number] Output: Urine 5000 - Medications Active Medications: Active Medications Generic Name Dose Route Start Last Admin Trade Name Freq PRN Reason Stop Dose Admin Acetaminophen 650 mg 12/13/17 08:15 Tylenol 325mg Tab PO Q6 PRN Pain, Mild (1-3) Atenolol 25 mg 12/13/17 10:00 Tenormin PO DAILY [facility] Finasteride 5 mg 12/13/17 10:00 Proscar PO DAILY [facility] Sodium Bicarbonate 100 meq/ 1,100 mls @ 100 mls/hr 12/13/17 10:15 12/14/17 16 :56 Sodium Chloride IV 100 mls/hr .Q11H ROSENDO Administration Ciprofloxacin 400 mg in 200 mls @ 133 mls/hr 12/13/17 10:45 12/14/17 11:01 Cipro 400mg/200ml Dsw IVPB 133 mls/hr Q24H ROSENDO Administration Protocol Morphine Sulfate 2 mg 12/14/17 00:00 12/14/17 18:15 Morphine IVP 2 mg Q6 ROSENDO Administration Oxycodone/Acetaminophen 1 tab 12/13/17 07:45 12/13/17 08:10 Percocet 5/325 Mg Tab PO 12/16/17 07:46 1 tab Q4H PRN Administration Pain, moderate (4-7) Oxycodone/Acetaminophen 2 tab 12/13/17 07:45 Percocet 5/325 Mg Tab PO 12/16/17 07:46 Q6H PRN Pain, severe (8-10) Pantoprazole Sodium 40 mg 12/13/17 10:00 12/14/17 13:45 Protonix Inj IVP 40 mg DAILY [facility] Administration Tamsulosin HCl 0.4 mg 12/13/17 10:00 12/14/17 10:00 Flomax PO Not Given DAILY [facility] - Patient Studies Lab Studies: Microbiology Studies 12/13/17 17:33 Blood Culture - Preliminary Blood NO GROWTH AFTER 24 HOURS 12/13/17 17:33 Blood Culture - Preliminary Blood NO GROWTH AFTER 24 HOURS Lab Studies 12/14/17 12/14/17 12/14/17 Range/Units 14:55 06:28 06:28 WBC 17.1 H (4.8-10.8) K/uL RBC 2.37 L (4.40-5.90) Mil/uL Hgb 7.6 L (12.0-18.0) g/dL Hct 22.5 L (35.0-51.0) % MCV 94.6 H D (80.0-94.0) fL MCH 31.9 H (27.0-31.0) pg MCHC 33.7 (33.0-37.0) g/dL RDW 13.8 (11.5-14.5) % Plt Count 146 (130-400) K/uL MPV 9.5 (7.2-11.7) fL Neut % (Auto) 89.1 H (50.0-75.0) % Lymph % (Auto) 6.2 L (20.0-40.0) % [place] % (Auto) 4.7 (0.0-10.0) % Eos % (Auto) 0.0 (0.0-4.0) % Baso % (Auto) 0.0 (0.0-2.0) % Neut # (Auto) 15.2 H (1.8-7.0) K/uL Lymph # (Auto) 1.1 (1.0-4.3) K/uL [place] # (Auto) 0.8 (0.0-0.8) K/uL Eos # (Auto) 0.0 (0.0-0.7) K/uL Baso # (Auto) 0.0 (0.0-0.2) K/uL Neutrophils % (Manual) 90 H (50-75) % Band Neutrophils % 1 (0-2) % Lymphocytes % (Manual) 5 L (20-40) % Monocytes % (Manual) 4 (0-10) % Platelet Estimate Normal (NORMAL) RBC Morphology Normal Puncture Site Line pCO2 34 L (35-45) mm/Hg pO2 265 H (80-100) mm/Hg HCO3 17.4 L (21-28) mmol/L ABG pH 7.28 L (7.35-7.45) ABG Total CO2 17.0 L (22-28) mmol/L ABG O2 Saturation 99.9 H (95-98) % ABG Base Excess -9.8 L (-2.0-3.0) mmol/L Brannon Test Na ABG Potassium 3.9 (3.6-5.2) mmol/L A-a O2 Difference 406.0 mm/Hg Respiratory Index 1.5 Glucose 112 H (75-110) mg/dl Lactate 2.2 H (0.7-2.1) mmol/L FiO2 100.0 % Sodium 141.0 140 (132-148) mmol/L Potassium 4.7 (3.6-5.2) mmol/L Chloride 114.0 H 106 (98-107) mmol/L Carbon Dioxide 19 L (22-30) mmol/L Anion Gap 19 (10-20) BUN 45 H (9-20) mg/dL Creatinine 4.7 H (0.8-1.5) mg/dL Est GFR ( Amer) 15 Est GFR (Non-Af Amer) 12 Random Glucose 118 H (75-110) mg/dL Calcium 7.6 L (8.6-10.4) mg/dl Phosphorus 5.5 H (2.5-4.5) mg/dL Magnesium 1.6 (1.6-2.3) mg/dL Total Bilirubin 0.9 (0.2-1.3) mg/dL AST 36 (17-59) U/L ALT 20 L (21-72) U/L Alkaline Phosphatase 53 (38-126) U/L Total Protein 6.4 (6.3-8.3) g/dL Albumin 3.2 L (3.5-5.0) g/dL Globulin 3.1 (2.2-3.9) gm/dL Albumin/Globulin Ratio 1.0 (1.0-2.1) Arterial Blood Potassium 3.9 (3.6-5.2) mmol/L Blood Type Antibody Screen 12/13/17 Range/Units 09:09 WBC (4.8-10.8) K/uL RBC (4.40-5.90) Mil/uL Hgb (12.0-18.0) g/dL Hct (35.0-51.0) % MCV (80.0-94.0) fL MCH (27.0-31.0) pg MCHC (33.0-37.0) g/dL RDW (11.5-14.5) % Plt Count (130-400) K/uL MPV (7.2-11.7) fL Neut % (Auto) (50.0-75.0) % Lymph % (Auto) (20.0-40.0) % [place] % (Auto) (0.0-10.0) % Eos % (Auto) (0.0-4.0) % Baso % (Auto) (0.0-2.0) % Neut # (Auto) (1.8-7.0) K/uL Lymph # (Auto) (1.0-4.3) K/uL [place] # (Auto) (0.0-0.8) K/uL Eos # (Auto) (0.0-0.7) K/uL Baso # (Auto) (0.0-0.2) K/uL Neutrophils % (Manual) (50-75) % Band Neutrophils % (0-2) % Lymphocytes % (Manual) (20-40) % Monocytes % (Manual) (0-10) % Platelet Estimate (NORMAL) RBC Morphology Puncture Site pCO2 (35-45) mm/Hg pO2 (80-100) mm/Hg HCO3 (21-28) mmol/L ABG pH (7.35-7.45) ABG Total CO2 (22-28) mmol/L ABG O2 Saturation (95-98) % ABG Base Excess (-2.0-3.0) mmol/L Brannon Test ABG Potassium (3.6-5.2) mmol/L A-a O2 Difference mm/Hg Respiratory Index Glucose (75-110) mg/dl Lactate (0.7-2.1) mmol/L FiO2 % Sodium (132-148) mmol/L Potassium (3.6-5.2) mmol/L Chloride (98-107) mmol/L Carbon Dioxide (22-30) mmol/L Anion Gap (10-20) BUN (9-20) mg/dL Creatinine (0.8-1.5) mg/dL Est GFR ( Amer) Est GFR (Non-Af Amer) Random Glucose (75-110) mg/dL Calcium (8.6-10.4) mg/dl Phosphorus (2.5-4.5) mg/dL Magnesium (1.6-2.3) mg/dL Total Bilirubin (0.2-1.3) mg/dL AST (17-59) U/L ALT (21-72) U/L Alkaline Phosphatase (38-126) U/L Total Protein (6.3-8.3) g/dL Albumin (3.5-5.0) g/dL Globulin (2.2-3.9) gm/dL Albumin/Globulin Ratio (1.0-2.1) Arterial Blood Potassium (3.6-5.2) mmol/L Blood Type O POSITIVE Antibody Screen Negative Laboratory Results - last 24 hr 12/13/17 12/14/17 12/14/17 09:09 06:28 06:28 WBC 17.1 H RBC 2.37 L Hgb 7.6 L Hct 22.5 L MCV 94.6 H D MCH 31.9 H MCHC 33.7 RDW 13.8 Plt Count 146 MPV 9.5 Neut % (Auto) 89.1 H Lymph % (Auto) 6.2 L [place] % (Auto) 4.7 Eos % (Auto) 0.0 Baso % (Auto) 0.0 Neut # (Auto) 15.2 H Lymph # (Auto) 1.1 [place] # (Auto) 0.8 Eos # (Auto) 0.0 Baso # (Auto) 0.0 Neutrophils % (Manual) 90 H Band Neutrophils % 1 Lymphocytes % (Manual) 5 L Monocytes % (Manual) 4 Platelet Estimate Normal RBC Morphology Normal Puncture Site pCO2 pO2 HCO3 ABG pH ABG Total CO2 ABG O2 Saturation ABG Base Excess Brannon Test ABG Potassium A-a O2 Difference Respiratory Index Glucose Lactate FiO2 Sodium 140 Potassium 4.7 Chloride 106 Carbon Dioxide 19 L Anion Gap 19 BUN 45 H Creatinine 4.7 H Est GFR ( Amer) 15 Est GFR (Non-Af Amer) 12 Random Glucose 118 H Calcium 7.6 L Phosphorus 5.5 H Magnesium 1.6 Total Bilirubin 0.9 AST 36 ALT 20 L Alkaline Phosphatase 53 Total Protein 6.4 Albumin 3.2 L Globulin 3.1 Albumin/Globulin Ratio 1.0 Arterial Blood Potassium Blood Type O POSITIVE Antibody Screen Negative 12/14/17 14:55 WBC RBC Hgb Hct MCV MCH MCHC RDW Plt Count MPV Neut % (Auto) Lymph % (Auto) [place] % (Auto) Eos % (Auto) Baso % (Auto) Neut # (Auto) Lymph # (Auto) [place] # (Auto) Eos # (Auto) Baso # (Auto) Neutrophils % (Manual) Band Neutrophils % Lymphocytes % (Manual) Monocytes % (Manual) Platelet Estimate RBC Morphology Puncture Site Line pCO2 34 L pO2 265 H HCO3 17.4 L ABG pH 7.28 L ABG Total CO2 17.0 L ABG O2 Saturation 99.9 H ABG Base Excess -9.8 L Brannon Test Na ABG Potassium 3.9 A-a O2 Difference 406.0 Respiratory Index 1.5 Glucose 112 H Lactate 2.2 H FiO2 100.0 Sodium 141.0 Potassium Chloride 114.0 H Carbon Dioxide Anion Gap BUN Creatinine Est GFR ( Amer) Est GFR (Non-Af Amer) Random Glucose Calcium Phosphorus Magnesium Total Bilirubin AST ALT Alkaline Phosphatase Total Protein Albumin Globulin Albumin/Globulin Ratio Arterial Blood Potassium 3.9 Blood Type Antibody Screen Critical Care Progress Note - Nutrition Nutrition: Nutrition Category Date Time Status Heart Healthy Diet [DIET] Diets 12/12/17 Breakfast Active Attending/Attestation - Attestation I have personally seen and examined this patient.: Yes I have fully participated in the care of the patient.: Yes I have reviewed all pertinent clinical information: Yes Notes (Text): 12/14/17 19:05 Today: November The Patient was seen and examined at the bedside, Medical records reviewed, and management issues were discussed and formulated with the house staff. I have reviewed all the relevant clinical, laboratory, hemodynamic, radiographic data and medications Events reviewed Pain issues, skin care, head of the bed elevation, glycemic control were addressed. Agree with above resident's assessment and treatment plans of care as transcribed in Dr. Reynoso note.
[2017-12-14 22:01] LABS: BASO % 0.3 % (0.0-2.0); EOS % 0.1 % (0.0-4.0); HEMOGLOBIN 8.2 g/dL (12.0-18.0); LYMPH # 1.4 K/uL (1.0-4.3); LYMPH % 12.2 % (20.0-40.0); MEAN CELL VOLUME 88.6 fL (80.0-94.0); MEAN CORPUSCULAR HEMOGLOBIN 30.6 pg (27.0-31.0); MEAN CORPUSCULAR HGB CONC 34.5 g/dL (33.0-37.0); MEAN PLATELET VOLUME 8.8 fL (7.2-11.7); MONO # 0.8 K/uL (0.0-0.8); MONO % 7.2 % (0.0-10.0); NEUT # 9.5 K/uL (1.8-7.0); NEUT % 80.2 % (50.0-75.0); RBC 2.68 Mil/uL (4.40-5.90); RED CELL DISTRIBUTION WIDTH 15.3 % (11.5-14.5); WHITE BLOOD COUNT 11.8 K/uL (4.8-10.8)
[2017-12-14 22:21] LABS: CALCIUM 6.9 mg/dl (8.6-10.4)
[2017-12-15 06:18] LABS: BASO % 0.2 % (0.0-2.0); EOS % 0.4 % (0.0-4.0); HEMOGLOBIN 7.8 g/dL (12.0-18.0); LYMPH # 0.9 K/uL (1.0-4.3); MEAN CELL VOLUME 89.3 fL (80.0-94.0); MEAN CORPUSCULAR HEMOGLOBIN 31.6 pg (27.0-31.0); MEAN CORPUSCULAR HGB CONC 35.4 g/dL (33.0-37.0); MEAN PLATELET VOLUME 9.6 fL (7.2-11.7); MONO # 0.8 K/uL (0.0-0.8); MONO % 8.5 % (0.0-10.0); NEUT # 7.4 K/uL (1.8-7.0); NEUT % 80.9 % (50.0-75.0); RBC 2.46 Mil/uL (4.40-5.90); RED CELL DISTRIBUTION WIDTH 15.5 % (11.5-14.5); WHITE BLOOD COUNT 9.2 K/uL (4.8-10.8)
[2017-12-15 06:29] LABS: ALB/GLOB RATIO 0.9 (1.0-2.1); ALBUMIN 2.3 g/dL (3.5-5.0); CALCIUM 6.8 mg/dl (8.6-10.4)
[2017-12-15] MEDS: Ciprofloxacin 400mg/200ml D5W 400 MG/200 ML BAG IVPB SCH (09:44)
--- NOTE | 2017-12-15 11:33 | PCM.URO ---
Urology Progress Note - General General: No Complaints, Tolerating Diet - Subjective Abdominal Pain: Yes Flank Pain: No Vomiting: No Voiding Well: No Hematuria: No Dsypnea: No Chest Pain: No Fever & Chills: No - Objective Lab Studies: Reviewed Lab Results Last 24 Hours: Laboratory Results - last 24 hr 12/13/17 12/14/17 12/14/17 09:09 14:55 21:50 WBC 11.8 H RBC 2.68 L Hgb 8.2 L Hct 23.8 L MCV 88.6 D MCH 30.6 MCHC 34.5 RDW 15.3 H Plt Count 96 L D MPV 8.8 Neut % (Auto) 80.2 H Lymph % (Auto) 12.2 L Steele % (Auto) 7.2 Eos % (Auto) 0.1 Baso % (Auto) 0.3 Neut # (Auto) 9.5 H Lymph # (Auto) 1.4 Steele # (Auto) 0.8 Eos # (Auto) 0.0 Baso # (Auto) 0.0 Differential Comment Puncture Site Line pCO2 34 L pO2 265 H HCO3 17.4 L ABG pH 7.28 L ABG Total CO2 17.0 L ABG O2 Saturation 99.9 H ABG Base Excess -9.8 L Brannon Test Na ABG Potassium 3.9 A-a O2 Difference 406.0 Respiratory Index 1.5 Sodium 141.0 Chloride 114.0 H Glucose 112 H Lactate 2.2 H FiO2 100.0 Potassium Carbon Dioxide Anion Gap BUN Creatinine Est GFR ( Amer) Est GFR (Non-Af Amer) Random Glucose Calcium Phosphorus Magnesium Total Bilirubin AST ALT Alkaline Phosphatase Total Protein Albumin Globulin Albumin/Globulin Ratio Arterial Blood Potassium 3.9 Blood Type O POSITIVE Antibody Screen Negative 12/14/17 12/15/17 12/15/17 21:50 05:53 05:55 WBC 9.2 RBC 2.46 L Hgb 7.8 L Hct 22.0 L MCV 89.3 MCH 31.6 H MCHC 35.4 RDW 15.5 H Plt Count 93 L MPV 9.6 Neut % (Auto) 80.9 H Lymph % (Auto) 10.0 L Steele % (Auto) 8.5 Eos % (Auto) 0.4 Baso % (Auto) 0.2 Neut # (Auto) 7.4 H Lymph # (Auto) 0.9 L Steele # (Auto) 0.8 Eos # (Auto) 0.0 Baso # (Auto) 0.0 Differential Comment Puncture Site pCO2 pO2 HCO3 ABG pH ABG Total CO2 ABG O2 Saturation ABG Base Excess Brannon Test ABG Potassium A-a O2 Difference Respiratory Index Sodium 138 141 Chloride 107 108 H Glucose Lactate FiO2 Potassium 3.8 3.8 Carbon Dioxide 23 24 Anion Gap 12 12 BUN 45 H 33 H Creatinine 2.6 H 1.7 H Est GFR ( Amer) 29 48 Est GFR (Non-Af Amer) 24 40 Random Glucose 103 96 Calcium 6.9 L 6.8 L Phosphorus 3.9 Magnesium 1.8 Total Bilirubin 1.4 H AST 36 ALT 18 L Alkaline Phosphatase 45 Total Protein 4.9 L Albumin 2.3 L D Globulin 2.6 Albumin/Globulin Ratio 0.9 L Arterial Blood Potassium Blood Type Antibody Screen Intake & Output: Intake & Output 12/14/17 12/15/17 12/15/17 18:59 06:59 18:59 Intake Total 6648 35350 950 Output Total 5000 550 Balance 1648 12239 400 Intake: IV 1300 Intake, IV Amount 1400 1200 600 Distal Port 900 1200 400 middle port 300 200 proximal 200 Oral 350 Blood Product 928 Apheresis Lrbc As-3 Unit 278 [id number] Other 3020 37029 Apheresis Lrbc As-3 Unit 20 [id number] Output: Urine 5000 550 Suprapubic 550 Vital Signs: Vital Signs - 24 hr 12/14/17 12/14/17 12/14/17 11:32 11:33 11:47 Temperature Pulse Rate 71 67 66 Respiratory 14 16 13 Rate Blood Pressure 132/72 132/72 123/70 Blood Pressure [Left Radial Artery] O2 Sat by Pulse 100 97 Oximetry 12/14/17 12/14/17 12/14/17 12:00 12:03 12:05 Temperature Pulse Rate 64 78 68 Respiratory 14 11 L 18 Rate Blood Pressure 132/66 132/66 Blood Pressure [Left Radial Artery] O2 Sat by Pulse 100 95 Oximetry 12/14/17 12/14/17 12/14/17 12:18 12:32 12:35 Temperature Pulse Rate 76 65 64 Respiratory 15 13 18 Rate Blood Pressure 126/35 L 124/66 124/66 Blood Pressure [Left Radial Artery] O2 Sat by Pulse 94 L 98 Oximetry 12/14/17 12/14/17 12/14/17 12:48 12:50 15:32 Temperature 98.1 F Pulse Rate 72 68 92 H Respiratory 16 18 13 Rate Blood Pressure 117/72 117/72 Blood Pressure [Left Radial Artery] O2 Sat by Pulse 98 100 Oximetry 12/14/17 12/14/17 12/14/17 15:37 15:40 15:51 Temperature Pulse Rate 103 H 89 Respiratory 14 16 Rate Blood Pressure 111/78 115/80 Blood Pressure 134/65 [Left Radial Artery] O2 Sat by Pulse 100 100 Oximetry 12/14/17 12/14/17 12/14/17 16:00 16:06 16:21 Temperature Pulse Rate 78 76 75 Respiratory 13 11 L 15 Rate Blood Pressure 121/72 122/77 Blood Pressure [Left Radial Artery] O2 Sat by Pulse 100 100 100 Oximetry 12/14/17 12/14/17 12/14/17 16:36 16:51 17:00 Temperature Pulse Rate 76 68 71 Respiratory 11 L 10 L 10 L Rate Blood Pressure 121/67 117/69 Blood Pressure [Left Radial Artery] O2 Sat by Pulse 100 100 100 Oximetry 12/14/17 12/14/17 12/14/17 17:06 17:36 18:00 Temperature Pulse Rate 71 70 77 Respiratory 13 13 15 Rate Blood Pressure 108/59 L 103/66 Blood Pressure [Left Radial Artery] O2 Sat by Pulse 99 98 100 Oximetry 12/14/17 12/14/17 12/14/17 18:03 18:19 18:49 Temperature Pulse Rate 73 72 74 Respiratory 14 9 L 14 Rate Blood Pressure 101/65 99/56 L 91/60 L Blood Pressure [Left Radial Artery] O2 Sat by Pulse 100 99 98 Oximetry 12/14/17 12/14/17 12/14/17 19:00 19:20 19:50 Temperature Pulse Rate 76 74 Respiratory 14 13 Rate Blood Pressure 100/58 L 95/53 L Blood Pressure [Left Radial Artery] O2 Sat by Pulse 97 98 Oximetry 12/14/17 12/14/17 12/14/17 20:00 20:19 20:50 Temperature 98.3 F Pulse Rate 73 68 67 Respiratory 18 14 14 Rate Blood Pressure 95/53 L 106/60 104/52 L Blood Pressure [Left Radial Artery] O2 Sat by Pulse 100 98 97 Oximetry 12/14/17 12/14/17 12/14/17 21:00 21:19 21:49 Temperature Pulse Rate 71 65 Respiratory 14 17 Rate Blood Pressure 109/60 Blood Pressure [Left Radial Artery] O2 Sat by Pulse 98 98 Oximetry 12/14/17 12/14/17 12/14/17 22:00 22:20 22:50 Temperature Pulse Rate 72 75 Respiratory 16 18 Rate Blood Pressure 100/58 L 108/64 Blood Pressure [Left Radial Artery] O2 Sat by Pulse 99 99 Oximetry 12/14/17 12/14/17 12/14/17 23:00 23:19 23:50 Temperature Pulse Rate 76 76 Respiratory 17 13 Rate Blood Pressure 96/42 L 103/46 L Blood Pressure [Left Radial Artery] O2 Sat by Pulse 99 98 Oximetry 12/15/17 12/15/17 12/15/17 00:00 00:19 00:49 Temperature 98.4 F Pulse Rate Respiratory Rate Blood Pressure 114/54 L 107/58 L Blood Pressure [Left Radial Artery] O2 Sat by Pulse 98 Oximetry 12/15/17 12/15/17 12/15/17 01:00 01:19 02:00 Temperature Pulse Rate 63 63 Respiratory 15 16 Rate Blood Pressure 103/52 L Blood Pressure [Left Radial Artery] O2 Sat by Pulse 97 99 Oximetry 12/15/17 12/15/17 12/15/17 02:03 03:00 03:03 Temperature Pulse Rate 63 65 Respiratory 16 18 Rate Blood Pressure 96/48 L 99/54 L Blood Pressure [Left Radial Artery] O2 Sat by Pulse 99 98 Oximetry 12/15/17 12/15/17 12/15/17 04:00 04:03 05:03 Temperature 97.4 F L Pulse Rate 70 72 Respiratory 19 15 Rate Blood Pressure 112/53 L 105/54 L Blood Pressure [Left Radial Artery] O2 Sat by Pulse 99 99 98 Oximetry 12/15/17 12/15/17 12/15/17 06:03 07:00 07:03 Temperature Pulse Rate 64 71 65 Respiratory 14 17 16 Rate Blood Pressure 93/52 L 112/57 L Blood Pressure 111/54 L [Left Radial Artery] O2 Sat by Pulse 96 98 96 Oximetry 12/15/17 12/15/17 12/15/17 08:00 08:03 09:00 Temperature 98.3 F Pulse Rate 68 71 65 Respiratory 19 19 16 Rate Blood Pressure 117/59 L Blood Pressure [Left Radial Artery] O2 Sat by Pulse 98 99 99 Oximetry 12/15/17 12/15/17 12/15/17 09:03 10:00 10:03 Temperature Pulse Rate 66 76 76 Respiratory 15 15 19 Rate Blood Pressure 113/53 L 105/58 L Blood Pressure [Left Radial Artery] O2 Sat by Pulse 98 96 96 Oximetry 12/15/17 12/15/17 11:00 11:03 Temperature Pulse Rate 73 71 Respiratory 16 20 Rate Blood Pressure 98/52 L Blood Pressure [Left Radial Artery] O2 Sat by Pulse 96 97 Oximetry - Physical Exam Abdominal Exam: Soft, Non-Tender, Non-Distended Wound: Clean Dressing: Dry, Intact Back: No CVA Tenderness Urinary Catheter Draining Well: Yes Urine Color: Clear (on slow CBI) Extremities: Normal: Bilateral - Male Phallus: Normal - Plan Advance Diet: Yes Wound Care: Yes Catheter Care: Yes Intake & Output: Yes See Orders: Yes Additional Information: IMP: Doing well, POD#1, post SPP. P?Rec: Catheters in place. diet. see orders. discussed with ICU staff. Discussed w ppt and family - Date & Time of Note Date: 12/15/17 Time: 11:15
--- NOTE | 2017-12-15 12:12 | CP.PCM.PN ---
Subjective - Date & Time of Evaluation Date of Evaluation: 12/15/17 Time of Evaluation: 09:00 - Subjective Subjective: seen and examined,no complain.lying comfortable,Urine is clear and faley cath in place post op day #1 doing fine Spoke to Dr Leonie Loza. His hematuria is from prostate. no bladder path found Patient's creatinine was up due to clot retention Objective - Vital Signs/Intake and Output Vital Signs (last 24 hours): Temp Pulse Resp BP Pulse Ox 98.3 F 71 20 98/52 L 97 12/15/17 08:00 12/15/17 11:03 12/15/17 11:03 12/15/17 11:03 12/15/17 11:03 Intake and Output: 12/15/17 12/15/17 06:59 18:59 Intake Total 30428 1050 Output Total 550 Balance 57694 500 - Medications Medications: Current Medications Acetaminophen (Tylenol 325mg Tab) 650 mg PO Q6 PRN PRN Reason: Pain, Mild (1-3) Atenolol (Tenormin) 25 mg PO DAILY [facility] Finasteride (Proscar) 5 mg PO DAILY [facility] Ciprofloxacin (Cipro 400mg/200ml Dsw) 400 mg in 200 mls @ 133 mls/hr IVPB Q24H [facility] PRN Reason: Protocol Last Admin: 12/15/17 09:44 Dose: 133 mls/hr Sodium Bicarbonate 75 meq/ (Sodium Chloride) 1,075 mls @ 100 mls/hr IV .[id number] [facility] Morphine Sulfate (Morphine) 2 mg IVP Q6 [facility] Last Admin: 12/15/17 07:34 Dose: Not Given Oxycodone/Acetaminophen (Percocet 5/325 Mg Tab) 1 tab PO Q4H PRN PRN Reason: Pain, moderate (4-7) Stop: 12/16/17 07:46 Last Admin: 12/13/17 08:10 Dose: 1 tab Oxycodone/Acetaminophen (Percocet 5/325 Mg Tab) 2 tab PO Q6H PRN PRN Reason: Pain, severe (8-10) Stop: 12/16/17 07:46 Pantoprazole Sodium (Protonix Inj) 40 mg IVP DAILY [facility] Last Admin: 12/15/17 09:41 Dose: 40 mg Tamsulosin HCl (Flomax) 0.4 mg PO DAILY [facility] Last Admin: 12/15/17 09:43 Dose: 0.4 mg - Labs Labs: 12/15/17 05:53 12/15/17 05:55 PT 13.6 SECONDS (9.7-12.2) H 12/13/17 09:09 INR 1.2 12/13/17 09:09 APTT 30 SECONDS (21-34) 12/13/17 09:09 - Constitutional Appears: Non-toxic - Head Exam Head Exam: NORMAL INSPECTION - Eye Exam Eye Exam: Normal appearance - ENT Exam ENT Exam: Mucous Membranes Moist - Neck Exam Neck Exam: Full ROM - Respiratory Exam Respiratory Exam: Clear to Ausculation Bilateral, NORMAL BREATHING PATTERN - Cardiovascular Exam Cardiovascular Exam: REGULAR RHYTHM - GI/Abdominal Exam GI & Abdominal Exam: Soft, Normal Bowel Sounds - Extremities Exam Extremities Exam: Full ROM - Neurological Exam Neurological Exam: Awake, Oriented x3 - Psychiatric Exam Psychiatric exam: Normal Mood - Skin Skin Exam: Dry Assessment and Plan - Assessment and Plan (Free Text) Plan: 1. urinary retention and BPH s/p prostatectomy day #1 apurva has clear urine creatinine is coming down 2. Hematuria-s/p blood transfusion and monitor cbc and transfuse as needed no more bleeding 3. Leukocytosis and lactic acidosis Resolved,urine c/s no significant growth.blood culture negative CT abdomen pelvis with normal gallbladder,clear lungs continue cipro oral downgrade from ICU to floor med/ruben 4.Acute renal failure. Likely due to obstructive uropathy Increasing creatinine-monitor creatinine.cancel nephro eval 5. History of SVT cardiology consult appreciated 6.S/P near syncope and [employer] Blood loss vs sepsis vs vasovagal 6.HTN 7.DVT prophy-SCD( No anticoagulation due to hematuria GI prophylaxis on protonix
[2017-12-15 16:59] LABS: BLOOD UREA NITROGEN 21 mg/dL (9-20); CALCIUM 7.1 mg/dl (8.6-10.4); GFR AFRICAN-AMERICAN > 60; GFR NON-AFRICAN AMERICAN 59
[2017-12-15] MEDS: Lactated Ringer's 1,000 ML IV SCH (17:30)
[2017-12-15] MEDS: Morphine 4 MG/ML VIAL IVP PRN (21:53)
--- NOTE | 2017-12-15 22:05 | PN ---
DATE: 12/15/2017 SUBJECTIVE: The patient underwent suprapubic prostatectomy with no reported and no reported SVT. PHYSICAL EXAMINATION: VITAL SIGNS: Blood pressure 96/50, heart rate 74, respirations 17, temperature 98.3. HEENT: Pale conjunctivae. CHEST: Clear. HEART: Heart sounds are regular. EXTREMITIES: No edema. LABORATORY DATA: Today's hemoglobin and hematocrit 7.8 and 28, white count 9.2, platelet count 93,000. Today's SMA-7; sodium 141, potassium 3.8, chloride 108, CO2 24, glucose 96, BUN 33, creatinine 1.7. ASSESSMENT: 1. Status post suprapubic prostatectomy for obstructive uropathy. 2. Improving renal insufficiency. 3. History of supraventricular tachycardia. 4. Anemia and thrombocytopenia. RECOMMENDATIONS: Continue current atenolol at 25 once a day, Pepcid 20 mg p.o. twice a day, Cipro at 500 mg orally twice a day. Obtain postoperative 12-lead EKG. Britton Vaughn MD
[2017-12-16] MEDS: Lactated Ringer's 1,000 ML IV SCH ×3 (03:42→21:54)
[2017-12-16 07:48] LABS: BASO % 0.3 % (0.0-2.0); EOS # 0.2 K/uL (0.0-0.7); EOS % 2.2 % (0.0-4.0); LYMPH # 1.2 K/uL (1.0-4.3); LYMPH % 15.6 % (20.0-40.0); MEAN CELL VOLUME 89.8 fL (80.0-94.0); MEAN CORPUSCULAR HEMOGLOBIN 31.4 pg (27.0-31.0); MEAN CORPUSCULAR HGB CONC 34.9 g/dL (33.0-37.0); MEAN PLATELET VOLUME 9.3 fL (7.2-11.7); MONO # 0.5 K/uL (0.0-0.8); MONO % 6.9 % (0.0-10.0); NEUT # 5.8 K/uL (1.8-7.0); RBC 2.08 Mil/uL (4.40-5.90); RED CELL DISTRIBUTION WIDTH 15.2 % (11.5-14.5); WHITE BLOOD COUNT 7.8 K/uL (4.8-10.8)
[2017-12-16 08:07] LABS: ALB/GLOB RATIO 0.8 (1.0-2.1); ALBUMIN 2.1 g/dL (3.5-5.0); ALT/SGPT 28 U/L (21-72); AST/SGOT 26 U/L (17-59); BLOOD UREA NITROGEN 16 mg/dL (9-20); CALCIUM 7.3 mg/dl (8.6-10.4); GFR AFRICAN-AMERICAN > 60; GFR NON-AFRICAN AMERICAN > 60
[2017-12-16 08:09] LABS: HEMOGLOBIN 6.5 g/dL (12.0-18.0)
[2017-12-16 09:10] LABS: INR 1.3; PROTHROMBIN TIME 13.9 SECONDS (9.7-12.2)
[2017-12-16 11:33] LABS: BASO % 0.3 % (0.0-2.0); EOS # 0.2 K/uL (0.0-0.7); EOS % 2.1 % (0.0-4.0); HEMOGLOBIN 6.6 g/dL (12.0-18.0); LYMPH # 1.1 K/uL (1.0-4.3); LYMPH % 13.9 % (20.0-40.0); MEAN CELL VOLUME 89.5 fL (80.0-94.0); MEAN CORPUSCULAR HEMOGLOBIN 31.2 pg (27.0-31.0); MEAN CORPUSCULAR HGB CONC 34.8 g/dL (33.0-37.0); MEAN PLATELET VOLUME 8.7 fL (7.2-11.7); MONO # 0.6 K/uL (0.0-0.8); MONO % 8.2 % (0.0-10.0); NEUT # 5.7 K/uL (1.8-7.0); NEUT % 75.5 % (50.0-75.0); RBC 2.12 Mil/uL (4.40-5.90); RED CELL DISTRIBUTION WIDTH 15.1 % (11.5-14.5); WHITE BLOOD COUNT 7.6 K/uL (4.8-10.8)
--- NOTE | 2017-12-16 12:22 | CP.PCM.PN ---
<Lisa Gonzalez - Last Filed: 12/16/17 12:35> Subjective - Date & Time of Evaluation Date of Evaluation: 12/16/17 Time of Evaluation: 12:21 - Subjective Subjective: Progress Note Patient seen and examined at bedside. No acute events overnight. Patient denies fever, dizziness, diarrhea, chest pain, shortness of breath, palpitations, chills, nausea, vomiting. Patient states his pain is minimal. Objective - Vital Signs/Intake and Output Vital Signs (last 24 hours): Temp Pulse Resp BP Pulse Ox 98.7 F 78 20 98/56 L 96 12/16/17 12:10 12/16/17 12:10 12/16/17 12:10 12/16/17 12:10 12/16/17 08:00 Intake and Output: 12/16/17 12/16/17 06:59 18:59 Intake Total 3350 0 Output Total 6550 Balance -3200 0 - Medications Medications: Current Medications Acetaminophen (Tylenol 325mg Tab) 650 mg PO Q6 PRN PRN Reason: Pain, Mild (1-3) Atenolol (Tenormin) 25 mg PO DAILY [facility] Last Admin: 12/16/17 09:57 Dose: Not Given Ciprofloxacin (Cipro) 500 mg PO BID [facility] PRN Reason: Protocol Last Admin: 12/16/17 09:58 Dose: 500 mg Famotidine (Pepcid) 20 mg PO BID [facility] Last Admin: 12/16/17 09:58 Dose: 20 mg Finasteride (Proscar) 5 mg PO DAILY [facility] Lactated Ringer's (Lactated Ringer's) 1,000 mls @ 75 mls/hr IV .[id number] [facility] Morphine Sulfate (Morphine) 1 mg IVP Q6 PRN PRN Reason: Pain, moderate (4-7) Last Admin: 12/15/17 21:53 Dose: 1 mg Tamsulosin HCl (Flomax) 0.4 mg PO DAILY [facility] Last Admin: 12/16/17 09:58 Dose: 0.4 mg - Labs Labs: 12/16/17 11:25 12/16/17 07:19 PT 13.9 SECONDS (9.7-12.2) H 12/16/17 09:00 INR 1.3 12/16/17 09:00 APTT 30 SECONDS (21-34) 12/13/17 09:09 - Constitutional Appears: Non-toxic, No Acute Distress - Head Exam Head Exam: ATRAUMATIC, NORMAL INSPECTION, NORMOCEPHALIC - Eye Exam Eye Exam: EOMI, Normal appearance - ENT Exam ENT Exam: Mucous Membranes Moist, Normal Exam - Neck Exam Neck Exam: Full ROM, Normal Inspection. absent: Tenderness - Respiratory Exam Respiratory Exam: Clear to Ausculation Bilateral, NORMAL BREATHING PATTERN. absent: Accessory Muscle Use, Respiratory Distress - Cardiovascular Exam Cardiovascular Exam: REGULAR RHYTHM, +S1, +S2 - GI/Abdominal Exam GI & Abdominal Exam: Soft, Tenderness (mild tenderness to palpation on lower quadrants). absent: Distended, Firm, Guarding, Rigid, Hypoactive Bowel Sounds - Extremities Exam Extremities Exam: Full ROM. absent: Pedal Edema - Back Exam Back Exam: Full ROM, NORMAL INSPECTION. absent: CVA tenderness (L), CVA tenderness (R) - Neurological Exam Neurological Exam: Alert, Awake, CN II-XII Intact, Oriented x3 - Psychiatric Exam Psychiatric exam: Normal Affect, Normal Mood - Skin Skin Exam: Dry, Intact, Normal Color, Warm Assessment and Plan - Assessment and Plan (Free Text) Assessment: 72M presents with blood per karimi. Patient is is s/p prostatectomy presenting with acute anemia today 12/16 acute Hgb 6.5, repeat 6.6 likely due to blood loss during surgery, patient's vitals are at baseline currently 1 u PRBC transfusion 12/16 Dr. Cathi Hadley Strict I/Os Fever: Tylenol 650 mg PO Q6H PRN Pain: Morphine 1 mg IVP Q6H PRN LR @75 cc/hr Prostate cancer s/p prostatectomy Patient is on CBIs Monitor karimi bag. Finasteride 5 mg PO QD Flomax 0.4 mg POQD Antibiotics: Cipro 500mg PO BID Prophylaxis Pepcid 20 mg PO BID anticoagulant, held discussed with Dr. Raza Gonzalez, DO PGY1 <Tyrese Person - Last Filed: 12/16/17 17:15> Objective - Vital Signs/Intake and Output Vital Signs (last 24 hours): Temp Pulse Resp BP Pulse Ox 99 F 78 20 99/61 L 96 12/16/17 14:45 12/16/17 14:45 12/16/17 14:45 12/16/17 14:45 12/16/17 08:00 Intake and Output: 12/16/17 12/16/17 06:59 18:59 Intake Total 3350 6491 Output Total 6526 5690 Balance -3200 888 - Medications Medications: Current Medications Acetaminophen (Tylenol 325mg Tab) 650 mg PO Q6 PRN PRN Reason: Pain, Mild (1-3) Atenolol (Tenormin) 25 mg PO DAILY [facility] Last Admin: 12/16/17 09:57 Dose: Not Given Ciprofloxacin (Cipro) 500 mg PO BID [facility] PRN Reason: Protocol Last Admin: 12/16/17 09:58 Dose: 500 mg Docusate Sodium (Colace) 100 mg PO TID [facility] Last Admin: 12/16/17 14:15 Dose: 100 mg Famotidine (Pepcid) 20 mg PO BID [facility] Last Admin: 12/16/17 09:58 Dose: 20 mg Finasteride (Proscar) 5 mg PO DAILY [facility] Lactated Ringer's (Lactated Ringer's) 1,000 mls @ 75 mls/hr IV .[id number] [facility] Last Admin: 12/16/17 10:30 Dose: 75 mls/hr Morphine Sulfate (Morphine) 1 mg IVP Q6 PRN PRN Reason: Pain, moderate (4-7) Last Admin: 12/16/17 15:26 Dose: 1 mg Tamsulosin HCl (Flomax) 0.4 mg PO DAILY [facility] Last Admin: 12/16/17 09:58 Dose: 0.4 mg - Labs Labs: 12/16/17 11:25 12/16/17 07:19 PT 13.9 SECONDS (9.7-12.2) H 12/16/17 09:00 INR 1.3 12/16/17 09:00 APTT 30 SECONDS (21-34) 12/13/17 09:09 Attending/Attestation - Attestation I have personally seen and examined this patient.: Yes I have fully participated in the care of the patient.: Yes I have reviewed all pertinent clinical information, including history, physical exam and plan: Yes Notes (Text): Seen and examined by me. No complain spoke to daughters at bedside CBI on draining pink urine His hemoglobin is low needs PRBC transfusion Discussed with the resident. I agree with the assessment and the plan of the resident 12/16/17 17:13
[2017-12-16] MEDS ORDERED: Magnesium Citrate Oral SOL (300 ml) PO ONE ×2 (13:00→14:30)
[2017-12-16 14:45] VITALS: RESP 20
[2017-12-16] MEDS: Morphine 4 MG/ML VIAL IVP PRN (15:26)
--- NOTE | 2017-12-16 15:42 | PN ---
DATE: 12/16/2017 SUBJECTIVE: The patient denies any chest pain, palpitation, or dizziness. PHYSICAL EXAMINATION: VITAL SIGNS: Blood pressure 101/56, heart rate 78, temperature 98.5, respirations 20. HEENT: Pale conjunctivae. CHEST: Clear. HEART: S1, S2 regular. EXTREMITIES: No edema. LABORATORY DATA: Today's hemoglobin and hematocrit 6.6 and 19, white count 7.6, platelet count 95,000. Today's SMA-7 is within normal limits except for anion gap of 9. Postoperative EKG revealed sinus rhythm with first-degree AV block and prolonged QT interval. ASSESSMENT: 1. Status post suprapubic prostatectomy. 2. History of supraventricular tachycardia. 3. Anemia. RECOMMENDATIONS: Continue atenolol 25 mg once a day. However, this was held because of blood pressure of 97/60. Further medical intervention for anemia will be left to the hospitalist. Britton Vaughn MD
[2017-12-17] MEDS: Lactated Ringer's 1,000 ML IV SCH ×4 (05:39→23:02)
[2017-12-17 08:07] LABS: BASO % 0.4 % (0.0-2.0); EOS # 0.4 K/uL (0.0-0.7); EOS % 6.3 % (0.0-4.0); LYMPH # 1.5 K/uL (1.0-4.3); LYMPH % 20.9 % (20.0-40.0); MEAN CELL VOLUME 89.7 fL (80.0-94.0); MEAN CORPUSCULAR HEMOGLOBIN 31.6 pg (27.0-31.0); MEAN CORPUSCULAR HGB CONC 35.2 g/dL (33.0-37.0); MEAN PLATELET VOLUME 8.8 fL (7.2-11.7); MONO # 0.5 K/uL (0.0-0.8); MONO % 7.5 % (0.0-10.0); NEUT # 4.5 K/uL (1.8-7.0); NEUT % 64.9 % (50.0-75.0); RBC 2.52 Mil/uL (4.40-5.90); RED CELL DISTRIBUTION WIDTH 14.7 % (11.5-14.5)
--- NOTE | 2017-12-17 08:09 | CP.PCM.PN ---
Addendum entered and electronically signed by Lisa Gonzalez DO 12/17/17 11:34: of note, patient had a suprapubic prostatectomy. arterial line was placed during the procedure catheters are in place. CBI is discontinued at this time. AM hemoglobin 8.0 Original Note: <Lisa Gonzalez - Last Filed: 12/17/17 11:31> Subjective - Date & Time of Evaluation Date of Evaluation: 12/17/17 Time of Evaluation: 08:09 - Subjective Subjective: Progress Note for Dr. Person Patient seen and examined at bedside. Patient states he felt well after blood was given and does not feel weakness, dizziness, headache, fever, chills, nausea , vomiting at this time. Patient admitted to yesterday after being given Mag Citrate. Vitals remained stable overnight. No acute events overnight. Patient was given this morning's CBC hemoglobin. Patient asked how long he has to be connected to CBI. Patient reassured. CBI is currently off. will monitor for blood in urine. Objective - Vital Signs/Intake and Output Vital Signs (last 24 hours): Temp Pulse Resp BP Pulse Ox 98.7 F 69 20 121/72 97 12/16/17 23:29 12/16/17 23:29 12/16/17 23:29 12/16/17 23:29 12/16/17 23:29 Intake and Output: 12/17/17 12/17/17 06:59 18:59 Intake Total 9550 Output Total 79344 Balance -1850 - Medications Medications: Current Medications Acetaminophen (Tylenol 325mg Tab) 650 mg PO Q6 PRN PRN Reason: Pain, Mild (1-3) Atenolol (Tenormin) 25 mg PO DAILY [facility] Last Admin: 12/16/17 09:57 Dose: Not Given Ciprofloxacin (Cipro) 500 mg PO BID [facility] PRN Reason: Protocol Last Admin: 12/16/17 18:39 Dose: 500 mg Docusate Sodium (Colace) 100 mg PO TID [facility] Last Admin: 12/16/17 18:39 Dose: 100 mg Famotidine (Pepcid) 20 mg PO BID [facility] Last Admin: 12/16/17 18:39 Dose: 20 mg Finasteride (Proscar) 5 mg PO DAILY [facility] Lactated Ringer's (Lactated Ringer's) 1,000 mls @ 75 mls/hr IV .[id number] [facility] Last Admin: 12/17/17 05:39 Dose: Not Given Morphine Sulfate (Morphine) 1 mg IVP Q6 PRN PRN Reason: Pain, moderate (4-7) Last Admin: 12/16/17 15:26 Dose: 1 mg Tamsulosin HCl (Flomax) 0.4 mg PO DAILY [facility] Last Admin: 12/16/17 09:58 Dose: 0.4 mg - Labs Labs: 12/16/17 11:25 12/16/17 07:19 PT 13.9 SECONDS (9.7-12.2) H 12/16/17 09:00 INR 1.3 12/16/17 09:00 APTT 30 SECONDS (21-34) 12/13/17 09:09 - Additional Findings Additional findings: - Constitutional Appears: Non-toxic, No Acute Distress - Head Exam Head Exam: ATRAUMATIC, NORMAL INSPECTION, NORMOCEPHALIC - Eye Exam Eye Exam: EOMI, Normal appearance - ENT Exam ENT Exam: Mucous Membranes Moist, Normal Exam - Neck Exam Neck Exam: Full ROM, Normal Inspection. absent: Tenderness - Respiratory Exam Respiratory Exam: Clear to Ausculation Bilateral, NORMAL BREATHING PATTERN. absent: Accessory Muscle Use, Respiratory Distress - Cardiovascular Exam Cardiovascular Exam: REGULAR RHYTHM, +S1, +S2 - GI/Abdominal Exam GI & Abdominal Exam: Soft, Tenderness (mild tenderness to palpation on lower quadrants). absent: Distended, Firm, Guarding, Rigid, Hypoactive Bowel Sounds - Extremities Exam Extremities Exam: Full ROM. absent: Pedal Edema - Back Exam Back Exam: Full ROM, NORMAL INSPECTION. absent: CVA tenderness (L), CVA tenderness (R) - Neurological Exam Neurological Exam: Alert, Awake, CN II-XII Intact, Oriented x3 - Psychiatric Exam Psychiatric exam: Normal Affect, Normal Mood - Skin Skin Exam: Dry, Intact, Normal Color, Warm Assessment and Plan - Assessment and Plan (Free Text) Assessment: 72M patient has a past medical history of htn, bph, svt, prostate cancer s/p prostatectomy acute Hgb 6.5, repeat 6.6 likely due to blood loss during surgery, patient's vitals are at baseline currently 1 u PRBC transfusion 12/16 Vitals stable throughout the night. No tachycardia. No hypotension. Dr. Cathi Hadley Strict I/Os Fever: Tylenol 650 mg PO Q6H PRN Pain: Morphine 1 mg IVP Q6H PRN LR @75 cc/hr Prostate cancer s/p prostatectomy Patient is on CBIs Monitor karimi bag. Finasteride 5 mg PO QD Flomax 0.4 mg POQD Antibiotics: Cipro 500mg PO BID BPH (benign prostatic hyperplasia) - Continue with Flomax 0.4 PO daily, Proscar 5 mg PO DAILY Hypertension Atenolol 25 mg POQD history SVT continue to monitor Prophylaxis Pepcid 20 mg PO BID anticoagulant, held discussed with Dr. Raza Gonzalez Eng, DO PGY1 <Tyrese Person - Last Filed: 12/18/17 22:33> Objective - Vital Signs/Intake and Output Vital Signs (last 24 hours): Temp Pulse Resp BP Pulse Ox 98.2 F 62 20 116/71 95 12/18/17 21:59 12/18/17 21:59 12/18/17 21:59 12/18/17 21:59 12/18/17 16:00 Intake and Output: 12/18/17 12/19/17 18:59 06:59 Intake Total 1482 0 Output Total 2000 Balance -518 0 - Medications Medications: Current Medications Acetaminophen (Tylenol 325mg Tab) 650 mg PO Q6 PRN PRN Reason: Pain, Mild (1-3) Atenolol (Tenormin) 25 mg PO DAILY [facility] Last Admin: 12/18/17 10:51 Dose: 25 mg Ciprofloxacin (Cipro) 500 mg PO BID [facility] PRN Reason: Protocol Last Admin: 12/18/17 17:52 Dose: 500 mg Docusate Sodium (Colace) 100 mg PO TID [facility] Last Admin: 12/18/17 17:52 Dose: 100 mg Famotidine (Pepcid) 20 mg PO BID [facility] Last Admin: 12/18/17 17:52 Dose: 20 mg Finasteride (Proscar) 5 mg PO DAILY [facility] Lactated Ringer's (Lactated Ringer's) 1,000 mls @ 75 mls/hr IV .[id number] [facility] Last Admin: 12/18/17 16:19 Dose: Not Given Morphine Sulfate (Morphine) 1 mg IVP Q6 PRN PRN Reason: Pain, moderate (4-7) Last Admin: 12/17/17 22:56 Dose: 1 mg Tamsulosin HCl (Flomax) 0.4 mg PO DAILY [facility] Last Admin: 12/18/17 10:48 Dose: 0.4 mg - Labs Labs: 12/18/17 07:15 12/18/17 07:15 PT 13.9 SECONDS (9.7-12.2) H 12/16/17 09:00 INR 1.3 12/16/17 09:00 APTT 30 SECONDS (21-34) 12/13/17 09:09 Attending/Attestation - Attestation I have personally seen and examined this patient.: Yes I have fully participated in the care of the patient.: Yes I have reviewed all pertinent clinical information, including history, physical exam and plan: Yes Notes (Text): Seen and examined by me lying comfortable No complain ,s/p blood transfusion d/w Resident.I agree with the resident documentation of the assessment and the plan.
[2017-12-17 08:18] LABS: ALB/GLOB RATIO 0.8 (1.0-2.1); ALBUMIN 2.2 g/dL (3.5-5.0); ALT/SGPT 28 U/L (21-72); AST/SGOT 27 U/L (17-59); BLOOD UREA NITROGEN 14 mg/dL (9-20); CALCIUM 7.7 mg/dl (8.6-10.4); GFR AFRICAN-AMERICAN > 60; GFR NON-AFRICAN AMERICAN > 60
[2017-12-17] MEDS: Morphine 4 MG/ML VIAL IVP PRN (22:56)
--- NOTE | 2017-12-17 23:11 | PCM.URO ---
Urology Progress Note - General General: No Complaints, Tolerating Diet - Subjective Abdominal Pain: No Flank Pain: No Nausea: No Vomiting: No Voiding Well: No Dysuria: No Hematuria: Yes (slight via catheter) Dsypnea: No Chest Pain: No Fever & Chills: No Other: Had BM. Ambulatory - Objective Lab Studies: Reviewed (anemia) Lab Results Last 24 Hours: Laboratory Results - last 24 hr 12/17/17 12/17/17 07:47 07:47 WBC 7.0 RBC 2.52 L Hgb 8.0 L Hct 22.6 L MCV 89.7 MCH 31.6 H MCHC 35.2 RDW 14.7 H Plt Count 124 L D MPV 8.8 Neut % (Auto) 64.9 Lymph % (Auto) 20.9 [place] % (Auto) 7.5 Eos % (Auto) 6.3 H Baso % (Auto) 0.4 Neut # (Auto) 4.5 Lymph # (Auto) 1.5 [place] # (Auto) 0.5 Eos # (Auto) 0.4 Baso # (Auto) 0.0 Sodium 138 Potassium 3.7 Chloride 106 Carbon Dioxide 27 Anion Gap 10 BUN 14 Creatinine 0.9 Est GFR ( Amer) > 60 Est GFR (Non-Af Amer) > 60 Random Glucose 90 Calcium 7.7 L Phosphorus 3.4 Magnesium 1.9 Total Bilirubin 1.1 AST 27 ALT 28 Alkaline Phosphatase 52 Total Protein 5.0 L Albumin 2.2 L Globulin 2.7 Albumin/Globulin Ratio 0.8 L Intake & Output: Intake & Output 12/17/17 12/17/17 12/18/17 06:59 18:59 06:59 Intake Total 9550 2700 1300 Output Total 86619 2700 1450 Balance -1850 0 -150 Intake: Intake, IV Amount 700 600 600 Right Hand 700 600 600 Oral 450 600 700 Other 8400 1500 Output: Urine 32986 2700 [address] 3-way Urethral 800 550 Suprapubic 1850 0 900 Other: # Bowel Movements 0 Vital Signs: Vital Signs - 24 hr 12/16/17 12/17/17 12/17/17 23:29 08:00 16:00 Temperature 98.7 F 98.7 F 97.9 F Pulse Rate 69 66 58 L Respiratory 20 20 20 Rate Blood Pressure 121/72 147/77 116/65 O2 Sat by Pulse 97 97 95 Oximetry - Physical Exam Abdominal Exam: Soft, Non-Tender, Non-Distended Wound: Clean, Healing Well Back: No CVA Tenderness Genitalia: Without Inflammation Urinary Catheter Draining Well: Yes Urine Color: Clear, [place] (sl pink, clears promptly with irrigation) Extremities: Normal: Bilateral (no calf or thigh tenderness) - Male Phallus: Normal Scrotum: Normal Testes: Normal: Bilateral - Plan Wound Care: Yes Catheter Care: Yes Ambulation - Out of Bed: Yes Intake & Output: Yes See Orders: Yes Additional Information: Imp: progressing well, p SPP - Date & Time of Note Date: 12/17/17 Time: 10:35
--- NOTE | 2017-12-18 07:30 | PCM.URO ---
Urology Progress Note - Objective Lab Studies: Reviewed (gu dx: hematuria, retention , s/p spp overall doing well gu plans : as above full notes are dictated) Lab Results Last 24 Hours: Laboratory Results - last 24 hr 12/17/17 12/17/17 07:47 07:47 WBC 7.0 RBC 2.52 L Hgb 8.0 L Hct 22.6 L MCV 89.7 MCH 31.6 H MCHC 35.2 RDW 14.7 H Plt Count 124 L D MPV 8.8 Neut % (Auto) 64.9 Lymph % (Auto) 20.9 [place] % (Auto) 7.5 Eos % (Auto) 6.3 H Baso % (Auto) 0.4 Neut # (Auto) 4.5 Lymph # (Auto) 1.5 [place] # (Auto) 0.5 Eos # (Auto) 0.4 Baso # (Auto) 0.0 Sodium 138 Potassium 3.7 Chloride 106 Carbon Dioxide 27 Anion Gap 10 BUN 14 Creatinine 0.9 Est GFR ( Amer) > 60 Est GFR (Non-Af Amer) > 60 Random Glucose 90 Calcium 7.7 L Phosphorus 3.4 Magnesium 1.9 Total Bilirubin 1.1 AST 27 ALT 28 Alkaline Phosphatase 52 Total Protein 5.0 L Albumin 2.2 L Globulin 2.7 Albumin/Globulin Ratio 0.8 L Intake & Output: Intake & Output 12/17/17 12/18/17 12/18/17 18:59 06:59 18:59 Intake Total 2700 2380 Output Total 2700 3250 Balance 0 -870 Intake: Intake, IV Amount 600 1200 Right Hand 600 1200 Oral 600 1180 Other 1500 Output: Urine 2700 3250 3-way Urethral 800 1750 Suprapubic 0 1500 Other: # Bowel Movements 0 0 Vital Signs: Vital Signs - 24 hr 12/17/17 12/17/17 12/18/17 08:00 16:00 00:00 Temperature 98.7 F 97.9 F 98.5 F Pulse Rate 66 58 L 61 Respiratory 20 20 20 Rate Blood Pressure 147/77 116/65 107/63 O2 Sat by Pulse 97 95 96 Oximetry
[2017-12-18 07:41] LABS: BASO % 0.5 % (0.0-2.0); EOS # 0.4 K/uL (0.0-0.7); EOS % 7.1 % (0.0-4.0); HEMOGLOBIN 8.4 g/dL (12.0-18.0); LYMPH # 1.5 K/uL (1.0-4.3); LYMPH % 24.3 % (20.0-40.0); MEAN CELL VOLUME 89.1 fL (80.0-94.0); MEAN CORPUSCULAR HEMOGLOBIN 31.2 pg (27.0-31.0); MEAN PLATELET VOLUME 8.3 fL (7.2-11.7); MONO # 0.5 K/uL (0.0-0.8); MONO % 8.4 % (0.0-10.0); NEUT # 3.6 K/uL (1.8-7.0); NEUT % 59.7 % (50.0-75.0); RBC 2.7 Mil/uL (4.40-5.90); RED CELL DISTRIBUTION WIDTH 14.9 % (11.5-14.5)
[2017-12-18 07:51] LABS: ALB/GLOB RATIO 0.8 (1.0-2.1); ALBUMIN 2.3 g/dL (3.5-5.0); ALT/SGPT 34 U/L (21-72); AST/SGOT 27 U/L (17-59); BLOOD UREA NITROGEN 15 mg/dL (9-20); GFR AFRICAN-AMERICAN > 60; GFR NON-AFRICAN AMERICAN > 60
--- NOTE | 2017-12-18 12:33 | CP.PCM.PN ---
Subjective - Date & Time of Evaluation Date of Evaluation: 12/18/17 Time of Evaluation: 12:15 - Subjective Subjective: Patient was seen and examined by me. Family present at bedside as well. The patient reported doing well. He has a cude cathter as well as a supra pubic cather as well. On 12/15 he underwent prostactectomy and supra pubic cather. He was very anemic and hypotensive and was in the ICU. He is now on the medical floor. He reports that he has no pain at rest. Denied shortness of breath, denied palpitations. He reports he only has pain at the supra pubic area when he has to cough. Hgb is now 8.4, will transfuse 2 more units of PRBC today. His creatine has decreased to 0.9 now Objective - Vital Signs/Intake and Output Vital Signs (last 24 hours): Temp Pulse Resp BP Pulse Ox 98.1 F 62 20 129/71 96 12/18/17 08:02 12/18/17 08:02 12/18/17 08:02 12/18/17 08:02 12/18/17 08:02 Intake and Output: 12/18/17 12/18/17 06:59 18:59 Intake Total 2380 Output Total 3250 Balance -870 - Medications Medications: Current Medications Acetaminophen (Tylenol 325mg Tab) 650 mg PO Q6 PRN PRN Reason: Pain, Mild (1-3) Atenolol (Tenormin) 25 mg PO DAILY [facility] Last Admin: 12/18/17 10:51 Dose: 25 mg Ciprofloxacin (Cipro) 500 mg PO BID [facility] PRN Reason: Protocol Last Admin: 12/18/17 10:48 Dose: 500 mg Docusate Sodium (Colace) 100 mg PO TID [facility] Last Admin: 12/18/17 10:48 Dose: 100 mg Famotidine (Pepcid) 20 mg PO BID [facility] Last Admin: 12/18/17 10:48 Dose: 20 mg Finasteride (Proscar) 5 mg PO DAILY [facility] Lactated Ringer's (Lactated Ringer's) 1,000 mls @ 75 mls/hr IV .[id number] [facility] Last Admin: 12/17/17 23:02 Dose: 75 mls/hr Morphine Sulfate (Morphine) 1 mg IVP Q6 PRN PRN Reason: Pain, moderate (4-7) Last Admin: 12/17/17 22:56 Dose: 1 mg Tamsulosin HCl (Flomax) 0.4 mg PO DAILY [facility] Last Admin: 12/18/17 10:48 Dose: 0.4 mg - Labs Labs: 12/18/17 07:15 12/18/17 07:15 PT 13.9 SECONDS (9.7-12.2) H 12/16/17 09:00 INR 1.3 12/16/17 09:00 APTT 30 SECONDS (21-34) 12/13/17 09:09 Assessment and Plan - Assessment and Plan (Free Text) Assessment: 72M patient has a past medical history of HTN SVT, BPH, prostate cancer s/p prostatectomy Anemia 12/18: Doing better. No palpitations or chest pain, no shortness of breath - transfusing 2 more units Vitals stable throughout the night. No tachycardia. No hypotension. Dr. Cathi Hadley Strict I/Os Fever: Tylenol 650 mg PO Q6H PRN Pain: Morphine 1 mg IVP Q6H PRN Prostate cancer s/p prostatectomy 12/18: Now off of CBI. He has supra pubic cather as well as karimi cathter. He reports no pain. Finasteride 5 mg PO QD Flomax 0.4 mg POQD Antibiotics: Cipro 500mg PO BID BPH (benign prostatic hyperplasia) 12/18: S/P Prostectomy on 12/15 - Continue with Flomax 0.4 PO daily, Proscar 5 mg PO DAILY Hypertension Atenolol 25 mg POQD History SVT 12/18: On atenolol, it is being held if the BP is low Prophylaxis Pepcid 20 mg PO BID anticoagulant is being held
[2017-12-18] MEDS: Lactated Ringer's 1,000 ML IV SCH (16:19)
[2017-12-18 23:30] VITALS: O2SAT 96
[2017-12-19] MEDS: Lactated Ringer's 1,000 ML IV SCH ×2 (01:00→05:00)
--- NOTE | 2017-12-19 06:21 | OP ---
PROCEDURE DATE: 12/14/2017 PREOPERATIVE DIAGNOSES: Clot urinary retention, gross hematuria, voiding dysfunction, elevated prostate-specific antigen. POSTOPERATIVE DIAGNOSES: Clot urinary retention, gross hematuria, voiding dysfunction, elevated PSA with massive amount of bleeding from the prostate. PROCEDURE: An open suprapubic prostatectomy. The blood loss during the procedure itself was about 100 mL or less, but the patient has bled so significantly, see the operative note, there were tremendous amount of clots to be evacuated. COMPLICATIONS: None. SPECIMEN: Prostate. DRAINS: A 22-Mosotho Coude-tip catheter via the urethra with about 60 mL in the balloon, another drain is a suprapubic catheter, 24-Mosotho with 5 mL in the balloon and 2 Maryann drains. SURGEON: Juan Hadley MD. GUIDANCE ADVISER SURGEON: Dr. Wild. We also had a resident present, Bibiana Hummel and her name is listed on the chart. INDICATIONS FOR THE PROCEDURE: Please see consultation and history and physical, but in brief, this is a very pleasant gentleman in his 70s, [place]. See the previously dictated notes. We at that time did a cysto evacuation of clot. We discussed various options with the patient. Risks, benefits, treatment alternatives at length have been discussed and after discussing all those options with the patient, he is here now for the above procedure. He was given voiding trial, what he describes is that everything was okay until the day of his presentation, where he presented now with gross hematuria. When I came to the bedside, on initial evaluation this presentation, a Flower catheter was not placed well. We readjusted the catheter. We were not able to get a large bore catheter, we were able to get a Coude tip catheter but not a three-way catheter. We irrigated some and then we made the plans for the surgical procedure which was part of the plan to begin with. Initially upon presentation, we spoke to the medical team, and the hospitalist, employee relation manager about stabilizing the patient In preparation for today's procedure, they transfused the patient. We discussed various parameters. The patient again has had a fairly significant bleed, as evident by the hemoglobin and hematocrit. BUN and creatinine are noted. Labs are noted. We have transfused the patient at least 1 unit and this is being monitored by the anesthesiologist as well as the employee relation manager. Actually as we are beginning the procedure, we are recommending that the patient has another unit. The patient was brought to the OR, placed on the table. Risks, benefits discussed with the patient. Side effect, risks of surgery, risks of perforation, particularly in this case the nature of it being a very concerning procedure in a patient who has previously had lost so much blood was explained at great length, risk of heart attack, stroke were emphasized as well. OPERATIVE FINDINGS: A gigantic prostate with a large intravesical lobe, mostly a lot of intravesical lobe that made it somewhat difficult to maneuver, but at the termination of the procedure, we removed the prostate. We removed all the clots and overall the patient did very well throughout the procedure. DESCRIPTION OF PROCEDURE: After obtaining informed consent, we had the phone system camera repairer assist us in providing translation. The patient was brought to the OR, placed on the table, routine monitoring device was placed. Time-out was called. We confirmed the patient, the positioning, the planing etc. We removed the old catheter and under sterile technique, we inserted a new Flower catheter and then overinflated the bladder, we actually took some pictures with the overly distended bladder. At this point, we prepped our patient in a sterile fashion again. We positioned the table with a little break in the table with little flexion and began our procedure. We measured at about few fingerbreadths above the pubic bone and made a Pfannenstiel incision. We dissected this down through the underlying fascia. We identified the rectus muscles, the belly of the rectus muscles and split this and dissected down to the bladder. We flipped off from the bladder flap. We put some stay sutures in the bladder and we made incision into the bladder. We drained out the fluid. It was actually unlike most suprapubic where we just drain the fluid from the irrigation, in his case, it took a tremendous amount of time just to irrigate out all the clots to literally clot by clot by clot and irrigate and pull out and irrigate, tremendous amount of effort here due to bleeding. Bu once we did this, we identified the prostate, we identified the Flower catheter. We made like a hockey stick incision on the posterior part of the prostate with good clear vision and then we enucleated the prostate. It actually came out in some sections and pieces. Further evaluation to get control of bleeding actually, at this point, once that was removed, not too much bleeding was noted. We then worked carefully, meticulously, irrigating out any more blood and we then inspected for the ureteral orifices. We inspected at multiple points along the way, initially as soon as we opened the bladder as well as during the way. The patient has ureteral catheters, but it was some what difficult to identify in his case. At this point, as we worried about identifying, we actually had a nice squirt of urine particularly from the left side and also from the right side, but not as clear but the left side easily clean but they were grossly intact after we had enucleated the prostate. At this point, we put a suture in the bladder neck at the 5 o'clock and 7 o' clock, although there was really minimal bleeding noted. We inserted a Flower catheter via the urethra. I want to mention that is very important, it seems the first time including today I was not able to put in a flat catheter of any size not that I tried every size, but I ended up putting in a 22-Mosotho Coude-tip catheter right into the bladder, but the flat one did not. I believe this from urethral injury that has been from the Flower catheter the initial insertion, but with time a few days to heal. We will also have to address that as appropriate and necessary. At this time, we inserted a 22-Mosotho Coude-tip catheter with 30 mL balloon that we actually filled up to about 60 mL. At this point, we then began our bladder closure. We did a suprapubic catheter, with 24-Mosotho with 5 mL in the balloon. We closed the bladder in two layers with interrupted and running sutures, chromic. anteriorly. We then placed two Penroses. We reapproximated the rectus muscles, just for a good closure, we then closed the fascia with 0 Vicryl. We then closed subcu, we closed the skin. We I secured them in place as well. At this point, we placed a dry sterile dressing. I want to mention that at multiple times during the procedure, we irrigated the bladder with great closure, there was actually no leaking around the side. We put the Maryann anyway just for extra security. We now connected the Flower catheter into traction to a mild amount of traction. There were no complications. We secured it with traction. The patient was brought to recovery room in stable condition, having tolerated the procedure well without complications. Juan Hadley MD
--- NOTE | 2017-12-19 06:23 | PN ---
DATE: 12/18/2017 See my previous dictated notes in the chart including admission history and physical and consultations, and operative notes, and daily progress notes. SUBJECTIVE: Today, the patient is awake, resting comfortably. No complaints of pain. He had a bowel movement yesterday. Overall, feeling well. PAST MEDICAL AND SURGICAL HISTORY: No other changes. MEDICATIONS: Noted. PHYSICAL EXAMINATION: GENERAL: A well-nourished male, in no apparent distress. He is currently resting comfortably. VITAL SIGNS: Within normal limits. ABDOMEN: Relatively soft. . Flower is suprapubic. noted. Urine output noted. DIAGNOSES: Gross hematuria, slight urinary retention, the patient is now status post an open suprapubic prostatectomy. . At this point, the patient is progressing very well. Vital signs remain stable. noted. From Urology standpoint, we are going to continue making progress slowly, receive postop care. Yesterday we ordered incentive spirometer and continue pulmonary toilet. Case was discussed ambulation. We will continue to monitor the patient. PLAN: The plan will be as follows: For now we are going to keep both Flower and suprapubic catheter in place. There is an event plan. The Flower catheter via the urethra. I will maintain the patient with a suprapubic catheter. The patient will eventually be discharged home with the suprapubic catheter and no Flower via the penis and then after voiding trials and reinsert Flower catheter via urethra. The issue here though as mentioned in previous notes is that the patient previously had some kind of difficulty when the catheter was inserted via the urethra. The fact even though it was surgical procedure, I was not able to get in a straight catheter and I needed to use a Coude tip catheter. Therefore, to allow for more healing time before giving a voiding trial. It is not the voiding trial, but before using the Flower catheter, hoping with a 22-Serbian in place, healing well. The patient is doing well. Juan Hadley MD
--- NOTE | 2017-12-19 06:25 | PN ---
DATE: 12/16/2017 UROLOGY PROGRESS NOTE See my many previously dictated notes. This is a brief note for the chart. The patient is now out of the . Hopeful of doing well. . The patient . The patient had no chest pain or shortness of breath . Overall doing well. PAST MEDICAL AND SURGICAL HISTORY: No other changes. He was diagnosed on physical exam, no major changes. DIAGNOSIS: Slight urinary retention. The patient is now status post an open prostatectomy and overall doing well. The patient's hemoglobin and hematocrit are within normal limits. We are planning today. I spoke with the medical records library professor. We are planning transfusion again. See my previously dictated notes regarding the hemoglobin and hematocrit and the patient's resuscitation by the medical team and they are monitoring the hemoglobin and hematocrit. From Urology standpoint, sometimes we will transfuse further. Right now, the patient is stable and follow . The patient is still more actively bleeding. He is doing well. Note, from urology standpoint, 1. We will keep postop care, specifically pulmonary toilet, ambulation, incentive spirometer. 2. We will the patient's Milk of Magnesia . 3. We are going to plan further followup. PLAN: For now, maintaining suprapubic catheter and Flower catheter. Eventually, we are going to the suprapubic Flower catheter . we are going to keep drainage via the cystostomy tube. The issue is that the patient has some kind of problem that as mentioned in the operative note. When I came to see him initially, the catheter was not all the way in the urethra and then during the procedure itself, we were not able to insert the Flower catheter. We . We are hoping that is healing with this over time. The patient may require future endoscopic evaluation. We will discuss this and follow. Juan Hadley MD
[2017-12-19 06:38] LABS: BASO % 0.5 % (0.0-2.0); EOS # 0.5 K/uL (0.0-0.7); EOS % 8.3 % (0.0-4.0); HEMOGLOBIN 10.4 g/dL (12.0-18.0); LYMPH # 1.7 K/uL (1.0-4.3); LYMPH % 25.6 % (20.0-40.0); MEAN CELL VOLUME 86.1 fL (80.0-94.0); MEAN CORPUSCULAR HEMOGLOBIN 30.3 pg (27.0-31.0); MEAN CORPUSCULAR HGB CONC 35.1 g/dL (33.0-37.0); MEAN PLATELET VOLUME 7.7 fL (7.2-11.7); MONO # 0.6 K/uL (0.0-0.8); NEUT # 3.7 K/uL (1.8-7.0); NEUT % 56.6 % (50.0-75.0); RBC 3.43 Mil/uL (4.40-5.90); WHITE BLOOD COUNT 6.5 K/uL (4.8-10.8)
[2017-12-19 07:20] VITALS: BP 127/72; PULSE 60; TEMP 98.6
[2017-12-19 07:29] LABS: GFR AFRICAN-AMERICAN > 60; GFR NON-AFRICAN AMERICAN > 60
[2017-12-19 08:12] LABS: ALBUMIN 2.3 g/dL (3.5-5.0); ALT/SGPT 35 U/L (21-72); AST/SGOT 34 U/L (17-59); BLOOD UREA NITROGEN 11 mg/dL (9-20); CALCIUM 8.1 mg/dl (8.6-10.4)
[2017-12-19 08:22] LABS: ALB/GLOB RATIO 0.7 (1.0-2.1)
--- NOTE | 2017-12-19 08:50 | CP.PCM.DIS ---
Provider - Provider Date of Admission: 12/12/17 21:18 Attending physician: Aston Hutchison DO Time Spent in preparation of Discharge (in minutes): 55 Hospital Course - Lab Results Lab Results: Micro Results 12/13/17 17:33 Blood Blood Culture - Final NO GROWTH AFTER 5 DAYS 12/13/17 17:33 Blood Gram Stain - Final TEST NOT PERFORMED 12/13/17 17:33 Blood Blood Culture - Final NO GROWTH AFTER 5 DAYS 12/13/17 17:33 Blood Gram Stain - Final TEST NOT PERFORMED 12/15/17 Unknown Nose MRSA Culture - Final MRSA NOT DETECTED 12/13/17 17:33 Urine,Karimi Urine Culture - Final No Growth (<1,000 CFU/ML) Most Recent Lab Values WBC 6.5 K/uL (4.8-10.8) 12/19/17 06:32 RBC 3.43 Mil/uL (4.40-5.90) L 12/19/17 06:32 Hgb 10.4 g/dL (12.0-18.0) L D 12/19/17 06:32 Hct 29.6 % (35.0-51.0) L 12/19/17 06:32 MCV 86.1 fL (80.0-94.0) D 12/19/17 06:32 MCH 30.3 pg (27.0-31.0) 12/19/17 06:32 MCHC 35.1 g/dL (33.0-37.0) 12/19/17 06:32 RDW 16.0 % (11.5-14.5) H 12/19/17 06:32 Plt Count 167 K/uL (130-400) 12/19/17 06:32 MPV 7.7 fL (7.2-11.7) 12/19/17 06:32 Neut % (Auto) 56.6 % (50.0-75.0) 12/19/17 06:32 Lymph % (Auto) 25.6 % (20.0-40.0) 12/19/17 06:32 Laramie % (Auto) 9.0 % (0.0-10.0) 12/19/17 06:32 Eos % (Auto) 8.3 % (0.0-4.0) H 12/19/17 06:32 Baso % (Auto) 0.5 % (0.0-2.0) 12/19/17 06:32 Neut # (Auto) 3.7 K/uL (1.8-7.0) 12/19/17 06:32 Lymph # (Auto) 1.7 K/uL (1.0-4.3) 12/19/17 06:32 Laramie # (Auto) 0.6 K/uL (0.0-0.8) 12/19/17 06:32 Eos # (Auto) 0.5 K/uL (0.0-0.7) 12/19/17 06:32 Baso # (Auto) 0.0 K/uL (0.0-0.2) 12/19/17 06:32 Neutrophils % (Manual) 90 % (50-75) H 12/14/17 06:28 Band Neutrophils % 1 % (0-2) 12/14/17 06:28 Lymphocytes % (Manual) 5 % (20-40) L 12/14/17 06:28 Monocytes % (Manual) 4 % (0-10) 12/14/17 06:28 Differential Comment 12/14/17 21:50 Platelet Estimate Normal (NORMAL) 12/14/17 06:28 RBC Morphology Normal 12/14/17 06:28 Retic Count 1.7 % (0.5-1.5) H 12/12/17 22:49 Haptoglobin 143.8 mg/dL (30.0-200.0) 12/12/17 22:49 PT 13.9 SECONDS (9.7-12.2) H 12/16/17 09:00 INR 1.3 12/16/17 09:00 APTT 30 SECONDS (21-34) 12/13/17 09:09 Puncture Site Line 12/14/17 14:55 pCO2 34 mm/Hg (35-45) L 12/14/17 14:55 pO2 265 mm/Hg (80-100) H 12/14/17 14:55 HCO3 17.4 mmol/L (21-28) L 12/14/17 14:55 ABG pH 7.28 (7.35-7.45) L 12/14/17 14:55 ABG Total CO2 17.0 mmol/L (22-28) L 12/14/17 14:55 ABG O2 Saturation 99.9 % (95-98) H 12/14/17 14:55 ABG Base Excess -9.8 mmol/L (-2.0-3.0) L 12/14/17 14:55 Brannon Test Na 12/14/17 14:55 ABG Potassium 3.9 mmol/L (3.6-5.2) 12/14/17 14:55 VBG pH 7.19 (7.32-7.43) L* 12/13/17 13:22 VBG pCO2 26 mmHg (40-60) L 12/13/17 13:22 VBG HCO3 10.9 mmol/L 12/13/17 13:22 VBG Total CO2 10.7 mmol/L (22-28) L 12/13/17 13:22 VBG O2 Sat (Calc) 65.1 % (40-65) H 12/13/17 13:22 VBG Base Excess -16.7 mmol/L (0.0-2.0) L 12/13/17 13:22 VBG Potassium 4.9 mmol/L (3.6-5.2) 12/13/17 13:22 A-a O2 Difference 406.0 mm/Hg 12/14/17 14:55 Respiratory Index 1.5 12/14/17 14:55 Sodium 141.0 mmol/l (132-148) 12/14/17 14:55 Chloride 114.0 mmol/L (98-107) H 12/14/17 14:55 Glucose 112 mg/dl (75-110) H 12/14/17 14:55 Lactate 2.2 mmol/L (0.7-2.1) H 12/14/17 14:55 Liter Flow 5.0 12/13/17 11:13 FiO2 100.0 % 12/14/17 14:55 Crit Value Called To Dr pollard 12/13/17 13:22 Crit Value Called By Tawanda pollard sewing machine operator 12/13/17 13:22 Crit Value Read Back Y 12/13/17 13:22 Blood Gas Notified Time 1325 12/13/17 13:22 Sodium 139 mmol/L (132-148) 12/19/17 06:32 Potassium 3.7 mmol/L (3.6-5.2) 12/19/17 06:32 Chloride 107 mmol/L (98-107) 12/19/17 06:32 Carbon Dioxide 26 mmol/L (22-30) 12/19/17 06:32 Anion Gap 10 (10-20) 12/19/17 06:32 BUN 11 mg/dL (9-20) 12/19/17 06:32 Creatinine 0.9 mg/dL (0.8-1.5) 12/19/17 06:32 Est GFR ( Amer) > 60 12/19/17 06:32 Est GFR (Non-Af Amer) > 60 12/19/17 06:32 POC Glucose (mg/dL) 200 mg/dL (65-110) H 12/13/17 08:44 Random Glucose 88 mg/dL (75-110) 12/19/17 06:32 Calcium 8.1 mg/dl (8.6-10.4) L 12/19/17 06:32 Phosphorus 4.3 mg/dL (2.5-4.5) 12/19/17 06:32 Magnesium 1.8 mg/dL (1.6-2.3) 12/19/17 06:32 Iron 46 ug/dL (49-181) L 12/12/17 22:49 TIBC 308 ug/dL (250-450) 12/12/17 22:49 % Saturation 15 (20-55) L 12/12/17 22:49 Ferritin 61.5 ng/mL 12/12/17 22:49 Total Bilirubin 1.0 mg/dL (0.2-1.3) 12/19/17 06:32 AST 34 U/L (17-59) 12/19/17 06:32 ALT 35 U/L (21-72) 12/19/17 06:32 Alkaline Phosphatase 59 U/L (38-126) 12/19/17 06:32 Lactate Dehydrogenase 357 U/L (313-618) 12/12/17 22:49 Total Creatine Kinase 36 U/L (55-170) L 12/13/17 09:09 CK-MB (Mass) 1.05 ng/mL (0.0-3.38) 12/13/17 09:09 Troponin I < 0.0120 ng/mL (0.00-0.120) 12/13/17 09:09 Total Protein 5.4 g/dL (6.3-8.3) L 12/19/17 06:32 Albumin 2.3 g/dL (3.5-5.0) L 12/19/17 06:32 Globulin 3.1 gm/dL (2.2-3.9) 12/19/17 06:32 Albumin/Globulin Ratio 0.7 (1.0-2.1) L 12/19/17 06:32 Lipase 94 U/L (23-300) 12/12/17 20:29 Arterial Blood Potassium 3.9 mmol/L (3.6-5.2) 12/14/17 14:55 Venous Blood Potassium 4.9 mmol/L (3.6-5.2) 12/13/17 13:22 Urine Color Red (YELLOW) 12/12/17 23:01 Urine Clarity Hazy (Clear) 12/12/17 23:01 Urine pH 6.0 (5.0-8.0) 12/12/17 23:01 Ur Specific Wheelwright 1.004 (1.003-1.030) 12/12/17 23:01 Urine Protein 2+ mg/dL (NEGATIVE) H 12/12/17 23:01 Urine Glucose (UA) Normal mg/dL (Normal) 12/12/17 23:01 Urine Ketones Negative mg/dL (NEGATIVE) 12/12/17 23:01 Urine Blood 3+ (NEGATIVE) H 12/12/17 23:01 Urine Nitrate Negative (NEGATIVE) 12/12/17 23:01 Urine Bilirubin Negative (NEGATIVE) 12/12/17 23:01 Urine Urobilinogen Normal mg/dL (0.2-1.0) 12/12/17 23:01 Ur Leukocyte Esterase Neg Dyllan/uL (Negative) 12/12/17 23:01 Urine WBC (Auto) 2 /hpf (0-5) 12/12/17 23:01 Urine RBC (Auto) 4193 /hpf (0-3) H 12/12/17 23:01 Calcium Oxalate Crystal Mod /hpf (<OCC) H 12/12/17 23:01 Blood Type O POSITIVE 12/18/17 13:44 Antibody Screen Negative 12/18/17 13:44 - Hospital Course Hospital Course: Upon Admission: This is a 72 yo male, [place] [facility], with past medical history of SVT , urinary retention, BPH, hematuria, HTN, presenting today to [facility] ER with chief complaint of "I can't urinate." Patient has longstanding problem with urinary retention and urinary hesitancy. He was recently discharged from this hospital in November 2017 with karimi. He is s/p cystoscopy with evacuation of clots and fulguration from that hospitalization. The cystoscopy did not show signs of malignancy. He was also diagnosed with a urinary tract infection and discharged on PO ciprofloxacin for 14 days. He reports suprapubic pain currently x 1 month. Every time he goes to urinate, he feels he cannot. When he is finally able to force himself to urinate, he experiences hematuria. He denies any recent upper respiratory tract infection. He denies family history of renal disease. He denies flank pain. He denies any trauma. He denies any recent vigorous exercise. He denies any history of bleeding disorder. He does report recent travel to [facility] 1 month ago. Pt does report being compliant with all his medications. He says that Dr. Hadley told him to come into the hospital so he can have a procedure done this . However, he states that he was told he needs cardiac clearance beforehand. Echo performed November 2017 shows normal LV function, normal biventricular fx, no evidence of valvular abnormality. Denies having any stress test or cath. He is dutch speaking only and is accompanied by his daughter who is also dutch speaking only. Full history was obtained with help of web weaver. PMH: BPH, SVT, urinary retention, s/p recent cystoscopy, hematuria Echo from 2018- technically difficult study but no valvular abnormality and normal LV systolic function Normal perfusion stress test in 2016 PSH: cystoscopy 2018 Allergies: NKDA FH: [place] in family, age 69 Home meds: recently finished course of PO ciprofloxacin 500 mg BID for 14 days , atenolol 25 mg PO daily, finasteride 5 mg PO daily, tamsulosin .4 mg PO daily Social hx: current smoker. smokes 1 cigarette per day since age 19. does not drink. denies drug use. Born in [facility]. 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 Full code status. Able to complete all ADLs. Fully mobile and does not use cane or walker. Lives at home with daughter and daughter's family. PMD: Laith Herrera/[facility] ( last visit 12/11/17) Specialists: Dr. Hadley. Pt denies seeing pool table mechanic outpatient. Throughout Hospital Course: 72M patient has a past medical history of HTN, Hx SVT, BPH, benign enlarged prostate causing hematuria s/p prostatectomy Enlarged prostate s/p prostatectomy Dr. Cathi Hadley 12/18: Now off of CBI. He has supra pubic catheter as well as karimi catheter. He reports no pain. Finasteride 5 mg PO QD Flomax 0.4 mg POQD Antibiotics: Cipro 500mg PO BID Anemia Doing better. No palpitations or chest pain, no shortness of breath - patient received total 6 units throughout hospital course - hemoglobin @ 10.4 Vitals stable throughout the night. No tachycardia. No hypotension. Strict I/Os Pain: Morphine 1 mg IVP Q6H PRN BPH (benign prostatic hyperplasia) 12/18: S/P Prostectomy on 12/15 - Continue with Flomax 0.4 PO daily, Proscar 5 mg PO DAILY Hypertension History SVT Atenolol 25 mg POQD Please review EMR for full record - as this is a brief summary of the patient's hospital course. Discharge Exam - Additional Findings Additional findings: - Constitutional Appears: Non-toxic, No Acute Distress - Head Exam Head Exam: ATRAUMATIC, NORMAL INSPECTION, NORMOCEPHALIC - Eye Exam Eye Exam: EOMI, Normal appearance - ENT Exam ENT Exam: Mucous Membranes Moist, Normal Exam - Neck Exam Neck Exam: Full ROM, Normal Inspection. absent: Tenderness - Respiratory Exam Respiratory Exam: Clear to Ausculation Bilateral, NORMAL BREATHING PATTERN. absent: Accessory Muscle Use, Respiratory Distress - Cardiovascular Exam Cardiovascular Exam: REGULAR RHYTHM, +S1, +S2 - GI/Abdominal Exam GI & Abdominal Exam: Soft, Tenderness (mild tenderness to palpation on lower quadrants), suprapubic catheter in place c/d/i. absent: Distended, Firm, Guarding, Rigid, Hypoactive Bowel Sounds - Extremities Exam Extremities Exam: Full ROM. absent: Pedal Edema - Back Exam Back Exam: Full ROM, NORMAL INSPECTION. absent: CVA tenderness (L), CVA tenderness (R) - Neurological Exam Neurological Exam: Alert, Awake, CN II-XII Intact, Oriented x3 - Psychiatric Exam Psychiatric exam: Normal Affect, Normal Mood - Skin Skin Exam: Dry, Intact, Normal Color, Warm karimi catheter in place Discharge Plan - Discharge Medications Prescriptions: Atenolol [Tenormin] 25 mg PO DAILY #30 tablet Ciprofloxacin [Cipro] 500 mg PO BID #6 tab Docusate [Colace] 100 mg PO BID #60 cap Finasteride [Proscar] 5 mg PO DAILY #30 tab Tamsulosin [Flomax] 0.4 mg PO DAILY 30 Days #30 cap - Follow Up Plan Condition: STABLE Disposition: HOME/ ROUTINE Additional Instructions: Continue taking Flomax daily and Proscar daily and Cipro 500mg by mouth twice a day with meals for 3 more days. For your heart you will be taking the following medications: Atenolol 25mg by mouth daily. You can take colace 100mg by mouth twice a day if you are feeling constipated. Please take Percocet 1 tablet every 4 hours for SEVERE pain NEEDED, otherwise you can take Tylenol. You will need to see Dr. Mannie Hadley on tonight or tomorrow in his office. Please call him to arrange this. Please make sure you follow up with a primary care physician, if you do not have one, please follow up with us in our [facility] in [place] in to establish care and to have routine follow up. [address] [address] Please take care and be well. -- Siga tomando Flomax diariamente y Proscar diariamente y Cipro 500mg por va oral dos veces al da con las comidas gus 3 hess ms. Para brenner corazn usted kristyn los siguientes medicamentos: atenolol 25mg por va oral diariamente. Usted puede kristyn Colace 100mg por la boca dos veces al da si usted se siente estreido. Por favor tome Percocet 1 tableta cada 4 horas para el dolor mariela nicki sea necesario, de lo contrario usted puede kristyn Tylenol. Mannie Hadley esta noche o maana en [place] of[facility]. Por favor, llmalo para arreglar esto. Por favor, asegrese de seguir con un mdico de atencin primaria, si usted no tiene suri, por favor, siga con nosotros en nuestra [facility] [place] en [place] para establecer la atencin y tener seguimiento de rutina. [facility] [place] [address] [place] [address] Por favor, cudate y Estrada twila. Referrals: Mannie Hadley MD [Staff Provider] -
--- NOTE | 2017-12-19 14:33 | CARD ---
APPROVED REPORT EKG Measurement Heart [id number] <Conclusion> Sinus rhythm with 1st degree AV block Prolonged QT Inferior infarct, age undetermined Abnormal ECG
== END 2017-12-19 16:22 | disposition home or self-care (01) | DRG 707 ==
LOC: C.ER 19:11 → C.3T 21:18 → C.9E 21:18 → C.9I 12-13 09:29 → C.3T 12-15 22:18
PROVIDERS: ADMIT Internal Medicine; ATTEND Hospitalist
PROC: 0T7 Urinary System, Dilation (ICD-10-PCS; 2017-12-14)
PROC: 0T9B00Z Drainage of Bladder with Drainage Device, Open Approach (ICD-10-PCS; 2017-12-14)
PROC: 0TCB0ZZ Extirpation of Matter from Bladder, Open Approach (ICD-10-PCS; 2017-12-14)
PROC: 30233N1 Transfusion of Nonautologous Red Blood Cells into Peripheral Vein, Percutaneous Approach (ICD-10-PCS; 2017-12-14)
PROC: 0VT00ZZ Resection of Prostate, Open Approach (ICD-10-PCS; principal; 2017-12-14 12:00)
DX: N40.1 Benign prostatic hyperplasia with lower urinary tract symptoms (principal); A41.9 Sepsis, unspecified organism; R65.20 Severe sepsis without septic shock; E87.2 Acidosis; N39.0 Urinary tract infection, site not specified; D62 Acute posthemorrhagic anemia; N17.9 Acute kidney failure, unspecified; I10 Essential (primary) hypertension; N13.9 Obstructive and reflux uropathy, unspecified; E16.2 Hypoglycemia, unspecified; D69.6 Thrombocytopenia, unspecified; I44.0 Atrioventricular block, first degree; R33.8 Other retention of urine; F17.210 Nicotine dependence, cigarettes, uncomplicated; R31.0 Gross hematuria; R55 Syncope and collapse; Z85.46 Personal history of malignant neoplasm of prostate